=== PATIENT | female | born 1935 | race African-American/Black ===

== ENCOUNTER → 2016-12-09 | Outpatient (CLI) | payer MEDICARE, OTHER ==
[~2016-12-09] MED LIST: ATORVASTATIN CA20 MG PO; BRIMONIDINE OP; CALCITRIOL0.25 MCG PO; CYCLOBENZAPRINE10 MG PO; D-10001 TAB PO; DIPHENHYDRAMINE25 M1 PO; FERROUS GLUCON324 M2 PO; FLONASE 50 MCG16 GM; FSBS FS; GABAPENTIN100 M1 PO; HUMALOG100 U/ML SC; HUMULIN N100 UNITS/ SC; HYDRALAZINE HC100 MG PO; HYDRALAZINE HCL25 M1 PO; INSULIN GL100 UNITS/ SC; IPRATROPIUM BROM3 M1 IH; LASIX20 MG PO; LEVOTHYROXINE0.05 MG PO; LIDOCAINE1 EACH TP; METOLAZONE2.5 MG PO; METOPROLOL TAR100 MG PO; MORPHINE SULFAT15 M4 PO; NEXIUM40 MG PO; NYSTATIN SU60 ML/BOT PO; Novolog100 U/ML SC; PERCOCET 5/3251 EACH PO; PERFOROMIS20 MCG/2 M IH; PREDNISONE 10MG10 MG PO; PROAIR HFA0.09 MG/AC IH; PULMICORT0.5 MG/2 M IN; SINGULAIR 10 MG10 MG PO; TOPCARE PAIN R325 MG PO; ULORIC80 MG PO; WARFARIN SOD5 M1 PO; WARFARIN SOD5 MG PO; XALATAN 0.005%2.5 M1 OP; [UNRECOGNIZED DRUG - OTHER] OP
--- NOTE | 2016-12-09 13:11 | RADIOLOGY REPORT PS360 ---
HIP RT 2-3V W/PELVIS IF PERFOR HISTORY: RT HIP PAIN ORDERING PHYSICIAN: WILLI DUGAN MD PATIENT AGE: 81 years COMPARISON: None FINDINGS: No fracture or dislocation is evident. No significant degenerative change. No lytic or blastic change. Unremarkable soft tissues. There is extensive vascular calcification IMPRESSION: 1. Negative right hip. 2. Atherosclerotic vascular disease
== END ==
LOC: RAD 09:36
DX: M25.551 Pain in right hip (principal)

== ENCOUNTER 2017-01-12 14:55 | Inpatient (IN) | payer MEDICARE, OTHER ==
[~2017-01-12] VITALS: Ht 165.1 cm; Wt 108.0 kg
[2017-01-12 14:58] VITALS: BP 105/69
--- NOTE | 2017-01-12 15:09 | Emergency Room Report ---
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 PT C/O INCREASING SOA FOR THE PAST' TWO DAYS. Onset of symptoms date/time:/ or onset unknown for:MEDICAL HX UNKNOWN Treatment Prior to Arrival: PT STARTED ON DUONEB. 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 N Clinical Suspician of Infection? N Mental Status: 1 - Regular (Normal Baseline) Sepsis Risk:Low Sepsis Risk Have you (or family members/close friends) recently traveled outside the [place]? N If Yes, where/when: Have you had exposure to infectious disease within the past month? N TB? Other? Specify: Recent states the past 2-3 days of progressively worsening shortness of breath she states she has a cough nonproductive that but that she feels congested and can't get anything to come up. He states it feels like chronic obstructive pulmonary disease exacerbation to her. No complain of any leg pain, denies any chest pain. She denies any pain she states only pain she has some low back pain which she stated was chronic for her but she denies any back pain currently. Her pain is 0/10. His nausea vomiting diarrhea headache or abdominal pain or chest pain. on 3 L of oxygen at home. ALLERGIES Coded Allergies: Iodinated Contrast- Oral and IV Dye (IODINATED CONTRAST MEDIA - ORAL AND) (10/27) Penicillins (10/27/16) Sulfa (Sulfonamide Antibiotics) (10/27/16) ciprofloxacin (From CIPRO) (10/27/16) codeine (10/27/16) daptomycin (10/27/16) lactose (10/27/16) propoxyphene (10/27/16) Home Medications Active Scripts Oxycodone 5MG/[id number] (Oxycodone-Acetaminophen 5-325) 1 EACH PO Q6H 30 Days Prov: 11/02/16 Insulin Lispro, Recombinant (Humalog 100 UNITS/ML 10ML) 0 UNITS SC W/MEALS& HS 30 Days Ref 3 Prov: 11/02/16 MISCELLANEOUS (Fingerstick Blood Sugar) 1 EACH FS W/MEALS&HS 30 Days Ref 3 Prov: 11/02/16 Reported Medications ATORVASTATIN CALCIUM (ATORVASTATIN 20MG) 20 MG PO QHS Brimonidine Tartrate (Alphagan P 10 Ml) 1 DROP OP BID Calcitriol 0.25 MCG PO DAILY Esomeprazole Magnesium (Nexium 40MG Cap) 40 MG PO DAILY Ferrous Gluconate 324 MG PO DAILY Fluticasone Propionate (Flonase 50 Mcg Nasal [place]) 2 SPRAY NA BID Levothyroxine Sodium (Levothyroxine) 2 TAB PO DAILY Metoprolol Tartrate (Metoprolol 100MG) 100 MG PO BID Hydralazine Hcl 100 MG PO BID Montelukast Sodium (Singulair 10MG) 10 MG PO DAILY Prednisone (Prednisone 10MG) 10 MG PO QAM Febuxostat (Uloric) 80 MG PO QAM Lidocaine 1 EACH TP DAILY #90 PATCH ALBUTEROL-IPRATROPIUM (Iprat-Albut 0.5-3(2.5) MG/3 Ml) 3 ML IH DAILY ALBUTEROL-IPRATROPIUM (Iprat-Albut 0.5-3(2.5) MG/3 Ml) 3 ML IH Q4HP PRN SOB NYSTATIN (Nystatin Susp 100,000 Units/Ml 60ML) 5 ML PO QIDP PRN ANTIFUNGAL Acetaminophen (Pain Relief) 650 MG PO Q6HP PRN MILD PAIN CHOLECALCIFEROL (VITAMIN D3) (Vitamin D) 1 TAB PO DAILY WARFARIN SOD (Warfarin 5MG) 5 MG PO DAILY INSULIN GLARGINE (Lantus 3ML Solostar Pen) 80 UNITS SC DAILY Budesonide (Pulmicort) 0.5 MG IN BID Cyclobenzaprine Hcl (Cyclobenzaprine 10MG) 10 MG PO QHS Formoterol Fumarate (Perforomist) 20 MCG IH BID Furosemide (Lasix) 20 MG PO BID Gabapentin (Gabapentin 100MG) 200 MG PO BID Fluorometholone (FML) 1 DROP OP DAILY Metolazone 2.5 MG PO DAILY #30 TAB History Medical History General CAD? No Angina: No AK: No Hypertension? Yes Hyperlipidemia? Yes CHF? No DVT? No PE? Yes COPD? Yes Asthma? No Anemia? Yes GERD? Yes Gastric ulcers? No GI Bleed? No Hernia? No Thyroid Problems? Yes Hypothyroidism? Yes CVA? No Seizures? No Diabetes? Yes Insulin Dependent: Yes Insulin Pump: No Home FSBS? Yes Renal Insuffiency? Yes End Stage Renal Disease? Yes UTI? Yes Stones? No BPH? No GB Disease: Yes Nephritic Syndrome? No Asplenia? No Hepatitis? No Sickle Cell Disease? No Arthritis? Yes Migraines? No Cataracts? Yes Glaucoma? Yes MRSA? No HIV? No TB? No Anxiety? No Depression? No Cancer? No More? No Additional hx: 1. Polymyositis 2. Fibromyalgia 3. B12 Deficiency 4. Iron Deficiency Anemia 5. Stage III Kidney Disease Immunization Hx DT/Tetanus Unknown Pneumonia Received In Past Surgical Hx Previous Surgery?Y BACK SURGERY NECK SURGERY SHOULDERS BILATERALLY Cholecystectomy TUBAL LIGATION Family History Family Hx Diabetes Yes CAD Yes Hypertension Yes Hyperlipidemia Yes Cancer No TB No Social History Smoking Hx Smoker: Never Smoker Tobacco: No Packs/day N/A Alcohol Alcohol: No Review of Systems All Other Systems Reviewed and Negative Physical Exam Vital Signs Vital Signs Date Time Temp Pulse Resp B/P Pulse O2 O2 Flow FiO2 Ox Delivery Rate 01/12 1652 70 16 120/74 100 01/12 1458 98.5 74 16 105/69 100 15 General Appearance: Nontoxic obese Head: Normocephalic, without obvious abnormality, atraumatic. Eyes: conjunctiva/corneas clear ENT: Mucous membranes moist. Neck: No jugular venous distention. Cardiac: regular rate and rhythm Lungs: wheezes rhonchi to auscultation bilaterally Abdomen: Nontender, Nondistended, positive bowel sounds, no rebound : No CVA tenderness Extremities: trace edema No Homans sign No calf tenderness Musculoskeletal: No chest wall tenderness Skin: No rashes or lesions to exposed skin. Neurologic: Alert. No gross focal deficits Psychiatric: Normal affect (Molly CUBA, Francisco Javier) General Appearance mild distress Respiratory Status Yes: respiratory distress. Cardiovascular normal exam Neurologic alert Medical Decision Making LABS/Meds/Orders Pt receiving controlled substance in ED? No Comment 312pm transfer sheet states bp was 84/56. bp currently in 100s per RN. 324 pc02 70 but ph is normal 7.4, no old abg in computer. bipap ordered 512 call out to Jaime for admission. 520 dw jaime, no desire vancomycin or other antibiotics, dw labs abg wbc cr etc. Results/Orders Laboratory Tests 01/12/17 1510: ABG pH 7.41, ABG pCO2 (Temp Corrct 70.2 H, ABG pO2 (Temp Correct 67.7 L, ABG HCO3 43.2 H, ABG Total CO2 45.4 H, ABG O2 Sat (Calculated) 92.7, ABG Base Excess 18.5 H, Micah Test NON APPLICABLE, Blood Gas Comments RIGHT BRACHIAL 01/12/17 1501: Lactic Acid 1.2 01/12/17 1501: Sodium 141, Potassium 4.6, Chloride 101, Carbon Dioxide 42 *H, BUN 64 H, Creatinine 2.0 H, Estimated Creat Clear 50, Estimated GFR (MDRD) 24 L, Glucose 113 H, Calcium 8.7, Total Bilirubin 0.4, AST 42 H, ALT 41, Alkaline Phosphatase 79, Troponin I < 0.02, B-Natriuretic Peptide 126 H, Total Protein 6.9, Albumin 2.6 L, Globulin 4.3 H, Albumin/Globulin Ratio 0.6 L, PT 48.2 H, INR 4.40 H, APTT 40.1 H, WBC 29.3 *H, RBC 3.24 L, Hgb 10.3 L, Hct 33.7 L, MCV 104.1 H, RDW 15.9, Plt Count 220, MPV 9.5, Gran % 83.8 H, Gran # 24.6 H, Total Counted Pending, Lymphocytes % 4.3 L, Monocytes % 11.5 H, Eosinophils % 0.4, Basophils % 18.7 H, Neutrophils Pending, Lymphocytes (Manual) Pending, Lymphocytes # 1.3, Monocytes # 3.4 H, Eosinophils # 0.1, Basophils # 5.5 H, Platelet Estimate Pending, PUBS MCHC 30.2 L, MCH 31.4 H Current Medication Orders Sig/Isidro Start time Last Medication Dose Route Stop Time Status Admin Sodium Chloride 100 ML .STK-MED ONE 01/12 1610 DC IV Ertapenem 0 .STK-MED ONE 01/12 1609 DCr .ROUTE Ertapenem 1 GM ONCE ONE 01/12 1600 DCr 01/12 Sodium Chloride 50 ML IV 01/12 1629 1616 Albuterol/Ipratropium 0 .STK-MED ONE 01/12 1515 DC INH Sodium Chloride 10 ML PRN PRN 01/12 1515 AC IV 01/13 1504 Albuterol/Ipratropium 0 .STK-MED ONE 01/12 1512 DC INH Methylprednisolone 0 .STK-MED ONE 01/12 1506 DC Sodium Succinate .ROUTE Albuterol/Ipratropium 3 ML ONCE ONE 01/12 1500 DC 01/12 INH 01/12 1501 1517 Albuterol/Ipratropium 3 ML ONCE ONE 01/12 1500 DC 01/12 INH 01/12 1501 1517 Albuterol/Ipratropium 3 ML ONCE ONE 01/12 1500 DC INH 01/12 1501 Methylprednisolone 125 MG ONCE ONE 01/12 1500 DC 01/12 Sodium Succinate IV 01/12 1501 1518 Orders Procedure Date/time Status Decision to admit 01/12 1720 Active BIPAP-INITIAL SETUP 01/12 1609 Complete RESP THERAPY REQUEST (GENERAL) 01/12 1551 Active INFLUENZA A&B ANTIGENS 01/12 1550 Active PARTIAL THROMBOPLASTIN TIME 01/12 1510 Complete PROTHROMBIN TIME 01/12 1510 Complete ELECTROCARDIOGRAM REQUEST 01/12 1504 Active IV SALINE LOCK 01/12 1504 Active DIFFERENTIAL-WBC 01/12 1501 Active RT REQUEST DUONEB 01/12 1459 Active ARTERIAL BLOOD GAS REQUEST 01/12 1459 Active CULTURE, BLOOD 01/12 1459 Active URINALYSIS/COMPLETE 01/12 1459 Active TROPONIN I 01/12 1459 Complete LACTIC ACID 01/12 1459 Complete CBC WITH AUTO DIFF 01/12 1459 Active CHEM 12 PROFILE 01/12 1459 Complete BRAIN NATRIURETIC PEPTIDE 01/12 1459 Complete 12 LEAD EKG-BESSON (INITIAL) 01/12 UNK Active CM/EKG CM/rolled glass 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 Rhythm Normal Sinus Rhythm Rate 74 Ectopy No Comments Electrocardiogram read by myself normal axis unremarkable electrocardiogram EKG NSR Departure Departure Time of Disposition 1713 Disposition Still a Patient Clinical Impression Primary Impression: Pneumonia Qualifiers: Pneumonia type: due to unspecified organism Laterality: bilateral Lung location: lower lobe of lung Qualified Code: J18.9 - Pneumonia, unspecified organism Secondary Impressions: Hypercapnia Condition STABLE Referrals Erik [facility],Manuel (Family) ED Critical Care Critical Care Yes Time spent 30-74 min Vital system(s) involved: Respiratory Failure I was present at bedside for Coordinating pt's care, Interpreting EKGs/Strips , During my initial exam, Reviewing lab results, Reviewing old records, Discussing pt condition, For re-examinations, Examining radiographs at 1723
[2017-01-12 15:19] LABS: ARTERIAL ABE 18.5 MMOL/L (-2.4-+2.3); ARTERIAL PO2 67.7 MMHG (80-100); ARTERIAL TCO2 45.4 MMOL/L (23-27)
[2017-01-12 15:20] LABS: ALLEN'S TEST NON APPLICABLE; OXYGEN 2LPM
[2017-01-12 15:23] LABS: LYMPH # 1.3 K/mm3 (0.7-4.5); LYMPH % 4.3 % (10-50.0)
[2017-01-12 15:30] LABS: HEMOGLOBIN 10.3 g/dL (12.2-16.2)
[2017-01-12 15:38] LABS: BUN 64 mg/dL (7-18)
[2017-01-12 15:49] LABS: GFR (ESTIMATED) 24 ML/MIN (59-)
--- NOTE | 2017-01-12 17:04 | RADIOLOGY REPORT PS360 ---
CHEST-PORTABLE COMPARISON: Portable upright chest 10/27/2016 HISTORY: Shortness of breath and cough TECHNIQUE: Portable upright chest FINDINGS: The patient is morbidly obese and this is a poor inspiration. However there are coarse bronchovascular markings in the right perihilar region and right lower lobe consistent with a pneumonic infiltrate. The left base is probably evaluated due to the poor inspiration and the enlarged left ventricle. There is cardiomegaly with left ventricular prominence but there is no obvious evidence of failure. There is been previous anterior cervical fusion lower cervical spine. IMPRESSION: Poor inspiration, findings suggesting right perihilar and right lower lobe bronchopneumonia, there could be minimal infiltrate at the left base as well but this is poorly seen due to reasons mentioned above.
[2017-01-12 18:04] LABS: NEUTROPHILS 60 % (42-76)
[2017-01-12 20:45] VITALS: BP 121/58
[2017-01-12 21:17] LABS: URINE BILIRUBIN - DIPSTICK NEGATIVE (NEG); URINE BLOOD NEGATIVE (NEG)
[2017-01-12 21:27] VITALS: BP 158/78
[2017-01-12 21:28] LABS: URINE SQUAMOUS CELLS 20-50 #/hpf (0-5)
[2017-01-12 21:29] LABS: URINE RENAL CELLS OCC #/HPF
[2017-01-12 23:45] VITALS: BP 125/73
[2017-01-12] MEDS ORDERED: FOLIC ACID 1MG T1 MG PO (23:56)
[2017-01-12] MEDS ORDERED: DULCOLAX10 M1 RC (23:56)
[2017-01-12] MEDS ORDERED: MILK OF MA400 MG/51 PO (23:58)
[2017-01-12] MEDS ORDERED: NYSTATIN TO30 GM/BOT TP (23:59)
[2017-01-13 04:03] VITALS: BP 132/56
[2017-01-13 07:00] LABS: HEMOGLOBIN 9.4 g/dL (12.2-16.2); LYMPH # 1.3 K/mm3 (0.7-4.5); LYMPH % 4.1 % (10-50.0)
--- NOTE | 2017-01-13 07:19 | PHARMACY CLINIC NOTE ---
Patient Demographics Patient Demographics Admission date: 01/12/17 Date: 01/13/17 Time: 0718 Allergies Coded Allergies: Iodinated Contrast- Oral and IV Dye (IODINATED CONTRAST MEDIA - ORAL AND) (10/27) Penicillins (10/27/16) Sulfa (Sulfonamide Antibiotics) (10/27/16) ciprofloxacin (From CIPRO) (10/27/16) codeine (10/27/16) daptomycin (10/27/16) lactose (10/27/16) propoxyphene (10/27/16) HEIGHT- FT: 5 IN: 5.00 K.387 VTE General Information Labs: Laboratory Tests 01/13 01/12 0628 1501 Coagulation PT (9.4 - 11.8 SECONDS) 48.2 H INR (0.9 - 1.1) 4.40 H APTT (23.6 - 34.0 SECONDS) 40.1 H Hematology Hgb (12.2 - 16.2 g/dL) 9.4 L 10.3 L Hct (37.0 - 47.0 %) 30.1 L 33.7 L Plt Count (142 - 424 K/mm3) 184 220 Disclaimer The following section includes nursing documentation that has been pulled in for pharmacy review. Patient's VTE score: 3 Patient's VTE Risk: LOW RISK Clinical trial participant? No VTE prophylaxis [id number] VTE prophylaxis ordered? Yes Type of prophylaxis/treatment: AKIN at 0718
[2017-01-13 07:48] VITALS: BP 97/67
[2017-01-13] MEDS ORDERED: WARFARIN SODIU7.5 MG PO (08:12)
[2017-01-13] MEDS ORDERED: LASIX80 MG PO (08:15)
--- NOTE | 2017-01-13 08:29 | HISTORY AND PHYSICAL REPORT ---
History and Physical ([facility]) Date of admission: 01/12/17 Chief complaint: SOA, Cough History: History of Present Illness: Ms. Savage is an 81yo female with a hx of Type 2 DM, hypothyroidism, gout, HLP, and COPD. She states over the past 3 days she has developed a cough and been getting progressively more SOA. Her cough has been nonproductive and she can't get anything to come up. She did have a slight amount of chest pain yesterday across her chest. She is normally on 3L of oxygen but her sats have been low even on nasal oxygen. She was evaluated in the ER and found to have pneumonia. She was placed on BIPAP d/t low sats and an elevated CO2. It also appears she may have a UTI. Cx is still pending. She was given a dose of ertapenem in the ER. Past Medical History: Medical History: CAD? No Angina: No AK: No Hypertension? Yes Hyperlipidemia? Yes CHF? No DVT? No PE? Yes COPD? Yes Asthma? No Anemia? Yes GERD? Yes Gastric ulcers? No GI Bleed? No Hernia? No Thyroid Problems? Yes Hypothyroidism? Yes CVA? No Seizures? No Diabetes? Yes Insulin Dependent: Yes Insulin Pump: No Home FSBS? Yes Renal Insuffiency? Yes UTI? Yes Stones? No BPH? No GB Disease: Yes Nephritic Syndrome? No Asplenia? No Hepatitis? No Sickle Cell Disease? No Arthritis? Yes Migraines? No Cataracts? Yes Glaucoma? Yes MRSA? No HIV? No TB? No Anxiety? No Depression? No Cancer? No More? No Additional hx: 1. Polymyositis 2. Fibromyalgia 3. B12 Deficiency 4. Iron Deficiency Anemia 5. Stage III Kidney Disease Surgical history: Previous Surgery?Y BACK SURGERY NECK SURGERY SHOULDERS BILATERALLY Cholecystectomy TUBAL LIGATION I&D ANAL BOIL Medications: Active Scripts Oxycodone 5MG/[id number] (Oxycodone-Acetaminophen 5-325) 1 EACH PO Q6H 30 Days Prov: 11/02/16 Insulin Lispro, Recombinant (Humalog 100 UNITS/ML 10ML) 0 UNITS SC W/MEALS& HS 30 Days Ref 3 Prov: 11/02/16 MISCELLANEOUS (Fingerstick Blood Sugar) 1 EACH FS W/MEALS&HS 30 Days Ref 3 Prov: 11/02/16 Reported Medications ATORVASTATIN CALCIUM (ATORVASTATIN 20MG) 20 MG PO QHS Brimonidine Tartrate (Alphagan P 10 Ml) 1 DROP OP BID Esomeprazole Magnesium (Nexium 40MG Cap) 40 MG PO DAILY Ferrous Gluconate 324 MG PO DAILY Fluticasone Propionate (Flonase 50 Mcg Nasal [place]) 2 SPRAY NA BID Levothyroxine Sodium (Levothyroxine) 2 TAB PO DAILY Metoprolol Tartrate (Metoprolol 100MG) 100 MG PO BID Hydralazine Hcl 100 MG PO BID Montelukast Sodium (Singulair 10MG) 10 MG PO DAILY Prednisone (Prednisone 10MG) 10 MG PO QAM Febuxostat (Uloric) 80 MG PO QAM Lidocaine 1 EACH TP DAILY #90 PATCH ALBUTEROL-IPRATROPIUM (Iprat-Albut 0.5-3(2.5) MG/3 Ml) 3 ML IH DAILY ALBUTEROL-IPRATROPIUM (Iprat-Albut 0.5-3(2.5) MG/3 Ml) 3 ML IH Q4HP PRN SOB NYSTATIN (Nystatin Susp 100,000 Units/Ml 60ML) 5 ML PO QIDP PRN ANTIFUNGAL Acetaminophen (Pain Relief) 650 MG PO Q6HP PRN MILD PAIN CHOLECALCIFEROL (VITAMIN D3) (Vitamin D) 1 TAB PO DAILY INSULIN GLARGINE (Lantus 3ML Solostar Pen) 80 UNITS SC DAILY Calcitriol 0.25 MCG PO MoWeFr WARFARIN SOD (Warfarin 5MG) 5 MG PO SuMoTuThFrSa Metolazone 5 MG PO DAILY #30 TAB WARFARIN SOD (Warfarin 7.5MG) 7.5 MG PO We Furosemide (Lasix) 80 MG PO DAILY Budesonide (Pulmicort) 0.5 MG IN BID Cyclobenzaprine Hcl (Cyclobenzaprine 10MG) 10 MG PO QHS Formoterol Fumarate (Perforomist) 20 MCG IH BID Gabapentin (Gabapentin 100MG) 200 MG PO BID Fluorometholone (FML) 1 DROP OP DAILY Bisacodyl (Dulcolax) 10 MG RC DAILYP PRN BOWELS FOLIC ACID (Folic Acid) 1 MG PO DAILY Magnesium Hydroxide (Milk Of Magnesia U/D 30ML) 30 ML PO DAILYP PRN BOWELS Nystatin (Nystatin 1 Ml) 1 ML NA BID Allergies: Coded Allergies: Iodinated Contrast- Oral and IV Dye (IODINATED CONTRAST MEDIA - ORAL AND) (10/27) Penicillins (10/27/16) Sulfa (Sulfonamide Antibiotics) (10/27/16) ciprofloxacin (From CIPRO) (10/27/16) codeine (10/27/16) daptomycin (10/27/16) lactose (10/27/16) propoxyphene (10/27/16) Family History: Family history: Postive for: CAD, DM, HTN, cancer, stroke. Social History: Smoking Hx Tobacco: No Smoker: Former Smoker Type: N/A Packs/day: N/A Are you exposed to second hand No Alcohol: Alcohol: No Hx of Drug Use: Drug Use? No Review of Systems: Constitutional Positive for: fatigue, lethargy, malaise, weak. ENT No: ear drainage, nasal congestion, sinus problems, sore throat. Cardiovascular Positive for: chest pain, edema. No: palpitations. Respiratory Positive for: shortness of air, non-productive, wheezing. GI No: abdominal pain, diarrhea, nausea, vomitting. (female) Positive for: frequency. No: flank pain, hematuria. Neurological Positive for: weakness. No: dizziness, headache, syncope. Musculoskeletal Positive for: joint pain (right hip). No: extremity pain. Physical Exam: Vital signs: 1ST Vital Signs Result Date Time Pulse Ox 100 01/12 1458 B/P 105/69 01/12 145 O2 Flow Rate 15 01/12 145 Temp 98.5 01/12 145 Pulse 74 01/12 145 Resp 16 01/12 145 O2 Delivery OXYGEN 01/12 2030 Exam: General appearance: alert, awake, no acute distress Eyes: PERRLA, clear drainage from eyes ENT: mucous membranes moist, nose normal, pharynx normal Neck: non-tender, full range of motion, supple Cardiovascular: regular rate & rhythm Respiratory: bilateral wheezing and rhonchi, faint basilar rales ABD: non-distended, normal bowel sounds, no rebound, soft, no tenderness, no guarding Extremities: 2+ pretibial edema bilaterally Musculoskeletal: equal muscle strength, motor intact, sensation intact Skin: normal color Neuro: normal mood/affect, oriented, speech clear Lab data: Labs: Laboratory Tests 01/13/17 0628: Sodium 141, Potassium 5.5 H, Chloride 100, Carbon Dioxide 38 H, BUN 67 H, Creatinine 1.9 H, Estimated Creat Clear 40 L, Estimated GFR (MDRD) 25 L, Glucose 292 H, Calcium 8.6, WBC 31.6 *H, RBC 2.96 L, Hgb 9.4 L, Hct 30.1 L, MCV 102.0 H, RDW 15.9, Plt Count 184, MPV 9.5, Gran % 88.8 H, Gran # 28.0 H, Lymphocytes % 4.1 L, Monocytes % 6.8, Eosinophils % 0.3, Basophils % 6.2 H, Lymphocytes # 1.3, Monocytes # 2.1 H, Eosinophils # 0.1, Basophils # 2.0 H, PUBS MCHC 31.1 L, MCH 31.7 H 01/13/17 0616: POC Glucose 297 H 01/13/17 0151: POC Glucose 222 H 01/12/17 2114: POC Glucose 133 H 01/12/17 2100: Urine Color YELLOW, Urine Appearance SL CLOUDY, Urine pH 7.0, Ur Specific [place] 1.010, Urine Protein NEGATIVE, Urine Ketones NEGATIVE, Urine Blood NEGATIVE, Urine Nitrate POSITIVE H, Urine Bilirubin NEGATIVE, Urine Urobilinogen 0.2, Ur Leukocyte Esterase 1+ H, Urine RBC NONE, Urine WBC 20-50, Ur Squamous Epith Cells 20-50, Urine Renal Cells OCC, Urine Bacteria 4+, Urine Glucose NEGATIVE 01/12/17 1510: ABG pH 7.41, ABG pCO2 (Temp Corrct 70.2 H, ABG pO2 (Temp Correct 67.7 L, ABG HCO3 43.2 H, ABG Total CO2 45.4 H, ABG O2 Sat (Calculated) 92.7, ABG Base Excess 18.5 H, Micah Test NON APPLICABLE, Blood Gas Comments RIGHT BRACHIAL 01/12/17 1501: Lactic Acid 1.2 01/12/17 1501: Sodium 141, Potassium 4.6, Chloride 101, Carbon Dioxide 42 *H, BUN 64 H, Creatinine 2.0 H, Estimated Creat Clear 50, Estimated GFR (MDRD) 24 L, Glucose 113 H, Calcium 8.7, Total Bilirubin 0.4, AST 42 H, ALT 41, Alkaline Phosphatase 79, Troponin I < 0.02, B-Natriuretic Peptide 126 H, Total Protein 6.9, Albumin 2.6 L, Globulin 4.3 H, Albumin/Globulin Ratio 0.6 L, PT 48.2 H, INR 4.40 H, APTT 40.1 H, WBC 29.3 *H, RBC 3.24 L, Hgb 10.3 L, Hct 33.7 L, MCV 104.1 H, RDW 15.9, Plt Count 220, MPV 9.5, Gran % 83.8 H, Gran # 24.6 H, Total Counted 100, Lymphocytes % 4.3 L, Monocytes % 11.5 H, Eosinophils % 0.4, Basophils % 18.7 H, Neutrophils 60, Band Neutrophils 7, Lymphocytes (Manual) 4 L, Lymphocytes # 1.3, Monocytes (Manual) 10 H, Monocytes # 3.4 H, Eosinophils # 0.1, Basophils # 5.5 H, Basophils # (Manual) 12 H, Metamyelocytes 5 *H, Atypical Lymphocytes 2, Platelet Estimate NORMAL, Hypochromasia 1+, Macrocytosis 1+, PUBS MCHC 30.2 L, MCH 31.4 H Microbiology 01/12 2100 URINE CC: Urine Culture - RECD 01/12 1501 BLOOD: Anaerobic Blood Culture - RECD 01/12 1501 BLOOD: Aerobic Blood Culture - RECD 01/12 1501 BLOOD: Anaerobic Blood Culture - RECD 01/12 1501 BLOOD: Aerobic Blood Culture - RECD Radiology results: Results: CXR - Poor inspiration, findings suggesting right perihilar and right lower lobe bronchopneumonia, there could be minimal infiltrate at the left base as well but this is poorly seen Diagnosis(es): 1. Pneumonia Status: Acute 2. Hypercapnia Status: Acute 3. Urinary tract infection Status: Acute 4. Hyperkalemia Status: Acute 5. Supratherapeutic INR Status: Acute 6. Physical debility Status: Chronic 7. Stage 3 chronic kidney disease Status: Chronic 8. Fibromyalgia Status: Chronic 9. Hypothyroidism Status: Chronic 10. History of pulmonary embolism Status: Chronic 11. DM type 2 (diabetes mellitus, type 2) Status: Chronic 12. Hyperlipidemia Status: Chronic 13. Hypertension Status: Chronic 14. COPD (chronic obstructive pulmonary disease) Status: Chronic Plan: Patient only received one dose of ertapenem in the ER. Patient is on prednisone daily so she will be a pseudomonal risk. She also has multiple medication allergies. Will discuss furter abx with Dr. Valencia to cover for her pneumonia and UTI. Will await urine and sputum cx's. She was on nasal oxygen to eat and her sats dropped to 80% so she was started back on BIPAP. Will hold coumadin for now d/t supratherapeutic INR. BP has been low. Will hold BP medication and diuretics as well. Will recheck labs tomorrow. (Alba Shahid) Diagnosis(es): 1. Pneumonia Status: Acute 2. Hypercapnia Status: Acute 3. Urinary tract infection Status: Acute 4. Hyperkalemia Status: Acute 5. Supratherapeutic INR Status: Acute 6. Physical debility Status: Chronic 7. Stage 3 chronic kidney disease Status: Chronic 8. Fibromyalgia Status: Chronic 9. Hypothyroidism Status: Chronic 10. History of pulmonary embolism Status: Chronic 11. DM type 2 (diabetes mellitus, type 2) Status: Chronic 12. Hyperlipidemia Status: Chronic 13. Hypertension Status: Chronic 14. COPD (chronic obstructive pulmonary disease) Status: Chronic Plan: Patient seen and agree with above note. Plan on changing empiric antibiotics to Meropenem and Azithromycin due to risk of Pseudomonas as patient takes steroids on a daily basis, will also add stress dose steroids and AKIN hose. (Manuel Valencia MD) at 0828 at 0905
[2017-01-13 11:53] VITALS: BP 116/58
[2017-01-13 16:15] VITALS: BP 160/56
[2017-01-13 20:27] VITALS: BP 161/61
[2017-01-14] VITALS (7 sets, daily range): BP systolic 130–187; BP diastolic 54–70
[2017-01-14 06:44] LABS: HEMOGLOBIN 8.9 g/dL (12.2-16.2); LYMPH % 0.1 % (10-50.0)
--- NOTE | 2017-01-14 08:17 | ACUTE CARE PROGRESS NOTE (QUA) ---
Progress Notes Subjective Date 01/14/17 Time 0806 Note Pt states she is feeling better today. She slept last night and has been off BIPAP since 4am and on nasal oxygen. Her sats have been in the mid 90's. She states she is finally able to cough up some sputum. Her SOA has improved. She denies any pain. Objective Findings Last VS-Temp:97.7 B/P:181/54 Pulse:83 Resp:22 SaO2:96 OXYGEN Last weight lbs:245 oz:9 [id number] Method:Bed Scales Laboratory Tests 01/14/17 0617: Sodium 142, Potassium 4.4, Chloride 103, Carbon Dioxide 35 H, BUN 62 H, Creatinine 1.6 H, Estimated Creat Clear 48 L, Estimated GFR (MDRD) 31 L, Glucose 387 H, Calcium 8.3 L, Total Bilirubin 0.3, AST 25, ALT 30, Alkaline Phosphatase 76, Total Protein 6.8, Albumin 2.3 L, Globulin 4.5 H, Albumin/ Globulin Ratio 0.5 L, PT 21.0 H, INR 1.93 H, WBC 18.6 H, RBC 2.85 L, Hgb 8.9 L, Hct 29.6 L, MCV 103.8 H, RDW 16.0, Plt Count 193, MPV 9.9, Gran % 90.8 H, Gran # 16.9 H, Lymphocytes % 0.1 L, Monocytes % 4.8, Eosinophils % 0.1, Basophils % 4.3 H, Lymphocytes # 0.0 L, Monocytes # 0.9, Eosinophils # 0.0, Basophils # 0.8 H, PUBS MCHC 29.9 L, MCH 31.1 01/13/17 2136: POC Glucose 453 *H 01/13/17 1638: POC Glucose 331 *H 01/13/17 1203: POC Glucose 386 *H Microbiology 01/13 929 SPUTUM: Sputum Culture - RES 01/13 929 SPUTUM: Gram Stain - RES Exam General appearance: alert, awake, no acute distress Cardiovascular: regular rate & rhythm Respiratory: better air movement, still with some wheezing and rhonchi ABD: non-distended, normal bowel sounds, no rebound, soft, no tenderness, no guarding Extremities: 1+ pretibial edema bilaterally Reviewed: Urine cx - mixed organisms, suggest contamination Assessment/Plan Problem List 1. Pneumonia Status: Acute 2. Hypercapnia Status: Acute 3. Urinary tract infection Status: Acute 4. Hyperkalemia Status: Acute 5. Supratherapeutic INR Status: Acute 6. Physical debility Status: Chronic 7. Stage 3 chronic kidney disease Status: Chronic 8. Fibromyalgia Status: Chronic 9. Hypothyroidism Status: Chronic 10. History of pulmonary embolism Status: Chronic 11. DM type 2 (diabetes mellitus, type 2) Status: Chronic 12. Hyperlipidemia Status: Chronic 13. Hypertension Status: Chronic 14. COPD (chronic obstructive pulmonary disease) Status: Chronic Plan: Will start back on lasix and BP medications since BP is stable today. Will start back on coumadin since INR is now normal. Will await sputum cx. Pt improving. WBC has improved. HGB is slightly low. Will repeat labs tomorrow to monitor. This inpt stay is expected to cross 2 MNs from start of care Yes (Alba Shahid) Assessment/Plan Problem List 1. Pneumonia Status: Acute 2. Hypercapnia Status: Acute 3. Urinary tract infection Status: Acute 4. Hyperkalemia Status: Acute 5. Supratherapeutic INR Status: Acute 6. Physical debility Status: Chronic 7. Stage 3 chronic kidney disease Status: Chronic 8. Fibromyalgia Status: Chronic 9. Hypothyroidism Status: Chronic 10. History of pulmonary embolism Status: Chronic 11. DM type 2 (diabetes mellitus, type 2) Status: Chronic 12. Hyperlipidemia Status: Chronic 13. Hypertension Status: Chronic 14. COPD (chronic obstructive pulmonary disease) Status: Chronic Comments: Patient seen and agree with above note. (Manuel Valencia MD) at 0817 at 0854
[2017-01-14 10:43] LABS: NEUTROPHILS 86 % (42-76)
[2017-01-15] VITALS (8 sets, daily range): BP systolic 141–179; BP diastolic 62–100
[2017-01-15 06:23] LABS: HEMOGLOBIN 9.1 g/dL (12.2-16.2); LYMPH # 0.9 K/mm3 (0.7-4.5); LYMPH % 6.1 % (10-50.0)
--- NOTE | 2017-01-15 09:06 | ACUTE CARE PROGRESS NOTE (QUA) ---
Progress Notes Subjective Date 01/15/17 Time 0903 Note Resting comfortably. Rattling cough. Asks about her eye drops and Performist. Objective Findings Last VS-Temp:98.1 B/P:158/62 Pulse:70 Resp:20 SaO2:96 OXYGEN Last weight lbs:245 oz:9 K.387 Method:Bed Scales Exam General appearance: alert, no acute distress Eyes: anicteric, PERRLA ENT: mucous membranes moist Cardiovascular: regular rate & rhythm Respiratory: good air movement, no respiratory distress ABD: soft, no tenderness Extremities: edema (trace) Musculoskeletal: equal muscle strength Skin: dry, intact Neuro: alert, no deficit, oriented, speech clear Reviewed: medications, vital signs, lab results, radiology report Assessment/Plan Problem List 1. Pneumonia Status: Acute 2. Hypercapnia Status: Acute 3. Urinary tract infection Status: Acute 4. Hyperkalemia Status: Acute 5. Supratherapeutic INR Status: Acute 6. Physical debility Status: Chronic 7. Stage 3 chronic kidney disease Status: Chronic 8. Fibromyalgia Status: Chronic 9. Hypothyroidism Status: Chronic 10. History of pulmonary embolism Status: Chronic 11. DM type 2 (diabetes mellitus, type 2) Status: Chronic 12. Hyperlipidemia Status: Chronic 13. Hypertension Status: Chronic 14. COPD (chronic obstructive pulmonary disease) Status: Chronic Plan: continue current care This inpt stay is expected to cross 2 MNs from start of care Yes at 0906
[2017-01-16] VITALS (8 sets, daily range): BP systolic 137–184; BP diastolic 64–89
--- NOTE | 2017-01-16 10:53 | ACUTE CARE PROGRESS NOTE (QUA) ---
Progress Notes Subjective Date 01/16/17 Time 1047 Note She states that she had vertigo all day yesterday. Examination of her eyes this morning does not reveal vertigo but she has bilateral chemosis worse on the RIGHT. She has a low IV fluid rate however. And her tongue appears slightly dry. She has a trace of leg edema. She has good air movement bilaterally with bronchial breath sounds. I do not hear rales at this time. Objective Findings Last VS-Temp:98.5 B/P:159/89 Pulse:60 Resp:18 SaO2:95 OXYGEN Last weight lbs:245 oz:9 K.387 Method:Bed Scales Exam General appearance: alert, no acute distress Eyes: anicteric, chemosis, worse on the RIGHT ENT: dry mucous membranes Cardiovascular: regular rate & rhythm Respiratory: aerating well ABD: soft, no tenderness Extremities: edema (trace, chronic) Skin: dry, intact Neuro: alert, oriented Reviewed: medications, vital signs, lab results Assessment/Plan Problem List 1. Pneumonia Status: Acute 2. Hypercapnia Status: Acute 3. Urinary tract infection Status: Acute 4. Hyperkalemia Status: Acute 5. Supratherapeutic INR Status: Acute 6. Physical debility Status: Chronic 7. Stage 3 chronic kidney disease Status: Chronic 8. Fibromyalgia Status: Chronic 9. Hypothyroidism Status: Chronic 10. History of pulmonary embolism Status: Chronic 11. DM type 2 (diabetes mellitus, type 2) Status: Chronic 12. Hyperlipidemia Status: Chronic 13. Hypertension Status: Chronic 14. COPD (chronic obstructive pulmonary disease) Status: Chronic Patient condition Stable Plan: continue current care, the nurse expressed some concerns about possible aspiration when eating. Modified barium swallow ordered This inpt stay is expected to cross 2 MNs from start of care Yes Comments: She is not receiving her eyedrops yet. at 1058
--- NOTE | 2017-01-16 13:09 | ACUTE CARE PROGRESS NOTE (QUA) ---
Progress Notes Subjective Date 01/16/17 Time 1308 Assessment/Plan Problem List 1. Pneumonia Status: Acute 2. Hypercapnia Status: Acute 3. Urinary tract infection Status: Acute 4. Hyperkalemia Status: Acute 5. Supratherapeutic INR Status: Acute 6. Physical debility Status: Chronic 7. Stage 3 chronic kidney disease Status: Chronic 8. Fibromyalgia Status: Chronic 9. Hypothyroidism Status: Chronic 10. History of pulmonary embolism Status: Chronic 11. DM type 2 (diabetes mellitus, type 2) Status: Chronic 12. Hyperlipidemia Status: Chronic 13. Hypertension Status: Chronic 14. COPD (chronic obstructive pulmonary disease) Status: Chronic This inpt stay is expected to cross 2 MNs from start of care Yes Antibiotic Stewardship (2) Current Culture Results Microbiology 01/13 929 SPUTUM: Sputum Culture - RES YEAST 01/13 09 SPUTUM: Gram Stain - RES 01/12 2100 URINE CC: Urine Culture - COMP 01/12 1501 BLOOD: Anaerobic Blood Culture - RES 01/12 1501 BLOOD: Aerobic Blood Culture - RES Infxn that will respond? Yes Right drug,dose,and route? Yes More targeted antbx? No at 1303
[2017-01-17] VITALS (7 sets, daily range): BP systolic 136–176; BP diastolic 63–104
--- NOTE | 2017-01-17 08:26 | ACUTE CARE PROGRESS NOTE (QUA) ---
Progress Notes Subjective Date 01/17/17 Time 0745 Note Thinks she is better; not as SOB; has a productive cough; did sleep well last night; eating without problems; voiding QS and bowels are moving. Has not been OOB as yet. Objective Findings Laboratory Tests 01/17/17 0608: POC Glucose 192 H 01/17/17 0450: PT 18.5 H, INR 1.70 H 01/16/17 2052: POC Glucose 191 H 01/16/17 1656: POC Glucose 406 *H 01/16/17 1149: POC Glucose 218 H Vital Signs Date Time Temp Pulse Resp B/P Pulse O2 O2 Flow FiO2 Ox Delivery Rate 01/17 629 2 01/17 06 2 01/17 0554 94 OXYGEN 2 01/17 045 2 01/17 0340 2 01/17 034 98.0 64 20 142/63 94 OXYGEN 2 01/17 0259 88 ROOM AIR 01/17 0254 2 01/17 0157 2 01/17 0100 2 01/17 0027 98.1 60 24 147/79 94 OXYGEN 2 01/17 0026 2 01/16 2302 2 01/16 2200 2 01/16 210 2 01/16 1945 97.8 64 22 184/65 97 2 01/16 1933 2 01/16 193 97.8 64 22 184/65 97 OXYGEN 2 01/16 191 2 01/16 1600 98.0 70 20 152/74 100 OXYGEN 01/16 1200 98.1 99 22 165/83 94 OXYGEN 01/16 0900 2 01/16 0900 98.5 60 18 159/89 95 2 Current Medications Warfarin Sodium 7.5 MG We@1100 PO Insulin Human [rDNA origin] 0 .STK-MED ONE SC (DC) Insulin Human [rDNA origin] 0 .STK-MED ONE SC (DC) Fluorometholone 1 DROP DAILY OP Warfarin Sodium 5 MG SuMoTuThFrSa@1100 PO Pantoprazole Sodium 40 MG QHS PO Furosemide 80 MG DAILY PO Hydralazine HCl 100 MG BID PO Insulin Glargine 30 UNITS BID SC Metoprolol Tartrate 100 MG BID PO Insulin Human [rDNA origin] SEE ADMIN CRITERIA W/MEALS&HS SC Diagnostic Test (Pha) 1 EACH W/MEALS&HS FS Azithromycin 500 MG DAILY IV Sodium Chloride 250 ML Meropenem 1 GM Q12 IV (r) Sodium Chloride 100 ML Methylprednisolone Sodium Succinate 80 MG Q8 IV Budesonide 0.5 MG Q12H6 INH Gabapentin 200 MG BID PO Levothyroxine Sodium 0.1 MG DAILY PO Montelukast Sodium 10 MG DAILY PO Sodium Chloride 10 ML PRN PRN IV Albuterol/Ipratropium 3 ML Q6H6 INH Atorvastatin Calcium 20 MG QHS PO Ferrous Sulfate 325 MG BID PO Acetaminophen 650 MG Q4HP PRN PO Influenza Virus Vaccine Quadrival 0.5 ML PRN PRN IM Ondansetron HCl 4 MG Q6HP PRN IV Sodium Chloride 1,000 ML .Q25H IV 01/16 1500 10 2300 01/17 0700 Intake Total 360 480 Output Total 2500 Balance 360 -2020 Intake, Oral 360 480 Output, Stool Output, Urine 2500 Patient 238 lb Weight Last VS-Temp:98.0 B/P:142/63 Pulse:64 Resp:20 SaO2:94 OXYGEN Last weight lbs:238 oz:1 K.983 Method:Bed Scales > SPUTUM CULTURE Final 01/17/17 Organism 1 STAPHYLOCOCCUS AUREUS Organism 2 YEAST YEAST ISOLATED. PLEASE CONTACT LAB IF FURTHER ID REQUIRED. LAB WILL HOLD YEAST FOR 5 DAYS. 1. STAPHYLOCOCCUS AUREUS RX AB M.I.C ROUTE COST I ------ -- --------- ----- ------ TRIMETH/SULFAMETH (BACTRIM) S <=10 CLINDAMYCIN S <=0.25 ERYTHROMYCIN R >=8 GENTAMICIN S <=0.5 LEVOFLOXACIN R 0.25 OXACILLIN S <=0.25 BENZYLPENICILLIN R >=0.5 RIFAMPIN S <=0.5 TETRACYCLINE S <=1 VANCOMYCIN S 1 Exam General appearance: alert, active, no acute distress Cardiovascular: regular rate & rhythm Respiratory: clear to auscultation (bilat anterior and posterior), good air movement (bilaterally) ABD: soft, no tenderness, no guarding, bowel sounds present Extremities: calf tenderness (bilateral), edema (left lower) Assessment/Plan Problem List 1. Pneumonia Status: Acute 2. Hypercapnia Status: Acute 3. Urinary tract infection Status: Acute 4. Hyperkalemia Status: Acute 5. Physical debility Status: Chronic 6. Stage 3 chronic kidney disease Status: Chronic 7. Fibromyalgia Status: Chronic 8. Hypothyroidism Status: Chronic 9. History of pulmonary embolism Status: Chronic 10. DM type 2 (diabetes mellitus, type 2) Status: Chronic 11. Hyperlipidemia Status: Chronic 12. Hypertension Status: Chronic 13. COPD (chronic obstructive pulmonary disease) Status: Chronic Patient condition Improved Plan: continue current care, check CBC in AM; repeat CXR; OOB, will start on diflucan This inpt stay is expected to cross 2 MNs from start of care Yes (Lidia Enriquez APRN) Assessment/Plan Problem List 1. Pneumonia Status: Acute 2. Hypercapnia Status: Acute 3. Urinary tract infection Status: Acute 4. Hyperkalemia Status: Acute 5. Physical debility Status: Chronic 6. Stage 3 chronic kidney disease Status: Chronic 7. Fibromyalgia Status: Chronic 8. Hypothyroidism Status: Chronic 9. History of pulmonary embolism Status: Chronic 10. DM type 2 (diabetes mellitus, type 2) Status: Chronic 11. Hyperlipidemia Status: Chronic 12. Hypertension Status: Chronic 13. COPD (chronic obstructive pulmonary disease) Status: Chronic Comments: Patient seen and agree with above note. (Manuel Valencia MD) at 0900 at 0901
--- NOTE | 2017-01-17 10:32 | RADIOLOGY REPORT PS360 ---
CHEST(2 VIEWS-NOT PORTABLE) HISTORY: pneumonia ORDERING PHYSICIAN: Manuel Valencia MD PATIENT AGE: 81 years COMPARISON: 01/12/2017 FINDINGS: There is cardiomegaly without failure. Bilateral lower lobe pneumonia has shown some improvement compared to the previous exam. There remains some patchy airspace disease in both lower lobes with elevated right hemidiaphragm once again noted. No acute bony findings. Degenerative changes are present in the left shoulder. IMPRESSION: Cardiomegaly with improving bilateral lower lobe pneumonia
--- NOTE | 2017-01-17 14:56 | ST MODIFIED BARIUM SWALLOW ---
SUBJECTIVE-DYSPHAGIA Date: 01/17/17 Time: 1345 Eval Type: Initial Certification - Admitted Date: 01/12/17 Primary Diagnosis: PNEUMONIA Reason for Consult: DYSPHAGIA Pt/Caregiver Concerns: RULE OUT SILENT ASPIRATION Onset of symptoms- MEDICAL HX UNKNOWN Symptoms have worsened? NO improved? NO resolved? NO since onset. Current Diet: Regular diet with chopped meats/thin liquids Allergies Coded Allergies: Iodinated Contrast- Oral and IV Dye (IODINATED CONTRAST MEDIA - ORAL AND) (10/27) Penicillins (10/27/16) Sulfa (Sulfonamide Antibiotics) (10/27/16) ciprofloxacin (From CIPRO) (10/27/16) codeine (10/27/16) daptomycin (10/27/16) lactose (10/27/16) propoxyphene (10/27/16) Home Medications Active Scripts Oxycodone 5MG/[id number] (Oxycodone-Acetaminophen 5-325) 1 EACH PO Q6H 30 Days Prov: 11/02/16 Insulin Lispro, Recombinant (Humalog 100 UNITS/ML 10ML) 0 UNITS SC W/MEALS& HS 30 Days Ref 3 Prov: 11/02/16 MISCELLANEOUS (Fingerstick Blood Sugar) 1 EACH FS W/MEALS&HS 30 Days Ref 3 Prov: 11/02/16 Reported Medications ATORVASTATIN CALCIUM (ATORVASTATIN 20MG) 20 MG PO QHS Brimonidine Tartrate (Alphagan P 10 Ml) 1 DROP OP BID Esomeprazole Magnesium (Nexium 40MG Cap) 40 MG PO DAILY Ferrous Gluconate 324 MG PO DAILY Fluticasone Propionate (Flonase 50 Mcg Nasal [place]) 2 SPRAY NA BID Levothyroxine Sodium (Levothyroxine) 2 TAB PO DAILY Metoprolol Tartrate (Metoprolol 100MG) 100 MG PO BID Hydralazine Hcl 100 MG PO BID Montelukast Sodium (Singulair 10MG) 10 MG PO DAILY Prednisone (Prednisone 10MG) 10 MG PO QAM Febuxostat (Uloric) 80 MG PO QAM Lidocaine 1 EACH TP DAILY #90 PATCH ALBUTEROL-IPRATROPIUM (Iprat-Albut 0.5-3(2.5) MG/3 Ml) 3 ML IH DAILY ALBUTEROL-IPRATROPIUM (Iprat-Albut 0.5-3(2.5) MG/3 Ml) 3 ML IH Q4HP PRN SOB NYSTATIN (Nystatin Susp 100,000 Units/Ml 60ML) 5 ML PO QIDP PRN ANTIFUNGAL Acetaminophen (Pain Relief) 650 MG PO Q6HP PRN MILD PAIN CHOLECALCIFEROL (VITAMIN D3) (Vitamin D) 1 TAB PO DAILY INSULIN GLARGINE (Lantus 3ML Solostar Pen) 80 UNITS SC DAILY Calcitriol 0.25 MCG PO MoWeFr WARFARIN SOD (Warfarin 5MG) 5 MG PO SuMoTuThFrSa Metolazone 5 MG PO DAILY #30 TAB WARFARIN SOD (Warfarin 7.5MG) 7.5 MG PO We Furosemide (Lasix) 80 MG PO DAILY Budesonide (Pulmicort) 0.5 MG IN BID Cyclobenzaprine Hcl (Cyclobenzaprine 10MG) 10 MG PO QHS Formoterol Fumarate (Perforomist) 20 MCG IH BID Gabapentin (Gabapentin 100MG) 200 MG PO BID Fluorometholone (FML) 1 DROP OP DAILY Bisacodyl (Dulcolax) 10 MG RC DAILYP PRN BOWELS FOLIC ACID (Folic Acid) 1 MG PO DAILY Magnesium Hydroxide (Milk Of Magnesia U/D 30ML) 30 ML PO DAILYP PRN BOWELS Nystatin (Nystatin 1 Ml) 1 ML NA BID Is this assessment r/t stroke? No OBJECTIVE COMMUNICATION/COGNITION Barriers to communication/cog? No ORAL-MOTOR STRUCTURE/FUNCTION Structure/Function WFL: Labial, Buccal, Lingual, Velar, Mandibular. Facial Asymmetry None Laryngeal Function Strong: Voluntary Cough, Throat Clearing. Vocal Quality Hoarse, Aphonic Dentition Good dentition RESPIRATORY STATUS/HISTORY Is resp status/hx a concern? Yes Requires Oxygen: Cannula Breathes from mouth? Yes Risk-fatigue due to comp.resp? Yes DYSPHAGIA SIGNS W/CONSISTENCY Any S/S of Dysphagia? No VIDEO SWALLOW REPORT Radiologist: Wilmar CUBA,Micah Bowie Level of consciousness: Alert Position (degrees): 90 ORAL STAGE Consistencies used for study: Thin, Pudding, Solid, Pill, Mixed - WFL: Bolus Formation:, Initiation of Swallow:. - No: Dilan.spilled into pharynx, Oral Residue. PHARYNGEAL STAGE Consistencies used for study: Thin, Pudding, Solid, Pill, Mixed Delayed Swallow Reflex? No Epiglottic Closure WFL Penetration-Laryngeal Vestibul No - Aspiration? No Pharyngeal Residue? No ASSESSMENT/PLAN ASSESSMENT Impression Ms. Savage, an 81 year old female, was referred for a MBS by her physician, Dr. Sandoval to rule out silent aspiration. Ms. Savage is being treated for pneumonia. Ms. Savage was given the following consistencies: thins via straw and open cup, pudding, solid, mixed, and pill with thin wash. No signs of dysphagia noted during assessment. At this time, it is recommended that Ms. Savage remain on current diet of regular with chopped meats and thin liquids. Speech therapy is not warranted at this time. Thank you for this consult. PLAN Rehab Medicare G Code Plan Medicare/G Code eligible? Yes Therapy Discipline Plan: [facility] SPECIALIST PLAN OF CARE G Code Current Status: SWALLOWING (G8996) Current Status Modifier: 1%-19% IMPAIRED (CI) G Code Goal Status: SWALLOWING (G8997) Goal Status Modifier: 1%-19% IMPAIRED (CI) G Code Discharge Status: SWALLOWING (G8998) Discharge Status Modifier: 1%-19% IMPAIRED (CI) If pt's [facility] benefits exhausted If patient's Medicare benefits are exhausted, please review: #Min Spent: 30 at 1456
--- NOTE | 2017-01-17 15:30 | RADIOLOGY REPORT PS360 ---
ESOPHAGUS W/CINERADIOGRAPHY: 01/17/2017 1:52 PM CLINICAL HISTORY: ORDERING PHYSICIAN: Manuel Valencia MD PATIENT AGE: 81 years COMPARISON: TECHNIQUE: Patient administered varying consistencies of barium contrast, while viewed in lateral position under real-time fluoroscopy with cine recording. FLUOROSCOPY TIME: 3 minutes and 10 seconds The study was performed in conjunction with speech pathologist. Please see that report & recommendations. FINDINGS: Patient was given varying consistencies of barium. This consisted of then via straw and open cup, putting, solid, mixed, and pill with thin wash No evidence of aspiration or penetration IMPRESSION: Unremarkable modified barium swallow Please see speech pathologist report and recommendations.
[2017-01-18 04:14] VITALS: BP 156/82
[2017-01-18 06:48] LABS: LYMPH # 1.7 K/mm3 (0.7-4.5); LYMPH % 13.5 % (10-50.0)
[2017-01-18 07:16] LABS: HEMOGLOBIN 10.2 g/dL (12.2-16.2)
--- NOTE | 2017-01-18 07:59 | ACUTE CARE PROGRESS NOTE (QUA) ---
Progress Notes Subjective Date 01/18/17 Time 0730 Note Breathing and feeling better; continues with a productive cough of thick sputum; Denies CP; eating without problems; has been getting up to the BSC and sat in the chair yesterday; BS have been elevated and she thinks she needs more insulin. CXR and WBC's have improved. Objective Findings Laboratory Tests 01/18/17 0629: POC Glucose 117 H 01/18/17 0614: Sodium 145, Potassium 3.7, Chloride 105, Carbon Dioxide 36 H, BUN 70 H, Creatinine 1.3 H, Estimated Creat Clear 57, Estimated GFR (MDRD) 39 L, Glucose 115 H, Calcium 8.9, PT 22.3 H, INR 2.05 H, WBC 12.9 H, RBC 3.28 L, Hgb 10.2 L, Hct 31.8 L, MCV 96.9, RDW 15.7, Plt Count 221, MPV 8.7, Gran % 76.9, Gran # 9.9 H, Lymphocytes % 13.5, Monocytes % 8.0, Eosinophils % 0.0 L, Basophils % 1.6, Lymphocytes # 1.7, Monocytes # 1.0, Eosinophils # 0.0, Basophils # 0.2, PUBS MCHC 32.0, MCH 31.0 01/17/17 2055: POC Glucose 321 *H 01/17/17 1705: POC Glucose 326 *H 01/17/17 1203: POC Glucose 341 *H Vital Signs Date Time Temp Pulse Resp B/P Pulse O2 O2 Flow FiO2 Ox Delivery Rate 01/18 0637 2 01/18 0616 2 01/18 0549 2 01/18 0549 98 OXYGEN 2 01/18 0455 2 01/18 0414 2 01/18 0414 98.1 61 20 156/82 97 OXYGEN 2 01/18 0357 88 ROOM AIR 01/18 0259 2 01/18 0145 2 01/18 0005 25 01/17 2349 2 01/17 2349 97.7 56 18 157/71 92 OXYGEN 2 01/17 2314 2 01/17 2209 2 01/17 2113 2 01/17 2010 2 01/17 2010 97.4 81 20 158/74 99 2 01/17 2010 97.4 81 20 158/74 99 OXYGEN 2 01/17 1902 2 01/17 1830 2 01/17 1830 95 OXYGEN 2 01/17 1709 2 01/17 1600 97.9 75 18 176/87 95 OXYGEN 01/17 1510 2 01/17 1458 2 01/17 1340 2 01/17 1157 97.0 71 20 170/75 95 OXYGEN 01/17 1104 95 OXYGEN 2 01/17 1101 2 01/17 0945 2 01/17 0800 97.6 63 16 159/71 95 2 01/17 0800 97.6 63 16 159/71 95 OXYGEN Current Medications Warfarin Sodium 7.5 MG We@1100 PO Fluconazole 100 MG DAILY PO Insulin Human [rDNA origin] 0 .STK-MED ONE SC (DC) Prednisone 20 MG BID PO Sodium Chloride 10 ML PRN PRN IV Insulin Glargine 0 .STK-MED ONE SC (DC) Insulin Human [rDNA origin] 0 .STK-MED ONE SC (DC) Insulin Human [rDNA origin] 0 .STK-MED ONE SC (DC) Insulin Human [rDNA origin] 0 .STK-MED ONE SC (DC) Fluconazole 200 MG DAILY PO (DC) Fluorometholone 1 DROP DAILY OP Warfarin Sodium 5 MG SuMoTuThFrSa@1100 PO Pantoprazole Sodium 40 MG QHS PO Furosemide 80 MG DAILY PO Hydralazine HCl 100 MG BID PO Insulin Glargine 30 UNITS BID SC Metoprolol Tartrate 100 MG BID PO Insulin Human [rDNA origin] SEE ADMIN CRITERIA W/MEALS&HS SC Diagnostic Test (Pha) 1 EACH W/MEALS&HS FS Azithromycin 500 MG DAILY IV Sodium Chloride 250 ML Meropenem 1 GM Q12 IV (DCr) Sodium Chloride 100 ML Methylprednisolone Sodium Succinate 80 MG Q8 IV (DC) Budesonide 0.5 MG Q12H6 INH Gabapentin 200 MG BID PO Levothyroxine Sodium 0.1 MG DAILY PO Montelukast Sodium 10 MG DAILY PO Sodium Chloride 10 ML PRN PRN IV Albuterol/Ipratropium 3 ML Q6H6 INH Atorvastatin Calcium 20 MG QHS PO Ferrous Sulfate 325 MG BID PO Acetaminophen 650 MG Q4HP PRN PO Influenza Virus Vaccine Quadrival 0.5 ML PRN PRN IM Ondansetron HCl 4 MG Q6HP PRN IV Sodium Chloride 1,000 ML .Q25H IV (DC) 01/17 1500 01/17 2300 01/18 0700 Intake Total 480 1522 Output Total Balance 480 1522 Intake, IV 1282 Intake, Oral 480 240 Output, Stool Last VS-Temp:98.1 B/P:156/82 Pulse:61 Resp:20 SaO2:98 OXYGEN Last weight lbs:238 oz:1 K.983 Method:Bed Scales Exam General appearance: alert, active, no acute distress Cardiovascular: regular rate & rhythm Respiratory: clear to auscultation (bilat anterior and posterior), diminished BS on the right Assessment/Plan Problem List 1. Pneumonia Status: Acute 2. Hypercapnia Status: Acute 3. Urinary tract infection Status: Acute 4. Hyperkalemia Status: Acute 5. Physical debility Status: Chronic 6. Stage 3 chronic kidney disease Status: Chronic 7. Fibromyalgia Status: Chronic 8. Hypothyroidism Status: Chronic 9. History of pulmonary embolism Status: Chronic 10. DM type 2 (diabetes mellitus, type 2) Status: Chronic 11. Hyperlipidemia Status: Chronic 12. Hypertension Status: Chronic 13. COPD (chronic obstructive pulmonary disease) Status: Chronic Patient condition improved Plan: Will discharge today with return to [facility] This inpt stay is expected to cross 2 MNs from start of care No (Lidia Enriquez APRN) Assessment/Plan Problem List 1. Pneumonia Status: Acute 2. Hypercapnia Status: Acute 3. Urinary tract infection Status: Acute 4. Hyperkalemia Status: Acute 5. Physical debility Status: Chronic 6. Stage 3 chronic kidney disease Status: Chronic 7. Fibromyalgia Status: Chronic 8. Hypothyroidism Status: Chronic 9. History of pulmonary embolism Status: Chronic 10. DM type 2 (diabetes mellitus, type 2) Status: Chronic 11. Hyperlipidemia Status: Chronic 12. Hypertension Status: Chronic 13. COPD (chronic obstructive pulmonary disease) Status: Chronic Comments: Patient seen and agree with above note. (Manuel Valencia MD) at 075 at 0823
[2017-01-18 08:00] VITALS: BP 110/89
--- NOTE | 2017-01-18 08:31 | DISCHARGE SUMMARY STANDARD ---
Discharge Summary (FCA2) Date of admission: 01/12/17 Date of discharge: 01/18/17 Problem List: 1. Pneumonia 2. Hypercapnia 3. Urinary tract infection 4. Hyperkalemia 5. Physical debility 6. Stage 3 chronic kidney disease 7. Fibromyalgia 8. Hypothyroidism 9. History of pulmonary embolism 10. DM type 2 (diabetes mellitus, type 2) 11. Hyperlipidemia 12. Hypertension 13. COPD (chronic obstructive pulmonary disease) History of present illness: History of Present Illness: Ms. Savage is an 81yo female with a hx of Type 2 DM, hypothyroidism, gout, HLP, and COPD. She stated she had developed a cough over the previous 3 days and was getting progressively more SOA. Her cough was nonproductive. She did have a slight amount of chest pain across her chest. She was normally on 3L of oxygen but her sats were low even on nasal oxygen. She was evaluated in the ER and found to have pneumonia. She was placed on BIPAP d/t low sats and an elevated CO2. She also appeared she have a UTI. She was given a dose of ertapenem in the ER. Exam on admission: 1ST Vital Signs Result Date Time Pulse Ox 100 01/12 1458 B/P 105/69 01/12 1458 O2 Flow Rate 15 01/12 1458 Temp 98.5 01/12 1458 Pulse 74 01/12 1458 Resp 16 01/12 1458 O2 Delivery OXYGEN 01/12 2030 Exam: General appearance: alert, awake, no acute distress Eyes: PERRLA, clear drainage from eyes ENT: mucous membranes moist, nose normal, pharynx normal Neck: non-tender, full range of motion, supple Cardiovascular: regular rate & rhythm Respiratory: bilateral wheezing and rhonchi, faint basilar rales ABD: non-distended, normal bowel sounds, no rebound, soft, no tenderness, no guarding Extremities: 2+ pretibial edema bilaterally Musculoskeletal: equal muscle strength, motor intact, sensation intact Skin: normal color Neuro: normal mood/affect, oriented, speech clear Hospital Course: On admission patient was started on IV Meropenem and Zithromax, neb TX and steriods. She improved on a daily basis. She did begin to have a productive cough which made her feel better. Blood sugars were elevated and she was covered with sliding scale. She was able to be OOB and tolerated this well. She ate and took fluids well. CXR and WBC improved as above. She had a speech eval with the Impression of no signs of dysphagia during the assessment with recommendations for her to remain on current diabetic diet with chopped meats and thin liquids. On 01/18/17 she was ready for discharge back to [place]. At this time she had minimal leg edema and chest sounded clear. Laboratory data this visit: 01/13/17 0628: Sodium 141, Potassium 5.5 H, Chloride 100, Carbon Dioxide 38 H, BUN 67 H, Creatinine 1.9 H, Estimated Creat Clear 40 L, Estimated GFR (MDRD) 25 L, Glucose 292 H, Calcium 8.6, WBC 31.6 *H, RBC 2.96 L, Hgb 9.4 L, Hct 30.1 L, MCV 102.0 H, RDW 15.9, Plt Count 184, MPV 9.5, Gran % 88.8 H, Gran # 28.0 H, Lymphocytes % 4.1 L, Monocytes % 6.8, Eosinophils % 0.3, Basophils % 6.2 H, Lymphocytes # 1.3, Monocytes # 2.1 H, Eosinophils # 0.1, Basophils # 2.0 H, PUBS MCHC 31.1 L, MCH 31.7 H 01/13/17 0616: POC Glucose 297 H 01/13/17 0151: POC Glucose 222 H 01/12/17 2114: POC Glucose 133 H 01/12/17 2100: Urine Color YELLOW, Urine Appearance SL CLOUDY, Urine pH 7.0, Ur Specific [place] 1.010, Urine Protein NEGATIVE, Urine Ketones NEGATIVE, Urine Blood NEGATIVE, Urine Nitrate POSITIVE H, Urine Bilirubin NEGATIVE, Urine Urobilinogen 0.2, Ur Leukocyte Esterase 1+ H, Urine RBC NONE, Urine WBC 20-50, Ur Squamous Epith Cells 20-50, Urine Renal Cells OCC, Urine Bacteria 4+, Urine Glucose NEGATIVE 01/14/17 0617: Sodium 142, Potassium 4.4, Chloride 103, Carbon Dioxide 35 H, BUN 62 H, Creatinine 1.6 H, Estimated Creat Clear 48 L, Estimated GFR (MDRD) 31 L, Glucose 387 H, Calcium 8.3 L, Total Bilirubin 0.3, AST 25, ALT 30, Alkaline Phosphatase 76, Total Protein 6.8, Albumin 2.3 L, Globulin 4.5 H, Albumin/ Globulin Ratio 0.5 L, PT 21.0 H, INR 1.93 H, WBC 18.6 H, RBC 2.85 L, Hgb 8.9 L, Hct 29.6 L, MCV 103.8 H, RDW 16.0, Plt Count 193, MPV 9.9, Gran % 90.8 H, Gran # 16.9 H, Lymphocytes % 0.1 L, Monocytes % 4.8, Eosinophils % 0.1, Basophils % 4.3 H, Lymphocytes # 0.0 L, Monocytes # 0.9, Eosinophils # 0.0, Basophils # 0.8 H, PUBS MCHC 29.9 L, MCH 31.1 01/13/17 2136: POC Glucose 453 *H 01/13/17 1638: POC Glucose 331 *H 01/13/17 1203: POC Glucose 386 *H SPUTUM CULTURE Final 01/17/17 Organism 1 STAPHYLOCOCCUS AUREUS Organism 2 YEAST YEAST ISOLATED. PLEASE CONTACT LAB IF FURTHER ID REQUIRED. LAB WILL HOLD YEAST FOR 5 DAYS. 1. STAPHYLOCOCCUS AUREUS RX AB M.I.C ROUTE COST I ------ -- --------- ----- ------ TRIMETH/SULFAMETH (BACTRIM) S <=10 CLINDAMYCIN S <=0.25 ERYTHROMYCIN R >=8 GENTAMICIN S <=0.5 LEVOFLOXACIN R 0.25 OXACILLIN S <=0.25 BENZYLPENICILLIN R >=0.5 RIFAMPIN S <=0.5 TETRACYCLINE S <=1 VANCOMYCIN S 1 01/18/17 0629: POC Glucose 117 H 01/18/17 0614: Sodium 145, Potassium 3.7, Chloride 105, Carbon Dioxide 36 H, BUN 70 H, Creatinine 1.3 H, Estimated Creat Clear 57, Estimated GFR (MDRD) 39 L, Glucose 115 H, Calcium 8.9, PT 22.3 H, INR 2.05 H, WBC 12.9 H, RBC 3.28 L, Hgb 10.2 L, Hct 31.8 L, MCV 96.9, RDW 15.7, Plt Count 221, MPV 8.7, Gran % 76.9, Gran # 9.9 H, Lymphocytes % 13.5, Monocytes % 8.0, Eosinophils % 0.0 L, Basophils % 1.6, Lymphocytes # 1.7, Monocytes # 1.0, Eosinophils # 0.0, Basophils # 0.2, PUBS MCHC 32.0, MCH 31.0 01/17/17 2055: POC Glucose 321 *H 01/17/17 1705: POC Glucose 326 *H 01/17/17 1203: POC Glucose 341 *H Imagin01/12/17 CXR IMPRESSION: Poor inspiration, findings suggesting right perihilar and right lower lobe bronchopneumonia, there could be minimal infiltrate at the left base as well but this is poorly seen due to reasons mentioned above. 01/17/17 IMPRESSION: Cardiomegaly with improving bilateral lower lobe pneumonia 01/17/17 Barium swallow IMPRESSION: Unremarkable modified barium swallow Please see speech pathologist report and recommendations. Discharge medications: Stop taking the following medications: Prednisone (Prednisone 10MG) 10 MG TABLET ORAL EVERY MORNING INSULIN GLARGINE (Lantus 3ML Solostar Pen) 100 UNIT/ML VIAL Subcutaneous Injection DAILY Continue taking these medications: ATORVASTATIN CALCIUM (ATORVASTATIN 20MG) 20 MG TABLET 20 MILLIGRAM ORAL AT BEDTIME NIGHTLY Brimonidine Tartrate (Alphagan P 10 Ml) 5 ML DROPS 1 DROP OPHTHALMIC TWICE A DAY Instructions: LEFT EYE Budesonide (Pulmicort) 0.5 MG/2 ML AMPUL.NEB 0.5 MILLIGRAM IN VITRO TWICE A DAY Calcitriol (Calcitriol) 0.25 MCG CAPSULE 0.25 MICROGRAM ORAL MoWeFr Cyclobenzaprine Hcl (Cyclobenzaprine 10MG) 10 MG TABLET 10 MILLIGRAM ORAL AT BEDTIME NIGHTLY Esomeprazole Magnesium (Nexium 40MG Cap) 40 MG CAP 40 MILLIGRAM ORAL DAILY Ferrous Gluconate (Ferrous Gluconate) 324 MG TABLET 324 MILLIGRAM ORAL DAILY Fluticasone Propionate (Flonase 50 Mcg Nasal [place]) 16 GM SPRAY.SUSP 2 SPRAY Nasal TWICE A DAY Formoterol Fumarate (Perforomist) 20 MCG/2 ML VIAL.NEB 20 MICROGRAM INHALATION TWICE A DAY Gabapentin (Gabapentin 100MG) 100 MG CAPSULE 200 MILLIGRAM ORAL TWICE A DAY Fluorometholone (FML) 5 ML DROPS.SUSP 1 DROP OPHTHALMIC DAILY WARFARIN SOD (Warfarin 5MG) 5 MG TABLET 5 MILLIGRAM ORAL SuMoTuThFrSa Levothyroxine Sodium (Levothyroxine) 50 MCG TABLET 2 TABLET ORAL DAILY Metoprolol Tartrate (Metoprolol 100MG) 100 MG TABLET 100 MILLIGRAM ORAL TWICE A DAY Hydralazine Hcl (Hydralazine Hcl) 100 MG TABLET 100 MILLIGRAM ORAL TWICE A DAY Montelukast Sodium (Singulair 10MG) 10 MG TABLET 10 MILLIGRAM ORAL DAILY Febuxostat (Uloric) 80 MG TABLET 80 MILLIGRAM ORAL EVERY MORNING Metolazone (Metolazone) 2.5 MG TABLET 5 MILLIGRAM ORAL DAILY Qty = 30 Comments: TAKE 30 TO 40 MINUTES BEFORE THE AM FUROSEMIDE - Lidocaine (Lidocaine) 1 EACH ADH..PATCH 1 EACH TOPICAL DAILY Qty = 90 Instructions: ON 12 HOURS, OFF 12 HOURS ALBUTEROL-IPRATROPIUM (Iprat-Albut 0.5-3(2.5) MG/3 Ml) 3 ML AMPUL.NEB 3 MILLILITER INHALATION DAILY ALBUTEROL-IPRATROPIUM (Iprat-Albut 0.5-3(2.5) MG/3 Ml) 3 ML AMPUL.NEB 3 MILLILITER INHALATION EVERY 4 HOURS NEEDED as needed for SOB NYSTATIN (Nystatin Susp 100,000 Units/Ml 60ML) 100,000 UNIT/1 ML ORAL.SUSP 5 MILLILITER ORAL FOUR TIMES A DAY NEEDED as needed for ANTIFUNGAL Acetaminophen (Pain Relief) 325 MG TABLET 650 MILLIGRAM ORAL EVERY 6 HOURS NEEDED as needed for MILD PAIN CHOLECALCIFEROL (VITAMIN D3) (Vitamin D) 1,000 UNIT TABLET 1 TABLET ORAL DAILY Oxycodone 5MG/[id number] (Oxycodone-Acetaminophen 5-325) 5 MG/325 MG TAB 1 EACH ORAL EVERY 6 HOURS Days = 30 Comments: written by Dr. Valencia Insulin Lispro, Recombinant (Humalog 100 UNITS/ML 10ML) 100 UNIT/ML VIAL 0 UNITS Subcutaneous Injection WITH MEALS & AT BEDTIME Days = 30 Instructions: SEE ADMIN CRITERIA FOR HI INTENSITY SS MISCELLANEOUS (Fingerstick Blood Sugar) 1 DEV DEV 1 EACH FINGER STICK WITH MEALS & AT BEDTIME Days = 30 Bisacodyl (Dulcolax) 10 MG SUPP.RECT 10 MILLIGRAM RECTAL DAILY NEEDED as needed for BOWELS FOLIC ACID (Folic Acid) 1 MG TABLET 1 MILLIGRAM ORAL DAILY Magnesium Hydroxide (Milk Of Magnesia U/D 30ML) 400 MG/5 ML ORAL.SUSP 30 MILLILITER ORAL DAILY NEEDED as needed for BOWELS Nystatin (Nystatin 1 Ml) 1 EACH POWDER.EA. 1 MILLILITER Nasal TWICE A DAY WARFARIN SOD (Warfarin 7.5MG) 7.5 MG TABLET 7.5 MILLIGRAM ORAL We Furosemide (Lasix) 80 MG TABLET 80 MILLIGRAM ORAL DAILY Start taking the following new medications: Insulin Glargine, Recombinan (Lantus Solostar 3ML) 100 UNIT/1 ML INSULN.PEN 40 UNITS Subcutaneous Injection DAILY Days = 30 No Refills Insulin Lispro (Humalog Kwikpen) 100 UNIT/1 ML INSULN.PEN 6 UNIT SUB-Q BEFORE MEALS Days = 30 No Refills Instructions: Please use this in combination with the sliding scale Azithromycin (Zithromax) 500 MG TABLET 500 MILLIGRAM ORAL DAILY Days = 5 No Refills Disposition: Discharged to return to [place] in stable and satisfactory condition. To continue with meds as per reconciliation sheet. To continue with diabetic diet. OOB daily and to walk daily as tolerated. Follow-up in the intermediate in 1-2 weeks and prn by Dr. Valencia. (Lidia Enriquez APRN) Problem List: 1. Methicillin susceptible Staphylococcus aureus pneumonia 2. Fungal pneumonia 3. Hypercapnia 4. Urinary tract infection 5. Hyperkalemia 6. Physical debility 7. Stage 3 chronic kidney disease 8. Fibromyalgia 9. Hypothyroidism 10. History of pulmonary embolism 11. DM type 2 (diabetes mellitus, type 2) 12. Hyperlipidemia 13. Hypertension 14. COPD (chronic obstructive pulmonary disease) (Erik CUBA,Manuel) at 0950
[2017-01-18] MEDS ORDERED: LANTUS SOLOS100 U/ML SC (08:55)
[2017-01-18] MEDS ORDERED: HUMALOG KW100 UNIT/1 SQ (08:58)
[2017-01-18] MEDS ORDERED: Zithromax500 MG PO (08:58)
[2017-01-18 09:45] VITALS: BP 110/89
[2017-01-18 11:25] VITALS: BP 110/89
--- OUTSIDE RECORDS SUMMARY | 2017-01-20 14:36 | External Medical Summary Rpt | CCD ---
Author Author , EMIL STEIN Address Unknown Phone [email or web address] Purpose Continuity of Care Document - 10-27-2016 through 2016 Results Labs Lab Lab Date Result Refere Interp Status Commen Order Detail nces retati t Range on Differential panel, method unspecified - (01-14-2017 06:17) LYMPH 3 % 10% - Low complet 017 50% ed 06:17 Macrocy 1+ complet yi 017 ed [Presen 06:17 ce] in Blood Platele NORMAL complet ts 017 ed [Presen 06:17 ce] in Blood by Light microsc opy Urinalysis dipstick W Reflex Microscopic panel in Urine (01-12-2017 21:00) Bacteri 4+ O complet a 017 ed [Presen 21:00 ce] in Urine sedimen t by Light microsc opy Erythro NONE 0 complet cytes 017 ed [Presen 21:00 ce] in Urine sedimen t by Light microsc opy Epithel OCC NONE complet ial 017 ed cells.r 21:00 enal [Presen ce] in Urine sedimen t by Light microsc opy Epithel 20-50 0#/hp complet ial 017 f - ed cells.s 21:00 5#/hp quamous f [Presen ce] in Urine sedimen t by Microsc opy high power field Leukocy 20-50 O complet yi 017 wbc/hpf ed [#/volu 21:00 me] in Urine Urinalysis dipstick W Reflex Microscopic panel in Urine (01-12-2017 21:00) Appeara SL CLEAR complet nce of 017 CLOUDY ed Urine 21:00 Bilirub NEGATIV NEG complet in 017 E ed [Presen 21:00 ce] in Urine by Test strip Erythro NEGATIV NEG complet cytes 017 E ed [Presen 21:00 ce] in Urine Color YELLOW YELLOW complet of 017 ed Urine 21:00 Ketones NEGATIV NEG complet 017 E ed [Presen 21:00 ce] in Urine by Automat ed test strip Mucus 1+ NEG Abnorma complet [Presen 017 l ed ce] in 21:00 Urine sedimen t by Light microsc opy Nitrite POSITIV NEG Abnorma complet 017 E l ed [Presen 21:00 ce] in Urine by Test strip Urobili 0.2 NEG complet nogen 017 ed [Presen 21:00 ce] in Urine by Test strip Gas panel in Arterial blood (01-12-2017 15:10) Arteria NON complet l 017 APPLICA ed patency 15:10 BLE Wrist artery --pre arteria l punctur e SOURCE RIGHT complet 017 BRACHIA ed 15:10 L Differential panel, method unspecified - (01-12-2017 15:01) Hypochr 1+ complet omia 017 ed [Presen 15:01 ce] in Blood LYMPH 4 % 10% - Low complet 017 50% ed 15:01 Macrocy 1+ complet yi 017 ed [Presen 15:01 ce] in Blood Platele NORMAL complet ts 017 ed [Presen 15:01 ce] in Blood by Light microsc opy Differential panel, method unspecified - (11-02-2016 06:30) LYMPH 14 % 10% - Normal complet 017 50% ed 06:30 Platele NORMAL complet ts 017 ed [Presen 06:30 ce] in Blood by Light microsc opy Differential panel, method unspecified - (10-30-2016 06:25) Anisocy 2+ complet tosis 017 ed [Presen 06:25 ce] in Blood LYMPH 9 % 10% - Low complet 017 50% ed 06:25 Platele SLIGHT complet ts 017 DECREAS ed [Presen 06:25 E ce] in Blood by Light microsc opy Blood product special preparation [Type] (10-29-2016 13:57) Blood BLOOD complet product 017 UNIT ed 13:57 RELEASE special prepara tion [Type] Blood product special preparation [Type] (10-29-2016 12:22) Blood BLOOD complet product 017 UNIT ed 12:22 RELEASE special prepara tion [Type] Blood type & Crossmatch panel in Blood (10-29-2016 10:20) Blood NEGATIV NEGATIV complet group 017 E E ed antibod 10:20 y screen [Presen ce] in Serum or Plasma Rh POSITIV complet [Type] 017 E ed in 10:20 Blood ABO O complet group 017 ed [Type] 10:20 in Blood Blood type & Crossmatch panel in Blood (10-29-2016 10:20) Major COMPAT complet crossma 017 ed tch 10:20 [interp retatio n] Major COMPAT complet crossma 017 ed tch 10:20 [interp retatio n] by Immedia te spin Hemoglobin.gastrointestinal [Presence] in Stool (10-28-2016 01:45) Hemoglo POSITIV NEG complet bin.gas 017 E ed trointe 01:45 stinal [Presen ce] in Stool --1st specime n
--- OUTSIDE RECORDS SUMMARY | 2017-01-20 14:36 | External Medical Summary Rpt | CCD ---
Author Author , EMIL STEIN Address Unknown Phone [email or web address] Purpose Continuity of Care Document - 10-27-2016 [...]
--- OUTSIDE RECORDS SUMMARY | 2017-01-20 14:37 | External Medical Summary Rpt | CCD ---
Demographics Preferred Language Irish Marital Status Unknown Amish Affiliation Unknown Race Unknown Ethnic Group Unknown Author Author , EMIL STEIN Address Unknown Phone Immunization No patient found.
--- OUTSIDE RECORDS SUMMARY | 2017-01-20 14:37 | External Medical Summary Rpt | CCD ---
Demographics Preferred Language Portuguese Marital Status Unknown Presybeterian Affiliation Unknown Race Unknown Ethnic Group Unknown Author Author , EMIL STEIN Address Unknown Phone Immunization No patient found.
--- OUTSIDE RECORDS SUMMARY | 2017-01-20 14:40 | External Medical Summary Rpt ---
Author Author [employer], [employer] Organization [employer] Address Unknown Phone Unavailable Results Glucose [Mass/volume] in Capillary blood by Glucometer Observa Value Referen Units Interpr Notes Date tion ce etation Range Glucose 70 - 110 mg/dl High No Oct 7 [Mass/vol informati 2017 6:20 ume] in on in AM Capillary source blood by data Glucomete r Basic metabolic panel in Blood Observa Value Referen Units Interpr Notes Date tion ce etation Range Urea 7 - 18 mg/dL High No Oct 7 nitrogen informati 2017 5:50 [Mass/vol on in AM ume] in source Serum or data Plasma Calcium 8.5 - mg/dL Normal No Oct 7 [Mass/vol 10.1 informati 2017 5:50 ume] in on in AM Serum or source Plasma data Chloride 98 - 107 mmoL/L Normal No Oct 7 [Moles/vo informati 2017 5:50 lume] in on in AM Serum or source Plasma data Carbon 21.0 - mmoL/L High No Oct 7 dioxide, 32.0 informati 2017 5:50 total on in AM [Moles/vo source lume] in data Serum or Plasma Creatinin 0.55 - mg/dL High No Oct 7 e 1.02 informati 2017 5:50 [Mass/vol on in AM ume] in source Serum or data Plasma Creatinin 50 - 200 ML/MIN Normal No Oct 7 e renal informati 2017 5:50 clearance on in AM source predicted data by Cockcroft -Gault formula Estimated 59- ML/MIN Low REFERENCE Oct 7 RANGE: 2017 5:50 glomerula >60 AM r ML/MIN/1. filtratio 73 SQUARE n rate METERSIf (GF this patient is -A merican, then multiply theresult by 1.210. Glucose 74 - 106 mg/dL High No Oct 7 [Mass/vol informati 2017 5:50 ume] in on in AM Serum or source Plasma data Potassium 3.5 - 5.1 mmoL/L Normal No Jan 7 informati 2016 5:50 [Moles/vo on in AM lume] in source Serum or data Plasma Sodium 136 - 145 mmoL/L Normal No Jan 7 [Moles/vo informati 2016 5:50 lume] in on in AM Serum or source Plasma data CBC W Auto Differential panel in Blood Observa Value Referen Units Interpr Notes Date tion ce etation Range Basophils 0 - 0.2 K/MM3 High No Jan 7 informati 2016 5:50 [#/volume on in AM ] in source Blood by data Automated count Basophils 0.1 - 2.0 % High No Jan 7 /100 informati 2017 5:50 leukocyte on in AM s in source Blood by data Automated count Eosinophi 0.0 - 0.4 K/mm3 Normal No Jan 7 ls informati 2016 5:50 [#/volume on in AM ] in source Blood by data Automated count Eosinophi 0.1 - % Normal No Jan 7 ls/100 12.0 informati 2016 5:50 leukocyte on in AM s in source Blood by data Automated count Granulocy 1.8 - 7.8 K/mm3 High No Jan 7 iy informati 2017 5:50 [#/volume on in AM ] in source Blood by data Automated count Granulocy 37.0 - % High No Jan 7 yi/100 80.0 informati 2016 5:50 leukocyte on in AM s in source Blood by data Automated count Hematocri 37.0 - % Low No Jan 7 t [Volume 47.0 informati 2016 5:50 on in AM Fraction] source of Blood data Hemoglobi 12.2 - g/dL Low No Jan 15 n 16.2 informati 2016 5:50 [Mass/vol on in AM ume] in source Blood data Lymphocyt 0.7 - 4.5 K/mm3 Normal No Jan 7 es informati 2016 5:50 [#/volume on in AM ] in source Unspecifi data ed specimen by Automated count Lymphocyt 10 - 50.0 % Low No Jan 15 es informati 2016 5:50 [#/volume on in AM ] in source Unspecifi data ed specimen by Automated count Erythrocy 27 - 31.2 pg High No Jan 7 te mean informati 2016 5:50 corpuscul on in AM ar source hemoglobi data n [Entitic mass] Erythrocy 31.8 - g/dl Low No Jan 7 te mean 35.4 informati 2016 5:50 corpuscul on in AM ar source hemoglobi data n concentra tion [Mass/vol ume] by Automated count Erythrocy 82.2 - fl High No Oct 7 te mean 97.8 informati 2016 5:50 corpuscul on in AM ar volume source [Entitic data volume] by Automated count Monocytes 0.1 - 1.0 K/mm3 Normal No Oct 7 informati 2016 5:50 [#/volume on in AM ] in source Blood by data Automated count Monocytes 1.7 - 9.3 % Normal No Oct 7 /100 informati 2017 5:50 leukocyte on in AM s in source Blood by data Automated count Platelet 7.4 - fl Normal No Jan 7 mean 10.4 informati 2016 5:50 volume on in AM [Entitic source volume] data in Blood by Automated count Platelets 142 - 424 K/mm3 Normal No Oct 7 informati 2016 5:50 [#/volume on in AM ] in source Blood data Erythrocy 4.2 - 5.4 M/mm3 Low No Jan 7 yi informati 2016 5:50 [#/volume on in AM ] in source Amniotic data fluid Erythrocy 11.5 - % Normal No Oct 7 te 17.5 informati 2016 5:50 distribut on in AM ion width source [Entitic data volume] by Automated count Leukocyte 4.8 - K/MM3 High No Oct 7 s 10.8 informati 2016 5:50 [#/volume on in AM ] in source Blood data Glucose [Mass/volume] in Capillary blood by Glucometer Observa Value Referen Units Interpr Notes Date ti ce etation Range Glucose 70 - 110 mg/dl High No Jan 7 [Mass/vol informati 2017 4:47 ume] in on in AM Capillary source blood by data Glucomete r Glucose [Mass/volume] in Capillary blood by Glucometer Observa Value Referen Units Interpr Notes Date ti ce etation Range Glucose 70 - 110 mg/dl High No Oct 7 [Mass/vol informati 2017 ume] in on in 12:35 AM Capillary source blood by data Glucomete r Glucose [Mass/volume] in Capillary blood by Glucometer Observa Value Referen Units Interpr Notes Date ti ce etation Range Glucose 70 - 110 mg/dl High No Oct 6 [Mass/vol informati 2017 9:39 ume] in on in PM Capillary source blood by data Glucomete r Glucose [Mass/volume] in Capillary blood by Glucometer Observa Value Referen Units Interpr Notes Date tion ce etation Range Glucose 70 - 110 mg/dl No No Oct 6 [Mass/vol informati informati 2017 7:55 ume] in on in on in PM Capillary source source blood by data data Glucomete r Glucose [Mass/volume] in Capillary blood by Glucometer Observa Value Referen Units Interpr Notes Date tion ce etation Range Glucose 70 - 110 mg/dl High No Jan 6 [Mass/vol informati 2017 4:27 ume] in on in PM Capillary source blood by data Glucomete r Glucose [Mass/volume] in Capillary blood by Glucometer Observa Value Referen Units Interpr Notes Date tion ce etation Range Glucose 70 - 110 mg/dl High No Jan 6 [Mass/vol alert informati 2017 2:14 ume] in on in PM Capillary source blood by data Glucomete r Glucose [Mass/volume] in Serum or Plasma Observa Value Referen Units Interpr Notes Date ti ce etation Range HIGH FINGERSTICK GLUCOSE LEVEL. VEIN DRAW CONFIRMATION Glucose 74 - 106 mg/dL High Jan 14 [Mass/vol alert 2016 ume] in CRITICAL 11:45 AM Serum or RESULTS Plasma RESU LTS CALLED TO: ALBERTO 01/14/17 Tatiana Hartman Glucose [Mass/volume] in Capillary blood by Glucometer Observa Value Referen Units Interpr Notes Date ti ce etation Range Glucose 70 - 110 mg/dl High No Jan 6 [Mass/vol alert informati 2016 ume] in on in 11:36 AM Capillary source blood by data Glucomete r CBC W Auto Differential panel in Blood Observa Value Referen Units Interpr Notes Date ti ce etation Range Basophils 0 - 0.2 K/MM3 High No Jan 6 informati 2016 6:17 [#/volume on in AM ] in source Blood by data Automated count Basophils 0.1 - 2.0 % High No Jan 6 /100 informati 2017 6:17 leukocyte on in AM s in source Blood by data Automated count Eosinophi 0.0 - 0.4 K/mm3 Normal No Oct 6 ls informati 2017 6:17 [#/volume on in AM ] in source Blood by data Automated count Eosinophi 0.1 - % Normal No Oct 6 ls/100 12.0 informati 2017 6:17 leukocyte on in AM s in source Blood by data Automated count Granulocy 1.8 - 7.8 K/mm3 High No Oct 6 yi informati 2017 6:17 [#/volume on in AM ] in source Blood by data Automated count Granulocy 37.0 - % High No Oct 6 yi/100 80.0 informati 2017 6:17 leukocyte on in AM s in source Blood by data Automated count Hematocri 37.0 - % Low No Oct 6 t [Volume 47.0 informati 2017 6:17 on in AM Fraction] source of Blood data Hemoglobi 12.2 - g/dL Low No Oct 6 n 16.2 informati 2017 6:17 [Mass/vol on in AM ume] in source Blood data Lymphocyt 0.7 - 4.5 K/mm3 Low No Oct 6 es informati 2017 6:17 [#/volume on in AM ] in source Unspecifi data ed specimen by Automated count Lymphocyt 10 - 50.0 % Low No Oct 6 es informati 2017 6:17 [#/volume on in AM ] in source Unspecifi data ed specimen by Automated count Erythrocy 27 - 31.2 pg Normal No Oct 6 te mean informati 2017 6:17 corpuscul on in AM ar source hemoglobi data n [Entitic mass] Erythrocy 31.8 - g/dl Low No Oct 6 te mean 35.4 informati 2017 6:17 corpuscul on in AM ar source hemoglobi data n concentra tion [Mass/vol ume] by Automated count Erythrocy 82.2 - fl High No Oct 6 te mean 97.8 informati 2017 6:17 corpuscul on in AM ar volume source [Entitic data volume] by Automated count Monocytes 0.1 - 1.0 K/mm3 Normal No Oct 6 informati 2017 6:17 [#/volume on in AM ] in source Blood by data Automated count Monocytes 1.7 - 9.3 % Normal No Oct 6 /100 informati 2017 6:17 leukocyte on in AM s in source Blood by data Automated count Platelet 7.4 - fl Normal No Oct 6 mean 10.4 informati 2016 6:17 volume on in AM [Entitic source volume] data in Blood by Automated count Platelets 142 - 424 K/mm3 Normal No Jan 6 inform2016 6:17 [#/volume on in AM ] in source Blood data Erythrocy 4.2 - 5.4 M/mm3 Low No Jan 6 yi informati 2016 6:17 [#/volume on in AM ] in source Amniotic data fluid Erythrocy 11.5 - % Normal No Jan 6 te 17.5 informati 2016 6:17 distribut on in AM ion width source [Entitic data volume] by Automated count Leukocyte 4.8 - K/MM3 High No Jan 6 s 10.8 informati 2016 6:17 [#/volume on in AM ] in source Blood data Differential panel, method unspecified - Observa Value Referen Units Interpr Notes Date tion ce etation Range Neutrophi 0 - 8 % Normal No Jan 14 ls.band informati 2016 6:17 form/100 on in AM leukocyte source s in data Blood by Automated count Basophils 0 - 1 % High No Jan 14 informati 2016 6:17 leukocyte on in AM s in source Blood by data Automated count LYMPH 3 10 - 50 % Low No Jan 14 inform2016 tion in 6:17 AM source data Macrocy 1+ No No No No Jan 14 yi informa informa informa informa 2016 [Presen tion in tion in tion in tion in 6:17 AM ce] in source source source source Blood data data data data Monocytes 2 - 9 % Normal No Jan 14 informati 2016 6:17 leukocyte on in AM s in source Blood by data Automated count Platele NORMAL No No No No Jan 14 ts informa informa informa informa 2016 [Presen tion in tion in tion in tion in 6:17 AM ce] in source source source source Blood data data data data by Light microsc opy Neutrophi 42 - 76 % High No Jan 14 ls informati 2016 6:17 [#/volume on in AM ] in source Blood by data Automated count Cells No #CELLS No No Jan 6 Counted informati informati informati 2016 6:17 Total [#] on in on in on in AM in Blood source source source data data data Comprehensive metabolic 2000 panel in Serum or Plasma Observa Value Referen Units Interpr Notes Date tion ce etation Range Albumin/G 1.1 - 1.8 No Low No Oct 6 lobulin informati informati 2017 6:17 [Mass on in on in AM ratio] in source source Serum or data data Plasma Albumin 3.4 - 5.0 gm/dL Low No Oct 6 [Mass/vol informati 2017 6:17 ume] in on in AM Serum or source Plasma data Alkaline 46 - 116 U/L Normal No Oct 6 phosphata informati 2017 6:17 se on in AM [Enzymati source c data activity/ volume] in Serum or Plasma Bilirubin 0.2 - 1.0 mg/dL Normal No Oct 6 .total informati 2017 6:17 [Mass/vol on in AM ume] in source Serum or data Plasma Urea 7 - 18 mg/dL High No Oct 6 nitrogen informati 2017 6:17 [Mass/vol on in AM ume] in source Serum or data Plasma Calcium 8.5 - mg/dL Low No Oct 6 [Mass/vol 10.1 informati 2017 6:17 ume] in on in AM Serum or source Plasma data Chloride 98 - 107 mmoL/L Normal No Oct 6 [Moles/vo informati 2017 6:17 lume] in on in AM Serum or source Plasma data Carbon 21.0 - mmoL/L High No Oct 6 dioxide, 32.0 informati 2017 6:17 total on in AM [Moles/vo source lume] in data Serum or Plasma Creatinin 0.55 - mg/dL High No Oct 6 e 1.02 informati 2017 6:17 [Mass/vol on in AM ume] in source Serum or data Plasma Creatinin 50 - 200 ML/MIN Low No Oct 6 e renal informati 2017 6:17 clearance on in AM source predicted data by Cockcroft -Gault formula Estimated 59- ML/MIN Low REFERENCE Oct 6 RANGE: 2017 6:17 glomerula >60 AM r ML/MIN/1. filtratio 73 SQUARE n rate METERSIf (GF this patient is -A merican, then multiply theresult by 1.210. Globulin 1.3 - 3.2 gm/dL High No Oct 6 [Mass/vol informati 2017 6:17 ume] in on in AM Serum source data Glucose 74 - 106 mg/dL High No Oct 6 [Mass/vol informati 2017 6:17 ume] in on in AM Serum or source Plasma data Potassium 3.5 - 5.1 mmoL/L Normal No Jan 6 informati 2016 6:17 [Moles/vo on in AM lume] in source Serum or data Plasma Sodium 136 - 145 mmoL/L Normal No Jan 14 [Moles/vo informati 2016 6:17 lume] in on in AM Serum or source Plasma data Aspartate 15 - 37 U/L No No Jan 14 informati informati 2016 6:17 aminotran on in on in AM sferase source source [Enzymati data data c activity/ volume] in Serum or Plasma Alanine 12 - 78 U/L No No Jan 6 aminotran informati informati 2016 6:17 sferase on in on in AM [Enzymati source source c data data activity/ volume] in Serum or Plasma Protein 6.4 - 8.2 gm/dL Normal No Jan 14 [Mass/vol informati 2016 6:17 ume] in on in AM Serum or source Plasma data INR in Blood by Coagulation assay Observa Value Referen Units Interpr Notes Date tion ce etation Range IS PATIENT ON ANTICOAGULANTS? Y LIST ANTICOAGULANTS: COUMADIN PTT RESULTS MUST BE CALLED IF PT ON HEPARIN!!! Y INR in 0.9 - 1.1 No High INDICATIO Jan 14 Blood by informati N 2016 6:17 Coagulati on in AM on assay source INR data RANGETHER APY FOR DVT, PE, ATRIAL FIB; 2.0 - 3.0PROPHY LAXIS FOR VTETHERAP Y FOR MECHANICA L HEART 2.5 - 3.5VALVE; PREVENTIO N OF SYSTEMICE MBOLISM SECONDARY TO AMI Prothromb 9.4 - SECONDS High No Jan 14 in time 11.8 informati 2017 6:17 (PT) in on in AM Platelet source poor data plasma by Coagulati on assay Glucose [Mass/volume] in Capillary blood by Glucometer Observa Value Referen Units Interpr Notes Date tion ce etation Range Glucose 70 - 110 mg/dl High No Jan 14 [Mass/vol alert informati 2016 6:09 ume] in on in AM Capillary source blood by data Glucomete r Glucose [Mass/volume] in Capillary blood by Glucometer Observa Value Referen Units Interpr Notes Date tion ce etation Range Glucose 70 - 110 mg/dl High No Jan 13 [Mass/vol alert informati 2016 9:36 ume] in on in PM Capillary source blood by data Glucomete r Glucose [Mass/volume] in Capillary blood by Glucometer Observa Value Referen Units Interpr Notes Date tion ce etation Range Glucose 70 - 110 mg/dl High No Jan 13 [Mass/vol alert informati 2016 4:38 ume] in on in PM Capillary source blood by data Glucomete r Glucose [Mass/volume] in Capillary blood by Glucometer Observa Value Referen Units Interpr Notes Date tion ce etation Range Glucose 70 - 110 mg/dl High No Jan 13 [Mass/vol alert informati 2016 ume] in on in 12:03 PM Capillary source blood by data Glucomete r CBC W Auto Differential panel in Blood Observa Value Referen Units Interpr Notes Date ti ce etation Range Basophils 0 - 0.2 K/MM3 High No Jan 13 informati 2016 6:28 [#/volume on in AM ] in source Blood by data Automated count Basophils 0.1 - 2.0 % High No Jan 13 informati 2017 6:28 leukocyte on in AM s in source Blood by data Automated count Eosinophi 0.0 - 0.4 K/mm3 Normal No Jan 13 ls informati 2016 6:28 [#/volume on in AM ] in source Blood by data Automated count Eosinophi 0.1 - % Normal No Jan 13 ls/100 12.0 informati 2017 6:28 leukocyte on in AM s in source Blood by data Automated count Granulocy 1.8 - 7.8 K/mm3 High No Jan 13 yi informati 2016 6:28 [#/volume on in AM ] in source Blood by data Automated count Granulocy 37.0 - % High No Jan 13 yi/100 80.0 informati 2016 6:28 leukocyte on in AM s in source Blood by data Automated count Hematocri 37.0 - % Low No Jan 13 t [Volume 47.0 informati 2016 6:28 on in AM Fraction] source of Blood data Hemoglobi 12.2 - g/dL Low No Jan 13 n 16.2 informati 2016 6:28 [Mass/vol on in AM ume] in source Blood data Lymphocyt 0.7 - 4.5 K/mm3 Normal No Jan 13 es informati 2016 6:28 [#/volume on in AM ] in source Unspecifi data ed specimen by Automated count Lymphocyt 10 - 50.0 % Low No Oct 5 es informati 2016 6:28 [#/volume on in AM ] in source Unspecifi data ed specimen by Automated count Erythrocy 27 - 31.2 pg High No Oct 5 te mean informati 2017 6:28 corpuscul on in AM ar source hemoglobi data n [Entitic mass] Erythrocy 31.8 - g/dl Low No Jan 5 te mean 35.4 informati 2017 6:28 corpuscul on in AM ar source hemoglobi data n concentra tion [Mass/vol ume] by Automated count Erythrocy 82.2 - fl High No Jan 5 te mean 97.8 informati 2017 6:28 corpuscul on in AM ar volume source [Entitic data volume] by Automated count Monocytes 0.1 - 1.0 K/mm3 High No Oct 5 informati 2017 6:28 [#/volume on in AM ] in source Blood by data Automated count Monocytes 1.7 - 9.3 % Normal No Oct 5 /100 informati 2017 6:28 leukocyte on in AM s in source Blood by data Automated count Platelet 7.4 - fl Normal No Jan 13 mean 10.4 informati 2017 6:28 volume on in AM [Entitic source volume] data in Blood by Automated count Platelets 142 - 424 K/mm3 Normal No Jan 5 informati 2017 6:28 [#/volume on in AM ] in source Blood data Erythrocy 4.2 - 5.4 M/mm3 Low No Jan 5 yi informati 2017 6:28 [#/volume on in AM ] in source Amniotic data fluid Erythrocy 11.5 - % Normal No Jan 13 te 17.5 informati 2017 6:28 distribut on in AM ion width source [Entitic data volume] by Automated count Leukocyte 4.8 - K/MM3 High No Jan 5 s 10.8 alert informati 2017 6:28 [#/volume on in AM ] in source Blood data Basic metabolic panel in Blood Observa Value Referen Units Interpr Notes Date tion ce etation Range Urea 7 - 18 mg/dL High No Jan 5 nitrogen informati 2017 6:28 [Mass/vol on in AM ume] in source Serum or data Plasma Calcium 8.5 - mg/dL Normal No Jan 5 [Mass/vol 10.1 informati 2017 6:28 ume] in on in AM Serum or source Plasma data Chloride 98 - 107 mmoL/L Normal No Oct 5 [Moles/vo informati 2017 6:28 lume] in on in AM Serum or source Plasma data Carbon 21.0 - mmoL/L High No Oct 5 dioxide, 32.0 informati 2017 6:28 total on in AM [Moles/vo source lume] in data Serum or Plasma Creatinin 0.55 - mg/dL High No Oct 5 e 1.02 informati 2017 6:28 [Mass/vol on in AM ume] in source Serum or data Plasma Creatinin 50 - 200 ML/MIN Low No Oct 5 e renal informati 2017 6:28 clearance on in AM source predicted data by Cockcroft -Gault formula Estimated 59- ML/MIN Low REFERENCE Oct 5 RANGE: 2017 6:28 glomerula >60 AM r ML/MIN/1. filtratio 73 SQUARE n rate METERSIf (GF this patient is -A merican, then multiply theresult by 1.210. Glucose 74 - 106 mg/dL High No Oct 5 [Mass/vol informati 2016 6:28 ume] in on in AM Serum or source Plasma data Potassium 3.5 - 5.1 mmoL/L High No Oct 5 informati 2017 6:28 [Moles/vo on in AM lume] in source Serum or data Plasma Sodium 136 - 145 mmoL/L Normal No Oct 5 [Moles/vo informati 2017 6:28 lume] in on in AM Serum or source Plasma data Glucose [Mass/volume] in Capillary blood by Glucometer Observa Value Referen Units Interpr Notes Date tion ce etation Range Glucose 70 - 110 mg/dl High No Oct 5 [Mass/vol informati 2017 6:16 ume] in on in AM Capillary source blood by data Glucomete r Glucose [Mass/volume] in Capillary blood by Glucometer Observa Value Referen Units Interpr Notes Date tion ce etation Range Glucose 70 - 110 mg/dl High No Oct 5 [Mass/vol informati 2017 1:51 ume] in on in AM Capillary source blood by data Glucomete r Glucose [Mass/volume] in Capillary blood by Glucometer Observa Value Referen Units Interpr Notes Date tion ce etation Range Glucose 70 - 110 mg/dl High No Oct 4 [Mass/vol informati 2017 9:14 ume] in on in PM Capillary source blood by data Glucomete r Urinalysis dipstick W Reflex Microscopic panel in Urine Observa Value Referen Units Interpr Notes Date tion ce etation Range Appeara SL CLEAR No No No Jan 4 nce of CLOUDY informa informa informa 2016 Urine tion in tion in tion in 9:00 PM source source source data data data Bacteri 4+ O No No No Jan 12 a informa informa informa 2016 [Presen tion in tion in tion in 9:00 PM ce] in source source source Urine data data data sedimen t by Light microsc opy Bilirub NEGATIV NEG No No No Jan 12 in E informa informa informa 2016 [Presen tion in tion in tion in 9:00 PM ce] in source source source Urine data data data by Test strip Erythro NEGATIV NEG No No No Jan 12 cytes E informa informa informa 2016 [Presen tion in tion in tion in 9:00 PM ce] in source source source Urine data data data Color YELLOW YELLOW No No No Jan 12 of informa informa informa 2016 Urine tion in tion in tion in 9:00 PM source source source data data data Glucose NEG No No No Jan 12 [Mass/vol informati informati informati 2016 9:00 ume] in on in on in on in PM Urine by source source source Test data data data strip Ketones NEGATIV NEG mg/dL No No Jan 12 E informa informa 2016 [Presen tion in tion in 9:00 PM ce] in source source Urine data data by Automat ed test strip Mucus 1+ NEG No Abnorma No Jan 4 [Presen informa l informa 2016 ce] in tion in tion in 9:00 PM Urine source source sedimen data data t by Light microsc opy Nitrite POSITIV NEG No Abnorma No Jan 12 E informa l informa 2016 [Presen tion in tion in 9:00 PM ce] in source source Urine data data by Test strip pH of 5.0 - 8.5 No Normal No Oct 4 Urine informati informati 2017 9:00 on in on in PM source source data data Protein NEG mg/dL No No Jan 4 [Mass/vol informati informati 2016 9:00 ume] in on in on in PM Urine by source source Automated data data test strip Erythro NONE 0 rbc/hpf No No Jan 12 cytes informa informa 2016 [Presen tion in tion in 9:00 PM ce] in source source Urine data data sedimen t by Light microsc opy Epithel OCC NONE #/HPF No No Jan 12 ial informa informa 2016 cells.r tion in tion in 9:00 PM enal source source [Presen data data ce] in Urine sedimen t by Light microsc opy Specific 1.005 - No Normal No Jan 12 gravity 1.030 informati informati 2017 9:00 of Urine on in on in PM source source data data Epithel 20-50 0 - 5 #/hpf No No Jan 12 ial informa informa 2016 cells.s tion in tion in 9:00 PM quamous source source data data [Presen ce] in Urine sedimen t by Microsc opy high power field Urobili 0.2 NEG E.U./dL No No Jan 12 nogen informa informa 2016 [Presen tion in tion in 9:00 PM ce] in source source Urine data data by Test strip Leukocy [20 O wbc/hpf No No Jan 12 yi wbc/hpf informa informa 2016 [#/volu ; 50 tion in tion in 9:00 PM me] in wbc/hpf source source Urine ] data data Urinalysis dipstick W Reflex Microscopic panel in Urine Observa Value Referen Units Interpr Notes Date tion ce etation Range Appeara SL CLEAR No No No Jan 12 nce of CLOUDY informa informa informa 2016 Urine tion in tion in tion in 9:00 PM source source source data data data Bilirub NEGATIV NEG No No No Jan 12 in E informa informa informa 2016 [Presen tion in tion in tion in 9:00 PM ce] in source source source Urine data data data by Test strip Erythro NEGATIV NEG No No No Jan 12 cytes E informa informa informa 2016 [Presen tion in tion in tion in 9:00 PM ce] in source source source Urine data data data Color YELLOW YELLOW No No No Jan 12 of informa informa informa 2017 Urine tion in tion in tion in 9:00 PM source source source data data data Glucose NEG No No No Oct 4 [Mass/vol informati informati informati 2017 9:00 ume] in on in on in on in PM Urine by source source source Test data data data strip Ketones NEGATIV NEG mg/dL No No Oct 4 E informa informa 2016 [Presen tion in tion in 9:00 PM ce] in source source Urine data data by Automat ed test strip Mucus 1+ NEG No Abnorma No Oct 4 [Presen informa l informa 2016 ce] in tion in tion in 9:00 PM Urine source source sedimen data data t by Light microsc opy Nitrite POSITIV NEG No Abnorma No Oct 4 E informa l informa 2016 [Presen tion in tion in 9:00 PM ce] in source source Urine data data by Test strip pH of 5.0 - 8.5 No Normal No Oct 4 Urine informati informati 2017 9:00 on in on in PM source source data data Protein NEG mg/dL No No Oct 4 [Mass/vol informati informati 2016 9:00 ume] in on in on in PM Urine by source source Automated data data test strip Specific 1.005 - No Normal No Oct 4 gravity 1.030 informati informati 2017 9:00 of Urine on in on in PM source source data data Urobili 0.2 NEG E.U./dL No No Oct 4 nogen informa informa 2016 [Presen tion in tion in 9:00 PM ce] in source source Urine data data by Test strip Gas panel in Arterial blood Observa Value Referen Units Interpr Notes Date tion ce etation Range Base -2.4-+2.3 MMOL/L High No Oct 4 excess in informati 2017 3:10 Arterial on in PM blood source data Arteria NON No No No No Oct 4 l APPLICA informa informa informa informa 2017 patency BLE tion in tion in tion in tion in 3:10 PM Wrist source source source source artery data data data data --pre arteria l punctur e Bicarbona 22.0 - MMOL/L High No Oct 4 te 26.0 informati 2017 3:10 [Moles/vo on in PM lume] in source Arterial data blood Oxygen No No No No Oct 4 content informati informati informati informati 2017 3:10 in on in on in on in on in PM Arterial source source source source blood data data data data Carbon 35.0 - MMHG High Oct 4 dioxide 45.0 2017 3:10 [Partial CRITICAL PM pressure] RESULTS in Arterial RESU blood LTS CALLED TO: DR. FAIRBANKS 01/12/17 1519 Rich[place] Marina pH of 7.35 - MMOL/L Normal No Oct 4 Arterial 7.45 informati 2017 3:10 blood on in PM source data Oxygen 80 - 100 MMHG Low No Oct 4 [Partial informati 2017 3:10 pressure] on in PM in source Arterial data blood Oxygen 90 - 100 % Normal No Oct 4 saturatio informati 2017 3:10 n.calcula on in PM larisa from source oxygen data partial pressure in Arterial blood SOURCE RIGHT No No No No Oct 4 BRACHIA informa informa informa informa 2017 L tion in tion in tion in tion in 3:10 PM source source source source data data data data Carbon 23 - 27 MMOL/L High No Oct 4 dioxide, informati 2017 3:10 total on in PM [Moles/vo source lume] in data Arterial blood CBC W Auto Differential panel in Blood Observa Value Referen Units Interpr Notes Date tion ce etation Range Basophils 0 - 0.2 K/MM3 High No Oct 4 informati 2016 3:01 [#/volume on in PM ] in source Blood by data Automated count Basophils 0.1 - 2.0 % High No Oct 4 /100 informati 2016 3:01 leukocyte on in PM s in source Blood by data Automated count Eosinophi 0.0 - 0.4 K/mm3 Normal No Oct 4 ls informati 2016 3:01 [#/volume on in PM ] in source Blood by data Automated count Eosinophi 0.1 - % Normal No Oct 4 ls/100 12.0 informati 2016 3:01 leukocyte on in PM s in source Blood by data Automated count Granulocy 1.8 - 7.8 K/mm3 High No Oct 4 yi informati 2016 3:01 [#/volume on in PM ] in source Blood by data Automated count Granulocy 37.0 - % High No Oct 4 yi/100 80.0 informati 2017 3:01 leukocyte on in PM s in source Blood by data Automated count Hematocri 37.0 - % Low No Oct 4 t [Volume 47.0 informati 2016 3:01 on in PM Fraction] source of Blood data Hemoglobi 12.2 - g/dL Low No Oct 4 n 16.2 informati 2016 3:01 [Mass/vol on in PM ume] in source Blood data Lymphocyt 0.7 - 4.5 K/mm3 Normal No Oct 4 es informati 2016 3:01 [#/volume on in PM ] in source Unspecifi data ed specimen by Automated count Lymphocyt 10 - 50.0 % Low No Oct 4 es informati 2016 3:01 [#/volume on in PM ] in source Unspecifi data ed specimen by Automated count Erythrocy 27 - 31.2 pg High No Oct 4 te mean informati 2016 3:01 corpuscul on in PM ar source hemoglobi data n [Entitic mass] Erythrocy 31.8 - g/dl Low No Oct 4 te mean 35.4 informati 2016 3:01 corpuscul on in PM ar source hemoglobi data n concentra tion [Mass/vol ume] by Automated count Erythrocy 82.2 - fl High No Oct 4 te mean 97.8 informati 2017 3:01 corpuscul on in PM ar volume source [Entitic data volume] by Automated count Monocytes 0.1 - 1.0 K/mm3 High No Oct 4 informati 2016 3:01 [#/volume on in PM ] in source Blood by data Automated count Monocytes 1.7 - 9.3 % High No Oct 4 /100 informati 2016 3:01 leukocyte on in PM s in source Blood by data Automated count Platelet 7.4 - fl Normal No Oct 4 mean 10.4 informati 2017 3:01 volume on in PM [Entitic source volume] data in Blood by Automated count Platelets 142 - 424 K/mm3 No No Oct 4 informati informati 2017 3:01 [#/volume on in on in PM ] in source source Blood data data Erythrocy 4.2 - 5.4 M/mm3 Low No Oct 4 yi informati 2016 3:01 [#/volume on in PM ] in source Amniotic data fluid Erythrocy 11.5 - % Normal No Oct 4 te 17.5 informati 2016 3:01 distribut on in PM ion width source [Entitic data volume] by Automated count Leukocyte 4.8 - K/MM3 High No Jan 4 s 10.8 alert informati 2016 3:01 [#/volume on in PM ] in source Blood data Differential panel, method unspecified - Observa Value Referen Units Interpr Notes Date tion ce etation Range Lymphocyt 0 - 5 % Normal No Jan 4 es informati 2016 3:01 Variant/1 on in PM 00 source leukocyte data s in Blood by Manual count Neutrophi 0 - 8 % Normal No Jan 12 ls.band informati 2016 3:01 form/100 on in PM leukocyte source s in data Blood by Automated count Basophils 0 - 1 % High No Jan 4 / informati 2016 3:01 leukocyte on in PM s in source Blood by data Automated count Hypochr 1+ No No No No Jan 12 omia informa informa informa informa 2016 [Presen tion in tion in tion in tion in 3:01 PM ce] in source source source source Blood data data data data LYMPH 4 10 - 50 % Low No Jan 12 inform2016 tion in 3:01 PM source data Macrocy 1+ No No No No Jan 12 yi informa informa informa informa 2016 [Presen tion in tion in tion in tion in 3:01 PM ce] in source source source source Blood data data data data Metamyelo 0 - 1 % High No Jan 12 cytes/100 alert informati 2016 3:01 on in PM leukocyte source s in data Blood by Manual count Monocytes 2 - 9 % High No Jan 12 informati 2016 3:01 leukocyte on in PM s in source Blood by data Automated count Platele NORMAL No No No No Jan 12 ts informa informa informa informa 2016 [Presen tion in tion in tion in tion in 3:01 PM ce] in source source source source Blood data data data data by Light microsc opy Neutrophi 42 - 76 % Normal No Jan 12 ls informati 2016 3:01 [#/volume on in PM ] in source Blood by data Automated count Cells No #CELLS No No Jan 4 Counted informati informati informati 2016 3:01 Total [#] on in on in on in PM in Blood source source source data data data Lactate [Moles/volume] in Blood Observa Value Referen Units Interpr Notes Date tion ce etation Range Lactate 0.4 - 2.0 mmol/L Normal No Jan 12 [Moles/vo informati 2016 3:01 lume] in on in PM Blood source data INR in Blood by Coagulation assay Observa Value Referen Units Interpr Notes Date ti ce etation Range IS PATIENT ON ANTICOAGULANTS? Y LIST ANTICOAGULANTS: COUMADIN INR in 0.9 - 1.1 No High Jan 12 Blood by informati NOTIFICAT 2017 3:01 Coagulati on in ION PM on assay source RESULT data INDIC ATION INR RANGETHER APY FOR DVT, PE, ATRIAL FIB; 2.0 - 3.0PROPHY LAXIS FOR VTETHERAP Y FOR MECHANICA L HEART 2.5 - 3.5VALVE; PREVENTIO N OF SYSTEMICE MBOLISM SECONDARY TO AMI Prothromb 9.4 - SECONDS High Jan 12 in time 11.8 NOTIFICAT 2017 3:01 (PT) in ION PM Platelet RESULT poor plasma by Coagulati on assay Activated partial thrombplastin time (aPTT) in Platelet poor plasma by Coagulation assay Observa Value Referen Units Interpr Notes Date ti ce etation Range IS PATIENT ON ANTICOAGULANTS? Y LIST ANTICOAGULANTS: COUMADIN Activated 23.6 - SECONDS High RESULTS Jan 12 partial 34.0 CALLED TO 2017 3:01 thrombpla PM stin time PHARMACIS (aPTT) T: in 01/12/17 Platelet 1539 poor O'Luc,Ka plasma by itlyn Coagulati on assay Glucose [Mass/volume] in Capillary blood by Glucometer Observa Value Referen Units Interpr Notes etation Range Glucose 70 - 110 mg/dl High No Nov 02 [Mass/vol alert informati 2016 ume] in on in 11:47 AM Capillary source blood by data Glucomete r CBC W Auto Differential panel in Blood Observa Value Referen Units Interpr Notes etation Range Basophils 0 - 0.2 K/MM3 Normal No Nov 02 informati 2016 6:30 [#/volume on in AM ] in source Blood by data Automated count Basophils 0.1 - 2.0 % Normal No Nov 02 /100 informati 2016 6:30 leukocyte on in AM s in source Blood by data Automated count Eosinophi 0.0 - 0.4 K/mm3 Normal No Nov 02 ls informati 2016 6:30 [#/volume on in AM ] in source Blood by data Automated count Eosinophi 0.1 - % Low No Nov 02 ls/100 12.0 informati 2017 6:30 leukocyte on in AM s in source Blood by data Automated count Granulocy 1.8 - 7.8 K/mm3 Normal No Nov 02 yi informati 2016 6:30 [#/volume on in AM ] in source Blood by data Automated count Granulocy 37.0 - % High No Nov 02 yi/100 80.0 informati 2017 6:30 leukocyte on in AM s in source Blood by data Automated count Hematocri 37.0 - % Low No Nov 02 t [Volume 47.0 informati 2016 6:30 on in AM Fraction] source of Blood data Hemoglobi 12.2 - g/dL Low No Nov 02 n 16.2 informati 2016 6:30 [Mass/vol on in AM ume] in source Blood data Lymphocyt 0.7 - 4.5 K/mm3 Normal No Nov 02 es informati 2016 6:30 [#/volume on in AM ] in source Unspecifi data ed specimen by Automated count Lymphocyt 10 - 50.0 % Low No Nov 02 es informati 2017 6:30 [#/volume on in AM ] in source Unspecifi data ed specimen by Automated count Erythrocy 27 - 31.2 pg High No Nov 02 te mean informati 2016 6:30 corpuscul on in AM ar source hemoglobi data n [Entitic mass] Erythrocy 31.8 - g/dl Normal Nov 02 te mean 35.4 informati 2016 6:30 corpuscul on in AM ar source hemoglobi data n concentra tion [Mass/vol ume] by Automated count Erythrocy 82.2 - fl High No Nov 02 te mean 97.8 informati 2017 6:30 corpuscul on in AM ar volume source [Entitic data volume] by Automated count Monocytes 0.1 - 1.0 K/mm3 Normal No Nov 02 informati 2016 6:30 [#/volume on in AM ] in source Blood by data Automated count Monocytes 1.7 - 9.3 % Normal No Nov 02 /100 informati 2017 6:30 leukocyte on in AM s in source Blood by data Automated count Platelet 7.4 - fl Normal No Nov 02 mean 10.4 informati 2016 6:30 volume on in AM [Entitic source volume] data in Blood by Automated count Platelets 142 - 424 K/mm3 Normal No Nov 02 inform2016 6:30 [#/volume on in AM ] in source Blood data Erythrocy 4.2 - 5.4 M/mm3 Low No Nov 02 yi informati 2016 6:30 [#/volume on in AM ] in source Amniotic data fluid Erythrocy 11.5 - % Normal No Nov 02 te 17.5 informati 2016 6:30 distribut on in AM ion width source [Entitic data volume] by Automated count Leukocyte 4.8 - K/MM3 Normal No Nov 02 s 10.8 informati 2016 6:30 [#/volume on in AM ] in source Blood data Differential panel, method unspecified - Observa Value Referen Units Interpr Notes Date tion ce etation Range LYMPH 14 10 - 50 % Normal No Nov 022016 tion in 6:30 AM source data Monocytes 2 - 9 % Normal No Nov 02 /100 informati 2016 6:30 leukocyte on in AM s in source Blood by data Automated count Platele NORMAL No No No No Nov 02 ts informa informa informa inform2016 [Presen tion in tion in tion in tion in 6:30 AM ce] in source source source source Blood data data data data by Light microsc opy Neutrophi 42 - 76 % High No Nov 02 ls ati 2016 6:30 [#/volume on in AM ] in source Blood by data Automated count Cells No #CELLS No No Nov 02 Counted informati informati informati 2016 6:30 Total [#] on in on in on in AM in Blood source source source data data data INR in Blood by Coagulation assay Observa Value Referen Units Interpr Notes Date tion ce etation Range IS PATIENT ON ANTICOAGULANTS? N INR in 0.9 - 1.1 No High INDICATIO Nov 02 Blood by informati N 2017 6:30 Coagulati on in AM on assay source INR data RANGETHER APY FOR DVT, PE, ATRIAL FIB; 2.0 - 3.0PROPHY LAXIS FOR VTETHERAP Y FOR MECHANICA L HEART 2.5 - 3.5VALVE; PREVENTIO N OF SYSTEMICE MBOLISM SECONDARY TO AMI Prothromb 9.4 - SECONDS High No Nov 02 in time 11.8 informati 2016 6:30 (PT) in on in AM Platelet source poor data plasma by Coagulati on assay Basic metabolic panel in Blood Observa Value Referen Units Interpr Notes Date ti ce etation Range Urea 7 - 18 mg/dL High No Nov 02 nitrogen informati 2016 6:30 [Mass/vol on in AM ume] in source Serum or data Plasma Calcium 8.5 - mg/dL Normal No Nov 02 [Mass/vol 10.1 informati 2016 6:30 ume] in on in AM Serum or source Plasma data Chloride 98 - 107 mmoL/L Normal No Nov 02 [Moles/vo informati 2016 6:30 lume] in on in AM Serum or source Plasma data Carbon 21.0 - mmoL/L Normal No Nov 02 dioxide, 32.0 informati 2016 6:30 total on in AM [Moles/vo source lume] in data Serum or Plasma Creatinin 0.55 - mg/dL High No Nov 02 e 1.02 informati 2016 6:30 [Mass/vol on in AM ume] in source Serum or data Plasma Creatinin 50 - 200 ML/MIN Normal No Nov 02 e renal informati 2016 6:30 clearance on in AM source predicted data by Cockcroft -Gault formula Estimated 59- ML/MIN Low REFERENCE Nov 02 RANGE: 2017 6:30 glomerula >60 AM r ML/MIN/1. filtratio 73 SQUARE n rate METERSIf (GF this patient is -A merican, then multiply theresult by 1.210. Glucose 74 - 106 mg/dL High No Nov 02 [Mass/vol informati 2016 6:30 ume] in on in AM Serum or source Plasma data Potassium 3.5 - 5.1 mmoL/L Normal No Nov 02 informati 2016 6:30 [Moles/vo on in AM lume] in source Serum or data Plasma Sodium 136 - 145 mmoL/L Normal No Nov 02 [Moles/vo informati 2016 6:30 lume] in on in AM Serum or source Plasma data Glucose [Mass/volume] in Capillary blood by Glucometer Observa Value Referen Units Interpr Notes Date ti ce etation Range Glucose 70 - 110 mg/dl High No Nov 02 [Mass/vol informati 2017 6:10 ume] in on in AM Capillary source blood by data Glucomete r Glucose [Mass/volume] in Capillary blood by Glucometer Observa Value Referen Units Interpr Notes Date tion ce etation Range Glucose 70 - 110 mg/dl High No Nov 01 [Mass/vol alert informati 2017 9:28 ume] in on in PM Capillary source blood by data Glucomete r Glucose [Mass/volume] in Capillary blood by Glucometer Observa Value Referen Units Interpr Notes Date tion ce etation Range Glucose 70 - 110 mg/dl High No Nov 01 [Mass/vol alert informati 2016 4:25 ume] in on in PM Capillary source blood by data Glucomete r Glucose [Mass/volume] in Capillary blood by Glucometer Observa Value Referen Units Interpr Notes Date tion ce etation Range Glucose 70 - 110 mg/dl High No Nov 01 [Mass/vol alert informati 2016 ume] in on in 11:52 AM Capillary source blood by data Glucomete r Glucose [Mass/volume] in Capillary blood by Glucometer Observa Value Referen Units Interpr Notes Date ti ce etation Range Glucose 70 - 110 mg/dl High No Nov 01 [Mass/vol informati 2016 6:08 ume] in on in AM Capillary source blood by data Glucomete r Glucose [Mass/volume] in Capillary blood by Glucometer Observa Value Referen Units Interpr Notes Date ti etation Range Glucose 70 - 110 mg/dl High No Oct 31 [Mass/vol informati 2016 ume] in on in 10:24 PM Capillary source blood by data Glucomete r Glucose [Mass/volume] in Capillary blood by Glucometer Observa Value Referen Units Interpr Notes Date ti ce etation Range Glucose 70 - 110 mg/dl High No Oct 31 [Mass/vol informati 2016 ume] in on in 10:24 PM Capillary source blood by data Glucomete r Glucose [Mass/volume] in Capillary blood by Glucometer Observa Value Referen Units Interpr Notes Date ti ce etation Range Glucose 70 - 110 mg/dl High No Oct 31 [Mass/vol alert informati 2016 4:34 ume] in on in PM Capillary source blood by data Glucomete r Glucose [Mass/volume] in Capillary blood by Glucometer Observa Value Referen Units Interpr Notes Date tion ce etation Range Glucose 70 - 110 mg/dl High No Oct 31 [Mass/vol alert informati 2016 4:34 ume] in on in PM Capillary source blood by data Glucomete r Glucose [Mass/volume] in Capillary blood by Glucometer Observa Value Referen Units Interpr Notes Date tion ce etation Range Glucose 70 - 110 mg/dl High No Oct 31 [Mass/vol alert informati 2016 ume] in on in 11:16 AM Capillary source blood by data Glucomete r Glucose [Mass/volume] in Capillary blood by Glucometer Observa Value Referen Units Interpr Notes Date tion ce etation Range Glucose 70 - 110 mg/dl High No Oct 31 [Mass/vol alert informati 2016 ume] in on in 11:16 AM Capillary source blood by data Glucomete r Glucose [Mass/volume] in Capillary blood by Glucometer Observa Value Referen Units Interpr Notes Date tion ce etation Range Glucose 70 - 110 mg/dl High No Oct 31 [Mass/vol alert informati 2016 ume] in on in 11:16 AM Capillary source blood by data Glucomete r Glucose [Mass/volume] in Capillary blood by Glucometer Observa Value Referen Units Interpr Notes Date tion ce etation Range Glucose 70 - 110 mg/dl High No Oct 31 [Mass/vol informati 2017 6:53 ume] in on in AM Capillary source blood by data Glucomete r CBC W Auto Differential panel in Blood Observa Value Referen Units Interpr Notes Date tion ce etation Range Granulocy 1.8 - 7.8 K/mm3 Normal No Oct 31 yi informati 2016 6:30 [#/volume on in AM ] in source Blood by data Automated count Granulocy 37.0 - % High No Oct 31 yi/100 80.0 informati 2016 6:30 leukocyte on in AM s in source Blood by data Automated count Hematocri 37.0 - % Low No Oct 31 t [Volume 47.0 informati 2017 6:30 on in AM Fraction] source of Blood data Hemoglobi 12.2 - g/dL Low No Oct 31 n 16.2 informati 2016 6:30 [Mass/vol on in AM ume] in source Blood data Lymphocyt 0.7 - 4.5 K/mm3 Normal No Oct 31 es informati 2016 6:30 [#/volume on in AM ] in source Unspecifi data ed specimen by Automated count Lymphocyt 10 - 50.0 % Normal No Oct 31 es informati 2016 6:30 [#/volume on in AM ] in source Unspecifi data ed specimen by Automated count Erythrocy 27 - 31.2 pg Normal No Oct 31 te mean informati 2016 6:30 corpuscul on in AM ar source hemoglobi data n [Entitic mass] Erythrocy 31.8 - g/dl Normal No Oct 31 te mean 35.4 informati 2017 6:30 corpuscul on in AM ar source hemoglobi data n concentra tion [Mass/vol ume] by Automated count Erythrocy 82.2 - fL Normal No Oct 31 te mean 97.8 informati 2017 6:30 corpuscul on in AM ar volume source [Entitic data volume] by Automated count Monocytes 0.1 - 1.0 K/mm3 Normal No Oct 31 informati 2017 6:30 [#/volume on in AM ] in source Blood by data Automated count Monocytes 1.7 - 9.3 % Normal No Oct 31 / informati 2017 6:30 leukocyte on in AM s in source Blood by data Automated count Platelets 142 - 424 K/mm3 Normal No Oct 31 informati 2017 6:30 [#/volume on in AM ] in source Blood data Erythrocy 4.2 - 5.4 M/mm3 Low No Oct 31 yi informati 2017 6:30 [#/volume on in AM ] in source Amniotic data fluid Erythrocy 11.5 - % Normal No Oct 31 te 17.5 informati 2017 6:30 distribut on in AM ion width source [Entitic data volume] by Automated count Leukocyte 4.8 - K/mm3 Normal No Oct 31 s 10.8 informati 2017 6:30 [#/volume on in AM ] in source Blood data CBC W Auto Differential panel in Blood Observa Value Referen Units Interpr Notes Date tion ce etation Range Granulocy 1.8 - 7.8 K/mm3 Normal No Oct 31 yi informati 2017 6:30 [#/volume on in AM ] in source Blood by data Automated count Granulocy 37.0 - % High No Oct 31 yi/100 80.0 informati 2017 6:30 leukocyte on in AM s in source Blood by data Automated count Hematocri 37.0 - % Low No Oct 31 t [Volume 47.0 informati 2017 6:30 on in AM Fraction] source of Blood data Hemoglobi 12.2 - g/dL Low No Oct 31 n 16.2 informati 2017 6:30 [Mass/vol on in AM ume] in source Blood data Lymphocyt 0.7 - 4.5 K/mm3 Normal No Oct 31 es informati 2017 6:30 [#/volume on in AM ] in source Unspecifi data ed specimen by Automated count Lymphocyt 10 - 50.0 % Normal No Oct 31 es informati 2017 6:30 [#/volume on in AM ] in source Unspecifi data ed specimen by Automated count Erythrocy 27 - 31.2 pg Normal No Oct 31 te mean informati 2016 6:30 corpuscul on in AM ar source hemoglobi data n [Entitic mass] Erythrocy 31.8 - g/dl Normal No Oct 31 te mean 35.4 informati 2017 6:30 corpuscul on in AM ar source hemoglobi data n concentra tion [Mass/vol ume] by Automated count Erythrocy 82.2 - fL Normal No Oct 31 te mean 97.8 informati 2017 6:30 corpuscul on in AM ar volume source [Entitic data volume] by Automated count Monocytes 0.1 - 1.0 K/mm3 Normal No Oct 31 informati 2017 6:30 [#/volume on in AM ] in source Blood by data Automated count Monocytes 1.7 - 9.3 % Normal No Oct 31 /100 informati 2017 6:30 leukocyte on in AM s in source Blood by data Automated count Platelets 142 - 424 K/mm3 Normal No Oct 31 informati 2017 6:30 [#/volume on in AM ] in source Blood data Erythrocy 4.2 - 5.4 M/mm3 Low No Oct 31 yi informati 2017 6:30 [#/volume on in AM ] in source Amniotic data fluid Erythrocy 11.5 - % Normal No Oct 31 te 17.5 informati 2017 6:30 distribut on in AM ion width source [Entitic data volume] by Automated count Leukocyte 4.8 - K/mm3 Normal No Oct 31 s 10.8 informati 2017 6:30 [#/volume on in AM ] in source Blood data CBC W Auto Differential panel in Blood Observa Value Referen Units Interpr Notes Date tion ce etation Range Granulocy 1.8 - 7.8 K/mm3 Normal No Oct 31 yi informati 2017 6:30 [#/volume on in AM ] in source Blood by data Automated count Granulocy 37.0 - % High No Oct 31 yi/100 80.0 informati 2017 6:30 leukocyte on in AM s in source Blood by data Automated count Hematocri 37.0 - % Low No Oct 31 t [Volume 47.0 informati 2017 6:30 on in AM Fraction] source of Blood data Hemoglobi 12.2 - g/dL Low No Oct 31 n 16.2 informati 2017 6:30 [Mass/vol on in AM ume] in source Blood data Lymphocyt 0.7 - 4.5 K/mm3 Normal No Oct 31 es informati 2017 6:30 [#/volume on in AM ] in source Unspecifi data ed specimen by Automated count Lymphocyt 10 - 50.0 % Normal No Oct 31 es informati 2017 6:30 [#/volume on in AM ] in source Unspecifi data ed specimen by Automated count Erythrocy 27 - 31.2 pg Normal No Oct 31 te mean informati 2016 6:30 corpuscul on in AM ar source hemoglobi data n [Entitic mass] Erythrocy 31.8 - g/dl Normal No Oct 31 te mean 35.4 informati 2017 6:30 corpuscul on in AM ar source hemoglobi data n concentra tion [Mass/vol ume] by Automated count Erythrocy 82.2 - fL Normal No Oct 31 te mean 97.8 informati 2017 6:30 corpuscul on in AM ar volume source [Entitic data volume] by Automated count Monocytes 0.1 - 1.0 K/mm3 Normal No Oct 31 informati 2017 6:30 [#/volume on in AM ] in source Blood by data Automated count Monocytes 1.7 - 9.3 % Normal No Oct 31 /100 informati 2017 6:30 leukocyte on in AM s in source Blood by data Automated count Platelets 142 - 424 K/mm3 Normal No Oct 31 informati 2017 6:30 [#/volume on in AM ] in source Blood data Erythrocy 4.2 - 5.4 M/mm3 Low No Oct 31 yi informati 2017 6:30 [#/volume on in AM ] in source Amniotic data fluid Erythrocy 11.5 - % Normal No Oct 31 te 17.5 informati 2017 6:30 distribut on in AM ion width source [Entitic data volume] by Automated count Leukocyte 4.8 - K/mm3 Normal No Oct 31 s 10.8 informati 2017 6:30 [#/volume on in AM ] in source Blood data Basic metabolic panel in Blood Observa Value Referen Units Interpr Notes Date tion ce etation Range Urea 7 - 18 mg/dL High No Oct 31 nitrogen informati 2016 6:30 [Mass/vol on in AM ume] in source Serum or data Plasma Calcium 8.5 - mg/dL Normal No Oct 31 [Mass/vol 10.1 informati 2016 6:30 ume] in on in AM Serum or source Plasma data Chloride 98 - 107 mmoL/L Normal No Oct 31 [Moles/vo informati 2016 6:30 lume] in on in AM Serum or source Plasma data Carbon 21.0 - mmoL/L Normal No Oct 31 dioxide, 32.0 informati 2016 6:30 total on in AM [Moles/vo source lume] in data Serum or Plasma Creatinin 0.55 - mg/dL High No Oct 31 e 1.02 informati 2016 6:30 [Mass/vol on in AM ume] in source Serum or data Plasma Creatinin 50 - 200 ML/MIN Low No Oct 31 e renal informati 2016 6:30 clearance on in AM source predicted data by Cockcroft -Gault formula Estimated 59- ML/MIN Low REFERENCE Oct 31 RANGE: 2017 6:30 glomerula >60 AM r ML/MIN/1. filtratio 73 SQUARE n rate METERSIf (GF this patient is -A merican, then multiply theresult by 1.210. Glucose 74 - 106 mg/dL High No Oct 31 [Mass/vol informati 2016 6:30 ume] in on in AM Serum or source Plasma data Potassium 3.5 - 5.1 mmoL/L Normal No Oct 31 informati 2016 6:30 [Moles/vo on in AM lume] in source Serum or data Plasma Sodium 136 - 145 mmoL/L Normal No Oct 31 [Moles/vo informati 2016 6:30 lume] in on in AM Serum or source Plasma data Basic metabolic panel in Blood Observa Value Referen Units Interpr Notes Date tion ce etation Range Urea 7 - 18 mg/dL High No Oct 31 nitrogen informati 2016 6:30 [Mass/vol on in AM ume] in source Serum or data Plasma Calcium 8.5 - mg/dL Normal No Oct 31 [Mass/vol 10.1 informati 2017 6:30 ume] in on in AM Serum or source Plasma data Chloride 98 - 107 mmoL/L Normal No Oct 31 [Moles/vo informati 2016 6:30 lume] in on in AM Serum or source Plasma data Carbon 21.0 - mmoL/L Normal No Oct 31 dioxide, 32.0 informati 2017 6:30 total on in AM [Moles/vo source lume] in data Serum or Plasma Creatinin 0.55 - mg/dL High No Oct 31 e 1.02 informati 2017 6:30 [Mass/vol on in AM ume] in source Serum or data Plasma Creatinin 50 - 200 ML/MIN Low No Oct 31 e renal informati 2017 6:30 clearance on in AM source predicted data by Cockcroft -Gault formula Estimated 59- ML/MIN Low REFERENCE Oct 31 RANGE: 2017 6:30 glomerula >60 AM r ML/MIN/1. filtratio 73 SQUARE n rate METERSIf (GF this patient is -A merican, then multiply theresult by 1.210. Glucose 74 - 106 mg/dL High No Oct 31 [Mass/vol informati 2016 6:30 ume] in on in AM Serum or source Plasma data Potassium 3.5 - 5.1 mmoL/L Normal No Oct 31 informati 2016 6:30 [Moles/vo on in AM lume] in source Serum or data Plasma Sodium 136 - 145 mmoL/L Normal No Oct 31 [Moles/vo informati 2016 6:30 lume] in on in AM Serum or source Plasma data INR in Blood by Coagulation assay Observa Value Referen Units Interpr Notes Date tion ce etation Range IS PATIENT ON ANTICOAGULANTS? Y LIST ANTICOAGULANTS: WARFARIN INR in 0.9 - 1.1 No High INDICATIO Oct 31 Blood by informati N 2017 6:30 Coagulati on in AM on assay source INR data RANGETHER APY FOR DVT, PE, ATRIAL FIB; 2.0 - 3.0PROPHY LAXIS FOR VTETHERAP Y FOR MECHANICA L HEART 2.5 - 3.5VALVE; PREVENTIO N OF SYSTEMICE MBOLISM SECONDARY TO AMI Prothromb 9.4 - SECONDS High No Oct 31 in time 11.8 informati 2017 6:30 (PT) in on in AM Platelet source poor data plasma by Coagulati on assay INR in Blood by Coagulation assay Observa Value Referen Units Interpr Notes Date tion ce etation Range IS PATIENT ON ANTICOAGULANTS? Y LIST ANTICOAGULANTS: WARFARIN INR in 0.9 - 1.1 No High INDICATIO Oct 31 Blood by informati N 2017 6:30 Coagulati on in AM on assay source INR data RANGETHER APY FOR DVT, PE, ATRIAL FIB; 2.0 - 3.0PROPHY LAXIS FOR VTETHERAP Y FOR MECHANICA L HEART 2.5 - 3.5VALVE; PREVENTIO N OF SYSTEMICE MBOLISM SECONDARY TO AMI Prothromb 9.4 - SECONDS High No Oct 31 in time 11.8 informati 2017 6:30 (PT) in on in AM Platelet source poor data plasma by Coagulati on assay Glucose [Mass/volume] in Capillary blood by Glucometer Observa Value Referen Units Interpr Notes Date ti ce etation Range Glucose 70 - 110 mg/dl High No Oct 30 [Mass/vol alert informati 2016 9:02 ume] in on in PM Capillary source blood by data Glucomete r Glucose [Mass/volume] in Capillary blood by Glucometer Observa Value Referen Units Interpr Notes Date ti etation Range Glucose 70 - 110 mg/dl High No Oct 30 [Mass/vol alert informati 2016 9:02 ume] in on in PM Capillary source blood by data Glucomete r Glucose [Mass/volume] in Capillary blood by Glucometer Observa Value Referen Units Interpr Notes Date ti etation Range Glucose 70 - 110 mg/dl High No Oct 30 [Mass/vol alert informati 2016 9:02 ume] in on in PM Capillary source blood by data Glucomete r Glucose [Mass/volume] in Capillary blood by Glucometer Observa Value Referen Units Interpr Notes Date ti ce etation Range Glucose 70 - 110 mg/dl High No Oct 30 [Mass/vol alert informati 2016 5:03 ume] in on in PM Capillary source blood by data Glucomete r Glucose [Mass/volume] in Capillary blood by Glucometer Observa Value Referen Units Interpr Notes Date ti etation Range Glucose 70 - 110 mg/dl High No Oct 30 [Mass/vol alert informati 2016 ume] in on in 11:36 AM Capillary source blood by data Glucomete r Glucose [Mass/volume] in Capillary blood by Glucometer Observa Value Referen Units Interpr Notes Date ti ce etation Range Glucose 70 - 110 mg/dl High No Oct 30 [Mass/vol alert informati 2016 ume] in on in 11:36 AM Capillary source blood by data Glucomete r Glucose [Mass/volume] in Capillary blood by Glucometer Observa Value Referen Units Interpr Notes Date tion ce etation Range Glucose 70 - 110 mg/dl High No Oct 30 [Mass/vol alert informati 2016 ume] in on in 11:36 AM Capillary source blood by data Glucomete r Glucose [Mass/volume] in Capillary blood by Glucometer Observa Value Referen Units Interpr Notes Date tion ce etation Range Glucose 70 - 110 mg/dl High No Oct 30 [Mass/vol alert informati 2016 6:28 ume] in on in AM Capillary source blood by data Glucomete r Glucose [Mass/volume] in Capillary blood by Glucometer Observa Value Referen Units Interpr Notes Date tion ce etation Range Glucose 70 - 110 mg/dl High No Oct 30 [Mass/vol alert informati 2016 6:28 ume] in on in AM Capillary source blood by data Glucomete r Glucose [Mass/volume] in Capillary blood by Glucometer Observa Value Referen Units Interpr Notes Date tion ce etation Range Glucose 70 - 110 mg/dl High No Oct 30 [Mass/vol alert informati 2016 6:28 ume] in on in AM Capillary source blood by data Glucomete r CBC W Auto Differential panel in Blood Observa Value Referen Units Interpr Notes Date tion ce etation Range Granulocy 1.8 - 7.8 K/mm3 Normal No Oct 30 yi informati 2016 6:25 [#/volume on in AM ] in source Blood by data Automated count Granulocy 37.0 - % High No Oct 30 yi/100 80.0 informati 2017 6:25 leukocyte on in AM s in source Blood by data Automated count Hematocri 37.0 - % Low No Oct 30 t [Volume 47.0 informati 2016 6:25 on in AM Fraction] source of Blood data Hemoglobi 12.2 - g/dL Low No Oct 30 n 16.2 informati 2017 6:25 [Mass/vol on in AM ume] in source Blood data Lymphocyt 0.7 - 4.5 K/mm3 Normal No Oct 30 es informati 2016 6:25 [#/volume on in AM ] in source Unspecifi data ed specimen by Automated count Lymphocyt 10 - 50.0 % Normal No Oct 30 es informati 2016 6:25 [#/volume on in AM ] in source Unspecifi data ed specimen by Automated count Erythrocy 27 - 31.2 pg Normal No Oct 30 te mean informati 2016 6:25 corpuscul on in AM ar source hemoglobi data n [Entitic mass] Erythrocy 31.8 - g/dl Normal No Oct 30 te mean 35.4 informati 2016 6:25 corpuscul on in AM ar source hemoglobi data n concentra tion [Mass/vol ume] by Automated count Erythrocy 82.2 - fL Normal No Oct 30 te mean 97.8 informati 2016 6:25 corpuscul on in AM ar volume source [Entitic data volume] by Automated count Monocytes 0.1 - 1.0 K/mm3 Normal No Oct 30 informati 2016 6:25 [#/volume on in AM ] in source Blood by data Automated count Monocytes 1.7 - 9.3 % Normal No Oct 30 / informati 2017 6:25 leukocyte on in AM s in source Blood by data Automated count Platelets 142 - 424 K/mm3 Low No Oct 30 informati 2017 6:25 [#/volume on in AM ] in source Blood data Erythrocy 4.2 - 5.4 M/mm3 Low No Oct 30 yi informati 2017 6:25 [#/volume on in AM ] in source Amniotic data fluid Erythrocy 11.5 - % High No Oct 30 te 17.5 informati 2016 6:25 distribut on in AM ion width source [Entitic data volume] by Automated count Leukocyte 4.8 - K/mm3 Normal No Oct 30 s 10.8 informati 2016 6:25 [#/volume on in AM ] in source Blood data Differential panel, method unspecified - Observa Value Referen Units Interpr Notes Date tion ce etation Range Anisocy 2+ No No No No Oct 30 tosis informa informa informa informa 2016 [Presen tion in tion in tion in tion in 6:25 AM ce] in source source source source Blood data data data data Neutrophi 0 - 8 % Normal No Oct 30 ls.band informati 2017 6:25 form/100 on in AM leukocyte source s in data Blood by Automated count LYMPH 9 10 - 50 % Low No Oct 30 informa 2017 tion in 6:25 AM source data Monocytes 2 - 9 % Low No Oct 30 /100 informati 2017 6:25 leukocyte on in AM s in source Blood by data Automated count Platele SLIGHT No No No No Oct 30 ts DECREAS informa informa informa informa 2016 [Presen E tion in tion in tion in tion in 6:25 AM ce] in source source source source Blood data data data data by Light microsc opy Neutrophi 42 - 76 % High No Oct 30 ls informati 2016 6:25 [#/volume on in AM ] in source Blood by data Automated count Cells No #CELLS No No Oct 30 Counted informati informati informati 2017 6:25 Total [#] on in on in on in AM in Blood source source source data data data Basic metabolic panel in Blood Observa Value Referen Units Interpr Notes Date tion ce etation Range Urea 7 - 18 mg/dL High No Oct 30 nitrogen informati 2016 6:25 [Mass/vol on in AM ume] in source Serum or data Plasma Calcium 8.5 - mg/dL Normal No Oct 30 [Mass/vol 10.1 informati 2017 6:25 ume] in on in AM Serum or source Plasma data Chloride 98 - 107 mmoL/L Normal No Oct 30 [Moles/vo informati 2017 6:25 lume] in on in AM Serum or source Plasma data Carbon 21.0 - mmoL/L Normal No Oct 30 dioxide, 32.0 informati 2017 6:25 total on in AM [Moles/vo source lume] in data Serum or Plasma Creatinin 0.55 - mg/dL High No Oct 30 e 1.02 informati 2017 6:25 [Mass/vol on in AM ume] in source Serum or data Plasma Creatinin 50 - 200 ML/MIN Low No Oct 30 e renal informati 2017 6:25 clearance on in AM source predicted data by Cockcroft -Gault formula Estimated 59- ML/MIN Low REFERENCE Oct 30 RANGE: 2017 6:25 glomerula >60 AM r ML/MIN/1. filtratio 73 SQUARE n rate METERSIf (GF this patient is -A merican, then multiply theresult by 1.210. Glucose 74 - 106 mg/dL High No Oct 30 [Mass/vol informati 2017 6:25 ume] in on in AM Serum or source Plasma data Potassium 3.5 - 5.1 mmoL/L Normal No Oct 30 informati 2016 6:25 [Moles/vo on in AM lume] in source Serum or data Plasma Sodium 136 - 145 mmoL/L Normal No Oct 30 [Moles/vo informati 2016 6:25 lume] in on in AM Serum or source Plasma data Glucose [Mass/volume] in Capillary blood by Glucometer Observa Value Referen Units Interpr Notes Date tion ce etation Range Glucose 70 - 110 mg/dl High No Oct 29 [Mass/vol informati 2016 7:38 ume] in on in PM Capillary source blood by data Glucomete r Glucose [Mass/volume] in Capillary blood by Glucometer Observa Value Referen Units Interpr Notes Date tion ce etation Range Glucose 70 - 110 mg/dl High No Oct 29 [Mass/vol informati 2016 4:40 ume] in on in PM Capillary source blood by data Glucomete r Blood product special preparation [Type] Observa Value Referen Units Interpr Notes Date tion ce etation Range Blood BLOOD No No No BLOOD Oct 29 product UNIT informa informa informa UNIT # 2017 RELEASE tion in in in : W0382 1:57 PM special source source source 17 data data data [id number] prepara RELEASE tion D [Type] 7BajayLucind aO POSITIV E Blood product special preparation [Type] Observa Value Referen Units Interpr Notes Date ti ce etation Range Blood BLOOD No No No BLOOD Oct 29 product UNIT informa informa informa UNIT # 2017 RELEASE tion in tion in in : W0382 12:22 special source source source 17 PM data data data [id number] prepara RELEASE tion D [Type] 7Boyers ,Lucind aO POSITIV E Glucose [Mass/volume] in Capillary blood by Glucometer Observa Value Referen Units Interpr Notes Date tion ce etation Range Glucose 70 - 110 mg/dl High No Oct 29 [Mass/vol alert informati 2016 ume] in on in 11:52 AM Capillary source blood by data Glucomete r Blood type & Crossmatch panel in Blood Observa Value Referen Units Interpr Notes Date tion ce etation Range Hold? N Transfuse now? 2 UNITS NOW Blood NEGATIV NEGATIV No No No Oct 29 group E E informa informa informa 2017 antibod tion in tion in in 10:20 y source source source AM screen data data data [Presen ce] in Serum or Plasma Rh POSITIV No No No No Oct 29 [Type] E informa informa informa informa 2017 in tion in tion in tion in in 10:20 Blood source source source source AM data data data data ABO O No No No No Oct 29 group informa informa informa informa 2017 [Type] tion in tion in ti in in 10:20 in source source source source AM Blood data data data data Blood type & Crossmatch panel in Blood Observa Value Referen Units Interpr Notes Date ti ce etation Range Hold? N Transfuse now? 2 UNITS NOW Major COMPAT No No No No Oct 29 crossma informa informa informa informa 2017 tch tion in ti in in in 10:20 [interp source source source source AM retatio data data data data n] Major COMPAT No No No No Oct 29 crossma informa informa informa informa 2017 tch tion in tion in ti in in 10:20 [interp source source source source AM retatio data data data data n] by Immedia te spin Blood type & Crossmatch panel in Blood Observa Value Referen Units Interpr Notes Date ti ce etation Range Hold? N Transfuse now? 2 UNITS NOW Major COMPAT No No No No Oct 29 crossma informa informa informa informa 2017 tch tion in tion in tion in in 10:20 [interp source source source source AM retatio data data data data n] Major COMPAT No No No No Oct 29 crossma informa informa informa informa 2017 tch tion in tion in ti in ti in 10:20 [interp source source source source AM retatio data data data data n] by Immedia te spin Glucose [Mass/volume] in Capillary blood by Glucometer Observa Value Referen Units Interpr Notes Date ti ce etation Range Glucose 70 - 110 mg/dl High No Oct 29 [Mass/vol alert informati 2017 6:40 ume] in on in AM Capillary source blood by data Glucomete r Basic metabolic panel in Blood Observa Value Referen Units Interpr Notes Date tion ce etation Range Urea 7 - 18 mg/dL High No Oct 29 nitrogen informati 2016 6:30 [Mass/vol on in AM ume] in source Serum or data Plasma Calcium 8.5 - mg/dL Normal No Oct 29 [Mass/vol 10.1 informati 2016 6:30 ume] in on in AM Serum or source Plasma data Chloride 98 - 107 mmoL/L Normal No Oct 29 [Moles/vo informati 2016 6:30 lume] in on in AM Serum or source Plasma data Carbon 21.0 - mmoL/L Normal No Oct 29 dioxide, 32.0 informati 2016 6:30 total on in AM [Moles/vo source lume] in data Serum or Plasma Creatinin 0.55 - mg/dL High No Oct 29 e 1.02 informati 2016 6:30 [Mass/vol on in AM ume] in source Serum or data Plasma Creatinin 50 - 200 ML/MIN Low No Oct 29 e renal informati 2016 6:30 clearance on in AM source predicted data by Cockcroft -Gault formula Estimated 59- ML/MIN Low REFERENCE Oct 29 RANGE: 2017 6:30 glomerula >60 AM r ML/MIN/1. filtratio 73 SQUARE n rate METERSIf (GF this patient is -A merican, then multiply theresult by 1.210. Glucose 74 - 106 mg/dL High No Oct 29 [Mass/vol informati 2016 6:30 ume] in on in AM Serum or source Plasma data Potassium 3.5 - 5.1 mmoL/L Normal No Oct 29 informati 2016 6:30 [Moles/vo on in AM lume] in source Serum or data Plasma Sodium 136 - 145 mmoL/L Normal No Oct 29 [Moles/vo informati 2016 6:30 lume] in on in AM Serum or source Plasma data CBC W Auto Differential panel in Blood Observa Value Referen Units Interpr Notes Date tion ce etation Range Basophils 0 - 0.2 K/MM3 Normal No Oct 29 informati 2016 6:30 [#/volume on in AM ] in source Blood by data Automated count Basophils 0.1 - 2.0 % Normal No Oct 29 /100 informati 2017 6:30 leukocyte on in AM s in source Blood by data Automated count Eosinophi 0.0 - 0.4 K/mm3 Normal No Oct 29 ls informati 2016 6:30 [#/volume on in AM ] in source Blood by data Automated count Eosinophi 0.1 - % Normal No Oct 29 ls/100 12.0 informati 2017 6:30 leukocyte on in AM s in source Blood by data Automated count Granulocy 1.8 - 7.8 K/mm3 Normal No Oct 29 yi informati 2016 6:30 [#/volume on in AM ] in source Blood by data Automated count Granulocy 37.0 - % Normal No Oct 29 yi/100 80.0 informati 2016 6:30 leukocyte on in AM s in source Blood by data Automated count Hematocri 37.0 - % Low No Oct 29 t [Volume 47.0 informati 2016 6:30 on in AM Fraction] source of Blood data Hemoglobi 12.2 - g/dL Low alert Oct 29 n 16.2 2016 6:30 [Mass/vol CRITICAL AM ume] in RESULTS Blood RESU LTS CALLED TO: ESTHER 10/29/16 0753 [place] [place] e Lymphocyt 0.7 - 4.5 K/mm3 Normal No Oct 29 es informati 2016 6:30 [#/volume on in AM ] in source Unspecifi data ed specimen by Automated count Lymphocyt 10 - 50.0 % Normal No Oct 29 es informati 2016 6:30 [#/volume on in AM ] in source Unspecifi data ed specimen by Automated count Erythrocy 27 - 31.2 pg High No Oct 29 te mean informati 2016 6:30 corpuscul on in AM ar source hemoglobi data n [Entitic mass] Erythrocy 31.8 - g/dl Low No Oct 29 te mean 35.4 informati 2017 6:30 corpuscul on in AM ar source hemoglobi data n concentra tion [Mass/vol ume] by Automated count Erythrocy 82.2 - fl High No Oct 29 te mean 97.8 informati 2017 6:30 corpuscul on in AM ar volume source [Entitic data volume] by Automated count Monocytes 0.1 - 1.0 K/mm3 Normal No Oct 29 informati 2016 6:30 [#/volume on in AM ] in source Blood by data Automated count Monocytes 1.7 - 9.3 % Normal No Oct 29 informati 2016 6:30 leukocyte on in AM s in source Blood by data Automated count Platelet 7.4 - fl Normal No Oct 29 mean 10.4 informati 2016 6:30 volume on in AM [Entitic source volume] data in Blood by Automated count Platelets 142 - 424 K/mm3 Normal No Oct 29 informati 2016 6:30 [#/volume on in AM ] in source Blood data Erythrocy 4.2 - 5.4 M/mm3 Low No Oct 29 yi informati 2016 6:30 [#/volume on in AM ] in source Amniotic data fluid Erythrocy 11.5 - % Normal No Oct 29 te 17.5 informati 2016 6:30 distribut on in AM ion width source [Entitic data volume] by Automated count Leukocyte 4.8 - K/MM3 No Oct 29 s 10.8 informati informati 2016 6:30 [#/volume on in on in AM ] in source source Blood data data Glucose [Mass/volume] in Capillary blood by Glucometer Observa Value Referen Units Interpr Notes Date etation Range Glucose 70 - 110 mg/dl High No Oct 29 [Mass/vol alert informati 2016 1:55 ume] in on in AM Capillary source blood by data Glucomete r Glucose [Mass/volume] in Capillary blood by Glucometer Observa Value Referen Units Interpr Notes etation Range Glucose 70 - 110 mg/dl High No Oct 28 [Mass/vol alert informati 2016 ume] in on in 11:14 PM Capillary source blood by data Glucomete r Glucose [Mass/volume] in Serum or Plasma Observa Value Referen Units Interpr Notes Date etation Range Glucose 74 - 106 mg/dL High Oct 28 [Mass/vol alert 2016 ume] in CRITICAL 10:46 PM Serum or RESULTS Plasma RESU LTS CALLED TO: EDG 10/28/16 2311 Gauri Yan nda Glucose [Mass/volume] in Capillary blood by Glucometer Observa Value Referen Units Interpr Notes Date tion ce etation Range Glucose 70 - 110 mg/dl High No Oct 28 [Mass/vol alert inform2016 ume] in on in 10:03 PM Capillary source blood by data Glucomete r Glucose [Mass/volume] in Capillary blood by Glucometer Observa Value Referen Units Interpr Notes Date ti ce etation Range Glucose 70 - 110 mg/dl High No Oct 28 [Mass/vol alert inform2016 5:00 ume] in on in PM Capillary source blood by data Glucomete r CBC W Auto Differential panel in Blood Observa Value Referen Units Interpr Notes Date ti ce etation Range Basophils 0 - 0.2 K/MM3 Normal No Oct 282016 [#/volume on in 12:06 PM ] in source Blood by data Automated count Basophils 0.1 - 2.0 % Normal No Oct 28 /2016 leukocyte on in 12:06 PM s in source Blood by data Automated count Eosinophi 0.0 - 0.4 K/mm3 Normal No Oct 28 ls 2016 [#/volume on in 12:06 PM ] in source Blood by data Automated count Eosinophi 0.1 - % Normal No Oct 28 ls/100 12.0 2016 leukocyte on in 12:06 PM s in source Blood by data Automated count Granulocy 1.8 - 7.8 K/mm3 Normal No Oct 28 yi 2016 [#/volume on in 12:06 PM ] in source Blood by data Automated count Granulocy 37.0 - % Normal No Oct 28 yi/100 80.0 2016 leukocyte on in 12:06 PM s in source Blood by data Automated count Hematocri 37.0 - % Low No Oct 28 t [Volume 47.0 ati 2016 on in 12:06 PM Fraction] source of Blood data Hemoglobi 12.2 - g/dL Low No Oct 28 n 16.2 ati 2016 [Mass/vol on in 12:06 PM ume] in source Blood data Lymphocyt 0.7 - 4.5 K/mm3 Normal No Oct 28 es 2016 [#/volume on in 12:06 PM ] in source Unspecifi data ed specimen by Automated count Lymphocyt 10 - 50.0 % Normal No Oct 28 es 2016 [#/volume on in 12:06 PM ] in source Unspecifi data ed specimen by Automated count Erythrocy 27 - 31.2 pg High No Oct 28 te mean 2016 corpuscul on in 12:06 PM ar source hemoglobi data n [Entitic mass] Erythrocy 31.8 - g/dl Low No Oct 28 te mean 35.4 2016 corpuscul on in 12:06 PM ar source hemoglobi data n concentra tion [Mass/vol ume] by Automated count Erythrocy 82.2 - fl High No Oct 28 te mean 97.8 2016 corpuscul on in 12:06 PM ar volume source [Entitic data volume] by Automated count Monocytes 0.1 - 1.0 K/mm3 Normal No Oct 282016 [#/volume on in 12:06 PM ] in source Blood by data Automated count Monocytes 1.7 - 9.3 % Normal No Oct 28 /100 2016 leukocyte on in 12:06 PM s in source Blood by data Automated count Platelet 7.4 - fl Normal Oct 28 mean 10.4 2016 volume on in 12:06 PM [Entitic source volume] data in Blood by Automated count Platelets 142 - 424 K/mm3 Normal No Oct 282016 [#/volume on in 12:06 PM ] in source Blood data Erythrocy 4.2 - 5.4 M/mm3 Low No Oct 28 yi 2016 [#/volume on in 12:06 PM ] in source Amniotic data fluid Erythrocy 11.5 - % Normal No Oct 28 te 17.5 2016 distribut on in 12:06 PM ion width source [Entitic data volume] by Automated count Leukocyte 4.8 - K/MM3 Low No Oct 28 s 10.8 2016 [#/volume on in 12:06 PM ] in source Blood data Glucose [Mass/volume] in Capillary blood by Glucometer Observa Value Referen Units Interpr Notes Date tion ce etation Range Glucose 70 - 110 mg/dl High No Oct 28 [Mass/vol alert 2016 ume] in on in 11:41 AM Capillary source blood by data Glucomete r Glucose [Mass/volume] in Capillary blood by Glucometer Observa Value Referen Units Interpr Notes Date ti ce etation Range Glucose 70 - 110 mg/dl High No Oct 28 [Mass/vol inform2016 6:26 ume] in on in AM Capillary source blood by data Glucomete r Hemoglobin.gastrointestinal [Presence] in Stool Observa Value Referen Units Interpr Notes Date tion ce etation Range Hemoglo POSITIV NEG No No No Oct 28 bin.gas E informa informa informa 2017 trointe tion in tion in tion in 1:45 AM stinal source source source [Presen data data data ce] in Stool --1st specime n INR in Blood by Coagulation assay Observa Value Referen Units Interpr Notes Date ti ce etation Range IS PATIENT ON ANTICOAGULANTS? Y PTT RESULTS MUST BE CALLED IF PT ON HEPARIN!!! Y INR in 0.9 - 1.1 No High INDICATIO Oct 28 Blood by informati N 2017 Coagulati on in 12:30 AM on assay source INR data RANGETHER APY FOR DVT, PE, ATRIAL FIB; 2.0 - 3.0PROPHY LAXIS FOR VTETHERAP Y FOR MECHANICA L HEART 2.5 - 3.5VALVE; PREVENTIO N OF SYSTEMICE MBOLISM SECONDARY TO AMI Prothromb 9.4 - SECONDS High No Oct 28 in time 11.8 informati 2016 (PT) in on in 12:30 AM Platelet source poor data plasma by Coagulati on assay Activated partial thrombplastin time (aPTT) in Platelet poor plasma by Coagulation assay Observa Value Referen Units Interpr Notes Date ti ce etation Range IS PATIENT ON ANTICOAGULANTS? Y PTT RESULTS MUST BE CALLED IF PT ON HEPARIN!!! Y Activated 23.6 - SECONDS Normal No Oct 28 partial 34.0 informati 2016 thrombpla on in 12:30 AM stin time source (aPTT) data in Platelet poor plasma by Coagulati on assay Cardiac enzymes Observa Value Referen Units Interpr Notes Date ti ce etation Range Creatine 0 - 4.0 U/L Normal No Oct 27 kinase.MB inform2016 /Creatine on in 12:30 AM source kinase.to data carlos [Ratio] in Serum or Plasma Creatine 0.0 - 3.6 ng/mL Normal No Oct 27 kinase.MB informati 2016 on in 12:30 AM [Mass/vol source ume] in data Serum or Plasma Creatine 26 - 192 U/L Normal No Oct 27 kinase 2016 [Enzymati on in 12:30 AM c source activity/ data volume] in Serum or Plasma Troponin 0.00 - ng/mL Normal No Oct 27 I.cardiac 0.06 informati 2017 on in 12:30 AM [Mass/vol source ume] in data Serum or Plasma Comprehensive metabolic 2000 panel in Serum or Plasma Observa Value Referen Units Interpr Notes Date tion ce etation Range Albumin/G 1.1 - 1.8 No Low No Oct 27 lobulin informati informati 2016 [Mass on in on in 12:30 AM ratio] in source source Serum or data data Plasma Albumin 3.4 - 5.0 gm/dL Low No Oct 27 [Mass/vol informati 2017 ume] in on in 12:30 AM Serum or source Plasma data Alkaline 46 - 116 U/L Normal No Oct 27 phosphata informati 2016 se on in 12:30 AM [Enzymati source c data activity/ volume] in Serum or Plasma Bilirubin 0.2 - 1.0 mg/dL Normal No Oct 27 .total informati 2016 [Mass/vol on in 12:30 AM ume] in source Serum or data Plasma Urea 7 - 18 mg/dL High No Oct 27 nitrogen informati 2016 [Mass/vol on in 12:30 AM ume] in source Serum or data Plasma Calcium 8.5 - mg/dL Normal No Oct 27 [Mass/vol 10.1 informati 2016 ume] in on in 12:30 AM Serum or source Plasma data Chloride 98 - 107 mmoL/L Normal No Oct 27 [Moles/vo informati 2017 lume] in on in 12:30 AM Serum or source Plasma data Carbon 21.0 - mmoL/L Normal No Oct 27 dioxide, 32.0 informati 2016 total on in 12:30 AM [Moles/vo source lume] in data Serum or Plasma Creatinin 0.55 - mg/dL High No Oct 27 e 1.02 informati 2017 [Mass/vol on in 12:30 AM ume] in source Serum or data Plasma Creatinin 50 - 200 ML/MIN Normal No Oct 27 e renal informati 2017 clearance on in 12:30 AM source predicted data by Cockcroft -Gault formula Estimated 59- ML/MIN Low REFERENCE Oct 27 RANGE: 2017 glomerula >60 12:30 AM r ML/MIN/1. filtratio 73 SQUARE n rate METERSIf (GF this patient is -A merican, then multiply theresult by 1.210. Globulin 1.3 - 3.2 gm/dL High No Oct 27 [Mass/vol informati 2016 ume] in on in 12:30 AM Serum source data Glucose 74 - 106 mg/dL High No Oct 27 [Mass/vol informati 2016 ume] in on in 12:30 AM Serum or source Plasma data Potassium 3.5 - 5.1 mmoL/L Normal No Oct 272016 [Moles/vo on in 12:30 AM lume] in source Serum or data Plasma Sodium 136 - 145 mmoL/L Normal No Oct 27 [Moles/vo informati 2016 lume] in on in 12:30 AM Serum or source Plasma data Aspartate 15 - 37 U/L Normal No Oct 272016 aminotran on in 12:30 AM sferase source [Enzymati data c activity/ volume] in Serum or Plasma Alanine 12 - 78 U/L Normal No Oct 27 aminotran 2016 sferase on in 12:30 AM [Enzymati source c data activity/ volume] in Serum or Plasma Protein 6.4 - 8.2 gm/dL Normal No Oct 27 [Mass/vol informati 2016 ume] in on in 12:30 AM Serum or source Plasma data CBC W Auto Differential panel in Blood Observa Value Referen Units Interpr Notes Date tion ce etation Range Basophils 0 - 0.2 K/MM3 Normal No Oct 272016 [#/volume on in 12:30 AM ] in source Blood by data Automated count Basophils 0.1 - 2.0 % Normal No Oct 272016 leukocyte on in 12:30 AM s in source Blood by data Automated count Eosinophi 0.0 - 0.4 K/mm3 Normal No Oct 27 ls 2016 [#/volume on in 12:30 AM ] in source Blood by data Automated count Eosinophi 0.1 - % Low No Oct 27 ls/100 12.0 2016 leukocyte on in 12:30 AM s in source Blood by data Automated count Granulocy 1.8 - 7.8 K/mm3 Normal No Oct 27 yi 2016 [#/volume on in 12:30 AM ] in source Blood by data Automated count Granulocy 37.0 - % Normal No Oct 27 yi/100 80.0 2016 leukocyte on in 12:30 AM s in source Blood by data Automated count Hematocri 37.0 - % Low No Oct 27 t [Volume 47.0 ati 2016 on in 12:30 AM Fraction] source of Blood data Hemoglobi 12.2 - g/dL Low No Oct 27 n 16.2 informati 2016 [Mass/vol on in 12:30 AM ume] in source Blood data Lymphocyt 0.7 - 4.5 K/mm3 Normal No Oct 27 es 2016 [#/volume on in 12:30 AM ] in source Unspecifi data ed specimen by Automated count Lymphocyt 10 - 50.0 % Normal No Oct 27 es inform2016 [#/volume on in 12:30 AM ] in source Unspecifi data ed specimen by Automated count Erythrocy 27 - 31.2 pg High No Oct 27 te mean 2016 corpuscul on in 12:30 AM ar source hemoglobi data n [Entitic mass] Erythrocy 31.8 - g/dl Low No Oct 27 te mean 35.4 2016 corpuscul on in 12:30 AM ar source hemoglobi data n concentra tion [Mass/vol ume] by Automated count Erythrocy 82.2 - fl High No Oct 27 te mean 97.8 inform2016 corpuscul on in 12:30 AM ar volume source [Entitic data volume] by Automated count Monocytes 0.1 - 1.0 K/mm3 Normal No Oct 272016 [#/volume on in 12:30 AM ] in source Blood by data Automated count Monocytes 1.7 - 9.3 % High No Oct 27 /100 2016 leukocyte on in 12:30 AM s in source Blood by data Automated count Platelet 7.4 - fl Normal No Oct 27 mean 10.4 2016 volume on in 12:30 AM [Entitic source volume] data in Blood by Automated count Platelets 142 - 424 K/mm3 Normal No Oct 272016 [#/volume on in 12:30 AM ] in source Blood data Erythrocy 4.2 - 5.4 M/mm3 Low No Oct 27 yi informati 2016 [#/volume on in 12:30 AM ] in source Amniotic data fluid Erythrocy 11.5 - % Normal No Oct 27 te 17.5 2016 distribut on in 12:30 AM ion width source [Entitic data volume] by Automated count Leukocyte 4.8 - K/MM3 Normal No Oct 27 s 10.8 informati 2017 [#/volume on in 12:30 AM ] in source Blood data Lactate [Moles/volume] in Blood Observa Value Referen Units Interpr Notes Date tion ce etation Range Lactate 0.4 - 2.0 mmol/L Normal No Oct 27 [Moles/vo informati 2017 lume] in on in 12:30 AM Blood source data
--- OUTSIDE RECORDS SUMMARY | 2017-01-20 14:40 | External Medical Summary Rpt ---
[...] - 7.8 K/mm3 High No Jan 7 yi informati 2017 5:50 [#/volume on in AM [...] source source source 17 data data data [id number] prepara RELEASE tion D [Type] 7BajayLucind aO POSITIV E Blood product special preparation [Type] Observa Value Referen Units Interpr Notes Date ti ce etation Range Blood BLOOD No No No BLOOD Oct 29 product UNIT informa informa informa UNIT # 2017 RELEASE tion in tion in in : W0382 12:22 special source source source 17 PM data data data [id number] prepara RELEASE tion D [Type] 7Boyers ,Lucind [...] RESU LTS CALLED TO: EDG 10/28/16 2311 Gauir Yan nda Glucose [Mass/volume] in Capillary blood [...]
--- OUTSIDE RECORDS SUMMARY | 2017-01-20 16:12 | External Medical Summary Rpt | CCD ---
Author Author , EMIL STEIN Address Unknown Phone [email or web address] Purpose Continuity of Care Document - 10-27-2016 [...]
--- OUTSIDE RECORDS SUMMARY | 2017-01-20 16:12 | External Medical Summary Rpt | CCD ---
Demographics Preferred Language Romanian Marital Status Unknown Mormon Affiliation Unknown Race Unknown Ethnic Group Unknown Author Author , EMIL STEIN Address Unknown Phone Immunization No patient found.
--- OUTSIDE RECORDS SUMMARY | 2017-01-20 16:12 | External Medical Summary Rpt | CCD ---
Demographics Preferred Language Yi Marital Status Unknown Protestant Affiliation Unknown Race Unknown Ethnic Group Unknown Author Author , EMIL STEIN Address Unknown Phone Immunization No patient found.
--- OUTSIDE RECORDS SUMMARY | 2017-01-20 16:12 | External Medical Summary Rpt | CCD ---
Author Author , EMIL STEIN Address Unknown Phone [email or web address] Purpose Continuity of Care Document - 10-27-2016 [...]
--- OUTSIDE RECORDS SUMMARY | 2017-01-20 16:15 | External Medical Summary Rpt ---
[...] or RESULTS Plasma RESU LTS CALLED TO: ALBEROT 01/14/17 Tatiana Hartman Glucose [Mass/volume] in Capillary [...] 37.0 - % High No Oct 6 iy/100 80.0 informati 2017 6:17 leukocyte on in [...] - 5.4 M/mm3 Low No Oct 30 iy informati 2017 6:25 [#/volume on in AM [...] source source source 17 data data data [id number] prepara RELEASE tion D [Type] 7BajayLucind aO POSITIV E Blood product special preparation [Type] Observa Value Referen Units Interpr Notes Date ti ce etation Range Blood BLOOD No No No BLOOD Oct 29 product UNIT informa informa informa UNIT # 2017 RELEASE tion in tion in in : W0382 12:22 special source source source 17 PM data data data [id number] prepara RELEASE tion D [Type] 7Boyers ,Lucind [...]
--- OUTSIDE RECORDS SUMMARY | 2017-01-20 16:15 | External Medical Summary Rpt ---
[...] - 5.4 M/mm3 Low No Oct 31 iy informati 2017 6:30 [#/volume on in AM [...] source source source 17 data data data [id number] prepara RELEASE tion D [Type] 7BajayLucind aO POSITIV E Blood product special preparation [Type] Observa Value Referen Units Interpr Notes Date ti ce etation Range Blood BLOOD No No No BLOOD Oct 29 product UNIT informa informa informa UNIT # 2017 RELEASE tion in tion in in : W0382 12:22 special source source source 17 PM data data data [id number] prepara RELEASE tion D [Type] 7Boyers ,Lucind [...]
[2017-01-28] MEDS ORDERED: CEFDINIR300 M1 PO (09:13)
[2017-01-28] MEDS ORDERED: MACROBID100 M3 PO (09:14)
[2017-01-28] MEDS ORDERED: WARFARIN SOD5 MG PO (09:14)
== END 2017-01-18 11:30 | DRG 177 ==
LOC: ER 14:55 → 2ND 17:49
PROVIDERS: Emergency Medicine; Family Medicine
DX: J15.212 Pneumonia due to Methicillin resistant Staphylococcus aureus (principal); B37.1 Pulmonary candidiasis; E11.22 Type 2 diabetes mellitus with diabetic chronic kidney disease; N39.0 Urinary tract infection, site not specified; J44.9 Chronic obstructive pulmonary disease, unspecified; Z99.81 Dependence on supplemental oxygen; R06.89 Other abnormalities of breathing; I12.9 Hypertensive chronic kidney disease with stage 1 through stage 4 chronic kidney disease, or unspecified chronic kidney disease; N18.3 Chronic kidney disease, stage 3 (moderate); Z79.4 Long term (current) use of insulin; B96.20 Unspecified Escherichia coli [E. coli] as the cause of diseases classified elsewhere; R79.1 Abnormal coagulation profile; E53.8 Deficiency of other specified B group vitamins; D50.9 Iron deficiency anemia, unspecified; Z79.01 Long term (current) use of anticoagulants
CPT/HCPCS: J0456; J1335; J2185

== ENCOUNTER 2017-02-12 19:27 | Inpatient (IN) | payer MEDICARE, OTHER ==
[~2017-02-12] VITALS: Ht 165.1 cm; Wt 108.2 kg
[~2017-02-12 19:27] MED LIST changes: +CEFDINIR300 M1 PO; +DULCOLAX10 M1 RC; +FOLIC ACID 1MG T1 MG PO; +FUROSEMIDE40 MG PO; +HUMALOG KW100 UNIT/1 SQ; +LANTUS SOLOS100 U/ML SC; +MACROBID100 M3 PO; +MILK OF MA400 MG/51 PO; +NYSTATIN TO30 GM/BOT TP; +WARFARIN SODIU7.5 MG PO; +Zithromax500 MG PO
[2017-02-12 19:32] VITALS: BP 98/73
--- OUTSIDE RECORDS SUMMARY | 2017-02-12 20:05 | External Medical Summary Rpt | CCD ---
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 N30.90 CYSTITIS, UNSPECIFIED WITHOUT HEMATURIA R06.89 OTHER ABNORMALITI ES OF BREATHING R73.9 HYPERGLYCEM IA, UNSPECIFIED Results Labs Lab Lab Date Result Refere Interp Status Commen Order Detail nces retati t Range on Differential panel, method unspecified - (01-31-2017 15:43) Blood = 100 complet total 017 #CELLS ed cell 15:43 count Neutrop = 40 % 42-76 complet hil 017 ed count 15:43 Platele NORMAL complet t 017 NORMAL ed estimat 15:43 L e Cells = 1 complet type 017 ed percent 15:43 age Monocyt = 24 % 2-9 complet e % 017 ed 15:43 Manual = 1 % 0-1 complet blood 017 ed metamye 15:43 locytes /100 leukocy t Macrocy 1+ 1+ L complet yi 017 ed detecti 15:43 on LYMPH 34 % 10-50 complet 017 ed 15:43 Blood 01-31- FEW complet manual 017 GIANT ed differe 15:43 PLTS ntial comment interp BLASTOC 1 % 0- complet YTES 017 ed 15:43 CBC w auto diff (01-31-2017 15:43) Blood 01-31- = 7.1 4.8-10. complet leukocy 017 K/MM3 8 ed yi 15:43 count (number /volume ) Automat = 15.2 11.5-17 complet ed 017 % .5 ed erythro 15:43 cyte distrib ution width Red = 2.65 4.2-5.4 complet blood 017 M/mm3 ed cell 15:43 count Blood = 137 142-424 complet platele 017 K/mm3 ed t count 15:43 Automat = 9.2 7.4-10. complet ed 017 fl 4 ed blood 15:43 platele t mean volume venita [place] % = 32.1 1.7-9.3 complet 017 % ed 15:43 Absolut = 2.3 0.1-1.0 complet e 017 K/mm3 ed monocyt 15:43 e count Automat = 100.2 82.2-97 complet ed 017 fl .8 ed erythro 15:43 cyte mean corpusc ular v Automat = 32.1 31.8-35 complet ed 017 g/dl .4 ed erythro 15:43 cyte mean corpusc ular h Mean = 32.2 27-31.2 complet corpusc 017 pg ed ular 15:43 hemoglo bin (MCH) determ Lymphoc = 29.9 10-50.0 complet yte 017 % ed count, 15:43 blood, automat ed Absolut = 2.1 0.7-4.5 complet e 017 K/mm3 ed lymphoc 15:43 yte count Blood = 8.5 12.2-16 complet hemoglo 017 g/dL .2 ed bin 15:43 measure ment (mass/v olum Blood = 26.6 37.0-47 complet hematoc 017 % .0 ed rit 15:43 (volume fractio n) Granulo = 35.3 37.0-80 complet cyte 017 % .0 ed percent 15:43 age Blood = 2.5 1.8-7.8 complet granulo 017 K/mm3 ed cytes 15:43 automat ed count (numb Automat = 0.3 % 0.1-12. complet ed 017 0 ed blood 15:43 eosinop hils/10 0 leukocy t Automat 2 = 0.0 0.0-0.4 complet ed 017 K/mm3 ed blood 15:43 eosinop hil count Baso % = 2.3 % 0.1-2.0 complet 017 ed 15:43 Automat 01-31-2 = 0.2 0-0.2 complet ed 017 K/MM3 ed blood 15:43 basophi l count (count/ vo Basic metabolic panel (01-31-2017 15:43) Serum 01-31-2 = 140 136-145 complet sodium 017 mmoL/L ed measure 15:43 ment Serum 2 = 4.4 3.5-5.1 complet potassi 017 mmoL/L ed um 15:43 measure ment Serum = 208 74-106 complet or 017 mg/dL ed plasma 15:43 glucose measure ment (mas Estimat = 16 59- complet ed 017 ML/MIN ed glomeru 15:43 lar filtrat ion rate (GF Comment: REFERENCE RANGE: >60 ML/MIN/1.73 SQUARE METERS Comment: If this patient is -[place], then multiply the Comment: result by 1.210. Serum 2 = 2.9 0.55-1. complet or 017 mg/dL 02 ed plasma 15:43 creatin ine measure ment ( Carbon = 41 21.0-32 complet dioxide 017 mmoL/L .0 ed 15:43 measure ment Comment: NOTIFICATION RESULT Serum 2 = 95 98-107 complet or 017 mmoL/L ed plasma 15:43 chlorid e measure ment (mo Serum 2 = 8.0 8.5-10. complet or 017 mg/dL 1 ed plasma 15:43 calcium measure ment (mas Serum 2 = 47 7-18 complet or 017 mg/dL ed plasma 15:43 urea nitroge n measure men Whole blood INR measurement (01-31-2017 15:43) Whole 01-31-2 = 2.29 0.9-1.1 complet blood 017 ed INR 15:43 measure ment Comment: INDICATION INR RANGE Comment: Comment: THERAPY FOR DVT, PE, ATRIAL FIB; 2.0 - 3.0 Comment: PROPHYLAXIS FOR VTE Comment: Comment: THERAPY FOR MECHANICAL HEART 2.5 - 3.5 Comment: VALVE; PREVENTION OF SYSTEMIC Comment: EMBOLISM SECONDARY TO AMI Prothro = 25.0 9.4-11. complet mbin 017 SECONDS 8 ed time 15:43 (PT) in platele t poor p Differential panel, method unspecified - (01-31-2017 15:43) BLASTOC 1 % 0- complet YTES 017 ed 15:43 Manual FEW complet differe 017 GIANT ed ntial 15:43 PLTS comment [interp retatio n] in Blood Narrati ve LYMPH 34 % 10% - Normal complet 017 50% ed 15:43 Macrocy 1+ complet yi 017 ed [Presen 15:43 ce] in Blood Platele NORMAL complet ts 017 ed [Presen 15:43 ce] in Blood by Light microsc opy Glucose capillary blood glucometer (01-28-2017 11:04) Glucose = 150 70-110 complet 017 mg/dl ed capilla 11:[address] Glucose capillary blood glucometer (01-28-2017 06:39) Glucose = 108 70-110 complet 017 mg/dl ed capilla 06:[address] Glucose capillary blood glucometer (01-27-2017 20:16) Glucose = 184 70-110 complet 017 mg/dl ed capilla 20:[address] Glucose capillary blood glucometer (01-27-2017 16:55) Glucose = 172 70-110 complet 017 mg/dl ed capilla 16:[address] Glucose capillary blood glucometer (01-27-2017 11:18) Glucose = 137 70-110 complet 017 mg/dl ed capilla 11:[address] CBC w auto diff (01-27-2017 08:40) Blood = 6.4 4.8-10. complet leukocy 017 K/MM3 8 ed yi 08:40 count (number /volume ) Automat = 15.1 11.5-17 complet ed 017 % .5 ed erythro 08:40 cyte distrib ution width Red = 2.90 4.2-5.4 complet blood 017 M/mm3 ed cell 08:40 count Blood = 144 142-424 complet platele 017 K/mm3 ed t count 08:40 Automat = 9.3 7.4-10. complet ed 017 fl 4 ed blood 08:40 platele t mean volume venita [place] % = 11.1 1.7-9.3 complet 017 % ed 08:40 Absolut = 0.7 0.1-1.0 complet e 017 K/mm3 ed monocyt 08:40 e count Automat = 100.4 82.2-97 complet ed 017 fl .8 ed erythro 08:40 cyte mean corpusc ular v Automat = 31.3 31.8-35 complet ed 017 g/dl .4 ed erythro 08:40 cyte mean corpusc ular h Mean = 31.4 27-31.2 complet corpusc 017 pg ed ular 08:40 hemoglo bin (MCH) determ Lymphoc = 28.2 10-50.0 complet yte 017 % ed count, 08:40 blood, automat ed Absolut = 1.8 0.7-4.5 complet e 017 K/mm3 ed lymphoc 08:40 yte count Blood = 9.1 12.2-16 complet hemoglo 017 g/dL .2 ed bin 08:40 measure ment (mass/v olum Blood = 29.2 37.0-47 complet hematoc 017 % .0 ed rit 08:40 (volume fractio n) Granulo = 59.8 37.0-80 complet cyte 017 % .0 ed percent 08:40 age Blood = 3.8 1.8-7.8 complet granulo 017 K/mm3 ed cytes 08:40 automat ed count (numb Automat = 0.4 % 0.1-12. complet ed 017 0 ed blood 08:40 eosinop hils/10 0 leukocy t Automat = 0.0 0.0-0.4 complet ed 017 K/mm3 ed blood 08:40 eosinop hil count Baso % = 0.6 % 0.1-2.0 complet 017 ed 08:40 Automat = 0.0 0-0.2 complet ed 017 K/MM3 ed blood 08:40 basophi l count (count/ vo Comprehensive metabolic panel (01-27-2017 08:40) Protein = 6.5 6.4-8.2 complet total 017 gm/dL ed ser/jalen 08:40 s ALT = 49 12-78 complet (SGPT) 017 U/L ed ser/ajlen 08:40 s Serum = 47 15-37 complet or 017 U/L ed plasma 08:40 asparta te aminotr ansfera Serum = 146 136-145 complet sodium 017 mmoL/L ed measure 08:40 ment Serum = 4.0 3.5-5.1 complet potassi 017 mmoL/L ed um 08:40 measure ment Serum = 137 74-106 complet or 017 mg/dL ed plasma 08:40 glucose measure ment (mas Serum = 4.2 1.3-3.2 complet globuli 017 gm/dL ed n 08:40 measure ment (mass/v olume) Estimat = 33 59- complet ed 017 ML/MIN ed glomeru 08:40 lar filtrat ion rate (GF Comment: REFERENCE RANGE: >60 ML/MIN/1.73 SQUARE METERS Comment: If this patient is -[place], then multiply the Comment: result by 1.210. Estimat = 50 50-200 complet ion of 017 ML/MIN ed creatin 08:40 ine renal clearan ce Serum = 1.5 0.55-1. complet or 017 mg/dL 02 ed plasma 08:40 creatin ine measure ment ( Carbon = 46 21.0-32 complet dioxide 017 mmoL/L .0 ed 08:40 measure ment Comment: NOTIFICATION RESULT Serum = 104 98-107 complet or 017 mmoL/L ed plasma 08:40 chlorid e measure ment (mo Serum = 9.0 8.5-10. complet or 017 mg/dL 1 ed plasma 08:40 calcium measure ment (mas Serum = 28 7-18 complet or 017 mg/dL ed plasma 08:40 urea nitroge n measure men Serum = 0.3 0.2-1.0 complet or 017 mg/dL ed plasma 08:40 total bilirub in measure m Serum = 83 46-116 complet or 017 U/L ed plasma 08:40 alkalin e phospha tase venita Serum = 2.3 3.4-5.0 complet or 017 gm/dL ed plasma 08:40 albumin measure ment (mas Serum = 0.5 1.1-1.8 complet or 017 ed plasma 08:40 albumin /globul in mass ra Whole blood INR measurement (01-27-2017 08:40) Comment: IS PATIENT ON ANTICOAGULANTS? Y Comment: LIST ANTICOAGULANTS: Comment: COUMADIN Prothro = 41.0 9.4-11. complet mbin 017 SECONDS 8 ed time 08:40 (PT) in platele t poor p Whole = 3.75 0.9-1.1 complet blood 017 ed INR 08:40 measure ment Comment: INDICATION INR RANGE Comment: Comment: THERAPY FOR DVT, PE, ATRIAL FIB; 2.0 - 3.0 Comment: PROPHYLAXIS FOR VTE Comment: Comment: THERAPY FOR MECHANICAL HEART 2.5 - 3.5 Comment: VALVE; PREVENTION OF SYSTEMIC Comment: EMBOLISM SECONDARY TO AMI Glucose capillary blood glucometer (01-27-2017 06:06) Glucose = 162 70-110 complet 017 mg/dl ed capilla 06:[address] Glucose capillary blood glucometer (01-26-2017 23:21) Glucose = 80 70-110 complet 017 mg/dl ed capilla 23:[address] Glucose capillary blood glucometer (01-26-2017 21:09) Glucose = 88 70-110 complet 017 mg/dl ed capilla 21:[address] Glucose capillary blood glucometer (01-26-2017 17:11) Glucose = 81 70-110 complet 017 mg/dl ed capilla 17:[address] Whole blood hemoglobin and hematocrit pa (01-26-2017 14:08) Comment: COMMENTS TO CV/CVN CV TSC SYSTEM OPERATOR: 1 HOUR POST Blood = 9.5 12.2-16 complet hemoglo 017 g/dL .2 ed bin 14:08 measure ment (mass/v olum Blood = 30.8 37.0-47 complet hematoc 017 % .0 ed rit 14:08 (volume fractio n) Glucose capillary blood glucometer (01-26-2017 11:35) Glucose = 280 70-110 complet 017 mg/dl ed capilla 11:[address] Leukocyte reduction of packed red blood (01-26-2017 11:00) Leukocy BLOOD complet te 017 UNIT ed reducti 11:00 RELEASE on of BLOOD packed UNIT red RELEASE blood L Comment: BLOOD UNIT # : [id number] RELEASED 01/26/17 Comment: Marek Ocampo Comment: Comment: O POSITIVE Blood product special preparation [Type] (01-26-2017 11:00) Blood BLOOD complet product 017 UNIT ed 11:00 RELEASE special prepara tion [Type] Crossmatch (01-26-2017 09:15) Comment: Hold? N Comment: Transfuse now? 1 UNIT NOW Immedia COMPAT complet te spin 017 COMPAT ed 09:15 L crossma tch Interpr COMPAT complet etation 017 COMPAT ed of 09:15 L major crossma tch resul Blood type and crossmatch (01-26-2017 09:15) Comment: Hold? N Comment: Transfuse now? 1 UNIT NOW Blood O O L complet ABO 017 ed group 09:15 typing Rh POSITIV complet blood 017 E ed group 09:15 POSITIV typing E L Materna NEGATIV NEGATIV complet l 017 E E ed antibod 09:15 NEGATIV y E L screen Blood type & Crossmatch panel in Blood (01-26-2017 09:15) Blood NEGATIV NEGATIV complet group 017 E E ed antibod 09:15 y screen [Presen ce] in Serum or Plasma Rh POSITIV complet [Type] 017 E ed in 09:15 Blood ABO O complet group 017 ed [Type] 09:15 in Blood Blood type & Crossmatch panel in Blood (01-26-2017 09:15) Major COMPAT complet crossma 017 ed tch 09:15 [interp retatio n] Major COMPAT complet crossma 017 ed tch 09:15 [interp retatio n] by Immedia te spin Whole blood INR measurement (01-26-2017 06:18) Comment: IS PATIENT ON ANTICOAGULANTS? Y Comment: LIST ANTICOAGULANTS: Comment: COUMADIN Comment: PTT RESULTS MUST BE CALLED IF PT ON HEPARIN!!! Y Prothro = 63.2 9.4-11. complet mbin 017 SECONDS 8 ed time 06:18 (PT) in platele t poor p Comment: NOTIFICATION RESULT Comment: Ying Covarrubias = 5.75 0.9-1.1 complet blood 017 ed INR 06:18 measure ment Comment: NOTIFICATION RESULT Comment: Ying Comment: INDICATION INR RANGE Comment: Comment: THERAPY FOR DVT, PE, ATRIAL FIB; 2.0 - 3.0 Comment: PROPHYLAXIS FOR VTE Comment: Comment: THERAPY FOR MECHANICAL HEART 2.5 - 3.5 Comment: VALVE; PREVENTION OF SYSTEMIC Comment: EMBOLISM SECONDARY TO AMI Basic metabolic panel (01-26-2017 06:18) Serum = 146 136-145 complet sodium 017 mmoL/L ed measure 06:18 ment Serum = 3.9 3.5-5.1 complet potassi 017 mmoL/L ed um 06:18 measure ment Serum = 170 74-106 complet or 017 mg/dL ed plasma 06:18 glucose measure ment (mas Estimat = 36 59- complet ed 017 ML/MIN ed glomeru 06:18 lar filtrat ion rate (GF Comment: REFERENCE RANGE: >60 ML/MIN/1.73 SQUARE METERS Comment: If this patient is -[place], then multiply the Comment: result by 1.210. Estimat = 54 50-200 complet ion of 017 ML/MIN ed creatin 06:18 ine renal clearan ce Serum = 1.4 0.55-1. complet or 017 mg/dL 02 ed plasma 06:18 creatin ine measure ment ( Carbon = 43 21.0-32 complet dioxide 017 mmoL/L .0 ed 06:18 measure ment Comment: NOTIFICATION RESULT Comment: Ying Serum = 104 98-107 complet or 017 mmoL/L ed plasma 06:18 chlorid e measure ment (mo Serum = 8.8 8.5-10. complet or 017 mg/dL 1 ed plasma 06:18 calcium measure ment (mas Serum = 38 7-18 complet or 017 mg/dL ed plasma 06:18 urea nitroge n measure men CBC w auto diff (01-26-2017 06:18) Automat = 0.0 0-0.2 complet ed 017 K/MM3 ed blood 06:18 basophi l count (count/ vo Blood = 5.0 4.8-10. complet leukocy 017 K/MM3 8 ed yi 06:18 count (number /volume ) Automat = 15.4 11.5-17 complet ed 017 % .5 ed erythro 06:18 cyte distrib ution width Red = 2.54 4.2-5.4 complet blood 017 M/mm3 ed cell 06:18 count Blood = 147 142-424 complet platele 017 K/mm3 ed t count 06:18 Automat = 10.0 7.4-10. complet ed 017 fl 4 ed blood 06:18 platele t mean volume venita [place] % = 21.6 1.7-9.3 complet 017 % ed 06:18 Absolut = 1.1 0.1-1.0 complet e 017 K/mm3 ed monocyt 06:18 e count Automat = 99.8 82.2-97 complet ed 017 fl .8 ed erythro 06:18 cyte mean corpusc ular v Automat = 31.2 31.8-35 complet ed 017 g/dl .4 ed erythro 06:18 cyte mean corpusc ular h Mean = 31.1 27-31.2 complet corpusc 017 pg ed ular 06:18 hemoglo bin (MCH) determ Lymphoc = 37.0 10-50.0 complet yte 017 % ed count, 06:18 blood, automat ed Absolut = 1.9 0.7-4.5 complet e 017 K/mm3 ed lymphoc 06:18 yte count Blood = 7.9 12.2-16 complet hemoglo 017 g/dL .2 ed bin 06:18 measure ment (mass/v olum Comment: CRITICAL RESULTS Comment: RESULTS CALLED TO: BONNIEVASILIYBrian 01/26/17 0638 Marek Ocampo Comment: Ying Blood = 25.4 37.0-47 complet hematoc 017 % .0 ed rit 06:18 (volume fractio n) Granulo = 40.8 37.0-80 complet cyte 017 % .0 ed percent 06:18 age Blood = 2.0 1.8-7.8 complet granulo 017 K/mm3 ed cytes 06:18 automat ed count (numb Automat = 0.1 % 0.1-12. complet ed 017 0 ed blood 06:18 eosinop hils/10 0 leukocy t Automat = 0.0 0.0-0.4 complet ed 017 K/mm3 ed blood 06:18 eosinop hil count Baso % = 0.6 % 0.1-2.0 complet 017 ed 06:18 Glucose capillary blood glucometer (01-26-2017 06:11) Glucose = 181 70-110 complet 017 mg/dl ed capilla 06:[address] Glucose capillary blood glucometer (01-25-2017 21:02) Glucose = 141 70-110 complet 017 mg/dl ed capilla 21:[address] Glucose capillary blood glucometer (01-25-2017 17:17) Glucose = 124 70-110 complet 017 mg/dl ed capilla 17:[address] Glucose capillary blood glucometer (01-25-2017 12:15) Glucose = 207 70-110 complet 017 mg/dl ed capilla 12:[address] Trough gentamicin level (01-25-2017 09:30) Trough = 0.9 0-2.0 complet gentami 017 ug/ml ed isauro 09:30 level Basic metabolic panel (01-25-2017 06:33) Serum = 150 136-145 complet sodium 017 mmoL/L ed measure 06:33 ment Comment: CRITICAL RESULTS Comment: RESULTS CALLED TO: SARITHA 01/25/17 0705 Marek Ocampo Comment: Ying Serum = 3.8 3.5-5.1 complet potassi 017 mmoL/L ed um 06:33 measure ment Serum = 71 74-106 complet or 017 mg/dL ed plasma 06:33 glucose measure ment (mas Estimat = 43 59- complet ed 017 ML/MIN ed glomeru 06:33 lar filtrat ion rate (GF Comment: REFERENCE RANGE: >60 ML/MIN/1.73 SQUARE METERS Comment: If this patient is -[place], then multiply the Comment: result by 1.210. Estimat = 63 50-200 complet ion of 017 ML/MIN ed creatin 06:33 ine renal clearan ce Serum = 1.2 0.55-1. complet or 017 mg/dL 02 ed plasma 06:33 creatin ine measure ment ( Carbon = 45 21.0-32 complet dioxide 017 mmoL/L .0 ed 06:33 measure ment Comment: NOTIFICATION RESULT Comment: Ying Serum = 105 98-107 complet or 017 mmoL/L ed plasma 06:33 chlorid e measure ment (mo Serum = 9.0 8.5-10. complet or 017 mg/dL 1 ed plasma 06:33 calcium measure ment (mas Serum = 49 7-18 complet or 017 mg/dL ed plasma 06:33 urea nitroge n measure men Differential panel, method unspecified - (01-25-2017 06:33) Blood = 100 complet total 017 #CELLS ed cell 06:33 count Blood = 1 % complet promyel 017 ed ocytes/ 06:33 100 leukocy yi Neutrop = 43 % 42-76 complet hil 017 ed count 06:33 Platele NORMAL complet t 017 NORMAL ed estimat 06:33 L e Cells = 1 complet type 017 ed percent 06:33 age Manual = 2 % 0-1 complet blood 017 ed myelocy 06:33 yi/100 leukocy yi Monocyt = 16 % 2-9 complet e % 017 ed 06:33 Manual = 6 % 0-1 complet blood 017 ed metamye 06:33 locytes /100 leukocy t LYMPH 28 % 10-50 complet 017 ed 06:33 Automat = 3 % 0-8 complet ed 017 ed blood 06:33 band neutrop hil percent a BLASTOC 1 % 0- complet YTES 017 ed 06:33 CBC w auto diff (01-25-2017 06:33) Blood = 5.7 4.8-10. complet leukocy 017 K/MM3 8 ed yi 06:33 count (number /volume ) Automat = 15.5 11.5-17 complet ed 017 % .5 ed erythro 06:33 cyte distrib ution width Red = 2.66 4.2-5.4 complet blood 017 M/mm3 ed cell 06:33 count Blood = 151 142-424 complet platele 017 K/mm3 ed t count 06:33 Automat = 9.7 7.4-10. complet ed 017 fl 4 ed blood 06:33 platele t mean volume venita [place] % = 34.1 1.7-9.3 complet 017 % ed 06:33 Absolut = 2.0 0.1-1.0 complet e 017 K/mm3 ed monocyt 06:33 e count Automat = 98.6 82.2-97 complet ed 017 fl .8 ed erythro 06:33 cyte mean corpusc ular v Automat = 31.7 31.8-35 complet ed 017 g/dl .4 ed erythro 06:33 cyte mean corpusc ular h Mean = 31.3 27-31.2 complet corpusc 017 pg ed ular 06:33 hemoglo bin (MCH) determ Lymphoc = 27.9 10-50.0 complet yte 017 % ed count, 06:33 blood, automat ed Absolut = 1.6 0.7-4.5 complet e 017 K/mm3 ed lymphoc 06:33 yte count Blood = 8.3 12.2-16 complet hemoglo 017 g/dL .2 ed bin 06:33 measure ment (mass/v olum Blood = 26.2 37.0-47 complet hematoc 017 % .0 ed rit 06:33 (volume fractio n) Granulo = 36.2 37.0-80 complet cyte 017 % .0 ed percent 06:33 age Blood = 2.1 1.8-7.8 complet granulo 017 K/mm3 ed cytes 06:33 automat ed count (numb Automat = 0.7 % 0.1-12. complet ed 017 0 ed blood 06:33 eosinop hils/10 0 leukocy t Automat = 0.0 0.0-0.4 complet ed 017 K/mm3 ed blood 06:33 eosinop hil count Baso % = 1.1 % 0.1-2.0 complet 017 ed 06:33 Automat = 0.1 0-0.2 complet ed 017 K/MM3 ed blood 06:33 basophi l count (count/ vo PT amp; PTT (prothrombin time and parti (01-25-2017 06:33) Activat = 62.7 23.6-34 complet ed 017 SECONDS .0 ed partial 06:33 thrombo plastin time (a Comment: RESULTS CALLED TO PHARMACIST: BERRY Jensen 01/25/17 0709 Comment: Marek Ocampo Ying Prothro = 63.3 9.4-11. complet mbin 017 SECONDS 8 ed time 06:33 (PT) in platele t poor p Comment: NOTIFICATION RESULT Comment: BERRY Jensen 01/25/17707 Marek Ocampo Comment: Ying Covarrubias = 5.76 0.9-1.1 complet blood 017 ed INR 06:33 measure ment Comment: NOTIFICATION RESULT Comment: BERRY Cleaning 01/25/17707 Marek Ocampo Comment: Ying Comment: INDICATION INR RANGE Comment: Comment: THERAPY FOR DVT, PE, ATRIAL FIB; 2.0 - 3.0 Comment: PROPHYLAXIS FOR VTE Comment: Comment: THERAPY FOR MECHANICAL HEART 2.5 - 3.5 Comment: VALVE; PREVENTION OF SYSTEMIC Comment: EMBOLISM SECONDARY TO AMI Differential panel, method unspecified - (01-25-2017 06:33) BLASTOC 1 % 0- complet YTES 017 ed 06:33 LYMPH 28 % 10% - Normal complet 017 50% ed 06:33 Platele NORMAL complet ts 017 ed [Presen 06:33 ce] in Blood by Light microsc opy Glucose capillary blood glucometer (01-25-2017 06:27) Glucose = 71 70-110 complet 017 mg/dl ed capilla 06:[address] Glucose capillary blood glucometer (01-24-2017 21:19) Glucose = 197 70-110 complet 017 mg/dl ed capilla 21:[address] Glucose capillary blood glucometer (01-24-2017 16:41) Glucose = 336 70-110 complet 017 mg/dl ed capilla 16:[address] Glucose capillary blood glucometer (01-24-2017 12:05) Glucose = 366 70-110 complet 017 mg/dl ed capilla 12:[address] Differential panel, method unspecified - (01-24-2017 06:27) Blood = 100 complet total 017 #CELLS ed cell 06:27 count Neutrop = 36 % 42-76 complet hil 017 ed count 06:27 Platele NORMAL complet t 017 NORMAL ed estimat 06:27 L e Monocyt = 24 % 2-9 complet e % 017 ed 06:27 Manual = 3 % 0-1 complet blood 017 ed metamye 06:27 locytes /100 leukocy t Macrocy 1+ 1+ L complet yi 017 ed detecti 06:27 on LYMPH 31 % 10-50 complet 017 ed 06:27 Hypochr 1+ 1+ L complet omatic 017 ed red 06:27 blood cell detecti on Automat = 6 % 0-8 complet ed 017 ed blood 06:27 band neutrop hil percent a CBC w auto diff (01-24-2017 06:27) Blood = 9.6 4.8-10. complet leukocy 017 K/MM3 8 ed yi 06:27 count (number /volume ) Automat = 15.6 11.5-17 complet ed 017 % .5 ed erythro 06:27 cyte distrib ution width Red = 2.75 4.2-5.4 complet blood 017 M/mm3 ed cell 06:27 count Blood = 173 142-424 complet platele 017 K/mm3 ed t count 06:27 Automat = 9.6 7.4-10. complet ed 017 fl 4 ed blood 06:27 platele t mean volume venita [place] % = 32.9 1.7-9.3 complet 017 % ed 06:27 Absolut = 3.2 0.1-1.0 complet e 017 K/mm3 ed monocyt 06:27 e count Automat = 100.5 82.2-97 complet ed 017 fl .8 ed erythro 06:27 cyte mean corpusc ular v Automat = 31.0 31.8-35 complet ed 017 g/dl .4 ed erythro 06:27 cyte mean corpusc ular h Mean = 31.1 27-31.2 complet corpusc 017 pg ed ular 06:27 hemoglo bin (MCH) determ Lymphoc = 30.8 10-50.0 complet yte 017 % ed count, 06:27 blood, automat ed Absolut = 3.0 0.7-4.5 complet e 017 K/mm3 ed lymphoc 06:27 yte count Blood = 8.7 12.2-16 complet hemoglo 017 g/dL .2 ed bin 06:27 measure ment (mass/v olum Blood = 27.7 37.0-47 complet hematoc 017 % .0 ed rit 06:27 (volume fractio n) Granulo = 35.5 37.0-80 complet cyte 017 % .0 ed percent 06:27 age Blood = 3.4 1.8-7.8 complet granulo 017 K/mm3 ed cytes 06:27 automat ed count (numb Automat = 0.4 % 0.1-12. complet ed 017 0 ed blood 06:27 eosinop hils/10 0 leukocy t Automat = 0.0 0.0-0.4 complet ed 017 K/mm3 ed blood 06:27 eosinop hil count Baso % = 0.3 % 0.1-2.0 complet 017 ed 06:27 Automat = 0.0 0-0.2 complet ed 017 K/MM3 ed blood 06:27 basophi l count (count/ vo Brain natriuretic peptide (01-24-2017 06:27) Brain = 64 0-100 complet natriur 017 pg/mL ed etic 06:27 peptide Serum or plasma gentamicin measurement ( (01-24-2017 06:27) Serum = 4.5 4.0-10. complet or 017 ug/ml 0 ed plasma 06:27 gentami isauro measure ment ( Basic metabolic panel (01-24-2017 06:27) Serum = 145 136-145 complet sodium 017 mmoL/L ed measure 06:27 ment Serum = 3.9 3.5-5.1 complet potassi 017 mmoL/L ed um 06:27 measure ment Serum = 116 74-106 complet or 017 mg/dL ed plasma 06:27 glucose measure ment (mas Estimat = 33 59- complet ed 017 ML/MIN ed glomeru 06:27 lar filtrat ion rate (GF Comment: REFERENCE RANGE: >60 ML/MIN/1.73 SQUARE METERS Comment: If this patient is -[place], then multiply the Comment: result by 1.210. Estimat = 50 50-200 complet ion of 017 ML/MIN ed creatin 06:27 ine renal clearan ce Serum = 1.5 0.55-1. complet or 017 mg/dL 02 ed plasma 06:27 creatin ine measure ment ( Carbon = 41 21.0-32 complet dioxide 017 mmoL/L .0 ed 06:27 measure ment Comment: NOTIFICATION RESULT Comment: Ying Serum = 102 98-107 complet or 017 mmoL/L ed plasma 06:27 chlorid e measure ment (mo Serum = 8.9 8.5-10. complet or 017 mg/dL 1 ed plasma 06:27 calcium measure ment (mas Serum = 66 7-18 complet or 017 mg/dL ed plasma 06:27 urea nitroge n measure men Differential panel, method unspecified - (01-24-2017 06:27) Hypochr 1+ complet omia 017 ed [Presen 06:27 ce] in Blood LYMPH 31 % 10% - Normal complet 017 50% ed 06:27 Macrocy 1+ complet yi 017 ed [Presen 06:27 ce] in Blood Platele NORMAL complet ts 017 ed [Presen 06:27 ce] in Blood by Light microsc opy Glucose capillary blood glucometer (01-24-2017 06:13) Glucose 01-24-2 = 114 70-110 complet 017 mg/dl ed capilla 06:[address] Glucose capillary blood glucometer (01-23-2017 21:51) Glucose = 309 70-110 complet 017 mg/dl ed capilla 21:[address] Glucose capillary blood glucometer (01-23-2017 17:19) Glucose 10-15-2 = 321 70-110 complet 017 mg/dl ed capilla 17:[address] Antibiotic sensitivity studies (01-23-2017 17:14) Piperac 10-15-2 = 8 complet illin/t 017 ug/ml ed azobact 17:14 am suscept ibility test by minimum inhibit ory concent ration Tobramy 10-15-2 = 8 complet isauro 017 ug/ml ed suscept 17:14 ibility test by minimum inhibit ory concent ration Trimeth 10-15-2 <= 20 complet oprim/s 017 ug/ml ed ulfamet 17:14 hoxazol e suscept ibility test by minimum inhibit ory concent ration Ampicil 10-15-2 = 4 complet hamilton/sul 017 ug/ml ed bactam 17:14 suscept ibility test by minimum inhibit ory concent ration Levoflo 10-15-2 >= 8 complet xacin 017 ug/ml ed suscept 17:14 ibility test by minimum inhibit ory concent ration Imipene 10-15-2 <= 0.25 complet m 017 ug/ml ed suscept 17:14 ibility test by minimum inhibit ory concent ration Gentami 10-15-2 >= 16 complet isauro 017 ug/ml ed suscept 17:14 ibility test by minimum inhibit ory concent ration Nitrofu 10-15-2 <= 16 complet rantoin 017 ug/ml ed 17:14 suscept ibility test by minimum inhibit ory concent ration Cefepim 10-15-2 <= 1 complet e 017 ug/ml ed suscept 17:14 ibility test by minimum inhibit ory concent ration Ertapen 10-15-2 <= 0.5 complet em 017 ug/ml ed suscept 17:14 ibility test by minimum inhibit ory concent ration Extende 10-15-2 = ug/ml complet d 017 ed spectru 17:14 m beta lactama se (ESBL) produci ng bacteri a suscept ibility test by minimum inhibit ory Cefazol 10-15-2 <= 4 complet in 017 ug/ml ed suscept 17:14 ibility test by minimum inhibit ory concent ration Ceftria 10-15-2 <= 1 complet xone 017 ug/ml ed suscept 17:14 ibility test by minimum inhibit ory concent ration Ceftazi 2 <= 1 complet dime/po 017 ug/ml ed tassium 17:14 clavula bridgette suscept ibility test by minimum inhibit ory concent ration Amoxici 01-23-2 = 4 complet llin/cl 017 ug/ml ed avulana 17:14 te suscept ibility test by minimum inhibit ory concent ration Ampicil 01-23-2 = 8 complet hamilton 017 ug/ml ed suscept 17:14 ibility test by minimum inhibit ory concent ration Serum or plasma gentamicin measurement ( (01-23-2017 15:24) Serum = 9.6 4.0-10. complet or 017 ug/ml 0 ed plasma 15:24 gentami isauro measure ment ( Glucose capillary blood glucometer (01-23-2017 11:41) Glucose = 139 70-110 complet 017 mg/dl ed capilla 11:[address] Whole blood INR measurement (01-23-2017 09:47) Comment: IS PATIENT ON ANTICOAGULANTS? Y Comment: LIST ANTICOAGULANTS: Comment: WARFARIN Comment: PTT RESULTS MUST BE CALLED IF PT ON HEPARIN!!! Y Prothro = 68.3 9.4-11. complet mbin 017 SECONDS 8 ed time 09:47 (PT) in platele t poor p Comment: NOTIFICATION RESULT Whole = 6.21 0.9-1.1 complet blood 017 ed INR 09:47 measure ment Comment: NOTIFICATION RESULT Comment: INDICATION INR RANGE Comment: Comment: THERAPY FOR DVT, PE, ATRIAL FIB; 2.0 - 3.0 Comment: PROPHYLAXIS FOR VTE Comment: Comment: THERAPY FOR MECHANICAL HEART 2.5 - 3.5 Comment: VALVE; PREVENTION OF SYSTEMIC Comment: EMBOLISM SECONDARY TO AMI Glucose capillary blood glucometer (01-23-2017 06:51) Glucose = 103 70-110 complet 017 mg/dl ed capilla 06:[address] Glucose capillary blood glucometer (01-22-2017 23:34) Glucose = 92 70-110 complet 017 mg/dl ed capilla 23:[address] Glucose capillary blood glucometer (01-22-2017 21:41) Glucose = 74 70-110 complet 017 mg/dl ed capilla 21:[address] Glucose capillary blood glucometer (01-22-2017 21:20) Glucose = 53 70-110 complet 017 mg/dl ed capilla 21:[address] Arterial blood gas (01-22-2017 16:55) Arteria = 17.8 23-27 complet l blood 017 MMOL/L ed carbon 16:55 dioxide , total venita SOURCE R/R complet 017 ed 16:55 Arteria = 89.7 90-100 complet l blood 017 % ed oxygen 16:55 saturat ion calcula Arteria = 59.9 80-100 complet l whole 017 MMHG ed blood 16:55 PO2 at POC Arteria = 7.39 7.35-7. complet l blood 017 MMOL/L 45 ed pH 16:55 measure ment Arteria = 74.1 35.0-45 complet l blood 017 MMHG .0 ed 16:55 partial pressur e of carbo Comment: CRITICAL RESULTS Comment: RESULTS CALLED TO: DR SEPULVEDA 01/22/17 [id number] Rubio Williamson Arteria = 2 complet l blood 017 ed total 16:55 oxygen content zina Arteria = 43.4 22.0-26 complet l blood 017 MMOL/L .0 ed 16:55 bicarbo bridgette measure ment ( Micah's Y Y L complet test 017 ed before 16:55 arteria l blood gas Arteria = 18.4 -2.4-+2 complet l blood 017 MMOL/L .3 ed base 16:55 excess determi nation Gas panel in Arterial blood (01-22-2017 16:55) Arteria Y complet l 017 ed patency 16:55 Wrist artery --pre arteria l punctur e SOURCE 10-14-2 R/R complet 017 ed 16:55 Blood lactic acid measurement (moles/vol (01-22-2017 15:15) Blood = 0.8 0.4-2.0 complet lactic 017 mmol/L ed acid 15:15 measure ment (moles/ vol Mycoplasma IgM (01-22-2017 14:00) Mycopla NON-SUSI NONREAC complet sma IgM 017 CTIVE TIVE ed 14:00 NON-SUSI CTIVE L Comprehensive metabolic panel (01-22-2017 14:00) Protein = 6.3 6.4-8.2 complet total 017 gm/dL ed ser/jalen 14:00 s ALT = 67 12-78 complet (SGPT) 017 U/L ed ser/jalen 14:00 s Serum = 43 15-37 complet or 017 U/L ed plasma 14:00 asparta te aminotr ansfera Serum = 146 136-145 complet sodium 017 mmoL/L ed measure 14:00 ment Serum = 4.5 3.5-5.1 complet potassi 017 mmoL/L ed um 14:00 measure ment Serum = 97 74-106 complet or 017 mg/dL ed plasma 14:00 glucose measure ment (mas Serum = 4.0 1.3-3.2 complet globuli 017 gm/dL ed n 14:00 measure ment (mass/v olume) Estimat = 25 59- complet ed 017 ML/MIN ed glomeru 14:00 lar filtrat ion rate (GF Comment: REFERENCE RANGE: >60 ML/MIN/1.73 SQUARE METERS Comment: If this patient is -Cam[place]onian, then multiply the Comment: result by 1.210. Estimat = 49 50-200 complet ion of 017 ML/MIN ed creatin 14:00 ine renal clearan ce Serum = 1.9 0.55-1. complet or 017 mg/dL 02 ed plasma 14:00 creatin ine measure ment ( Carbon = 45 21.0-32 complet dioxide 017 mmoL/L .0 ed 14:00 measure ment Comment: NOTIFICATION RESULT Serum = 105 98-107 complet or 017 mmoL/L ed plasma 14:00 chlorid e measure ment (mo Serum = 9.1 8.5-10. complet or 017 mg/dL 1 ed plasma 14:00 calcium measure ment (mas Serum = 86 7-18 complet or 017 mg/dL ed plasma 14:00 urea nitroge n measure men Comment: NOTIFICATION RESULT Serum = 0.2 0.2-1.0 complet or 017 mg/dL ed plasma 14:00 total bilirub in measure m Serum = 76 46-116 complet or 017 U/L ed plasma 14:00 alkalin e phospha tase venita Serum = 2.3 3.4-5.0 complet or 017 gm/dL ed plasma 14:00 albumin measure ment (mas Serum = 0.6 1.1-1.8 complet or 017 ed plasma 14:00 albumin /globul in mass ra CBC w auto diff (01-22-2017 14:00) Blood = 9.1 4.8-10. complet leukocy 017 K/MM3 8 ed yi 14:00 count (number /volume ) Automat = 15.6 11.5-17 complet ed 017 % .5 ed erythro 14:00 cyte distrib ution width Red = 3.15 4.2-5.4 complet blood 017 M/mm3 ed cell 14:00 count Blood = 183 142-424 complet platele 017 K/mm3 ed t count 14:00 Automat = 9.9 7.4-10. complet ed 017 fl 4 ed blood 14:00 platele t mean volume venita [place] % = 18.7 1.7-9.3 complet 017 % ed 14:00 Absolut = 1.7 0.1-1.0 complet e 017 K/mm3 ed monocyt 14:00 e count Automat = 100.1 82.2-97 complet ed 017 fl .8 ed erythro 14:00 cyte mean corpusc ular v Automat = 30.5 31.8-35 complet ed 017 g/dl .4 ed erythro 14:00 cyte mean corpusc ular h Mean = 30.5 27-31.2 complet corpusc 017 pg ed ular 14:00 hemoglo bin (MCH) determ Lymphoc = 18.6 10-50.0 complet yte 017 % ed count, 14:00 blood, automat ed Absolut = 1.7 0.7-4.5 complet e 017 K/mm3 ed lymphoc 14:00 yte count Blood = 9.6 12.2-16 complet hemoglo 017 g/dL .2 ed bin 14:00 measure ment (mass/v olum Blood = 31.5 37.0-47 complet hematoc 017 % .0 ed rit 14:00 (volume fractio n) Granulo = 58.6 37.0-80 complet cyte 017 % .0 ed percent 14:00 age Blood = 5.3 1.8-7.8 complet granulo 017 K/mm3 ed cytes 14:00 automat ed count (numb Automat = 0.6 % 0.1-12. complet ed 017 0 ed blood 14:00 eosinop hils/10 0 leukocy t Automat = 0.1 0.0-0.4 complet ed 017 K/mm3 ed blood 14:00 eosinop hil count Baso % = 3.5 % 0.1-2.0 complet 017 ed 14:00 Automat = 0.3 0-0.2 complet ed 017 K/MM3 ed blood 14:00 basophi l count (count/ vo Mycoplasma pneumoniae IgM Ab [Presence] in Serum by Immunoassay (01-22-2017 14:00) Mycopla NON-SUSI NONREAC complet sma 017 CTIVE TIVE ed pneumon 14:00 iae IgM Ab [Presen ce] in Serum by Immunoa ssay Urine Legionella pneumophila 1 antigen d (01-22-2017 12:46) Urine Positiv Negativ complet Legione 017 e e ed lla 12:46 Positiv pneumop e L quinton 1 antigen d Comment: Presumptive positive for the presence of L. pneumophila Comment: serogroup 1 antigen in urine, suggesting current or past Comment: infection. Comment: Performed at: Former[facility] named [facility] Comment: [id number] [facility], [place], [place] [id number] Comment: Mortgage Loan Officer Originator: Rubio Baptiste MD, Phone: [phone] Comment: Comment: CALLED TO GARDENIA GALDAMEZ RN, ALSO TO OSVALDO SUNSHINE Comment: [place]. Legionella pneumophila 1 Ag [Presence] in Urine by Immunoassay (01-22-2017 12:46) Legione Positiv Negativ Abnorma complet lla 017 e e l ed pneumop 12:46 quinton 1 Ag [Presen ce] in Urine by Immunoa ssay Urinalysis with microscopy (01-22-2017) Urine 20 - 50 O complet leukocy 017 ed yi wbc/hpf count (number /volume ) Urine 0.2 0.2 NEG complet urobili 017 L ed nogen E.U./dL detecti on by test str [place] OCC OCC 0-5 complet s 017 L ed epithel #/hpf ial cells detecti on in u Urine = 1.010 1.005-1 complet specifi 017 .030 ed c gravity measure ment Urine = NEG complet protein 017 NEGATIV ed E mg/dL measure ment by automat ed t Urine = 5.5 5.0-8.5 complet pH 017 ed Urine POSITIV NEG complet nitrite 017 E ed POSITIV detecti E L on by test strip Mucus 1+ 1+ L NEG complet detecti 017 ed on in urine sedimen t by lig Urine NEGATIV NEG complet ketones 017 E ed NEGATIV detecti E L on by mg/dL automat ed yi Glucose = NEG complet ur 017 NEGATIV ed test E strip Urine YELLOW YELLOW complet color 017 YELLOW ed L Urine NEGATIV NEG complet blood 017 E ed detecti NEGATIV on E L Urine NEGATIV NEG complet total 017 E ed bilirub NEGATIV in E L detecti on by test Bacteri 4+ 4+ L O complet a 017 ed detecti on in urine sedimen t by Urine SL CLEAR complet appeara 017 CLOUDY ed nce SL determi CLOUDY nation L Urine culture (01-22-2017) Urine [id number] complet culture 017 07 ed Escheri grayson coli SCT EC ESCHERI GRAYSON COLI L Urinalysis dipstick W Reflex Microscopic panel in Urine (01-22-2017) Bacteri 4+ O complet a 017 ed [Presen ce] in Urine sedimen t by Light microsc opy Epithel OCC 0#/hp complet ial 017 f - ed cells.s 5#/hp quamous f [Presen ce] in Urine sedimen t by Microsc opy high power field Leukocy 20-50 O complet yi 017 wbc/hpf ed [#/volu me] in Urine Urinalysis dipstick W Reflex Microscopic panel in Urine (01-22-2017) Appeara SL CLEAR complet nce of 017 CLOUDY ed Urine Bilirub NEGATIV NEG complet in 017 E ed [Presen ce] in Urine by Test strip Erythro NEGATIV NEG complet cytes 017 E ed [Presen ce] in Urine Color YELLOW YELLOW complet of 017 ed Urine Ketones NEGATIV NEG complet 017 E ed [Presen ce] in Urine by Automat ed test strip Mucus 1+ NEG Abnorma complet [Presen 017 l ed ce] in Urine sedimen t by Light microsc opy Nitrite POSITIV NEG Abnorma complet 017 E l ed [Presen ce] in Urine by Test strip Urobili 0.2 NEG complet nogen 017 ed [Presen ce] in Urine by Test strip Glucose capillary blood glucometer (01-18-2017 06:29) Glucose = 117 70-110 complet 017 mg/dl ed capilla 06:[address] CBC w auto diff (01-18-2017 06:14) Blood = 12.9 4.8-10. complet leukocy 017 K/MM3 8 ed yi 06:14 count (number /volume ) Automat = 15.7 11.5-17 complet ed 017 % .5 ed erythro 06:14 cyte distrib ution width Red = 3.28 4.2-5.4 complet blood 017 M/mm3 ed cell 06:14 count Blood = 221 142-424 complet platele 017 K/mm3 ed t count 06:14 Automat = 8.7 7.4-10. complet ed 017 fl 4 ed blood 06:14 platele t mean volume venita [place] % = 8.0 % 1.7-9.3 complet 017 ed 06:14 Absolut = 1.0 0.1-1.0 complet e 017 K/mm3 ed monocyt 06:14 e count Automat = 96.9 82.2-97 complet ed 017 fl .8 ed erythro 06:14 cyte mean corpusc ular v Automat = 32.0 31.8-35 complet ed 017 g/dl .4 ed erythro 06:14 cyte mean corpusc ular h Mean = 31.0 27-31.2 complet corpusc 017 pg ed ular 06:14 hemoglo bin (MCH) determ Lymphoc = 13.5 10-50.0 complet yte 017 % ed count, 06:14 blood, automat ed Absolut = 1.7 0.7-4.5 complet e 017 K/mm3 ed lymphoc 06:14 yte count Blood = 10.2 12.2-16 complet hemoglo 017 g/dL .2 ed bin 06:14 measure ment (mass/v olum Blood = 31.8 37.0-47 complet hematoc 017 % .0 ed rit 06:14 (volume fractio n) Granulo = 76.9 37.0-80 complet cyte 017 % .0 ed percent 06:14 age Blood = 9.9 1.8-7.8 complet granulo 017 K/mm3 ed cytes 06:14 automat ed count (numb Automat 10-10-2 = 0.0 % 0.1-12. complet ed 017 0 ed blood 06:14 eosinop hils/10 0 leukocy t Automat 10-10-2 = 0.0 0.0-0.4 complet ed 017 K/mm3 ed blood 06:14 eosinop hil count Baso % -10-2 = 1.6 % 0.1-2.0 complet 017 ed 06:14 Automat 10-10-2 = 0.2 0-0.2 complet ed 017 K/MM3 ed blood 06:14 basophi l count (count/ vo Basic metabolic panel (01-18-2017 06:14) Serum 10-10-2 = 145 136-145 complet sodium 017 mmoL/L ed measure 06:14 ment Serum 1010-2 = 3.7 3.5-5.1 complet potassi 017 mmoL/L ed um 06:14 measure ment Serum 10-2 = 115 74-106 complet or 017 mg/dL ed plasma 06:14 glucose measure ment (mas Estimat 01-18-2 = 39 59- complet ed 017 ML/MIN ed glomeru 06:14 lar filtrat ion rate (GF Comment: REFERENCE RANGE: >60 ML/MIN/1.73 SQUARE METERS Comment: If this patient is -Cameroonian, then multiply the Comment: result by 1.210. Estimat 10-2 = 57 50-200 complet ion of 017 ML/MIN ed creatin 06:14 ine renal clearan ce Serum 01-18-2 = 1.3 0.55-1. complet or 017 mg/dL 02 ed plasma 06:14 creatin ine measure ment ( Carbon 10-2 = 36 21.0-32 complet dioxide 017 mmoL/L .0 ed 06:14 measure ment Serum 10-10-2 = 105 98-107 complet or 017 mmoL/L ed plasma 06:14 chlorid e measure ment (mo Serum 01-18-2 = 8.9 8.5-10. complet or 017 mg/dL 1 ed plasma 06:14 calcium measure ment (mas Serum -10-2 = 70 7-18 complet or 017 mg/dL ed plasma 06:14 urea nitroge n measure men Whole blood INR measurement (01-18-2017 06:14) Comment: IS PATIENT ON ANTICOAGULANTS? Y Comment: LIST ANTICOAGULANTS: Comment: WARFARIN Prothro = 22.3 9.4-11. complet mbin 017 SECONDS 8 ed time 06:14 (PT) in platele t poor p Whole = 2.05 0.9-1.1 complet blood 017 ed INR 06:14 measure ment Comment: INDICATION INR RANGE Comment: Comment: THERAPY FOR DVT, PE, ATRIAL FIB; 2.0 - 3.0 Comment: PROPHYLAXIS FOR VTE Comment: Comment: THERAPY FOR MECHANICAL HEART 2.5 - 3.5 Comment: VALVE; PREVENTION OF SYSTEMIC Comment: EMBOLISM SECONDARY TO AMI Glucose capillary blood glucometer (01-17-2017 20:55) Glucose = 321 70-110 complet 017 mg/dl ed capilla 20:[address] Glucose capillary blood glucometer (01-17-2017 17:05) Glucose = 326 70-110 complet 017 mg/dl ed capilla 17:[address] Glucose capillary blood glucometer (01-17-2017 12:03) Glucose = 341 70-110 complet 017 mg/dl ed capilla 12:[address] Gram negative automated antibiotic susceptibility test (01-17-2017 06:19) Vancomy = 1 complet isauro 017 ug/ml ed suscept 06:19 ibility test by minimum inhibit ory concent ration Tetracy <= 1 complet sykes 017 ug/ml ed suscept 06:19 ibility test by minimum inhibit ory concent ration Trimeth <= 10 complet oprim/s 017 ug/ml ed ulfamet 06:19 hoxazol e suscept ibility test by minimum inhibit ory concent ration Rifampi <= 0.5 complet n 017 ug/ml ed suscept 06:19 ibility test by minimum inhibit ory concent ration Penicil 2 >= 0.5 complet hamilton G 017 ug/ml ed suscept 06:19 ibility test by minimum inhibit ory concent ration Oxacill <= 0.25 complet in 017 ug/ml ed suscept 06:19 ibility test by minimum inhibit ory concent ration Levoflo = 0.25 complet xacin 017 ug/ml ed suscept 06:19 ibility test by minimum inhibit ory concent ration Gentami 2 <= 0.5 complet isauro 017 ug/ml ed suscept 06:19 ibility test by minimum inhibit ory concent ration Erythro 2 >= 8 complet mycin 017 ug/ml ed suscept 06:19 ibility test by minimum inhibit ory concent ration Clindam <= 0.25 complet ycin 017 ug/ml ed suscept 06:19 ibility test by minimum inhibit ory concent ration Glucose capillary blood glucometer (01-17-2017 06:08) Glucose = 192 70-110 complet 017 mg/dl ed capilla 06:[address] Whole blood INR measurement (01-17-2017 04:50) Comment: IS PATIENT ON ANTICOAGULANTS? Y Comment: LIST ANTICOAGULANTS: Comment: WARFARIN Prothro = 18.5 9.4-11. complet mbin 017 SECONDS 8 ed time 04:50 (PT) in platele t poor p Whole = 1.70 0.9-1.1 complet blood 017 ed INR 04:50 measure ment Comment: INDICATION INR RANGE Comment: Comment: THERAPY FOR DVT, PE, ATRIAL FIB; 2.0 - 3.0 Comment: PROPHYLAXIS FOR VTE Comment: Comment: THERAPY FOR MECHANICAL HEART 2.5 - 3.5 Comment: VALVE; PREVENTION OF SYSTEMIC Comment: EMBOLISM SECONDARY TO AMI Glucose capillary blood glucometer (01-16-2017 20:52) Glucose = 191 70-110 complet 017 mg/dl ed capilla 20:[address] Glucose capillary blood glucometer (01-16-2017 16:56) Glucose = 406 70-110 complet 017 mg/dl ed capilla 16:[address] Glucose capillary blood glucometer (01-16-2017 11:49) Glucose = 218 70-110 complet 017 mg/dl ed capilla 11:[address] Glucose capillary blood glucometer (01-16-2017 06:26) Glucose = 152 70-110 complet 017 mg/dl ed capilla 06:[address] Whole blood INR measurement (01-16-2017 05:50) Comment: IS PATIENT ON ANTICOAGULANTS? Y Comment: LIST ANTICOAGULANTS: Comment: WARFARIN Prothro = 16.6 9.4-11. complet mbin 017 SECONDS 8 ed time 05:50 (PT) in platele t poor p Whole = 1.53 0.9-1.1 complet blood 017 ed INR 05:50 measure ment Comment: INDICATION INR RANGE Comment: Comment: THERAPY FOR DVT, PE, ATRIAL FIB; 2.0 - 3.0 Comment: PROPHYLAXIS FOR VTE Comment: Comment: THERAPY FOR MECHANICAL HEART 2.5 - 3.5 Comment: VALVE; PREVENTION OF SYSTEMIC Comment: EMBOLISM SECONDARY TO AMI Basic metabolic panel (01-16-2017 05:00) Serum = 146 136-145 complet sodium 017 mmoL/L ed measure 05:00 ment Serum = 4.0 3.5-5.1 complet potassi 017 mmoL/L ed um 05:00 measure ment Serum = 133 74-106 complet or 017 mg/dL ed plasma 05:00 glucose measure ment (mas Estimat = 36 59- complet ed 017 ML/MIN ed glomeru 05:00 lar filtrat ion rate (GF Comment: REFERENCE RANGE: >60 ML/MIN/1.73 SQUARE METERS Comment: If this patient is -Cam[place]onian, then multiply the Comment: result by 1.210. Estimat = 54 50-200 complet ion of 017 ML/MIN ed creatin 05:00 ine renal clearan ce Serum = 1.4 0.55-1. complet or 017 mg/dL 02 ed plasma 05:00 creatin ine measure ment ( Carbon = 35 21.0-32 complet dioxide 017 mmoL/L .0 ed 05:00 measure ment Serum = 106 98-107 complet or 017 mmoL/L ed plasma 05:00 chlorid e measure ment (mo Serum = 8.8 8.5-10. complet or 017 mg/dL 1 ed plasma 05:00 calcium measure ment (mas Serum = 64 7-18 complet or 017 mg/dL ed plasma 05:00 urea nitroge n measure men Glucose capillary blood glucometer (01-15-2017 21:00) Glucose = 329 70-110 complet 017 mg/dl ed capilla 21:[address] Glucose capillary blood glucometer (01-15-2017 17:42) Glucose = 317 70-110 complet 017 mg/dl ed capilla 17:[address] Glucose capillary blood glucometer (01-15-2017 11:38) Glucose = 355 70-110 complet 017 mg/dl ed capilla 11:[address] Whole blood INR measurement (01-15-2017 09:54) Comment: IS PATIENT ON ANTICOAGULANTS? Y Comment: LIST ANTICOAGULANTS: Comment: WARFARIN Prothro = 14.8 9.4-11. complet mbin 017 SECONDS 8 ed time 09:54 (PT) in platele t poor p Whole = 1.37 0.9-1.1 complet blood 017 ed INR 09:54 measure ment Comment: INDICATION INR RANGE Comment: Comment: THERAPY FOR DVT, PE, ATRIAL FIB; 2.0 - 3.0 Comment: PROPHYLAXIS FOR VTE Comment: Comment: THERAPY FOR MECHANICAL HEART 2.5 - 3.5 Comment: VALVE; PREVENTION OF SYSTEMIC Comment: EMBOLISM SECONDARY TO AMI Glucose capillary blood glucometer (01-15-2017 06:20) Glucose = 193 70-110 complet 017 mg/dl ed capilla 06:[address] Basic metabolic panel (01-15-2017 05:50) Serum = 106 98-107 complet or 017 mmoL/L ed plasma 05:50 chlorid e measure ment (mo Serum = 9.1 8.5-10. complet or 017 mg/dL 1 ed plasma 05:50 calcium measure ment (mas Serum = 64 7-18 complet or 017 mg/dL ed plasma 05:50 urea nitroge n measure men Serum = 145 136-145 complet sodium 017 mmoL/L ed measure 05:50 ment Serum = 3.7 3.5-5.1 complet potassi 017 mmoL/L ed um 05:50 measure ment Serum = 188 74-106 complet or 017 mg/dL ed plasma 05:50 glucose measure ment (mas Estimat = 36 59- complet ed 017 ML/MIN ed glomeru 05:50 lar filtrat ion rate (GF Comment: REFERENCE RANGE: >60 ML/MIN/1.73 SQUARE METERS Comment: If this patient is -Cam[place]onian, then multiply the Comment: result by 1.210. Estimat = 54 50-200 complet ion of 017 ML/MIN ed creatin 05:50 ine renal clearan ce Serum = 1.4 0.55-1. complet or 017 mg/dL 02 ed plasma 05:50 creatin ine measure ment ( Carbon = 37 21.0-32 complet dioxide 017 mmoL/L .0 ed 05:50 measure ment CBC w auto diff (01-15-2017 05:50) Blood = 14.2 4.8-10. complet leukocy 017 K/MM3 8 ed yi 05:50 count (number /volume ) Automat = 16.0 11.5-17 complet ed 017 % .5 ed erythro 05:50 cyte distrib ution width Red = 2.90 4.2-5.4 complet blood 017 M/mm3 ed cell 05:50 count Blood = 204 142-424 complet platele 017 K/mm3 ed t count 05:50 Automat = 9.5 7.4-10. complet ed 017 fl 4 ed blood 05:50 platele t mean volume venita [place] % = 3.6 % 1.7-9.3 complet 017 ed 05:50 Absolut = 0.5 0.1-1.0 complet e 017 K/mm3 ed monocyt 05:50 e count Mean = 31.3 27-31.2 complet corpusc 017 pg ed ular 05:50 hemoglo bin (MCH) determ Lymphoc = 6.1 % 10-50.0 complet yte 017 ed count, 05:50 blood, automat ed Absolut = 0.9 0.7-4.5 complet e 017 K/mm3 ed lymphoc 05:50 yte count Blood = 9.1 12.2-16 complet hemoglo 017 g/dL .2 ed bin 05:50 measure ment (mass/v olum Blood = 29.5 37.0-47 complet hematoc 017 % .0 ed rit 05:50 (volume fractio n) Granulo = 87.3 37.0-80 complet cyte 017 % .0 ed percent 05:50 age Automat = 0.1 % 0.1-12. complet ed 017 0 ed blood 05:50 eosinop hils/10 0 leukocy t Baso % = 2.9 % 0.1-2.0 complet 017 ed 05:50 Automat = 0.4 0-0.2 complet ed 017 K/MM3 ed blood 05:50 basophi l count (count/ vo Automat = 101.8 82.2-97 complet ed 017 fl .8 ed erythro 05:50 cyte mean corpusc ular v Automat = 30.7 31.8-35 complet ed 017 g/dl .4 ed erythro 05:50 cyte mean corpusc ular h Blood = 12.4 1.8-7.8 complet granulo 017 K/mm3 ed cytes 05:50 automat ed count (numb Automat = 0.0 0.0-0.4 complet ed 017 K/mm3 ed blood 05:50 eosinop hil count Glucose capillary blood glucometer (01-15-2017 04:47) Glucose = 199 70-110 complet 017 mg/dl ed capilla 04:[address] Glucose capillary blood glucometer (01-15-2017 00:35) Glucose = 126 70-110 complet 017 mg/dl ed capilla 00:[address] Glucose capillary blood glucometer (01-14-2017 21:39) Glucose = 114 70-110 complet 017 mg/dl ed capilla 21:[address] Glucose capillary blood glucometer (01-14-2017 19:55) Glucose = 77 70-110 complet 017 mg/dl ed capilla 19:[address] Glucose capillary blood glucometer (01-14-2017 16:27) Glucose = 263 70-110 complet 017 mg/dl ed capilla 16:[address] Glucose capillary blood glucometer (01-14-2017 14:14) Glucose = 436 70-110 complet 017 mg/dl ed capilla 14:[address] Serum or plasma glucose measurement ([facility] (01-14-2017 11:45) Comment: HIGH FINGERSTICK GLUCOSE LEVEL. VEIN DRAW CONFIRMATION Serum = 533 74-106 complet or 017 mg/dL ed plasma 11:45 glucose measure ment ([facility] Comment: CRITICAL RESULTS Comment: RESULTS CALLED TO: ALBERTO 01/14/17 1208 Tatiana Garrett Differential panel, method unspecified - (01-14-2017 06:17) LYMPH 3 % 10% - Low complet 017 50% ed 06:17 Macrocy 1+ complet yi 017 ed [Presen 06:17 ce] in Blood Platele NORMAL complet ts 017 ed [Presen 06:17 ce] in Blood by Light microsc opy Glucose capillary blood glucometer (01-13-2017 16:38) Glucose = 331 70-110 complet 017 mg/dl ed capilla 16:[address] Sputum culture (01-13-2017 09:29) Comment: COMMENTS TO CV/CVN CV TSC SYSTEM OPERATOR: PER PNEUMONIA PROTOCOL Comment: Collected by nurse? Y Comment: Hold specimen in OE? N Sputum [id number] complet culture 017 5 Yeast ed 09:29 SCT Y YEAST L Sputum [id number] complet culture 017 ed 09:29 Staphyl ococcus aureus SCT SAUR STAPHYL OCOCCUS AUREUS L Sputum LAB complet culture 017 WILL ed 09:29 HOLD YEAST FOR 5 DAYS. Sputum YEAST complet culture 017 ISOLATE ed 09:29 D. PLEASE CONTACT LAB IF FURTHER ID REQUIRE D. Urinalysis dipstick W Reflex Microscopic panel in [...] ed [Presen 15:01 ce] in Blood LYMPH 10-04-2 4 % 10% - Low complet 017 50% ed 15:01 Macrocy 01-12-2 1+ complet yi 017 ed [Presen 15:01 ce] in Blood Platele 2 NORMAL complet ts 017 ed [Presen 15:01 ce] in Blood by Light microsc opy Differential panel, method unspecified - (11-02-2016 06:30) LYMPH 11-02- 14 % 10% - Normal complet 017 50% ed 06:30 Platele NORMAL complet ts 017 ed [Presen 06:30 ce] in Blood by Light microsc opy Differential panel, method unspecified - (10-30-2016 06:25) Anisocy 10-30-2 2+ complet tosis 017 ed [Presen 06:25 [...]
--- OUTSIDE RECORDS SUMMARY | 2017-02-12 20:05 | External Medical Summary Rpt | CCD ---
Author Author , EMIL Organization EMIL Address Unknown Phone [email or web address] Purpose Continuity of Care Document - 10-27-2016 [...] blood 15:43 platele t mean volume [place] % = 32.1 1.7-9.3 complet 017 % [...] SQUARE METERS Comment: If this patient is -[place], then multiply the Comment: result by 1.210. [...] blood 08:40 platele t mean volume [place] % = 11.1 1.7-9.3 complet 017 % [...] 49 12-78 complet (SGPT) 017 U/L ed ser/jalen 08:40 s Serum = 47 15-37 complet [...] SQUARE METERS Comment: If this patient is -[place], then multiply the Comment: result by 1.210. 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 [...] blood 06:18 platele t mean volume [place] % = 21.6 1.7-9.3 complet 017 % [...] SQUARE METERS Comment: If this patient is -[place], then multiply the Comment: result by 1.210. [...] blood 06:33 platele t mean volume [place] % = 34.1 1.7-9.3 complet 017 % [...] blood 06:27 platele t mean volume [place] % = 32.9 1.7-9.3 complet 017 % [...] SQUARE METERS Comment: If this patient is -[place], then multiply the Comment: result by 1.210. [...] Comment: RESULTS CALLED TO: DR SEPULVEDA 01/22/17 1296 Rubio Williamson Arteria = 2 complet l [...] SQUARE METERS Comment: If this patient is -[place], then multiply the Comment: result by 1.210. [...] blood 14:00 platele t mean volume [place] % = 18.7 1.7-9.3 complet 017 % [...] or past Comment: infection. Comment: Performed at: [facility] Comment: [id number], [place], [place] [id number] Comment: Supervisor Weaving: Rubio Baptiste MD, Phone: [phone] Comment: Comment: CALLED TO GARDENIA GALDAMEZ RN, [...] [place] Urine culture (01-22-2017) Urine [id number] complet culture 017 07 ed Escheri grayson [...] blood 06:14 platele t mean volume [place] % = 8.0 % 1.7-9.3 complet 017 [...] SQUARE METERS Comment: If this patient is -[place], then multiply the Comment: result by 1.210. [...] SQUARE METERS Comment: If this patient is -[place], then multiply the Comment: result by 1.210. [...] SQUARE METERS Comment: If this patient is -[place], then multiply the Comment: result by 1.210. [...] blood 05:50 platele t mean volume [place] % = 3.6 % 1.7-9.3 complet 017 [...] glucome ter Serum or plasma glucose measurement ([facility] (01-14-2017 11:45) Comment: HIGH FINGERSTICK GLUCOSE LEVEL. 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 Y Comment: Hold specimen in OE? N Sputum [id number] complet culture 017 5 Yeast ed 09:29 SCT Y YEAST L Sputum [id number] complet culture 017 ed 09:29 Staphyl ococcus [...]
--- OUTSIDE RECORDS SUMMARY | 2017-02-12 20:06 | External Medical Summary Rpt | CCD ---
Demographics Preferred Language Italian Marital Status Unknown Latter Day Affiliation Unknown Race Unknown Ethnic Group Unknown Author Author , EMIL STEIN Address Unknown Phone Immunization Unable to retrieve immunization data due to connection failure with Immunization Registry. Please try again later.
--- OUTSIDE RECORDS SUMMARY | 2017-02-12 20:06 | External Medical Summary Rpt | CCD ---
Demographics Preferred Language Nepali Marital Status Unknown Congregational Affiliation Unknown Race Unknown Ethnic Group Unknown Author Author , EMIL STEIN Address Unknown Phone Immunization Unable to retrieve immunization data due to connection failure with Immunization Registry. Please try again later.
--- OUTSIDE RECORDS SUMMARY | 2017-02-12 20:12 | External Medical Summary Rpt ---
Author Author [employer], [employer] Organization [employer] Address Unknown Phone Unavailable Results CBC W Auto Differential panel in Blood Observa Value Referen Units Interpr Notes Date tion ce etation Range Basophils 0 - 0.2 K/MM3 Normal No Jan 31 informati 2017 3:43 [#/volume on in PM ] in source Blood by data Automated count Basophils 0.1 - 2.0 % High No Jan 31 / informati 2017 3:43 leukocyte on in PM s in source Blood by data Automated count Eosinophi 0.0 - 0.4 K/mm3 Normal No Jan 31 ls informati 2016 3:43 [#/volume on in PM ] in source Blood by data Automated count Eosinophi 0.1 - % Normal No Jan 31 ls/100 12.0 informati 2016 3:43 leukocyte on in PM s in source Blood by data Automated count Granulocy 1.8 - 7.8 K/mm3 Normal No Jan 31 yi informati 2017 3:43 [#/volume on in PM ] in source Blood by data Automated count Granulocy 37.0 - % Low No Jan 31 yi/100 80.0 informati 2016 3:43 leukocyte on in PM s in source Blood by data Automated count Hematocri 37.0 - % Low No Jan 31 t [Volume 47.0 informati 2016 3:43 on in PM Fraction] source of Blood data Hemoglobi 12.2 - g/dL Low No Jan 31 n 16.2 informati 2017 3:43 [Mass/vol on in PM ume] in source Blood data Lymphocyt 0.7 - 4.5 K/mm3 Normal No Jan 31 es informati 2016 3:43 [#/volume on in PM ] in source Unspecifi data ed specimen by Automated count Lymphocyt 10 - 50.0 % Normal No Jan 31 es informati 2017 3:43 [#/volume on in PM ] in source Unspecifi data ed specimen by Automated count Erythrocy 27 - 31.2 pg High No Oct 23 te mean informati 2016 3:43 corpuscul on in PM ar source hemoglobi data n [Entitic mass] Erythrocy 31.8 - g/dl Normal No Jan 31 te mean 35.4 informati 2016 3:43 corpuscul on in PM ar source hemoglobi data n concentra tion [Mass/vol ume] by Automated count Erythrocy 82.2 - fl High No Jan 31 te mean 97.8 informati 2016 3:43 corpuscul on in PM ar volume source [Entitic data volume] by Automated count Monocytes 0.1 - 1.0 K/mm3 High No Jan 31 informati 2016 3:43 [#/volume on in PM ] in source Blood by data Automated count Monocytes 1.7 - 9.3 % High No Jan 31 /100 informati 2016 3:43 leukocyte on in PM s in source Blood by data Automated count Platelet 7.4 - fl Normal No Jan 31 mean 10.4 informati 2016 3:43 volume on in PM [Entitic source volume] data in Blood by Automated count Platelets 142 - 424 K/mm3 Low No Jan 31 informati 2016 3:43 [#/volume on in PM ] in source Blood data Erythrocy 4.2 - 5.4 M/mm3 Low No Jan 31 yi informati 2017 3:43 [#/volume on in PM ] in source Amniotic data fluid Erythrocy 11.5 - % Normal No Jan 31 te 17.5 informati 2016 3:43 distribut on in PM ion width source [Entitic data volume] by Automated count Leukocyte 4.8 - K/MM3 Normal No Jan 31 s 10.8 informati 2016 3:43 [#/volume on in PM ] in source Blood data Differential panel, method unspecified - Observa Value Referen Units Interpr Notes Date tion ce etation Range BLASTOC 1 0- % No No Jan 31 YTES informa informa 2017 tion in tion in 3:43 PM source source data data Manual FEW No No No No Jan 31 differe GIANT informa informa informa informa 2016 ntial PLTS tion in tion in tion in tion in 3:43 PM comment source source source source data data data data [interp retatio n] in Blood Narrati ve LYMPH 34 10 - 50 % Normal No Jan 31 inform2016 tion in 3:43 PM source data Macrocy 1+ No No No No Jan 31 yi informa informa informa informa 2016 [Presen tion in tion in tion in tion in 3:43 PM ce] in source source source source Blood data data data data Metamyelo 0 - 1 % Normal No Jan 31 cytes/100 informati 2017 3:43 on in PM leukocyte source s in data Blood by Manual count Monocytes 2 - 9 % High No Jan 31 /100 informati 2017 3:43 leukocyte on in PM s in source Blood by data Automated count XXX No No No No Jan 31 cells/100 informati informati informati informati 2017 3:43 cells in on in on in on in on in PM source source source source Unspecifi data data data data ed specimen Platele NORMAL No No No No Jan 31 ts informa informa informa informa 2016 [Presen tion in tion in tion in tion in 3:43 PM ce] in source source source source Blood data data data data by Light microsc opy Neutrophi 42 - 76 % Low No Jan 31 ls informati 2016 3:43 [#/volume on in PM ] in source Blood by data Automated count Cells No #CELLS No No Jan 31 Counted informati informati informati 2017 3:43 Total [#] on in on in on in PM in Blood source source source data data data Basic metabolic panel in Blood Observa Value Referen Units Interpr Notes Date tion ce etation Range Urea 7 - 18 mg/dL High No Jan 31 nitrogen informati 2017 3:43 [Mass/vol on in PM ume] in source Serum or data Plasma Calcium 8.5 - mg/dL Low No Jan 31 [Mass/vol 10.1 informati 2017 3:43 ume] in on in PM Serum or source Plasma data Chloride 98 - 107 mmoL/L Low No Jan 31 [Moles/vo informati 2017 3:43 lume] in on in PM Serum or source Plasma data Carbon 21.0 - mmoL/L High Jan 31 dioxide, 32.0 alert NOTIFICAT 2017 3:43 total ION PM [Moles/vo RESULT lume] in Serum or Plasma Creatinin 0.55 - mg/dL High No Jan 31 e 1.02 informati 2017 3:43 [Mass/vol on in PM ume] in source Serum or data Plasma Estimated 59- ML/MIN Low alert REFERENCE Jan 31 RANGE: 2017 3:43 glomerula >60 PM r ML/MIN/1. filtratio 73 SQUARE n rate METERSIf (GF this patient is -A merican, then multiply theresult by 1.210. Glucose 74 - 106 mg/dL High No Jan 31 [Mass/vol informati 2016 3:43 ume] in on in PM Serum or source Plasma data Potassium 3.5 - 5.1 mmoL/L Normal No Jan 31 informati 2017 3:43 [Moles/vo on in PM lume] in source Serum or data Plasma Sodium 136 - 145 mmoL/L Normal No Jan 31 [Moles/vo informati 2017 3:43 lume] in on in PM Serum or source Plasma data INR in Blood by Coagulation assay Observa Value Referen Units Interpr Notes Date tion ce etation Range INR in 0.9 - 1.1 No High INDICATIO Jan 31 Blood by informati N 2016 3:43 Coagulati on in PM on assay source INR data RANGETHER APY FOR DVT, PE, ATRIAL FIB; 2.0 - 3.0PROPHY LAXIS FOR VTETHERAP Y FOR MECHANICA L HEART 2.5 - 3.5VALVE; PREVENTIO N OF SYSTEMICE MBOLISM SECONDARY TO AMI Prothromb 9.4 - SECONDS High No Jan 31 in time 11.8 informati 2016 3:43 (PT) in on in PM Platelet source poor data plasma by Coagulati on assay Glucose [Mass/volume] in Capillary blood by Glucometer Observa Value Referen Units Interpr Notes Date tion ce etation Range Glucose 70 - 110 mg/dl High No Jan 28 [Mass/vol informati 2016 ume] in on in 11:04 AM Capillary source blood by data Glucomete r Glucose [Mass/volume] in Capillary blood by Glucometer Observa Value Referen Units Interpr Notes Date tion ce etation Range Glucose 70 - 110 mg/dl No No Jan 28 [Mass/vol informati informati 2016 6:39 ume] in on in on in AM Capillary source source blood by data data Glucomete r Glucose [Mass/volume] in Capillary blood by Glucometer Observa Value Referen Units Interpr Notes Date tion ce etation Range Glucose 70 - 110 mg/dl High No Jan 27 [Mass/vol informati 2016 8:16 ume] in on in PM Capillary source blood by data Glucomete r Glucose [Mass/volume] in Capillary blood by Glucometer Observa Value Referen Units Interpr Notes Date tion ce etation Range Glucose 70 - 110 mg/dl High No Jan 27 [Mass/vol informati 2016 4:55 ume] in on in PM Capillary source blood by data Glucomete r Glucose [Mass/volume] in Capillary blood by Glucometer Observa Value Referen Units Interpr Notes Date tion ce etation Range Glucose 70 - 110 mg/dl High No Jan 27 [Mass/vol informati 2016 ume] in on in 11:18 AM Capillary source blood by data Glucomete r Comprehensive metabolic 2000 panel in Serum or Plasma Observa Value Referen Units Interpr Notes Date tion ce etation Range Albumin/G 1.1 - 1.8 No Low No Jan 27 lobulin informati informati 2016 8:40 [Mass on in on in AM ratio] in source source Serum or data data Plasma Albumin 3.4 - 5.0 gm/dL Low No Jan 27 [Mass/vol informati 2016 8:40 ume] in on in AM Serum or source Plasma data Alkaline 46 - 116 U/L Normal No Jan 27 phosphata informati 2017 8:40 se on in AM [Enzymati source c data activity/ volume] in Serum or Plasma Bilirubin 0.2 - 1.0 mg/dL Normal No Jan 27 .total informati 2016 8:40 [Mass/vol on in AM ume] in source Serum or data Plasma Urea 7 - 18 mg/dL High No Jan 27 nitrogen informati 2017 8:40 [Mass/vol on in AM ume] in source Serum or data Plasma Calcium 8.5 - mg/dL Normal No Jan 27 [Mass/vol 10.1 informati 2017 8:40 ume] in on in AM Serum or source Plasma data Chloride 98 - 107 mmoL/L Normal No Jan 27 [Moles/vo informati 2017 8:40 lume] in on in AM Serum or source Plasma data Carbon 21.0 - mmoL/L High Jan 27 dioxide, 32.0 alert NOTIFICAT 2017 8:40 total ION AM [Moles/vo RESULT lume] in Serum or Plasma Creatinin 0.55 - mg/dL High No Jan 27 e 1.02 informati 2017 8:40 [Mass/vol on in AM ume] in source Serum or data Plasma Creatinin 50 - 200 ML/MIN Normal No Jan 27 e renal informati 2016 8:40 clearance on in AM source predicted data by Cockcroft -Gault formula Estimated 59- ML/MIN Low REFERENCE Jan 27 RANGE: 2016 8:40 glomerula >60 AM r ML/MIN/1. filtratio 73 SQUARE n rate METERSIf (GF this patient is -A merican, then multiply theresult by 1.210. Globulin 1.3 - 3.2 gm/dL High No Jan 27 [Mass/vol informati 2016 8:40 ume] in on in AM Serum source data Glucose 74 - 106 mg/dL High No Jan 27 [Mass/vol informati 2016 8:40 ume] in on in AM Serum or source Plasma data Potassium 3.5 - 5.1 mmoL/L Normal No Jan 27 informati 2016 8:40 [Moles/vo on in AM lume] in source Serum or data Plasma Sodium 136 - 145 mmoL/L High No Jan 27 [Moles/vo informati 2016 8:40 lume] in on in AM Serum or source Plasma data Aspartate 15 - 37 U/L High No Jan 27 informati 2016 8:40 aminotran on in AM sferase source [Enzymati data c activity/ volume] in Serum or Plasma Alanine 12 - 78 U/L Normal No Jan 27 aminotran informati 2016 8:40 sferase on in AM [Enzymati source c data activity/ volume] in Serum or Plasma Protein 6.4 - 8.2 gm/dL Normal No Jan 27 [Mass/vol informati 2016 8:40 ume] in on in AM Serum or source Plasma data INR in Blood by Coagulation assay Observa Value Referen Units Interpr Notes Date tion ce etation Range IS PATIENT ON ANTICOAGULANTS? Y LIST ANTICOAGULANTS: COUMADIN INR in 0.9 - 1.1 No High INDICATIO Jan 27 Blood by informati N 2016 8:40 Coagulati on in AM on assay source INR data RANGETHER APY FOR DVT, PE, ATRIAL FIB; 2.0 - 3.0PROPHY LAXIS FOR VTETHERAP Y FOR MECHANICA L HEART 2.5 - 3.5VALVE; PREVENTIO N OF SYSTEMICE MBOLISM SECONDARY TO AMI Prothromb 9.4 - SECONDS High No Jan 27 in time 11.8 informati 2016 8:40 (PT) in on in AM Platelet source poor data plasma by Coagulati on assay CBC W Auto Differential panel in Blood Observa Value Referen Units Interpr Notes Date tion ce etation Range Basophils 0 - 0.2 K/MM3 Normal No Jan 27 informati 2016 8:40 [#/volume on in AM ] in source Blood by data Automated count Basophils 0.1 - 2.0 % Normal No Jan 27 /100 informati 2016 8:40 leukocyte on in AM s in source Blood by data Automated count Eosinophi 0.0 - 0.4 K/mm3 Normal No Jan 27 ls informati 2016 8:40 [#/volume on in AM ] in source Blood by data Automated count Eosinophi 0.1 - % Normal No Jan 27 ls/100 12.0 informati 2016 8:40 leukocyte on in AM s in source Blood by data Automated count Granulocy 1.8 - 7.8 K/mm3 Normal No Jan 27 yi informati 2016 8:40 [#/volume on in AM ] in source Blood by data Automated count Granulocy 37.0 - % Normal No Jan 27 yi/100 80.0 informati 2016 8:40 leukocyte on in AM s in source Blood by data Automated count Hematocri 37.0 - % Low No Jan 27 t [Volume 47.0 informati 2016 8:40 on in AM Fraction] source of Blood data Hemoglobi 12.2 - g/dL Low No Jan 27 n 16.2 informati 2016 8:40 [Mass/vol on in AM ume] in source Blood data Lymphocyt 0.7 - 4.5 K/mm3 Normal No Jan 27 es informati 2016 8:40 [#/volume on in AM ] in source Unspecifi data ed specimen by Automated count Lymphocyt 10 - 50.0 % Normal No Jan 27 es informati 2016 8:40 [#/volume on in AM ] in source Unspecifi data ed specimen by Automated count Erythrocy 27 - 31.2 pg High No Jan 27 te mean informati 2016 8:40 corpuscul on in AM ar source hemoglobi data n [Entitic mass] Erythrocy 31.8 - g/dl Low No Jan 27 te mean 35.4 informati 2016 8:40 corpuscul on in AM ar source hemoglobi data n concentra tion [Mass/vol ume] by Automated count Erythrocy 82.2 - fl High No Jan 27 te mean 97.8 informati 2016 8:40 corpuscul on in AM ar volume source [Entitic data volume] by Automated count Monocytes 0.1 - 1.0 K/mm3 Normal No Jan 27 informati 2016 8:40 [#/volume on in AM ] in source Blood by data Automated count Monocytes 1.7 - 9.3 % High No Jan 19 /100 informati 2016 8:40 leukocyte on in AM s in source Blood by data Automated count Platelet 7.4 - fl Normal No Jan 27 mean 10.4 informati 2016 8:40 volume on in AM [Entitic source volume] data in Blood by Automated count Platelets 142 - 424 K/mm3 Normal No Jan 27 informati 2016 8:40 [#/volume on in AM ] in source Blood data Erythrocy 4.2 - 5.4 M/mm3 Low No Jan 27 yi informati 2016 8:40 [#/volume on in AM ] in source Amniotic data fluid Erythrocy 11.5 - % Normal No Jan 27 te 17.5 informati 2016 8:40 distribut on in AM ion width source [Entitic data volume] by Automated count Leukocyte 4.8 - K/MM3 No No Jan 27 s 10.8 informati informati 2016 8:40 [#/volume on in on in AM ] in source source Blood data data Glucose [Mass/volume] in Capillary blood by Glucometer Observa Value Referen Units Interpr Notes Date ti ce etation Range Glucose 70 - 110 mg/dl High No Jan 27 [Mass/vol informati 2016 6:06 ume] in on in AM Capillary source blood by data Glucomete r Glucose [Mass/volume] in Capillary blood by Glucometer Observa Value Referen Units Interpr Notes Date ti ce etation Range Glucose 70 - 110 mg/dl Normal No Jan 26 [Mass/vol informati 2016 ume] in on in 11:21 PM Capillary source blood by data Glucomete r Glucose [Mass/volume] in Capillary blood by Glucometer Observa Value Referen Units Interpr Notes Date ti etation Range Glucose 70 - 110 mg/dl Normal No Jan 26 [Mass/vol informati 2016 9:09 ume] in on in PM Capillary source blood by data Glucomete r Glucose [Mass/volume] in Capillary blood by Glucometer Observa Value Referen Units Interpr Notes Date tion ce etation Range Glucose 70 - 110 mg/dl No No Jan 26 [Mass/vol informati informati 2017 5:11 ume] in on in on in PM Capillary source source blood by data data Glucomete r Hemoglobin & Hematocrit panel in Blood Observa Value Referen Units Interpr Notes Date tion ce etation Range COMMENTS TO [employer]: 1 HOUR POST Hematocri 37.0 - % Low No Jan 26 t [Volume 47.0 informati 2016 2:08 on in PM Fraction] source of Blood data Hemoglobi 12.2 - g/dL Low No Jan 18 n 16.2 informati 2017 2:08 [Mass/vol on in PM ume] in source Blood data Glucose [Mass/volume] in Capillary blood by Glucometer Observa Value Referen Units Interpr Notes Date ti ce etation Range Glucose 70 - 110 mg/dl High No Jan 26 [Mass/vol informati 2016 ume] in on in 11:35 AM Capillary source blood by data Glucomete r Blood product special preparation [Type] Observa Value Referen Units Interpr Notes Date ti ce etation Range Blood BLOOD No No No BLOOD Jan 26 product UNIT informa informa informa UNIT # 2017 RELEASE ti in in in : [id number] 11:00 special source source source 17 AM data data data [id number] prepara RELEASE tion D [Type] Marek Mart O POSITIV E Blood type & Crossmatch panel in Blood Observa Value Referen Units Interpr Notes Date ti ce etation Range Hold? N Transfuse now? 1 UNIT NOW Blood NEGATIV NEGATIV No No No Jan 26 group E E informa informa informa 2016 antibod tion in ti in in 9:15 AM y source source source screen data data data [Presen ce] in Serum or Plasma Rh POSITIV No No No No Jan 26 [Type] E informa informa informa informa 2016 in tion in tion in ti in ti in 9:15 AM Blood source source source source data data data data ABO O No No No No Jan 26 group informa informa informa informa 2017 [Type] tion in ti in ti in ti in 9:15 AM in source source source source Blood data data data data Blood type & Crossmatch panel in Blood Observa Value Referen Units Interpr Notes Date ti ce etation Range Hold? N Transfuse now? 1 UNIT NOW Major COMPAT No No No No Jan 26 crossma informa informa informa informa 2017 tch tion in tion in tion in tion in 9:15 AM [interp source source source source retatio data data data data n] Major COMPAT No No No No Jan 26 crossma informa informa informa informa 2016 tch tion in tion in tion in tion in 9:15 AM [interp source source source source retatio data data data data n] by Immedia te spin INR in Blood by Coagulation assay Observa Value Referen Units Interpr Notes Date ti ce etation Range IS PATIENT ON ANTICOAGULANTS? Y LIST ANTICOAGULANTS: COUMADIN PTT RESULTS MUST BE CALLED IF PT ON HEPARIN!!! Y INR in 0.9 - 1.1 No High Jan 26 Blood by informati NOTIFICAT 2017 6:18 Coagulati on in ION AM on assay source RESULT data Dia Connors ION INR RANGETHER APY FOR DVT, PE, ATRIAL FIB; 2.0 - 3.0PROPHY LAXIS FOR VTETHERAP Y FOR MECHANICA L HEART 2.5 - 3.5VALVE; PREVENTIO N OF SYSTEMICE MBOLISM SECONDARY TO AMI Prothromb 9.4 - SECONDS High Jan 26 in time 11.8 NOTIFICAT 2017 6:18 (PT) in ION AM Platelet RESULT poor Dia plasma by [place] Coagulati on assay Basic metabolic panel in Blood Observa Value Referen Units Interpr Notes Date ti ce etation Range Urea 7 - 18 mg/dL High No Jan 26 nitrogen informati 2016 6:18 [Mass/vol on in AM ume] in source Serum or data Plasma Calcium 8.5 - mg/dL Normal No Jan 26 [Mass/vol 10.1 informati 2017 6:18 ume] in on in AM Serum or source Plasma data Chloride 98 - 107 mmoL/L Normal No Jan 26 [Moles/vo informati 2017 6:18 lume] in on in AM Serum or source Plasma data Carbon 21.0 - mmoL/L High Jan 26 dioxide, 32.0 alert NOTIFICAT 2017 6:18 total ION AM [Moles/vo RESULT lume] in Dia Serum or ne Plasma Creatinin 0.55 - mg/dL High No Jan 26 e 1.02 informati 2016 6:18 [Mass/vol on in AM ume] in source Serum or data Plasma Creatinin 50 - 200 ML/MIN Normal No Jan 26 e renal informati 2016 6:18 clearance on in AM source predicted data by Cockcroft -Gault formula Estimated 59- ML/MIN Low REFERENCE Jan 26 RANGE: 2017 6:18 glomerula >60 AM r ML/MIN/1. filtratio 73 SQUARE n rate METERSIf (GF this patient is -A merican, then multiply theresult by 1.210. Glucose 74 - 106 mg/dL High No Jan 26 [Mass/vol informati 2016 6:18 ume] in on in AM Serum or source Plasma data Potassium 3.5 - 5.1 mmoL/L Normal No Jan 26 informati 2016 6:18 [Moles/vo on in AM lume] in source Serum or data Plasma Sodium 136 - 145 mmoL/L High No Jan 26 [Moles/vo informati 2016 6:18 lume] in on in AM Serum or source Plasma data CBC W Auto Differential panel in Blood Observa Value Referen Units Interpr Notes Date tion ce etation Range Basophils 0 - 0.2 K/MM3 Normal No Jan 26 informati 2016 6:18 [#/volume on in AM ] in source Blood by data Automated count Basophils 0.1 - 2.0 % Normal No Jan 26 informati 2016 6:18 leukocyte on in AM s in source Blood by data Automated count Eosinophi 0.0 - 0.4 K/mm3 Normal No Jan 26 ls informati 2016 6:18 [#/volume on in AM ] in source Blood by data Automated count Eosinophi 0.1 - % Normal No Jan 26 ls/100 12.0 informati 2016 6:18 leukocyte on in AM s in source Blood by data Automated count Granulocy 1.8 - 7.8 K/mm3 Normal No Jan 26 yi informati 2016 6:18 [#/volume on in AM ] in source Blood by data Automated count Granulocy 37.0 - % Normal No Jan 26 yi/100 80.0 informati 2017 6:18 leukocyte on in AM s in source Blood by data Automated count Hematocri 37.0 - % Low No Jan 18 t [Volume 47.0 informati 2016 6:18 on in AM Fraction] source of Blood data Hemoglobi 12.2 - g/dL Low alert Jan 26 n 16.2 2016 6:18 [Mass/vol CRITICAL AM ume] in RESULTS Blood RESU LTS CALLED TO: LUCIUS 01/26/17 0638 Veto Ocampo Lymphocyt 0.7 - 4.5 K/mm3 Normal No Jan 26 es informati 2016 6:18 [#/volume on in AM ] in source Unspecifi data ed specimen by Automated count Lymphocyt 10 - 50.0 % Normal No Jan 26 es informati 2016 6:18 [#/volume on in AM ] in source Unspecifi data ed specimen by Automated count Erythrocy 27 - 31.2 pg Normal No Jan 26 te mean informati 2016 6:18 corpuscul on in AM ar source hemoglobi data n [Entitic mass] Erythrocy 31.8 - g/dl Low No Jan 26 te mean 35.4 informati 2017 6:18 corpuscul on in AM ar source hemoglobi data n concentra tion [Mass/vol ume] by Automated count Erythrocy 82.2 - fl High No Jan 26 te mean 97.8 informati 2016 6:18 corpuscul on in AM ar volume source [Entitic data volume] by Automated count Monocytes 0.1 - 1.0 K/mm3 High No Jan 26 informati 2016 6:18 [#/volume on in AM ] in source Blood by data Automated count Monocytes 1.7 - 9.3 % High No Jan 18 /100 informati 2017 6:18 leukocyte on in AM s in source Blood by data Automated count Platelet 7.4 - fl Normal No Jan 18 mean 10.4 informati 2016 6:18 volume on in AM [Entitic source volume] data in Blood by Automated count Platelets 142 - 424 K/mm3 Normal No Jan 18 informati 2016 6:18 [#/volume on in AM ] in source Blood data Erythrocy 4.2 - 5.4 M/mm3 Low No Jan 18 yi informati 2017 6:18 [#/volume on in AM ] in source Amniotic data fluid Erythrocy 11.5 - % Normal No Jan 18 te 17.5 informati 2016 6:18 distribut on in AM ion width source [Entitic data volume] by Automated count Leukocyte 4.8 - K/MM3 Normal No Jan 18 s 10.8 informati 2016 6:18 [#/volume on in AM ] in source Blood data Glucose [Mass/volume] in Capillary blood by Glucometer Observa Value Referen Units Interpr Notes Date tion ce etation Range Glucose 70 - 110 mg/dl High No Jan 18 [Mass/vol informati 2016 6:11 ume] in on in AM Capillary source blood by data Glucomete r Glucose [Mass/volume] in Capillary blood by Glucometer Observa Value Referen Units Interpr Notes Date tion ce etation Range Glucose 70 - 110 mg/dl High No Jan 25 [Mass/vol informati 2016 9:02 ume] in on in PM Capillary source blood by data Glucomete r Glucose [Mass/volume] in Capillary blood by Glucometer Observa Value Referen Units Interpr Notes Date tion ce etation Range Glucose 70 - 110 mg/dl High No Jan 25 [Mass/vol informati 2016 5:17 ume] in on in PM Capillary source blood by data Glucomete r Glucose [Mass/volume] in Capillary blood by Glucometer Observa Value Referen Units Interpr Notes Date ti ce etation Range Glucose 70 - 110 mg/dl High No Jan 25 [Mass/vol informati 2016 ume] in on in 12:15 PM Capillary source blood by data Glucomete r Gentamicin [Mass/volume] in Serum or Plasma --trough Observa Value Referen Units Interpr Notes Date ti ce etation Range Gentamici 0 - 2.0 ug/ml Normal No Jan 25 n informati 2016 9:30 [Mass/vol on in AM ume] in source Serum or data Plasma --trough CBC W Auto Differential panel in Blood Observa Value Referen Units Interpr Notes Date ti ce etation Range Basophils 0 - 0.2 K/MM3 Normal No Jan 25 informati 2016 6:33 [#/volume on in AM ] in source Blood by data Automated count Basophils 0.1 - 2.0 % Normal No Jan 25 informati 2016 6:33 leukocyte on in AM s in source Blood by data Automated count Eosinophi 0.0 - 0.4 K/mm3 Normal No Jan 25 ls informati 2016 6:33 [#/volume on in AM ] in source Blood by data Automated count Eosinophi 0.1 - % Normal No Jan 25 ls/100 12.0 informati 2016 6:33 leukocyte on in AM s in source Blood by data Automated count Granulocy 1.8 - 7.8 K/mm3 Normal No Jan 25 yi informati 2016 6:33 [#/volume on in AM ] in source Blood by data Automated count Granulocy 37.0 - % Low No Jan 25 yi/100 80.0 informati 2016 6:33 leukocyte on in AM s in source Blood by data Automated count Hematocri 37.0 - % Low No Jan 25 t [Volume 47.0 informati 2016 6:33 on in AM Fraction] source of Blood data Hemoglobi 12.2 - g/dL Low No Jan 25 n 16.2 informati 2016 6:33 [Mass/vol on in AM ume] in source Blood data Lymphocyt 0.7 - 4.5 K/mm3 Normal No Jan 25 es informati 2016 6:33 [#/volume on in AM ] in source Unspecifi data ed specimen by Automated count Lymphocyt 10 - 50.0 % Normal No Jan 25 es informati 2016 6:33 [#/volume on in AM ] in source Unspecifi data ed specimen by Automated count Erythrocy 27 - 31.2 pg High No Jan 25 te mean informati 2016 6:33 corpuscul on in AM ar source hemoglobi data n [Entitic mass] Erythrocy 31.8 - g/dl Low No Jan 25 te mean 35.4 informati 2016 6:33 corpuscul on in AM ar source hemoglobi data n concentra tion [Mass/vol ume] by Automated count Erythrocy 82.2 - fl High No Jan 25 te mean 97.8 informati 2016 6:33 corpuscul on in AM ar volume source [Entitic data volume] by Automated count Monocytes 0.1 - 1.0 K/mm3 High No Jan 25 informati 2016 6:33 [#/volume on in AM ] in source Blood by data Automated count Monocytes 1.7 - 9.3 % High No Jan 25 /100 informati 2016 6:33 leukocyte on in AM s in source Blood by data Automated count Platelet 7.4 - fl Normal No Jan 25 mean 10.4 informati 2017 6:33 volume on in AM [Entitic source volume] data in Blood by Automated count Platelets 142 - 424 K/mm3 Normal No Jan 25 informati 2017 6:33 [#/volume on in AM ] in source Blood data Erythrocy 4.2 - 5.4 M/mm3 Low No Jan 25 yi informati 2016 6:33 [#/volume on in AM ] in source Amniotic data fluid Erythrocy 11.5 - % Normal No Jan 25 te 17.5 informati 2017 6:33 distribut on in AM ion width source [Entitic data volume] by Automated count Leukocyte 4.8 - K/MM3 No No Jan 25 s 10.8 informati informati 2017 6:33 [#/volume on in on in AM ] in source source Blood data data Differential panel, method unspecified - Observa Value Referen Units Interpr Notes Date tion ce etation Range Neutrophi 0 - 8 % Normal No Jan 25 ls.band informati 2017 6:33 form/100 on in AM leukocyte source s in data Blood by Automated count BLASTOC 1 0- % No No Jan 25 YTES informa informa 2017 tion in tion in 6:33 AM source source data data LYMPH 28 10 - 50 % Normal No Jan 25 inform2016 tion in 6:33 AM source data Metamyelo 0 - 1 % High No Jan 25 cytes/100 alert informati 2017 6:33 on in AM leukocyte source s in data Blood by Manual count Monocytes 2 - 9 % High No Jan 25 / informati 2017 6:33 leukocyte on in AM s in source Blood by data Automated count Myelocyte 0 - 1 % High No Jan 25 s/100 informati 2017 6:33 leukocyte on in AM s in source Blood by data Manual count XXX No No No No Jan 25 cells/100 informati informati informati informati 2017 6:33 cells in on in on in on in on in AM source source source source Unspecifi data data data data ed specimen Platele NORMAL No No No No Jan 25 ts informa informa informa informa 2016 [Presen tion in tion in tion in tion in 6:33 AM ce] in source source source source Blood data data data data by Light microsc opy Neutrophi 42 - 76 % Normal No Jan 25 ls informati 2017 6:33 [#/volume on in AM ] in source Blood by data Automated count Promyeloc No % No No Jan 25 ytes/100 informati informati informati 2017 6:33 leukocyte on in on in on in AM s in source source source Blood data data data Cells No #CELLS No No Jan 25 Counted informati informati informati 2016 6:33 Total [#] on in on in on in AM in Blood source source source data data data PT & aPTT panel in Platelet poor plasma by Coagulation assay Observa Value Referen Units Interpr Notes Date tion ce etation Range INR in 0.9 - 1.1 No High Jan 25 Blood by informati NOTIFICAT 2017 6:33 Coagulati on in ION AM on assay source RESULT data BERRY F 01/25/17 0708 Veto Ocampo eINDICARONALDO ON INR RANGETHER APY FOR DVT, PE, ATRIAL FIB; 2.0 - 3.0PROPHY LAXIS FOR VTETHERAP Y FOR MECHANICA L HEART 2.5 - 3.5VALVE; PREVENTIO N OF SYSTEMICE MBOLISM SECONDARY TO AMI Prothromb 9.4 - SECONDS High Jan 25 in time 11.8 NOTIFICAT 2017 6:33 (PT) in ION AM Platelet RESULT poor BERRY plasma by F. 01/25/17 Coagulati 0708 on assay Veto Ocampo Activated 23.6 - SECONDS High RESULTS Jan 25 partial 34.0 alert CALLED TO 2017 6:33 thrombpla AM stin time PHARMACIS (aPTT) T: BERRY in F. Platelet 01/25/17 poor 0709Guthr plasma by Marek liu Coagulgael on assay Basic metabolic panel in Blood Observa Value Referen Units Interpr Notes Date tion ce etation Range Urea 7 - 18 mg/dL High No Jan 25 nitrogen informati 2017 6:33 [Mass/vol on in AM ume] in source Serum or data Plasma Calcium 8.5 - mg/dL Normal No Jan 25 [Mass/vol 10.1 informati 2017 6:33 ume] in on in AM Serum or source Plasma data Chloride 98 - 107 mmoL/L Normal No Jan 25 [Moles/vo informati 2017 6:33 lume] in on in AM Serum or source Plasma data Carbon 21.0 - mmoL/L High Jan 25 dioxide, 32.0 alert NOTIFICAT 2017 6:33 total ION AM [Moles/vo RESULT lume] in Dia Serum or ne Plasma Creatinin 0.55 - mg/dL High No Jan 25 e 1.02 informati 2017 6:33 [Mass/vol on in AM ume] in source Serum or data Plasma Creatinin 50 - 200 ML/MIN Normal No Jan 25 e renal informati 2017 6:33 clearance on in AM source predicted data by Cockcroft -Gault formula Estimated 59- ML/MIN Low REFERENCE Jan 25 RANGE: 2017 6:33 glomerula >60 AM r ML/MIN/1. filtratio 73 SQUARE n rate METERSIf (GF this patient is -A merican, then multiply theresult by 1.210. Glucose 74 - 106 mg/dL Low No Jan 25 [Mass/vol informati 2016 6:33 ume] in on in AM Serum or source Plasma data Potassium 3.5 - 5.1 mmoL/L Normal No Jan 25 informati 2017 6:33 [Moles/vo on in AM lume] in source Serum or data Plasma Sodium 136 - 145 mmoL/L High Jan 25 [Moles/vo 2016 6:33 lume] in CRITICAL AM Serum or RESULTS Plasma RESU LTS CALLED TO: SARITHA 01/25/17 0705 Veto Ocampo Glucose [Mass/volume] in Capillary blood by Glucometer Observa Value Referen Units Interpr Notes Date tion ce etation Range Glucose 70 - 110 mg/dl No No Jan 25 [Mass/vol informati informati 2016 6:27 ume] in on in on in AM Capillary source source blood by data data Glucomete r Glucose [Mass/volume] in Capillary blood by Glucometer Observa Value Referen Units Interpr Notes Date tion ce etation Range Glucose 70 - 110 mg/dl High No Jan 24 [Mass/vol informati 2016 9:19 ume] in on in PM Capillary source blood by data Glucomete r Glucose [Mass/volume] in Capillary blood by Glucometer Observa Value Referen Units Interpr Notes Date tion ce etation Range Glucose 70 - 110 mg/dl High No Jan 24 [Mass/vol alert informati 2016 4:41 ume] in on in PM Capillary source blood by data Glucomete r Glucose [Mass/volume] in Capillary blood by Glucometer Observa Value Referen Units Interpr Notes Date tion ce etation Range Glucose 70 - 110 mg/dl High No Jan 24 [Mass/vol alert informati 2016 ume] in on in 12:05 PM Capillary source blood by data Glucomete r CBC W Auto Differential panel in Blood Observa Value Referen Units Interpr Notes Date tion ce etation Range Basophils 0 - 0.2 K/MM3 Normal No Jan 24 informati 2016 6:27 [#/volume on in AM ] in source Blood by data Automated count Basophils 0.1 - 2.0 % Normal No Jan 24 informati 2016 6:27 leukocyte on in AM s in source Blood by data Automated count Eosinophi 0.0 - 0.4 K/mm3 Normal No Jan 24 ls informati 2016 6:27 [#/volume on in AM ] in source Blood by data Automated count Eosinophi 0.1 - % Normal No Jan 24 ls/100 12.0 informati 2016 6:27 leukocyte on in AM s in source Blood by data Automated count Granulocy 1.8 - 7.8 K/mm3 Normal No Jan 24 yi informati 2016 6:27 [#/volume on in AM ] in source Blood by data Automated count Granulocy 37.0 - % Low No Jan 24 yi/100 80.0 informati 2016 6:27 leukocyte on in AM s in source Blood by data Automated count Hematocri 37.0 - % Low No Jan 24 t [Volume 47.0 informati 2016 6:27 on in AM Fraction] source of Blood data Hemoglobi 12.2 - g/dL Low No Jan 24 n 16.2 informati 2016 6:27 [Mass/vol on in AM ume] in source Blood data Lymphocyt 0.7 - 4.5 K/mm3 Normal No Jan 24 es informati 2016 6:27 [#/volume on in AM ] in source Unspecifi data ed specimen by Automated count Lymphocyt 10 - 50.0 % Normal No Jan 24 es informati 2016 6:27 [#/volume on in AM ] in source Unspecifi data ed specimen by Automated count Erythrocy 27 - 31.2 pg Normal No Jan 16 te mean informati 2016 6:27 corpuscul on in AM ar source hemoglobi data n [Entitic mass] Erythrocy 31.8 - g/dl Low No Jan 16 te mean 35.4 informati 2017 6:27 corpuscul on in AM ar source hemoglobi data n concentra tion [Mass/vol ume] by Automated count Erythrocy 82.2 - fl High No Jan 16 te mean 97.8 informati 2016 6:27 corpuscul on in AM ar volume source [Entitic data volume] by Automated count Monocytes 0.1 - 1.0 K/mm3 High No Jan 16 informati 2016 6:27 [#/volume on in AM ] in source Blood by data Automated count Monocytes 1.7 - 9.3 % High No Oct 16 /100 informati 2016 6:27 leukocyte on in AM s in source Blood by data Automated count Platelet 7.4 - fl Normal No Jan 16 mean 10.4 informati 2016 6:27 volume on in AM [Entitic source volume] data in Blood by Automated count Platelets 142 - 424 K/mm3 Normal No Jan 16 informati 2016 6:27 [#/volume on in AM ] in source Blood data Erythrocy 4.2 - 5.4 M/mm3 Low No Jan 16 yi informati 2016 6:27 [#/volume on in AM ] in source Amniotic data fluid Erythrocy 11.5 - % Normal No Jan 16 te 17.5 informati 2016 6:27 distribut on in AM ion width source [Entitic data volume] by Automated count Leukocyte 4.8 - K/MM3 Normal No Jan 16 s 10.8 informati 2016 6:27 [#/volume on in AM ] in source Blood data Differential panel, method unspecified - Observa Value Referen Units Interpr Notes Date tion ce etation Range Neutrophi 0 - 8 % Normal No Jan 24 ls.band informati 2016 6:27 form/100 on in AM leukocyte source s in data Blood by Automated count Hypochr 1+ No No No No Jan 16 omia informa informa informa informa 2016 [Presen tion in tion in tion in tion in 6:27 AM ce] in source source source source Blood data data data data LYMPH 31 10 - 50 % Normal No Oct 16 informa 2017 tion in 6:27 AM source data Macrocy 1+ No No No No Jan 24 yi informa informa informa informa 2016 [Presen tion in tion in tion in tion in 6:27 AM ce] in source source source source Blood data data data data Metamyelo 0 - 1 % High No Jan 24 cytes/100 informati 2017 6:27 on in AM leukocyte source s in data Blood by Manual count Monocytes 2 - 9 % High No Oct 16 /100 informati 2016 6:27 leukocyte on in AM s in source Blood by data Automated count Platele NORMAL No No No No Jan 24 ts informa informa informa informa 2016 [Presen tion in tion in tion in tion in 6:27 AM ce] in source source source source Blood data data data data by Light microsc opy Neutrophi 42 - 76 % Low No Jan 24 ls informati 2016 6:27 [#/volume on in AM ] in source Blood by data Automated count Cells No #CELLS No No Jan 24 Counted informati informati informati 2016 6:27 Total [#] on in on in on in AM in Blood source source source data data data Natriutietic peptide B [Mass/volume] in Serum or Plasma Observa Value Referen Units Interpr Notes Date tion ce etation Range Natriutie 0 - 100 pg/mL Normal No Jan 24 tic informati 2016 6:27 peptide B on in AM source [Mass/vol data ume] in Serum or Plasma Basic metabolic panel in Blood Observa Value Referen Units Interpr Notes Date tion ce etation Range Urea 7 - 18 mg/dL High No Jan 24 nitrogen informati 2016 6:27 [Mass/vol on in AM ume] in source Serum or data Plasma Calcium 8.5 - mg/dL Normal No Jan 24 [Mass/vol 10.1 informati 2017 6:27 ume] in on in AM Serum or source Plasma data Chloride 98 - 107 mmoL/L Normal No Jan 24 [Moles/vo informati 2017 6:27 lume] in on in AM Serum or source Plasma data Carbon 21.0 - mmoL/L High Jan 24 dioxide, 32.0 alert NOTIFICAT 2017 6:27 total ION AM [Moles/vo RESULT lume] in Dia Serum or ne Plasma Creatinin 0.55 - mg/dL High No Jan 16 e 1.02 informati 2016 6:27 [Mass/vol on in AM ume] in source Serum or data Plasma Creatinin 50 - 200 ML/MIN No No Jan 16 e renal informati informati 2016 6:27 clearance on in on in AM source source predicted data data by Cockcroft -Gault formula Estimated 59- ML/MIN Low REFERENCE Oct 16 RANGE: 2017 6:27 glomerula >60 AM r ML/MIN/1. filtratio 73 SQUARE n rate METERSIf (GF this patient is -A merican, then multiply theresult by 1.210. Glucose 74 - 106 mg/dL High No Jan 16 [Mass/vol informati 2016 6:27 ume] in on in AM Serum or source Plasma data Potassium 3.5 - 5.1 mmoL/L Normal No Jan 16 informati 2016 6:27 [Moles/vo on in AM lume] in source Serum or data Plasma Sodium 136 - 145 mmoL/L Normal No Jan 16 [Moles/vo informati 2016 6:27 lume] in on in AM Serum or source Plasma data Gentamicin [Mass/volume] in Serum or Plasma Observa Value Referen Units Interpr Notes Date tion ce etation Range Gentamici 4.0 - ug/ml Normal No Jan 16 n 10.0 informati 2016 6:27 [Mass/vol on in AM ume] in source Serum or data Plasma Glucose [Mass/volume] in Capillary blood by Glucometer Observa Value Referen Units Interpr Notes Date tion ce etation Range Glucose 70 - 110 mg/dl High No Jan 16 [Mass/vol informati 2016 6:13 ume] in on in AM Capillary source blood by data Glucomete r Glucose [Mass/volume] in Capillary blood by Glucometer Observa Value Referen Units Interpr Notes Date tion ce etation Range Glucose 70 - 110 mg/dl High No Jan 15 [Mass/vol alert informati 2016 9:51 ume] in on in PM Capillary source blood by data Glucomete r Glucose [Mass/volume] in Capillary blood by Glucometer Observa Value Referen Units Interpr Notes Date tion ce etation Range Glucose 70 - 110 mg/dl High No Jan 15 [Mass/vol alert informati 2016 5:19 ume] in on in PM Capillary source blood by data Glucomete r Gentamicin [Mass/volume] in Serum or Plasma Observa Value Referen Units Interpr Notes Date ti ce etation Range Gentamici 4.0 - ug/ml Normal No Jan 23 n 10.0 informati 2017 3:24 [Mass/vol on in PM ume] in source Serum or data Plasma Glucose [Mass/volume] in Capillary blood by Glucometer Observa Value Referen Units Interpr Notes Date ti ce etation Range Glucose 70 - 110 mg/dl High No Jan 23 [Mass/vol informati 2016 ume] in on in 11:41 AM Capillary source blood by data Glucomete r INR in Blood by Coagulation assay Observa Value Referen Units Interpr Notes Date tion ce etation Range IS PATIENT ON ANTICOAGULANTS? Y LIST ANTICOAGULANTS: WARFARIN PTT RESULTS MUST BE CALLED IF PT ON HEPARIN!!! Y INR in 0.9 - 1.1 No High Jan 23 Blood by informati NOTIFICAT 2017 9:47 Coagulati on in ION AM on assay source RESULT data INDIC ATION INR RANGETHER APY FOR DVT, PE, ATRIAL FIB; 2.0 - 3.0PROPHY LAXIS FOR VTETHERAP Y FOR MECHANICA L HEART 2.5 - 3.5VALVE; PREVENTIO N OF SYSTEMICE MBOLISM SECONDARY TO AMI Prothromb 9.4 - SECONDS High Jan 23 in time 11.8 NOTIFICAT 2017 9:47 (PT) in ION AM Platelet RESULT poor plasma by Coagulati on assay Glucose [Mass/volume] in Capillary blood by Glucometer Observa Value Referen Units Interpr Notes Date ti etation Range Glucose 70 - 110 mg/dl Normal No Jan 23 [Mass/vol informati 2016 6:51 ume] in on in AM Capillary source blood by data Glucomete r Glucose [Mass/volume] in Capillary blood by Glucometer Observa Value Referen Units Interpr Notes Date ti ce etation Range Glucose 70 - 110 mg/dl Normal No Jan 22 [Mass/vol informati 2016 ume] in on in 11:34 PM Capillary source blood by data Glucomete r Glucose [Mass/volume] in Capillary blood by Glucometer Observa Value Referen Units Interpr Notes Date ti ce etation Range Glucose 70 - 110 mg/dl No No Oct 14 [Mass/vol informati informati 2017 9:41 ume] in on in on in PM Capillary source source blood by data data Glucomete r Glucose [Mass/volume] in Capillary blood by Glucometer Observa Value Referen Units Interpr Notes Date tion ce etation Range Glucose 70 - 110 mg/dl Low No Oct 14 [Mass/vol informati 2016 9:20 ume] in on in PM Capillary source blood by data Glucomete r Gas panel in Arterial blood Observa Value Referen Units Interpr Notes Date tion ce etation Range Base -2.4-+2.3 MMOL/L High No Oct 14 excess in informati 2017 4:55 Arterial on in PM blood source data Arteria Y No No No No Oct 14 l informa informa informa informa 2017 patency tion in tion in tion in tion in 4:55 PM Wrist source source source source artery data data data data --pre arteria l punctur e Bicarbona 22.0 - MMOL/L High No Oct 14 te 26.0 informati 2017 4:55 [Moles/vo on in PM lume] in source Arterial data blood Oxygen No No No No Oct 14 content informati informati informati informati 2017 4:55 in on in on in on in on in PM Arterial source source source source blood data data data data Carbon 35.0 - MMHG High Oct 14 dioxide 45.0 2017 4:55 [Partial CRITICAL PM pressure] RESULTS in Arterial RESU blood LTS CALLED TO: DR SEPULVEDA 01/22/17 1656 Rubio Williamson pH of 7.35 - MMOL/L Normal No Oct 14 Arterial 7.45 informati 2017 4:55 blood on in PM source data Oxygen 80 - 100 MMHG Low No Oct 14 [Partial informati 2017 4:55 pressure] on in PM in source Arterial data blood Oxygen 90 - 100 % Low No Oct 14 saturatio informati 2017 4:55 n.calcula on in PM larisa from source oxygen data partial pressure in Arterial blood SOURCE R/R No No No No Oct 14 informa informa informa informa 2017 tion in tion in tion in tion in 4:55 PM source source source source data data data data Carbon 23 - 27 MMOL/L Low No Oct 14 dioxide, informati 2017 4:55 total on in PM [Moles/vo source lume] in data Arterial blood Lactate [Moles/volume] in Blood Observa Value Referen Units Interpr Notes Date tion ce etation Range Lactate 0.4 - 2.0 mmol/L Normal No Jan 14 [Moles/vo informati 2016 3:15 lume] in on in PM Blood source data Mycoplasma pneumoniae IgM Ab [Presence] in Serum by Immunoassay Observa Value Referen Units Interpr Notes Date tion ce etation Range Mycopla NON-SUSI NONREAC No No No Jan 14 sma CTIVE TIVE informa informa informa 2017 pneumon tion in tion in tion in 2:00 PM iae IgM source source source Ab data data data [Presen ce] in Serum by Immunoa ssay Comprehensive metabolic 2000 panel in Serum or Plasma Observa Value Referen Units Interpr Notes Date tion ce etation Range Albumin/G 1.1 - 1.8 No Low No Jan 22 lobulin informati informati 2016 2:00 [Mass on in on in PM ratio] in source source Serum or data data Plasma Albumin 3.4 - 5.0 gm/dL Low No Jan 22 [Mass/vol informati 2016 2:00 ume] in on in PM Serum or source Plasma data Alkaline 46 - 116 U/L Normal No Jan 22 phosphata informati 2016 2:00 se on in PM [Enzymati source c data activity/ volume] in Serum or Plasma Bilirubin 0.2 - 1.0 mg/dL Normal No Jan 22 .total informati 2017 2:00 [Mass/vol on in PM ume] in source Serum or data Plasma Urea 7 - 18 mg/dL High Jan 22 nitrogen NOTIFICAT 2017 2:00 [Mass/vol ION PM ume] in RESULT Serum or Plasma Calcium 8.5 - mg/dL Normal No Jan 22 [Mass/vol 10.1 informati 2017 2:00 ume] in on in PM Serum or source Plasma data Chloride 98 - 107 mmoL/L Normal No Jan 22 [Moles/vo informati 2017 2:00 lume] in on in PM Serum or source Plasma data Carbon 21.0 - mmoL/L High Jan 22 dioxide, 32.0 alert NOTIFICAT 2017 2:00 total ION PM [Moles/vo RESULT lume] in Serum or Plasma Creatinin 0.55 - mg/dL High No Jan 14 e 1.02 informati 2016 2:00 [Mass/vol on in PM ume] in source Serum or data Plasma Creatinin 50 - 200 ML/MIN Low No Jan 14 e renal 2016 2:00 clearance on in PM source predicted data by Cockcroft -Gault formula Estimated 59- ML/MIN Low REFERENCE Jan 14 RANGE: 2016 2:00 glomerula >60 PM r ML/MIN/1. filtratio 73 SQUARE n rate METERSIf (GF this patient is -A merican, then multiply theresult by 1.210. Globulin 1.3 - 3.2 gm/dL High No Jan 14 [Mass/vol informati 2016 2:00 ume] in on in PM Serum source data Glucose 74 - 106 mg/dL Normal No Jan 14 [Mass/vol informati 2016 2:00 ume] in on in PM Serum or source Plasma data Potassium 3.5 - 5.1 mmoL/L Normal No Jan 222016 2:00 [Moles/vo on in PM lume] in source Serum or data Plasma Sodium 136 - 145 mmoL/L High No Jan 14 [Moles/vo ati 2016 2:00 lume] in on in PM Serum or source Plasma data Aspartate 15 - 37 U/L High No Jan 222016 2:00 aminotran on in PM sferase source [Enzymati data c activity/ volume] in Serum or Plasma Alanine 12 - 78 U/L Normal No Jan 22 aminotran 2016 2:00 sferase on in PM [Enzymati source c data activity/ volume] in Serum or Plasma Protein 6.4 - 8.2 gm/dL Low No Jan 14 [Mass/vol informati 2016 2:00 ume] in on in PM Serum or source Plasma data CBC W Auto Differential panel in Blood Observa Value Referen Units Interpr Notes Date tion ce etation Range Basophils 0 - 0.2 K/MM3 High No Jan 14 2016 2:00 [#/volume on in PM ] in source Blood by data Automated count Basophils 0.1 - 2.0 % High No Jan 22 /100 2016 2:00 leukocyte on in PM s in source Blood by data Automated count Eosinophi 0.0 - 0.4 K/mm3 Normal No Jan 14 ls informati 2016 2:00 [#/volume on in PM ] in source Blood by data Automated count Eosinophi 0.1 - % Normal No Jan 14 ls/100 12.0 informati 2016 2:00 leukocyte on in PM s in source Blood by data Automated count Granulocy 1.8 - 7.8 K/mm3 Normal No Jan 14 yi informati 2016 2:00 [#/volume on in PM ] in source Blood by data Automated count Granulocy 37.0 - % Normal No Jan 14 yi/100 80.0 informati 2016 2:00 leukocyte on in PM s in source Blood by data Automated count Hematocri 37.0 - % Low No Jan 22 t [Volume 47.0 informati 2016 2:00 on in PM Fraction] source of Blood data Hemoglobi 12.2 - g/dL Low No Jan 14 n 16.2 inform2016 2:00 [Mass/vol on in PM ume] in source Blood data Lymphocyt 0.7 - 4.5 K/mm3 Normal No Jan 14 es inform2016 2:00 [#/volume on in PM ] in source Unspecifi data ed specimen by Automated count Lymphocyt 10 - 50.0 % Normal No Jan 22 es inform2016 2:00 [#/volume on in PM ] in source Unspecifi data ed specimen by Automated count Erythrocy 27 - 31.2 pg Normal No Jan 14 te mean inform2016 2:00 corpuscul on in PM ar source hemoglobi data n [Entitic mass] Erythrocy 31.8 - g/dl Low No Jan 14 te mean 35.4 informati 2016 2:00 corpuscul on in PM ar source hemoglobi data n concentra tion [Mass/vol ume] by Automated count Erythrocy 82.2 - fl High No Jan 14 te mean 97.8 informati 2016 2:00 corpuscul on in PM ar volume source [Entitic data volume] by Automated count Monocytes 0.1 - 1.0 K/mm3 High No Jan 14 2016 2:00 [#/volume on in PM ] in source Blood by data Automated count Monocytes 1.7 - 9.3 % High No Jan 14 /100 informati 2016 2:00 leukocyte on in PM s in source Blood by data Automated count Platelet 7.4 - fl Normal No Jan 22 mean 10.4 2016 2:00 volume on in PM [Entitic source volume] data in Blood by Automated count Platelets 142 - 424 K/mm3 Normal No Jan 222016 2:00 [#/volume on in PM ] in source Blood data Erythrocy 4.2 - 5.4 M/mm3 Low No Jan 22 yi 2016 2:00 [#/volume on in PM ] in source Amniotic data fluid Erythrocy 11.5 - % Normal No Jan 22 te 17.5 2016 2:00 distribut on in PM ion width source [Entitic data volume] by Automated count Leukocyte 4.8 - K/MM3 Normal No Jan 22 s 10.8 2016 2:00 [#/volume on in PM ] in source Blood data Legionella pneumophila 1 Ag [Presence] in Urine by Immunoassay Observa Value Referen Units Interpr Notes Date tion ce etation Range Legione Positiv Negativ No Abnorma Presump Jan 22 lla e e informa l ti 2017 pneumop tion in positiv 12:46 [place] 1 source e for PM Ag data the [Presen presenc ce] in e of L. Urine by pneumop Immunoa hilaser ssay ogroup 1 antigen in urine, suggest ing current or pastinf ection. Perform ed at: - [facility] [address] [id number] Directo r: Rubio Baptiste MD, Phone: [phone] 383CALL ED TO GARDENIA GALDAMEZ RN, ALSO TO [facility] WILLIE SMILEY. Urinalysis dipstick W Reflex Microscopic panel in Urine Observa Value Referen Units Interpr Notes Date tion ce etation Range Appeara SL CLEAR No No No Jan 22 nce of CLOUDY informa informa informa 2016 Urine tion in tion in tion in source source source data data data Bacteri 4+ O No No No Jan 22 a informa informa informa 2016 [Presen tion in tion in tion in ce] in source source source Urine data data data sedimen t by Light microsc opy Bilirub NEGATIV NEG No No No Jan 22 in E informa informa informa 2016 [Presen tion in tion in tion in ce] in source source source Urine data data data by Test strip Erythro NEGATIV NEG No No No Jan 22 cytes E informa informa informa 2016 [Presen tion in tion in tion in ce] in source source source Urine data data data Color YELLOW YELLOW No No No Jan 22 of informa informa informa 2017 Urine tion in tion in tion in source source source data data data Glucose NEG No No No Jan 22 [Mass/vol informati informati informati 2016 ume] in on in on in on in Urine by source source source Test data data data strip Ketones NEGATIV NEG mg/dL No No Jan 22 E informa informa 2016 [Presen tion in tion in ce] in source source Urine data data by Automat ed test strip Mucus 1+ NEG No Abnorma No Jan 22 [Presen informa l informa 2016 ce] in tion in tion in Urine source source sedimen data data t by Light microsc opy Nitrite POSITIV NEG No Abnorma No Jan 22 E informa l informa 2016 [Presen tion in tion in ce] in source source Urine data data by Test strip pH of 5.0 - 8.5 No Normal No Jan 22 Urine informati informati 2017 on in on in source source data data Protein NEG mg/dL No No Jan 22 [Mass/vol informati informati 2016 ume] in on in on in Urine by source source Automated data data test strip Specific 1.005 - No Normal No Jan 22 gravity 1.030 informati informati 2016 of Urine on in on in source source data data Epithel OCC 0 - 5 #/hpf No No Jan 22 ial informa informa 2017 cells.s tion in tion in quamous source source data data [Presen ce] in Urine sedimen t by Microsc opy high power field Urobili 0.2 NEG E.U./dL No No Jan 22 nogen informa informa 2016 [Presen tion in tion in ce] in source source Urine data data by Test strip Leukocy [20 O wbc/hpf No No Jan 22 yi wbc/hpf informa informa 2016 [#/volu ; 50 tion in tion in me] in wbc/hpf source source Urine ] data data Urinalysis dipstick W Reflex Microscopic panel in Urine Observa Value Referen Units Interpr Notes Date tion ce etation Range Appeara SL CLEAR No No No Jan 22 nce of CLOUDY informa informa informa 2016 Urine tion in tion in tion in source source source data data data Bilirub NEGATIV NEG No No No Jan 22 in E informa informa informa 2016 [Presen tion in tion in tion in ce] in source source source Urine data data data by Test strip Erythro NEGATIV NEG No No No Jan 22 cytes E informa informa informa 2016 [Presen tion in tion in tion in ce] in source source source Urine data data data Color YELLOW YELLOW No No No Jan 22 of informa informa informa 2016 Urine tion in tion in tion in source source source data data data Glucose NEG No No No Jan 22 [Mass/vol informati informati informati 2016 ume] in on in on in on in Urine by source source source Test data data data strip Ketones NEGATIV NEG mg/dL No No Jan 22 E informa informa 2016 [Presen tion in tion in ce] in source source Urine data data by Automat ed test strip Mucus 1+ NEG No Abnorma No Jan 22 [Presen informa l informa 2016 ce] in tion in tion in Urine source source sedimen data data t by Light microsc opy Nitrite POSITIV NEG No Abnorma No Jan 22 E informa l informa 2016 [Presen tion in tion in ce] in source source Urine data data by Test strip pH of 5.0 - 8.5 No Normal No Jan 22 Urine informati informati 2016 on in on in source source data data Protein NEG mg/dL No No Jan 22 [Mass/vol informati informati 2016 ume] in on in on in Urine by source source Automated data data test strip Specific 1.005 - No Normal No Jan 22 gravity 1.030 informati informati 2016 of Urine on in on in source source data data Urobili 0.2 NEG E.U./dL No No Jan 22 nogen informa informa 2016 [Presen tion in tion in ce] in source source Urine data data by Test strip Glucose [Mass/volume] in Capillary blood by Glucometer Observa Value Referen Units Interpr Notes Date tion ce etation Range Glucose 70 - 110 mg/dl High No Jan 18 [Mass/vol informati 2017 6:29 ume] in on in AM Capillary source blood by data Glucomete r CBC W Auto Differential panel in Blood Observa Value Referen Units Interpr Notes Date tion ce etation Range Basophils 0 - 0.2 K/MM3 Normal No Jan 18 informati 2016 6:14 [#/volume on in AM ] in source Blood by data Automated count Basophils 0.1 - 2.0 % Normal No Jan 18 / informati 2016 6:14 leukocyte on in AM s in source Blood by data Automated count Eosinophi 0.0 - 0.4 K/mm3 Normal No Jan 10 ls informati 2016 6:14 [#/volume on in AM ] in source Blood by data Automated count Eosinophi 0.1 - % Low No Jan 18 ls/100 12.0 informati 2017 6:14 leukocyte on in AM s in source Blood by data Automated count Granulocy 1.8 - 7.8 K/mm3 High No Jan 18 yi informati 2016 6:14 [#/volume on in AM ] in source Blood by data Automated count Granulocy 37.0 - % Normal No Jan 18 yi/100 80.0 informati 2016 6:14 leukocyte on in AM s in source Blood by data Automated count Hematocri 37.0 - % Low No Jan 18 t [Volume 47.0 informati 2017 6:14 on in AM Fraction] source of Blood data Hemoglobi 12.2 - g/dL Low No Jan 18 n 16.2 informati 2016 6:14 [Mass/vol on in AM ume] in source Blood data Lymphocyt 0.7 - 4.5 K/mm3 Normal No Jan 18 es informati 2016 6:14 [#/volume on in AM ] in source Unspecifi data ed specimen by Automated count Lymphocyt 10 - 50.0 % Normal No Jan 18 es informati 2016 6:14 [#/volume on in AM ] in source Unspecifi data ed specimen by Automated count Erythrocy 27 - 31.2 pg Normal No Jan 18 te mean informati 2016 6:14 corpuscul on in AM ar source hemoglobi data n [Entitic mass] Erythrocy 31.8 - g/dl Normal No Jan 18 te mean 35.4 informati 2016 6:14 corpuscul on in AM ar source hemoglobi data n concentra tion [Mass/vol ume] by Automated count Erythrocy 82.2 - fl Normal No Oct 10 te mean 97.8 informati 2017 6:14 corpuscul on in AM ar volume source [Entitic data volume] by Automated count Monocytes 0.1 - 1.0 K/mm3 Normal No Oct 10 informati 2017 6:14 [#/volume on in AM ] in source Blood by data Automated count Monocytes 1.7 - 9.3 % Normal No Oct 10 /100 informati 2017 6:14 leukocyte on in AM s in source Blood by data Automated count Platelet 7.4 - fl Normal No Oct 10 mean 10.4 informati 2017 6:14 volume on in AM [Entitic source volume] data in Blood by Automated count Platelets 142 - 424 K/mm3 Normal No Oct 10 informati 2017 6:14 [#/volume on in AM ] in source Blood data Erythrocy 4.2 - 5.4 M/mm3 Low No Oct 10 yi informati 2017 6:14 [#/volume on in AM ] in source Amniotic data fluid Erythrocy 11.5 - % Normal No Oct 10 te 17.5 informati 2017 6:14 distribut on in AM ion width source [Entitic data volume] by Automated count Leukocyte 4.8 - K/MM3 High No Oct 10 s 10.8 informati 2017 6:14 [#/volume on in AM ] in source Blood data Basic metabolic panel in Blood Observa Value Referen Units Interpr Notes Date tion ce etation Range Urea 7 - 18 mg/dL High No Oct 10 nitrogen informati 2017 6:14 [Mass/vol on in AM ume] in source Serum or data Plasma Calcium 8.5 - mg/dL Normal No Oct 10 [Mass/vol 10.1 informati 2017 6:14 ume] in on in AM Serum or source Plasma data Chloride 98 - 107 mmoL/L Normal No Oct 10 [Moles/vo informati 2017 6:14 lume] in on in AM Serum or source Plasma data Carbon 21.0 - mmoL/L High No Oct 10 dioxide, 32.0 informati 2017 6:14 total on in AM [Moles/vo source lume] in data Serum or Plasma Creatinin 0.55 - mg/dL High No Oct 10 e 1.02 informati 2017 6:14 [Mass/vol on in AM ume] in source Serum or data Plasma Creatinin 50 - 200 ML/MIN Normal No Oct 10 e renal informati 2017 6:14 clearance on in AM source predicted data by Cockcroft -Gault formula Estimated 59- ML/MIN Low REFERENCE Oct 10 RANGE: 2017 6:14 glomerula >60 AM r ML/MIN/1. filtratio 73 SQUARE n rate METERSIf (GF this patient is -A merican, then multiply theresult by 1.210. Glucose 74 - 106 mg/dL High No Jan 10 [Mass/vol informati 2017 6:14 ume] in on in AM Serum or source Plasma data Potassium 3.5 - 5.1 mmoL/L Normal No Jan 10 informati 2017 6:14 [Moles/vo on in AM lume] in source Serum or data Plasma Sodium 136 - 145 mmoL/L Normal No Jan 10 [Moles/vo informati 2017 6:14 lume] in on in AM Serum or source Plasma data INR in Blood by Coagulation assay Observa Value Referen Units Interpr Notes Date tion ce etation Range IS PATIENT ON ANTICOAGULANTS? Y LIST ANTICOAGULANTS: WARFARIN INR in 0.9 - 1.1 No High INDICATIO Jan 18 Blood by informati N 2017 6:14 Coagulati on in AM on assay source INR data RANGETHER APY FOR DVT, PE, ATRIAL FIB; 2.0 - 3.0PROPHY LAXIS FOR VTETHERAP Y FOR MECHANICA L HEART 2.5 - 3.5VALVE; PREVENTIO N OF SYSTEMICE MBOLISM SECONDARY TO AMI Prothromb 9.4 - SECONDS High No Oct 10 in time 11.8 informati 2017 6:14 (PT) in on in AM Platelet source poor data plasma by Coagulati on assay Glucose [Mass/volume] in Capillary blood by Glucometer Observa Value Referen Units Interpr Notes Date tion ce etation Range Glucose 70 - 110 mg/dl High No Jan 9 [Mass/vol alert informati 2017 8:55 ume] in on in PM Capillary source blood by data Glucomete r Glucose [Mass/volume] in Capillary blood by Glucometer Observa Value Referen Units Interpr Notes Date tion ce etation Range Glucose 70 - 110 mg/dl High No Oct 9 [Mass/vol alert informati 2017 5:05 ume] in on in PM Capillary source blood by data Glucomete r Glucose [Mass/volume] in Capillary blood by Glucometer Observa Value Referen Units Interpr Notes Date tion ce etation Range Glucose 70 - 110 mg/dl High No Jan 9 [Mass/vol alert informati 2017 ume] in on in 12:03 PM Capillary source blood by data Glucomete r Glucose [Mass/volume] in Capillary blood by Glucometer Observa Value Referen Units Interpr Notes Date tion ce etation Range Glucose 70 - 110 mg/dl High No Jan 9 [Mass/vol informati 2017 6:08 ume] in on in AM Capillary source blood by data Glucomete r INR in Blood by Coagulation assay Observa Value Referen Units Interpr Notes Date tion ce etation Range IS PATIENT ON ANTICOAGULANTS? Y LIST ANTICOAGULANTS: WARFARIN INR in 0.9 - 1.1 No High INDICATIO Jan 9 Blood by informati N 2017 4:50 Coagulati on in AM on assay source INR data RANGETHER APY FOR DVT, PE, ATRIAL FIB; 2.0 - 3.0PROPHY LAXIS FOR VTETHERAP Y FOR MECHANICA L HEART 2.5 - 3.5VALVE; PREVENTIO N OF SYSTEMICE MBOLISM SECONDARY TO AMI Prothromb 9.4 - SECONDS High No Jan 9 in time 11.8 informati 2017 4:50 (PT) in on in AM Platelet source poor data plasma by Coagulati on assay Glucose [Mass/volume] in Capillary blood by Glucometer Observa Value Referen Units Interpr Notes Date ti ce etation Range Glucose 70 - 110 mg/dl High No Jan 16 [Mass/vol informati 2017 8:52 ume] in on in PM Capillary source blood by data Glucomete r Glucose [Mass/volume] in Capillary blood by Glucometer Observa Value Referen Units Interpr Notes Date ti ce etation Range Glucose 70 - 110 mg/dl High No Jan 8 [Mass/vol alert informati 2017 4:56 ume] in on in PM Capillary source blood by data Glucomete r Glucose [Mass/volume] in Capillary blood by Glucometer Observa Value Referen Units Interpr Notes Date ti ce etation Range Glucose 70 - 110 mg/dl High No Jan 8 [Mass/vol informati 2016 ume] in on in 11:49 AM Capillary source blood by data Glucomete r Glucose [Mass/volume] in Capillary blood by Glucometer Observa Value Referen Units Interpr Notes Date tion ce etation Range Glucose 70 - 110 mg/dl High No Oct 8 [Mass/vol informati 2017 6:26 ume] in on in AM Capillary source blood by data Glucomete r INR in Blood by Coagulation assay Observa Value Referen Units Interpr Notes Date tion ce etation Range IS PATIENT ON ANTICOAGULANTS? Y LIST ANTICOAGULANTS: WARFARIN INR in 0.9 - 1.1 No High INDICATIO Oct 8 Blood by informati N 2016 5:50 Coagulati on in AM on assay source INR data RANGETHER APY FOR DVT, PE, ATRIAL FIB; 2.0 - 3.0PROPHY LAXIS FOR VTETHERAP Y FOR MECHANICA L HEART 2.5 - 3.5VALVE; PREVENTIO N OF SYSTEMICE MBOLISM SECONDARY TO AMI Prothromb 9.4 - SECONDS High No Oct 8 in time 11.8 informati 2016 5:50 (PT) in on in AM Platelet source poor data plasma by Coagulati on assay Basic metabolic panel in Blood Observa Value Referen Units Interpr Notes Date tion ce etation Range Urea 7 - 18 mg/dL High No Oct 8 nitrogen informati 2017 5:00 [Mass/vol on in AM ume] in source Serum or data Plasma Calcium 8.5 - mg/dL Normal No Oct 8 [Mass/vol 10.1 informati 2017 5:00 ume] in on in AM Serum or source Plasma data Chloride 98 - 107 mmoL/L Normal No Oct 8 [Moles/vo informati 2017 5:00 lume] in on in AM Serum or source Plasma data Carbon 21.0 - mmoL/L High No Oct 8 dioxide, 32.0 informati 2017 5:00 total on in AM [Moles/vo source lume] in data Serum or Plasma Creatinin 0.55 - mg/dL High No Oct 8 e 1.02 informati 2017 5:00 [Mass/vol on in AM ume] in source Serum or data Plasma Creatinin 50 - 200 ML/MIN Normal No Oct 8 e renal informati 2017 5:00 clearance on in AM source predicted data by Cockcroft -Gault formula Estimated 59- ML/MIN Low REFERENCE Oct 8 RANGE: 2017 5:00 glomerula >60 AM r ML/MIN/1. filtratio 73 SQUARE n rate METERSIf (GF this patient is -A merican, then multiply theresult by 1.210. Glucose 74 - 106 mg/dL High No Oct 8 [Mass/vol informati 2016 5:00 ume] in on in AM Serum or source Plasma data Potassium 3.5 - 5.1 mmoL/L Normal No Jan 8 informati 2016 5:00 [Moles/vo on in AM lume] in source Serum or data Plasma Sodium 136 - 145 mmoL/L High No Jan 8 [Moles/vo informati 2016 5:00 lume] in on in AM Serum or source Plasma data Glucose [Mass/volume] in Capillary blood by Glucometer Observa Value Referen Units Interpr Notes Date tion ce etation Range Glucose 70 - 110 mg/dl High No Jan 7 [Mass/vol alert informati 2016 9:00 ume] in on in PM Capillary source blood by data Glucomete r Glucose [Mass/volume] in Capillary blood by Glucometer Observa Value Referen Units Interpr Notes Date tion ce etation Range Glucose 70 - 110 mg/dl High No Jan 7 [Mass/vol alert informati 2016 5:42 ume] in on in PM Capillary source blood by data Glucomete r Glucose [Mass/volume] in Capillary blood by Glucometer Observa Value Referen Units Interpr Notes Date tion ce etation Range Glucose 70 - 110 mg/dl High No Jan 7 [Mass/vol alert informati 2016 ume] in on in 11:38 AM Capillary source blood by data Glucomete r INR in Blood by Coagulation assay Observa Value Referen Units Interpr Notes Date tion ce etation Range IS PATIENT ON ANTICOAGULANTS? Y LIST ANTICOAGULANTS: WARFARIN INR in 0.9 - 1.1 No High INDICATIO Jan 7 Blood by informati N 2017 9:54 Coagulati on in AM on assay source INR data RANGETHER APY FOR DVT, PE, ATRIAL FIB; 2.0 - 3.0PROPHY LAXIS FOR VTETHERAP Y FOR MECHANICA L HEART 2.5 - 3.5VALVE; PREVENTIO N OF SYSTEMICE MBOLISM SECONDARY TO AMI Prothromb 9.4 - SECONDS High No Jan 7 in time 11.8 informati 2017 9:54 (PT) in on in AM Platelet source poor data plasma by Coagulati on assay Glucose [Mass/volume] in Capillary blood by Glucometer Observa Value Referen Units Interpr Notes Date tion ce etation Range Glucose 70 - 110 mg/dl High No Jan 7 [Mass/vol informati 2017 6:20 ume] in on in AM Capillary source blood by data Glucomete r Basic metabolic panel in Blood Observa Value Referen Units Interpr Notes Date tion ce etation Range Urea 7 - 18 mg/dL High No Oct 7 nitrogen informati 2016 5:50 [Mass/vol on in AM [...] High No Oct 7 dioxide, 32.0 informati 2016 5:50 total on in AM [Moles/vo source lume] in data Serum or Plasma Creatinin 0.55 - mg/dL High No Oct 7 e 1.02 informati 2016 5:50 [Mass/vol on in AM ume] in source Serum or data Plasma Creatinin 50 - 200 ML/MIN Normal No Oct 7 e renal informati 2016 5:50 clearance on in AM source predicted data by Cockcroft -Gault formula Estimated 59- ML/MIN Low REFERENCE Oct 7 RANGE: 2017 5:50 glomerula >60 AM r ML/MIN/1. filtratio 73 SQUARE n rate METERSIf (GF this patient is -A merican, then multiply theresult by 1.210. Glucose 74 - 106 mg/dL High No Oct 7 [Mass/vol informati 2016 5:50 ume] in on in AM Serum or source Plasma data Potassium 3.5 - 5.1 mmoL/L Normal No Oct 7 informati 2016 5:50 [Moles/vo on in AM lume] in source Serum or data Plasma Sodium 136 - 145 mmoL/L Normal No Oct 7 [Moles/vo informati 2017 5:50 lume] in on in AM Serum or source Plasma data CBC W Auto Differential panel in Blood Observa Value Referen Units Interpr Notes Date tion ce etation Range Basophils 0 - 0.2 K/MM3 High No Oct 7 informati 2016 5:50 [#/volume on in AM ] in source Blood by data Automated count Basophils 0.1 - 2.0 % High No Oct 7 /100 informati 2017 5:50 leukocyte on in AM s in source Blood by data Automated count Eosinophi 0.0 - 0.4 K/mm3 Normal No Oct 7 ls informati 2016 5:50 [#/volume on in AM ] in source Blood by data Automated count Eosinophi 0.1 - % Normal No Jan 7 ls/100 12.0 informati 2016 5:50 leukocyte on in AM s in source Blood by data Automated count Granulocy 1.8 - 7.8 K/mm3 High No Jan 7 yi informati 2016 5:50 [...] Hemoglobi 12.2 - g/dL Low No Jan 7 n 16.2 informati 2016 5:50 [Mass/vol on in AM ume] in source Blood data Lymphocyt 0.7 - 4.5 K/mm3 Normal No Jan 7 es informati 2016 5:50 [#/volume on in AM ] in source Unspecifi data ed specimen by Automated count Lymphocyt 10 - 50.0 % Low No Jan 7 es informati 2016 5:50 [...] Erythrocy 82.2 - fl High No Jan 7 te mean 97.8 informati 2016 5:50 corpuscul on in AM ar volume source [Entitic data volume] by Automated count Monocytes 0.1 - 1.0 K/mm3 Normal No Oct 7 informati 2016 5:50 [#/volume on in AM ] in source Blood by data Automated count Monocytes 1.7 - 9.3 % Normal No Oct 7 /100 informati 2016 5:50 leukocyte on in AM [...] Erythrocy 11.5 - % Normal No Jan 7 te 17.5 informati 2016 5:50 distribut on in AM ion width source [Entitic data volume] by Automated count Leukocyte 4.8 - K/MM3 High No Jan 7 s 10.8 informati 2016 5:50 [#/volume on in AM ] in source Blood data Glucose [Mass/volume] in Capillary blood by Glucometer Observa Value Referen Units Interpr Notes Date tion ce etation Range Glucose 70 - 110 mg/dl High No Jan 7 [Mass/vol informati 2016 4:47 ume] in on in AM Capillary source blood by data Glucomete r Glucose [Mass/volume] in Capillary blood by Glucometer Observa Value Referen Units Interpr Notes Date tion ce etation Range Glucose 70 - 110 mg/dl High No Jan 7 [Mass/vol informati 2017 ume] in on in 12:35 AM Capillary source blood by data Glucomete r Glucose [Mass/volume] in Capillary blood by Glucometer Observa Value Referen Units Interpr Notes Date tion ce etation Range Glucose 70 - 110 mg/dl High No Jan 6 [Mass/vol informati 2016 9:39 ume] in on in PM Capillary source blood by data Glucomete r Glucose [Mass/volume] in Capillary blood by Glucometer Observa Value Referen Units Interpr Notes Date tion ce etation Range Glucose 70 - 110 mg/dl No No Jan 6 [Mass/vol informati informati 2016 7:55 ume] in on in on in [...] No Jan 6 [Mass/vol alert informati 2016 2:14 ume] in on in PM Capillary source blood by data Glucomete r Glucose [Mass/volume] in Serum or Plasma Observa Value Referen Units Interpr Notes Date tion ce etation Range HIGH FINGERSTICK GLUCOSE LEVEL. VEIN DRAW CONFIRMATION Glucose 74 - 106 mg/dL High Jan 14 [Mass/vol alert 2016 ume] in CRITICAL 11:45 AM Serum or RESULTS Plasma RESU S CALLED TO: ALBERTO 01/14/17 1208 [place] Glucose [Mass/volume] in Capillary blood by Glucometer Observa Value Referen Units Interpr Notes Date ti ce etation Range Glucose 70 - 110 mg/dl High No Jan 14 [Mass/vol alert informati 2016 ume] in on in 11:36 AM Capillary source blood by data Glucomete r CBC W Auto Differential panel in Blood Observa Value Referen Units Interpr Notes Date ti ce etation Range Basophils 0 - 0.2 K/MM3 High No Jan 14 informati 2016 6:17 [#/volume on in AM ] in source Blood by data Automated count Basophils 0.1 - 2.0 % High No Jan 14 informati 2016 6:17 leukocyte on in AM s in source Blood by data Automated count Eosinophi 0.0 - 0.4 K/mm3 Normal No Jan 6 ls informati 2016 6:17 [#/volume on in AM ] in source Blood by data Automated count Eosinophi 0.1 - % Normal No Jan 14 ls/100 12.0 informati 2016 6:17 leukocyte on in AM s in source Blood by data Automated count Granulocy 1.8 - 7.8 K/mm3 High No Jan 6 yi informati 2016 6:17 [#/volume on in AM ] in source Blood by data Automated count Granulocy 37.0 - % High No Jan 14 yi/100 80.0 informati 2016 6:17 leukocyte on in AM [...] Normal No Oct 6 mean 10.4 informati 2017 6:17 volume on in AM [Entitic source volume] data in Blood by Automated count Platelets 142 - 424 K/mm3 Normal No Oct 6 informati 2017 6:17 [#/volume on in AM ] in source Blood data Erythrocy 4.2 - 5.4 M/mm3 Low No Oct 6 yi informati 2017 6:17 [#/volume on in AM ] in source Amniotic data fluid Erythrocy 11.5 - % Normal No Oct 6 te 17.5 informati 2017 6:17 distribut on in AM ion width source [Entitic data volume] by Automated count Leukocyte 4.8 - K/MM3 High No Oct 6 s 10.8 informati 2017 6:17 [#/volume on in AM ] in source Blood data Differential panel, method unspecified - Observa Value Referen Units Interpr Notes Date tion ce etation Range Neutrophi 0 - 8 % Normal No Jan 6 ls.band informati 2017 6:17 form/100 on in AM leukocyte source s in data Blood by Automated count Basophils 0 - 1 % High No Jan 14 informati 2016 6:17 leukocyte on in AM s in source Blood by data Automated count LYMPH 3 10 - 50 % Low No Jan 14 informa 2016 tion in 6:17 AM source data Macrocy [...] count Cells No #CELLS No No Jan 14 Counted informati informati informati 2017 6:17 Total [#] on in on in on in AM in Blood source source source data data data Comprehensive metabolic 2000 panel in Serum or Plasma Observa Value Referen Units Interpr Notes Date tion ce etation Range Albumin/G 1.1 - 1.8 No Low No Jan 14 lobulin informati informati 2016 6:17 [Mass on in on in AM ratio] in source source Serum or data data Plasma Albumin 3.4 - 5.0 gm/dL Low No Jan 14 [Mass/vol informati 2016 6:17 ume] in on in AM Serum or source Plasma data Alkaline 46 - 116 U/L Normal No Jan 14 phosphata informati 2017 6:17 se on in [...] 3.5 - 5.1 mmoL/L Normal No Oct 6 informati 2017 6:17 [Moles/vo on in AM lume] in source Serum or data Plasma Sodium 136 - 145 mmoL/L Normal No Oct 6 [Moles/vo informati 2017 6:17 lume] in on in AM Serum or source Plasma data Aspartate 15 - 37 U/L No No Oct 6 informati informati 2017 6:17 aminotran on in on in AM sferase source source [Enzymati data data c activity/ volume] in Serum or Plasma Alanine 12 - 78 U/L No No Oct 6 aminotran informati informati 2017 6:17 sferase on in on in AM [Enzymati source source c data data activity/ volume] in Serum or Plasma Protein 6.4 - 8.2 gm/dL Normal No Jan 6 [Mass/vol informati 2016 6:17 ume] in on in AM Serum or source Plasma data INR in Blood by Coagulation assay Observa Value Referen Units Interpr Notes Date tion ce etation Range IS PATIENT ON ANTICOAGULANTS? Y LIST ANTICOAGULANTS: COUMADIN PTT RESULTS MUST BE CALLED IF PT ON HEPARIN!!! Y INR in 0.9 - 1.1 No High INDICATIO Jan 6 Blood by informati N 2017 6:17 Coagulati on in AM on assay source INR data RANGETHER APY FOR DVT, PE, ATRIAL FIB; 2.0 - 3.0PROPHY LAXIS FOR VTETHERAP Y FOR MECHANICA L HEART 2.5 - 3.5VALVE; PREVENTIO N OF SYSTEMICE MBOLISM SECONDARY TO AMI Prothromb 9.4 - SECONDS High No Jan 6 in time 11.8 informati 2017 6:17 (PT) in on in AM Platelet source poor data plasma by Coagulati on assay Glucose [Mass/volume] in Capillary blood by Glucometer Observa Value Referen Units Interpr Notes Date ti ce etation Range Glucose 70 - 110 mg/dl High No Jan 6 [Mass/vol alert informati 2016 6:09 ume] in on in AM Capillary source blood by data Glucomete r Glucose [Mass/volume] in Capillary blood by Glucometer Observa Value Referen Units Interpr Notes Date ti etation Range Glucose 70 - 110 mg/dl High No Jan 5 [Mass/vol alert informati 2016 9:36 ume] in on in PM Capillary source blood by data Glucomete r Glucose [Mass/volume] in Capillary blood by Glucometer Observa Value Referen Units Interpr Notes Date ti ce etation Range Glucose 70 - 110 mg/dl High No Jan 5 [Mass/vol alert informati 2016 4:38 ume] in on in PM Capillary source blood by data Glucomete r Glucose [Mass/volume] in Capillary blood by Glucometer Observa Value Referen Units Interpr Notes Date ti ce etation Range Glucose 70 - 110 mg/dl High No Jan 5 [Mass/vol alert informati 2016 ume] in on in 12:03 PM Capillary source blood by data Glucomete r CBC W Auto Differential panel in Blood Observa Value Referen Units Interpr Notes Date tion ce etation Range Basophils 0 - 0.2 K/MM3 High No Oct 5 informati 2016 6:28 [#/volume on in AM ] in source Blood by data Automated count Basophils 0.1 - 2.0 % High No Oct 5 /100 informati 2016 6:28 leukocyte on in AM s in source Blood by data Automated count Eosinophi 0.0 - 0.4 K/mm3 Normal No Oct 5 ls informati 2016 6:28 [#/volume on in AM ] in source Blood by data Automated count Eosinophi 0.1 - % Normal No Oct 5 ls/100 12.0 informati 2016 6:28 leukocyte on in AM s in source Blood by data Automated count Granulocy 1.8 - 7.8 K/mm3 High No Oct 5 yi informati 2016 6:28 [#/volume on in AM ] in source Blood by data Automated count Granulocy 37.0 - % High No Oct 5 yi/100 80.0 informati 2016 6:28 leukocyte on in AM s in source Blood by data Automated count Hematocri 37.0 - % Low No Jan 5 t [Volume 47.0 informati 2016 6:28 on in AM Fraction] source of Blood data Hemoglobi 12.2 - g/dL Low No Jan 5 n 16.2 informati 2017 6:28 [Mass/vol on in AM ume] in source Blood data Lymphocyt 0.7 - 4.5 K/mm3 Normal No Jan 5 es informati 2016 6:28 [#/volume on in AM ] in source Unspecifi data ed specimen by Automated count Lymphocyt 10 - 50.0 % Low No Oct 5 es informati 2017 6:28 [#/volume on in AM ] in source Unspecifi data ed specimen by Automated count Erythrocy 27 - 31.2 pg High No Oct 5 te mean informati 2017 6:28 corpuscul on in AM ar source hemoglobi data n [Entitic mass] Erythrocy 31.8 - g/dl Low No Oct 5 te mean 35.4 informati 2017 6:28 corpuscul on in AM ar source hemoglobi data n concentra tion [Mass/vol ume] by Automated count Erythrocy 82.2 - fl High No Oct 5 te mean 97.8 informati 2017 6:28 [...] Platelet 7.4 - fl Normal No Oct 5 mean 10.4 informati 2017 6:28 volume on in AM [Entitic source volume] data in Blood by Automated count Platelets 142 - 424 K/mm3 Normal No Oct 5 informati 2017 6:28 [#/volume on in AM ] in source Blood data Erythrocy 4.2 - 5.4 M/mm3 Low No Oct 5 yi informati 2017 6:28 [#/volume on in AM ] in source Amniotic data fluid Erythrocy 11.5 - % Normal No Oct 5 te 17.5 informati 2017 6:28 distribut on in AM ion width source [Entitic data volume] by Automated count Leukocyte 4.8 - K/MM3 High No Oct 5 s 10.8 alert informati 2017 6:28 [#/volume on in AM ] in source Blood data Basic metabolic panel in Blood Observa Value Referen Units Interpr Notes Date tion ce etation Range Urea 7 - 18 mg/dL High No Oct 5 nitrogen informati 2017 6:28 [Mass/vol on in AM ume] in source Serum or data Plasma Calcium 8.5 - mg/dL Normal No Oct 5 [Mass/vol 10.1 informati 2017 6:28 ume] [...] mmoL/L Normal No Oct 5 [Moles/vo informati 2016 6:28 lume] in on in AM Serum or source Plasma data Glucose [Mass/volume] in Capillary blood by Glucometer Observa Value Referen Units Interpr Notes Date tion ce etation Range Glucose 70 - 110 mg/dl High No Oct 5 [Mass/vol informati 2016 6:16 ume] in on in AM Capillary source blood by data Glucomete r Glucose [Mass/volume] in Capillary blood by Glucometer Observa Value Referen Units Interpr Notes Date tion ce etation Range Glucose 70 - 110 mg/dl High No Oct 5 [Mass/vol informati 2016 1:51 ume] in on in AM Capillary source blood by data Glucomete r Glucose [Mass/volume] in Capillary blood by Glucometer Observa Value Referen Units Interpr Notes Date tion ce etation Range Glucose 70 - 110 mg/dl High No Jan 4 [Mass/vol informati 2016 9:14 ume] in on in PM Capillary source blood by data Glucomete r Urinalysis dipstick W Reflex Microscopic panel in Urine Observa Value Referen Units Interpr Notes Date tion ce etation Range Appeara SL CLEAR No No No Jan 4 nce of CLOUDY informa informa informa 2017 Urine tion in tion in tion in 9:00 PM source source source data data data Bacteri 4+ O No No No Oct 4 a informa informa informa 2017 [Presen tion in tion in tion in 9:00 PM ce] in source source source Urine data data data sedimen t by Light microsc opy Bilirub NEGATIV NEG No No No Jan 4 in E informa informa informa 2016 [Presen tion in tion in tion in 9:00 PM ce] in source source source Urine data data data by Test strip Erythro NEGATIV NEG No No No Jan 4 cytes E informa informa informa 2016 [Presen tion in tion in tion in 9:00 PM ce] in source source source Urine data data data Color YELLOW YELLOW No No No Jan 4 of informa informa informa 2016 Urine tion in tion in tion in 9:00 PM source source source data data data Glucose NEG No No No Jan 4 [Mass/vol informati informati informati 2017 9:00 ume] in on in on in on in PM Urine by source source source Test data data data strip Ketones NEGATIV NEG mg/dL No No Jan 4 E informa informa 2016 [Presen tion in tion in 9:00 PM ce] in source source Urine data data by Automat ed test strip Mucus 1+ NEG No Abnorma No Jan 4 [Presen informa l informa 2016 ce] in tion in tion in 9:00 PM Urine source source sedimen data data t by Light microsc opy Nitrite POSITIV NEG No Abnorma No Jan 4 E informa l informa 2016 [Presen tion in tion in 9:00 PM ce] in source source Urine data data by Test strip pH of 5.0 - 8.5 No Normal No Jan 4 Urine informati informati 2017 9:00 on in on in PM source source data data Protein NEG mg/dL No No Jan 4 [Mass/vol informati informati 2016 9:00 ume] in on in on in PM Urine by source source Automated data data test strip Erythro NONE 0 rbc/hpf No No Oct 4 cytes informa informa 2016 [Presen tion in tion in 9:00 PM ce] in source source Urine data data sedimen t by Light microsc opy Epithel OCC NONE #/HPF No No Jan 4 ial informa informa 2017 cells.r tion in tion in 9:00 PM enal source source [Presen data data ce] in Urine sedimen t by Light microsc opy Specific 1.005 - No Normal No Jan 4 gravity 1.030 informati informati 2017 9:00 of Urine on in on in PM source source data data Epithel 20-50 0 - 5 #/hpf No No Jan 12 ial informa informa 2017 cells.s tion in tion in 9:00 PM quamous source source data data [Presen ce] in Urine sedimen t by Microsc opy high power field Urobili 0.2 NEG E.U./dL No No Jan 12 nogen informa informa 2016 [Presen tion in tion in 9:00 PM ce] in source source Urine data data by Test strip Leukocy [20 O wbc/hpf No No Jan 4 yi wbc/hpf informa informa 2016 [#/volu ; [...] No No Oct 4 [Mass/vol informati informati 2017 9:00 ume] in on [...] - MMHG High Oct 4 dioxide 45.0 2016 3:10 [Partial CRITICAL PM pressure] RESULTS in Arterial RESU blood LTS CALLED TO: DR. AFIRBANKS 01/12/17 1519 Richie,[place] y Luz Marina pH of 7.35 - MMOL/L Normal No Oct 4 Arterial 7.45 informati 2017 3:10 blood on in PM source data Oxygen 80 - 100 MMHG Low No Oct 4 [Partial informati 2017 3:10 pressure] on in PM in source Arterial data blood Oxygen 90 - 100 % Normal No Oct 4 saturatio informati 2016 3:10 n.calcula on in PM larisa from source oxygen data partial pressure in Arterial blood SOURCE RIGHT No No No No Oct 4 BRACHIA informa informa informa informa 2016 L tion in tion in tion in tion in 3:10 PM source source source source data data data data Carbon 23 - 27 MMOL/L High No Oct 4 dioxide, informati 2016 3:10 total on in PM [Moles/vo source [...] High No Oct 4 yi/100 80.0 informati 2016 3:01 leukocyte on in PM [...] No Oct 4 te mean 97.8 informati 2016 3:01 corpuscul on in PM ar volume [...] Normal No Oct 4 mean 10.4 informati 2016 3:01 volume on in PM [Entitic source [...] Leukocyte 4.8 - K/MM3 High No Oct 4 s 10.8 alert informati 2017 3:01 [#/volume on in PM ] in source Blood data Differential panel, method unspecified - Observa Value Referen Units Interpr Notes Date tion ce etation Range Lymphocyt 0 - 5 % Normal No Oct 4 es informati 2016 3:01 Variant/1 on in PM 00 source leukocyte data s in Blood by Manual count Neutrophi 0 - 8 % Normal No Oct 4 ls.band informati 2017 3:01 form/100 on in PM leukocyte source s in data Blood by Automated count Basophils 0 - 1 % High No Jan 12 informati 2016 [...] count Cells No #CELLS No No Jan 12 Counted informati informati informati 2016 3:01 Total [#] on in on in on in PM in Blood source source source data data data Lactate [Moles/volume] in Blood Observa Value Referen Units Interpr Notes Date ti ce etation Range Lactate 0.4 - 2.0 mmol/L Normal No Jan 12 [Moles/vo informati 2016 3:01 lume] in on in PM Blood source data INR in Blood by Coagulation assay Observa Value Referen Units Interpr Notes Date ti ce etation Range IS PATIENT ON ANTICOAGULANTS? Y LIST ANTICOAGULANTS: COUMADIN INR in 0.9 - 1.1 No High Jan 12 Blood by informati NOTIFICAT 2016 3:01 Coagulati on in ION PM on [...] - 0.2 K/MM3 Normal No Nov 02 inform2016 6:30 [#/volume on in AM ] in source Blood by data Automated count Basophils 0.1 - 2.0 % Normal No Nov 02 / informati 2016 6:30 leukocyte on in AM s in source Blood by data Automated count Eosinophi 0.0 - 0.4 K/mm3 Normal No Nov 02 ls informati 2016 6:30 [#/volume on in AM ] in source Blood by data Automated count Eosinophi 0.1 - % Low No Nov 02 ls/100 12.0 informati 2016 6:30 leukocyte on in AM s in source Blood by data Automated count Granulocy 1.8 - 7.8 K/mm3 Normal No Nov 02 yi informati 2016 6:30 [#/volume on in AM ] in source Blood by data Automated count Granulocy 37.0 - % High No Nov 02 yi/100 80.0 informati 2016 6:30 leukocyte on in AM s in source Blood by data Automated count Hematocri 37.0 - % Low No Nov 02 t [Volume 47.0 informati 2017 6:30 on in AM Fraction] source of Blood data Hemoglobi 12.2 - g/dL Low No Nov 02 n 16.2 informati 2017 6:30 [Mass/vol on in AM ume] in source Blood data Lymphocyt 0.7 - 4.5 K/mm3 Normal No Nov 02 es informati 2017 6:30 [#/volume on in AM ] in source Unspecifi data ed specimen by Automated count Lymphocyt 10 - 50.0 % Low No Nov 02 es informati 2017 6:30 [#/volume on in AM ] in source Unspecifi data ed specimen by Automated count Erythrocy 27 - 31.2 pg High No Nov 02 te mean informati 2017 6:30 corpuscul on in AM ar source hemoglobi data n [Entitic mass] Erythrocy 31.8 - g/dl Normal No Nov 02 te mean 35.4 informati 2017 6:30 corpuscul on in AM ar source hemoglobi data n concentra tion [Mass/vol ume] by Automated count Erythrocy 82.2 - fl High No Nov 02 te mean 97.8 informati 2017 6:30 corpuscul on in AM ar volume source [Entitic data volume] by Automated count Monocytes 0.1 - 1.0 K/mm3 Normal No Nov 02 informati 2017 6:30 [#/volume on in AM ] in source Blood by data Automated count Monocytes 1.7 - 9.3 % Normal No Nov 02 /100 informati 2017 6:30 leukocyte on in AM s in source Blood by data Automated count Platelet 7.4 - fl Normal Nov 02 mean 10.4 informati 2017 6:30 volume on in AM [Entitic source volume] data in Blood by Automated count Platelets 142 - 424 K/mm3 Normal No Nov 02 informati 2017 6:30 [#/volume on in AM ] in source Blood data Erythrocy 4.2 - 5.4 M/mm3 Low No Nov 02 yi informati 2017 6:30 [#/volume on in AM ] in source Amniotic data fluid Erythrocy 11.5 - % Normal No Nov 02 te 17.5 informati 2017 6:30 distribut on in AM ion width source [Entitic data volume] by Automated count Leukocyte 4.8 - K/MM3 Normal No Nov 02 s 10.8 informati 2017 6:30 [#/volume on in AM ] in source Blood data Differential panel, method unspecified - Observa Value Referen Units Interpr Notes Date tion ce etation Range LYMPH 14 10 - 50 % Normal No Nov 02 informa 2016 tion in 6:30 AM source data Monocytes 2 - 9 % Normal No Nov 02 /100 informati 2016 6:30 leukocyte on in AM s in source Blood by data Automated count Platele NORMAL No No No No Nov 02 ts informa informa informa informa 2016 [Presen tion in tion in tion in tion in 6:30 AM ce] in source source source source Blood data data data data by Light microsc opy Neutrophi 42 - 76 % High No Nov 02 ls informati 2016 6:30 [...] High No Nov 02 e 1.02 informati 2017 6:30 [Mass/vol on in AM ume] in source Serum or data Plasma Creatinin 50 - 200 ML/MIN Normal No Nov 02 e renal informati 2017 6:30 clearance on [...] No Nov 01 [Mass/vol alert informati 2016 9:28 ume] in on in PM Capillary [...] 70 - 110 mg/dl High No Oct 24 [Mass/vol alert informati 2017 ume] in on in 11:52 AM Capillary source blood by data Glucomete r Glucose [Mass/volume] in Capillary blood by Glucometer Observa Value Referen Units Interpr Notes Date tion ce etation Range Glucose 70 - 110 mg/dl High No Nov 01 [Mass/vol informati 2017 6:08 ume] in on in AM Capillary [...] High No Oct 31 [Mass/vol alert informati 2017 ume] in on in 11:16 AM Capillary [...] No Oct 31 te mean 35.4 informati 2016 6:30 corpuscul on in AM ar source hemoglobi data n concentra tion [Mass/vol ume] by Automated count Erythrocy 82.2 - fL Normal No Oct 31 te mean 97.8 informati 2016 6:30 corpuscul on in AM ar volume [...] Normal No Oct 31 te mean informati 2017 6:30 corpuscul on in AM ar source hemoglobi data n [Entitic mass] Erythrocy 31.8 - g/dl Normal No Oct 31 te mean 35.4 informati 2017 6:30 corpuscul on in AM ar source hemoglobi data n concentra tion [Mass/vol ume] by Automated count Erythrocy 82.2 - fL Normal No Oct 31 te mean 97.8 informati 2016 6:30 corpuscul on in AM ar volume source [Entitic data volume] by Automated count Monocytes 0.1 - 1.0 K/mm3 Normal No Oct 31 informati 2016 6:30 [#/volume on in AM ] in source Blood by data Automated count Monocytes 1.7 - 9.3 % Normal No Oct 31 / informati 2017 6:30 leukocyte on in AM s in source Blood by data Automated count Platelets 142 - 424 K/mm3 Normal No Oct 31 informati 2016 6:30 [#/volume on in AM ] in source Blood data Erythrocy 4.2 - 5.4 M/mm3 Low No Oct 31 yi informati 2016 6:30 [#/volume on in AM ] in source Amniotic data fluid Erythrocy 11.5 - % Normal No Oct 31 te 17.5 informati 2017 6:30 distribut on in AM ion width source [Entitic data volume] by Automated count Leukocyte 4.8 - K/mm3 Normal No Oct 31 s 10.8 informati 2016 6:30 [#/volume on [...] No Oct 31 t [Volume 47.0 informati 2016 6:30 on [...] No Oct 31 te mean 35.4 informati 2016 6:30 corpuscul on in AM ar source hemoglobi data n concentra tion [Mass/vol ume] by Automated count Erythrocy 82.2 - fL Normal No Oct 31 te mean 97.8 informati 2016 6:30 corpuscul on in AM ar volume source [Entitic data volume] by Automated count Monocytes 0.1 - 1.0 K/mm3 Normal No Oct 31 informati 2016 6:30 [#/volume on in AM ] in source Blood by data Automated count Monocytes 1.7 - 9.3 % Normal No Oct 31 /100 informati 2017 6:30 leukocyte on in AM s in source Blood by data Automated count Platelets 142 - 424 K/mm3 Normal No Oct 31 informati 2016 6:30 [#/volume on in AM [...] Normal No Oct 31 s 10.8 informati 2016 6:30 [#/volume on [...] mmoL/L Normal No Oct 31 [Moles/vo informati 2017 6:30 lume] in on in AM Serum [...] mmoL/L Normal No Oct 31 [Moles/vo informati 2017 6:30 lume] in on in AM Serum [...] INDICATIO Oct 31 Blood by informati N 2016 6:30 Coagulati on in AM on assay source INR data RANGETHER APY FOR DVT, PE, ATRIAL FIB; 2.0 - 3.0PROPHY LAXIS FOR VTETHERAP Y FOR MECHANICA L HEART 2.5 - 3.5VALVE; PREVENTIO N OF SYSTEMICE MBOLISM SECONDARY TO AMI Prothromb 9.4 - SECONDS High No Oct 31 in time 11.8 informati 2016 6:30 (PT) in on in AM Platelet source poor data plasma by Coagulati on assay INR in Blood by Coagulation assay Observa Value Referen Units Interpr Notes Date tion ce etation Range IS PATIENT ON ANTICOAGULANTS? Y LIST ANTICOAGULANTS: WARFARIN INR in 0.9 - 1.1 No High INDICATIO Oct 31 Blood by informati N 2016 6:30 Coagulati on in AM on assay source INR data RANGETHER APY FOR DVT, PE, ATRIAL FIB; 2.0 - 3.0PROPHY LAXIS FOR VTETHERAP Y FOR MECHANICA L HEART 2.5 - 3.5VALVE; PREVENTIO N OF SYSTEMICE MBOLISM SECONDARY TO AMI Prothromb 9.4 - SECONDS High No Oct 31 in time 11.8 informati 2016 6:30 (PT) [...] High No Oct 30 [Mass/vol alert informati 2017 5:03 ume] in on in PM Capillary source blood by data Glucomete r Glucose [Mass/volume] in Capillary blood by Glucometer Observa Value Referen Units Interpr Notes Date tion ce etation Range Glucose 70 - 110 mg/dl High No Oct 30 [Mass/vol alert informati 2017 ume] in on in 11:36 AM Capillary [...] High No Oct 30 [Mass/vol alert informati 2017 6:28 ume] in on in AM Capillary [...] High No Oct 30 [Mass/vol alert informati 2017 6:28 ume] in on in AM Capillary source blood by data Glucomete r CBC W Auto Differential panel in Blood Observa Value Referen Units Interpr Notes Date ti etation Range Granulocy 1.8 - 7.8 K/mm3 [...] No Oct 30 t [Volume 47.0 informati 2017 6:25 on in AM Fraction] source of [...] % Normal No Oct 30 es informati 2017 6:25 [#/volume on in AM [...] No Oct 30 te mean 97.8 informati 2017 6:25 corpuscul on in AM ar volume source [Entitic data volume] by Automated count Monocytes 0.1 - 1.0 K/mm3 Normal No Oct 30 informati 2017 6:25 [#/volume on in AM ] in source Blood by data Automated count Monocytes 1.7 - 9.3 % Normal No Oct 30 informati 2016 6:25 leukocyte on in AM s in source Blood by data Automated count Platelets 142 - 424 K/mm3 Low No Oct 30 informati 2017 6:25 [#/volume on in AM ] in source Blood data Erythrocy 4.2 - 5.4 M/mm3 Low No Oct 30 yi informati 2016 6:25 [...] % Normal No Oct 30 ls.band informati 2016 6:25 form/100 on in AM leukocyte source s in data Blood by Automated count LYMPH 9 10 - 50 % Low No Oct 30 informa 2017 tion in 6:25 AM source data Monocytes 2 - 9 % Low No Oct 30 informati 2016 6:25 leukocyte on in AM s in [...] Normal No Oct 30 [Mass/vol 10.1 informati 2016 6:25 ume] in on in AM Serum or source Plasma data Chloride 98 - 107 mmoL/L Normal No Oct 30 [Moles/vo informati 2016 6:25 lume] in on in AM Serum or source Plasma data Carbon 21.0 - mmoL/L Normal No Oct 30 dioxide, 32.0 informati 2016 6:25 total on in AM [Moles/vo source lume] in data Serum or Plasma Creatinin 0.55 - mg/dL High No Oct 30 e 1.02 informati 2016 6:25 [Mass/vol on in AM [...] mg/dL High No Oct 30 [Mass/vol informati 2016 6:25 ume] in on in AM Serum [...] informa informa informa UNIT # 2017 RELEASE ti in in in : [id number] 1:57 PM special source source source 17 data data data [id number] prepara RELEASE tion D [Type] 7Boyers ,Lucind aO POSITIV E Blood product special preparation [Type] Observa Value Referen Units Interpr Notes Date ce etation Range Blood BLOOD No No No BLOOD Oct 29 product UNIT informa informa informa UNIT # 2017 RELEASE ti in in in : [id number] 12:22 special source source source 17 PM data data data [id number] prepara RELEASE tion D [Type] 7Bmichelleers ,Keonind aO POSITIV E Glucose [Mass/volume] in Capillary blood by Glucometer Observa Value Referen Units Interpr Notes Date ce etation Range Glucose 70 - 110 mg/dl High No Oct 29 [Mass/vol alert informati 2017 ume] in on in 11:52 AM Capillary source blood by data Glucomete r Blood type & Crossmatch panel in Blood Observa Value Referen Units Interpr Notes Date ce etation Range Hold? N Transfuse now? 2 UNITS NOW Blood NEGATIV NEGATIV No No No Oct 29 group E E informa informa informa 2016 antibod tion in in in 10:20 y source source source AM screen data data data [Presen ce] in Serum or Plasma Rh POSITIV No No No No Oct 29 [Type] E informa informa informa informa 2016 in tion in in in in 10:20 Blood source source source source AM data data data data ABO O No No No No Oct 29 group informa informa informa informa 2017 [Type] tion in in tion in tion in 10:20 in source source source source AM Blood data data data data Blood type & Crossmatch panel in Blood Observa Value Referen Units Interpr Notes Date ti ce etation Range Hold? N Transfuse now? 2 UNITS NOW Major COMPAT No No No No Oct 29 crossma informa informa informa informa 2017 tch tion in tion in tion in tion in 10:20 [interp source source source source AM retatio data data data data n] Major COMPAT No No No No Oct 29 crossma informa informa informa informa 2017 tch tion in tion in tion in tion in 10:20 [interp source source source source [...] tch tion in tion in tion in tion in 10:20 [interp source source source source AM retatio data data data data n] Major COMPAT No No No No Oct 29 crossma informa informa informa informa 2017 tch tion in tion in tion in tion in 10:20 [interp source source source source [...] Observa Value Referen Units Interpr Notes Date ce etation Range Urea 7 - 18 mg/dL High No Oct 29 nitrogen informati 2017 6:30 [Mass/vol on in AM ume] in source Serum or data Plasma Calcium 8.5 - mg/dL Normal No Oct 29 [Mass/vol 10.1 informati 2017 6:30 ume] in on in AM Serum or source Plasma data Chloride 98 - 107 mmoL/L Normal No Oct 29 [Moles/vo informati 2017 6:30 lume] in on in AM Serum [...] - 2.0 % Normal No Oct 29 informati 2016 6:30 leukocyte on in AM s in source Blood by data Automated count Eosinophi 0.0 - 0.4 K/mm3 Normal No Oct 29 ls informati 2016 6:30 [#/volume on in AM ] in source Blood by data Automated count Eosinophi 0.1 - % Normal No Oct 29 ls/100 12.0 informati 2016 6:30 leukocyte on in AM [...] No Oct 29 te mean 35.4 informati 2016 6:30 corpuscul on in AM ar source hemoglobi data n concentra tion [Mass/vol ume] by Automated count Erythrocy 82.2 - fl High No Oct 29 te mean 97.8 informati 2016 6:30 corpuscul on in AM ar volume [...] Normal No Oct 29 te 17.5 informati 2017 6:30 distribut on in AM ion width source [Entitic data volume] by Automated count Leukocyte 4.8 - K/MM3 No No Oct 29 s 10.8 informati informati 2017 6:30 [#/volume on in on in AM [...] Plasma Observa Value Referen Units Interpr Notes etation Range Glucose 74 - 106 mg/dL High Oct 28 [Mass/vol alert 2016 ume] in CRITICAL 10:46 PM Serum or RESULTS Plasma RESU LTS CALLED TO: [email or web address] 10/28/16 2311 Gauri Yan nda Glucose [Mass/volume] in Capillary blood by Glucometer Observa Value Referen Units Interpr Notes Date etation Range Glucose 70 - 110 mg/dl High No Oct 28 [Mass/vol alert informati 2016 ume] in on in 10:03 PM Capillary source blood by data Glucomete r Glucose [Mass/volume] in Capillary blood by Glucometer Observa Value Referen Units Interpr Notes etation Range Glucose 70 - 110 mg/dl High No Oct 28 [Mass/vol alert informati 2016 5:00 ume] in on in PM Capillary source blood by data Glucomete r CBC W Auto Differential panel in Blood Observa Value Referen Units Interpr Notes Date ti ce etation Range Basophils 0 - 0.2 K/MM3 Normal No Oct 28 inform2016 [#/volume on in 12:06 PM ] in [...] % Normal No Oct 28 ls/100 12.0 inform2016 leukocyte on in 12:06 PM s in [...] Low No Oct 28 t [Volume 47.0 2016 on in 12:06 PM Fraction] source of Blood data Hemoglobi 12.2 - g/dL Low No Oct 28 n 16.2 2016 [Mass/vol on in 12:06 PM ume] [...] [Entitic mass] Erythrocy 31.8 - g/dl Low Oct 28 te mean 35.4 2016 corpuscul [...] Platelet 7.4 - fl Normal No Oct 28 mean 10.4 2016 volume on [...] 110 mg/dl High No Oct 28 [Mass/vol 2016 6:26 ume] in on in AM Capillary [...] SECONDS Normal No Oct 28 partial 34.0 inform2016 thrombpla on in 12:30 AM stin time [...] Normal No Oct 27 I.cardiac 0.06 informati 2016 on in 12:30 AM [Mass/vol source ume] in data Serum or Plasma Comprehensive metabolic 2000 panel in Serum or Plasma Observa Value Referen Units Interpr Notes Date ti ce etation Range Albumin/G 1.1 - 1.8 [...] U/L Normal No Oct 27 phosphata informati 2017 se on in 12:30 AM [Enzymati source [...] High No Oct 27 e 1.02 informati 2016 [Mass/vol on in 12:30 AM [...] gm/dL High No Oct 27 [Mass/vol informati 2017 ume] in on in 12:30 AM Serum source data Glucose 74 - 106 mg/dL High No Oct 27 [Mass/vol informati 2017 ume] in on in 12:30 AM Serum or source Plasma data Potassium 3.5 - 5.1 mmoL/L Normal No Oct 27 informati 2016 [Moles/vo on in 12:30 AM lume] in [...] 8.2 gm/dL Normal No Oct 27 [Mass/vol 2016 ume] in on in 12:30 AM Serum or source Plasma data CBC W Auto Differential panel in Blood Observa Value Referen Units Interpr Notes Date tion ce etation Range Basophils 0 - 0.2 K/MM3 Normal No Oct 272016 [#/volume on in 12:30 AM ] in source Blood by data Automated count Basophils 0.1 - 2.0 % Normal No Oct 27 /2016 leukocyte on in 12:30 AM s in [...] Low No Oct 27 t [Volume 47.0 2016 on in 12:30 AM Fraction] source of Blood data Hemoglobi 12.2 - g/dL Low No Oct 27 n 16.2 2016 [Mass/vol on in 12:30 AM ume] [...] High No Oct 27 te mean 97.8 2016 corpuscul on in 12:30 AM ar volume [...] count Platelet 7.4 - fl Normal Oct 27 mean 10.4 2016 volume on in 12:30 AM [Entitic source volume] data in Blood by Automated count Platelets 142 - 424 K/mm3 Normal No Oct 272016 [#/volume on in 12:30 AM ] in source Blood data Erythrocy 4.2 - 5.4 M/mm3 Low No Oct 27 yi 2016 [#/volume on in 12:30 AM ] in source Amniotic data fluid Erythrocy 11.5 - % Normal No Oct 27 te 17.5 2016 distribut on in 12:30 AM ion width source [Entitic data volume] by Automated count Leukocyte 4.8 - K/MM3 Normal No Oct 27 s 10.8 2016 [#/volume on in 12:30 AM ] in source Blood data Lactate [Moles/volume] in Blood Observa Value Referen Units Interpr Notes Date tion ce etation Range Lactate 0.4 - 2.0 mmol/L Normal No Oct 27 [Moles/vo 2016 lume] in on in 12:30 AM Blood source data
--- OUTSIDE RECORDS SUMMARY | 2017-02-12 20:12 | External Medical Summary Rpt ---
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 Perform ed at: - [facility] [address] [id number]Lab Directo r: Rubio Baptiste MD, Phone: [phone] ED TO GARDENIA GALDAMEZ RN, ALSO TO [facility]. Urinalysis dipstick W Reflex Microscopic [...] source source source 17 data data data [id number] prepara RELEASE tion D [Type] 7Boyers ,Lucind aO POSITIV E Blood product special preparation [Type] Observa Value Referen Units Interpr Notes Date ce etation Range Blood BLOOD No No No BLOOD Oct 29 product UNIT informa informa informa UNIT # 2017 RELEASE ti in in in : [id number] 12:22 special source source source 17 PM data data data [id number] prepara RELEASE tion D [Type] 7Bmichelleers ,Keonind [...] - 5.4 M/mm3 Low No Oct 27 iy 2016 [#/volume on in 12:30 AM ] [...]
[2017-02-12 20:13] LABS: LYMPH # 3.1 K/mm3 (0.7-4.5); LYMPH % 25.4 % (10-50.0)
[2017-02-12 20:18] LABS: HEMOGLOBIN 7.4 g/dL (12.2-16.2)
--- NOTE | 2017-02-12 20:21 | Emergency Room Report ---
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 N Clinical Suspician of Infection? N Mental Status: 2 - Mildly Altered Sepsis Risk:Low Sepsis Risk Have you (or family members/close friends) recently traveled outside the [place]? N If Yes, where/when: Have you had exposure to infectious disease within the past month? N TB? Other? Specify: Source patient, RN notes reviewed, family, EMS, custodial records, old records Exam Limitations clinical condition Comment pt with progressive dec mental status since tuesday - pt with no known trauma or fever - pt with no chest pain - pt with no vomiting or diarrhea Cardiac Chest Pain Chest pain indicative of cardiac No Timing/Duration this evening Severity moderate ALLERGIES Coded Allergies: Iodinated Contrast- Oral and IV Dye (IODINATED CONTRAST MEDIA - ORAL AND) (10/27) Penicillins (10/27/16) Sulfa (Sulfonamide Antibiotics) (10/27/16) ciprofloxacin (From CIPRO) (10/27/16) codeine (10/27/16) daptomycin (10/27/16) lactose (10/27/16) propoxyphene (10/27/16) Home Medications Active Scripts Oxycodone 5MG/[id number] (Oxycodone-Acetaminophen 5-325) 1 EACH PO Q6H 30 Days Prov: 11/02/16 Insulin Lispro, Recombinant (Humalog 100 UNITS/ML 10ML) 0 UNITS SC W/MEALS& HS 30 Days Ref 3 Prov: 11/02/16 Insulin Glargine, Recombinan (Lantus Solostar 3ML) 40 UNITS SC DAILY 30 Days Prov: 01/18/17 Insulin Lispro (Humalog Kwikpen) 6 UNIT SQ AC 30 Days Prov: 01/18/17 Cefdinir 300 MG PO BID #14 CAPSULE Prov: 01/28/17 NITROFURANTOIN MONOHYD/M-CRYST (Macrobid 100 MG Capsule) 100 MG PO BID #14 CAPSULE Prov: 01/28/17 WARFARIN SOD (Warfarin 5MG) 5 MG PO DAILY #30 TAB Prov: 01/28/17 Reported Medications ATORVASTATIN CALCIUM (ATORVASTATIN 20MG) 20 MG PO QHS Brimonidine Tartrate (Alphagan P 10 Ml) 1 DROP OP BID Esomeprazole Magnesium (Nexium 40MG Cap) 40 MG PO DAILY Ferrous Gluconate 324 MG PO DAILY Fluticasone Propionate (Flonase 50 Mcg Nasal [place]) 2 SPRAY NA BID Levothyroxine Sodium (Levothyroxine) 2 TAB PO DAILY Metoprolol Tartrate (Metoprolol 100MG) 100 MG PO BID Hydralazine Hcl 100 MG PO BID Montelukast Sodium (Singulair 10MG) 10 MG PO DAILY Febuxostat (Uloric) 80 MG PO QAM Lidocaine 1 EACH TP DAILY #90 PATCH ALBUTEROL-IPRATROPIUM (Iprat-Albut 0.5-3(2.5) MG/3 Ml) 3 ML IH DAILY ALBUTEROL-IPRATROPIUM (Iprat-Albut 0.5-3(2.5) MG/3 Ml) 3 ML IH Q4HP PRN SOB NYSTATIN (Nystatin Susp 100,000 Units/Ml 60ML) 5 ML PO QIDP PRN ANTIFUNGAL Acetaminophen (Pain Relief) 650 MG PO Q6HP PRN MILD PAIN CHOLECALCIFEROL (VITAMIN D3) (Vitamin D) 1 TAB PO DAILY NYSTATIN (Nystatin Topical Powder 30GM) 1 DAMARIS TP BID Calcitriol 0.25 MCG PO MoWeFr Metolazone 5 MG PO DAILY #30 TAB Furosemide (Lasix) 80 MG PO DAILY Budesonide (Pulmicort) 0.5 MG IN BID Cyclobenzaprine Hcl (Cyclobenzaprine 10MG) 10 MG PO QHS Formoterol Fumarate (Perforomist) 20 MCG IH BID Gabapentin (Gabapentin 100MG) 200 MG PO BID Fluorometholone (FML) 1 DROP OP DAILY Bisacodyl (Dulcolax) 10 MG RC DAILYP PRN BOWELS FOLIC ACID (Folic Acid) 1 MG PO DAILY Magnesium Hydroxide (Milk Of Magnesia U/D 30ML) 30 ML PO DAILYP PRN BOWELS History Medical History General CAD? No Angina: No NM: No Hypertension? Yes Hyperlipidemia? Yes CHF? Yes DVT? No PE? Yes COPD? Yes Asthma? No Anemia? Yes GERD? Yes Gastric ulcers? No GI Bleed? No Hernia? No Thyroid Problems? Yes Hypothyroidism? Yes CVA? No Seizures? No Diabetes? Yes Insulin Dependent: Yes Insulin Pump: No Home FSBS? Yes Renal Insuffiency? Yes End Stage Renal Disease? Yes UTI? Yes Stones? No BPH? No GB Disease: Yes Nephritic Syndrome? No Asplenia? No Hepatitis? No Sickle Cell Disease? No Arthritis? Yes Migraines? No Cataracts? Yes Glaucoma? Yes MRSA? No HIV? No TB? No Anxiety? No Depression? No Cancer? No More? No Additional hx: 1. Polymyositis 2. Fibromyalgia 3. B12 Deficiency 4. Iron Deficiency Anemia 5. Stage III Kidney Disease Immunization Hx DT/Tetanus Unknown Flu 2017-18FSN Pneumonia Received In Past Surgical Hx Previous Surgery?Y BACK SURGERY NECK SURGERY SHOULDERS BILATERALLY Cholecystectomy TUBAL LIGATION Family History Family Hx Diabetes Yes CAD Yes Hypertension Yes Hyperlipidemia Yes Cancer Yes TB Yes Social History Smoking Hx Smoker: Never Smoker Tobacco: No Type Cigarettes Packs/day N/A Alcohol Alcohol: No Drugs none Review of Systems All Other Systems Reviewed and Negative Constitutional see HPI, denies fever, other Eyes denies drainage ENT denies: ear discharge, mouth pain, throat pain. Respiratory denies cough, denies wheezing Cardiovascular denies chest pain, denies syncope Gastrointestinal denies abdominal pain, denies vomiting Genitourinary denies: dysuria, frequency, hesitancy, hematuria. Musculoskeletal see HPI, denies back pain, denies joint pain, joint swelling, denies neck pain Skin denies rash Psychiatric/Neurological denies headache, denies seizure Physical Exam Vital Signs Vital Signs Date Time Temp Pulse Resp B/P Pulse O2 O2 Flow FiO2 Ox Delivery Rate 02/13 2128 74 18 109/48 100 2 02/12 2022 76 18 124/83 100 2 02/122 98.7 76 18 98/73 99 2 - WBC >12,000 or <4,000 or 10% bands? 2 or more SIRS Criteria Met? B/P:109/48 MAP:81 Creatinine >2.0? UA output<0.5ml/kg/hr for 2 hrs? Platelet count >100,000? Lactate >2.0mmol/1? INR >1.2 or PTT > than 60 sec? Evidence of Organ Dysfunction? Provider documented clinical suspician of infection? N Sepsis Criteria Count: 0 Sepsis Risk: Low Sepsis Risk General Appearance no apparent distress Eye Exam - bilateral eye PERRL, bilateral eye EOMI Ear, Nose, Throat no acute changes Neck non-tender Respiratory Status No: respiratory distress. Lung Sounds bilateral: decreased breath sounds. Cardiovascular regular rate/rhythm, no gallop, no JVD, systolic murmur Peripheral Pulses Pulses normal No Gastrointestinal soft, no organomegaly, no pulsatile mass, no guarding, no rebound Extremities no calf tenderness, swelling Strength 3 Lower Ext (L), 3 Lower Ext (R), 4 Upper Ext (L), 4 Upper Ext (R) Neurologic no focal changes Reflexes Reflexes normal No Mental status altered mental status Skin intact Medical Decision Making LABS/Meds/Orders Pt receiving controlled substance in ED? No Results/Orders Laboratory Tests 02/12/172044: Lactic Acid 0.8 02/12/172024: Urine Color YELLOW, Urine Appearance CLOUDY, Urine pH 6.0, Ur Specific [place] 1.010, Urine Protein NEGATIVE, Urine Ketones NEGATIVE, Urine Blood 1+ H, Urine Nitrate NEGATIVE, Urine Bilirubin NEGATIVE, Urine Urobilinogen 0.2, Ur Leukocyte Esterase 3+ H, Urine RBC 5-10, Urine WBC TNTC, Urine Glucose NEGATIVE 02/12/171939: B-Natriuretic Peptide 143 H 02/12/171939: Sodium 140, Potassium 5.2 H, Chloride 100, Carbon Dioxide 36 H, BUN 78 H, Creatinine 2.6 H, Estimated Creat Clear 31 L, Estimated GFR (MDRD) 18 *L, Glucose 96, Calcium 9.5, Total Bilirubin 0.2, AST 35, ALT 21, Alkaline Phosphatase 82, Creatine Kinase 49, CK-MB (CK-2) Rel Index 1.6, CK and CKMB Interp 0.8, Troponin I < 0.02, Total Protein 6.8, Albumin 1.8 L, Globulin 5.0 H, Albumin/Globulin Ratio 0.4 L, PT 150.0 H, INR 13.53 H, WBC 12.3 H, RBC 2.39 L, Hgb 7.4 *L, Hct 24.0 L, MCV 100.5 H, RDW 15.7, Plt Count 229, MPV 9.6 , Gran % 43.8, Gran # 5.4, Total Counted 100, Lymphocytes % 25.4, Monocytes % 30.5 H, Eosinophils % 0.3, Basophils % 4.9 H, Neutrophils 51, Band Neutrophils 3, Lymphocytes (Manual) 33, Lymphocytes # 3.1, Monocytes (Manual) 10 H, Monocytes # 3.7 H, Eosinophils # 0.0, Eosinophils # (Manual) 3, Basophils # 0.6 H, Platelet Estimate NORMAL, Hypochromasia 1+, Macrocytosis 1+, Rouleaux 3+, PUBS MCHC 31.0 L, MCH 31.2 Current Medication Orders Sig/Isidro Start time Last Medication Dose Route Stop Time Status Admin Cefepime HCl 0 .STK-MED ONE 02/13 2116 DCr IV Sodium Chloride 50 ML .STK-MED ONE 02/13 2116 DC IV Cefepime HCl 1 GM ONCE ONE 02/12 2100 DCr 02/12 Sodium Chloride 50 ML IV 02/12 Phytonadione 10 MG ONCE ONE 02/12 2100 DC 02/12 SC 02/12 Phytonadione 0 .STK-MED ONE 02/12 2049 DC .ROUTE Sodium Chloride 10 ML PRN PRN 02/13 2000 AC IV 02/14 1948 Orders Procedure Date/time Status DIET-NOTHING BY MOUTH 02/13 B Active Decision to admit 02/[address] HEAD REQ 02/[address] ABD/PELVIS REQ 02/13 2040 Active URINARY CATHETER INSERT 02/13 2032 Active CULTURE, BLOOD 02/12 2030 Active LACTIC ACID 02/12 2030 Complete CULTURE, URINE 02/12 2025 Active CHEST-PORTABLE 02/12 1951 Active ELECTROCARDIOGRAM REQUEST 02/12 1950 Active IV SALINE LOCK 02/12 1950 Active PROTHROMBIN TIME 02/12 1950 Complete BRAIN NATRIURETIC PEPTIDE 02/12 1950 Complete ELECTROCARDIOGRAM REQUEST 02/12 1949 Active IV SALINE LOCK 02/12 1949 Active URINALYSIS/COMPLETE 02/12 1949 Complete CBC WITH AUTO DIFF 02/12 1949 Complete CARDIAC ENZYMES 02/12 1949 Complete CHEM 12 PROFILE 02/12 1949 Complete DIFFERENTIAL-WBC 02/13 1940 Complete 12 LEAD EKG-HOME (INITIAL) 02/12 UNK Active 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 ST/Twave chgs XRAY/CT/US XRAY/CT/US 1 XRAY chest XR interpretation by reviewed by me Xray Results abnormal (inflitrates) XRAY/CT/US 2 CT head, abdomen, pelvis, chest CT interpretation by discussed w/radiologist Time results known: 2256 CT Results abnormal (see report) Departure Departure Time of Disposition 2256 Disposition Still a Patient Clinical Impression Primary Impression: UTI (urinary tract infection) Qualifiers: Urinary tract infection type: acute cystitis Hematuria presence: without hematuria Qualified Code: N30.00 - Acute cystitis without hematuria Secondary Impressions: Anemia Qualifiers: Anemia type: unspecified type Qualified Code: D64.9 - Anemia, unspecified HCAP (healthcare-associated pneumonia) Prolonged pt (prothrombin time) Renal insufficiency Condition STABLE Referrals Manuel Valencia MD (Family) discussed with dr tanner ED Critical Care Critical Care Yes Time spent 75-104 min Vital system(s) involved: Renal Failure I was present at bedside for Coordinating pt's care, Interpreting EKGs/Strips , Reviewing lab results, Reviewing old records, Discussing pt condition, For re- examinations, Examining radiographs at 2258
[2017-02-12 20:33] LABS: BUN 78 mg/dL (7-18); GFR (ESTIMATED) 18 ML/MIN (59-)
[2017-02-12 20:43] LABS: URINE BILIRUBIN - DIPSTICK NEGATIVE (NEG); URINE BLOOD 1+ (NEG)
[2017-02-12 21:21] LABS: NEUTROPHILS 51 % (42-76)
--- NOTE | 2017-02-12 22:01 | RADIOLOGY REPORT PS360 ---
CT HEAD WITHOUT CONTRAST CT BONE WINDOWS included ORDERING PHYSICIAN : David Duncan MD PATIENT AGE: 81 years GENDER: Female PROCEDURE: Routine axial images headwithout contrast. Brain & bone windows HISTORY: R/O BLEEDING but noHeadache COMPARISON: FINDINGS: No acute intracranial findings. No hemorrhage. No mass effect. No subdural nor extra-axial collection. Ventricles & basal cisterns appear satisfactory. Scant physiologic calcification medial aspect of the basal ganglia bilaterally most notable on left.. Cerebellum and nicole appears satisfactory.. Region of CP angles clear. On close scrutiny I would only note that there is some variable density at the posterior aspect of superior sagittal sinus. But this can be seen with superior sagittal sinus thrombosis changes I would note the patient is well anticoagulated and this would seem unlikely. However if there should be any persistent headache or neurological findings on this may warrant follow-up and further investigation. I would typically suggest a CT head with contrast with helical CT venogram acquisition. However noted in the is allergic to contrast along with compromised renal function thus MR with MRV would be more appropriate for her. .. The visualized portions of the paranasal sinuses reveal no significant findings. Incidental note a left mastoid effusion with opacification the more majority of the more inferior left Mastoid air cells and mastoid tip, region. Mastoid unremarkable. Middle ear clear bilateral. IACs unremarkable. Base of skull intact. Middle ear & IACs are unremarkable. Generous thickness of skull throughout with additional benign hyperostosis frontalis interna IMPRESSION: No acute hemorrhage No discrete acute intracranial findings.. Additional subtle observation.: On final review note relatively lower density within superior sagittal sinus posteriorly at midline.-. Nonspecific appearance in this patient. I doubt this is of significance but noted. Do not see enlargement of sagittal sinus to further support the so-called 'delta sign' seen with superior sagittal sinus thrombosis & this entity would be particularly unlikely in this patient who over coagulated as well... Nonetheless if there is persistent headache , or neurological findings, or hypercoagulable state a follow-up MRI, with MRV of the brain should be considered.
--- NOTE | 2017-02-12 22:46 | RADIOLOGY REPORT PS360 ---
CT CHEST without CONTRAST CT ABD PELVIS W/O CONTRAST HISTORY: R/O [id number] short of breath chest pain cough congestion pneumonia on recent January chest film. Also note history COPD. Patient Age: 81 years: Female Ordering Physician: David Duncan MD TECHNIQUE: Helical CT scanning performed the chest, abdomen and pelvis. No oral or IV contrast utilized. No oral nor IV contrast utilized.. COMPARISON : Portable Chest film from today and 01/22/[address] CHEST WITHOUT CONTRAST . Limited resolution of images on this CT chest, mainly due to the patient's large size as well as technique. Bilateral pulmonary infiltrates.. . infiltrate & atelectasis are most pronounced at the lung bases. Likely bilateral pneumonic infiltrates at bases. Also bilateral infiltrates the perihilar region in central lung jc.. Mild Although the infiltrates mainly involving the lower lobes there is infiltrate seen at the suprahilar region at the upper lobes. There also appears to be vascular congestion and prominence of pulmonary venous structures as well. This likely contributes to the central, perihilar infiltrates also.. Cardiomegaly. . . Relatively low density of the aorta noted reflecting the patient's pronounced anemia. Minimal mucoid material along posterior aspect of trachea at the lower neck. Calcified tracheobronchial tree otherwise at chest. Mild.airway thickening suggested centrally I suspect a fullness in the subcarinal region is merely due to moderate confluent nodes. No significant appearing paratracheal adenopathy . Dilated azygos vein on axial image 37 likely reflecting elevated central venous pressure.. Cardiomegaly, with of calcification of coronary arteries- particular the right coronary artery.. No pericardial effusion. Anterior fusion lower C-spine noted involving 4 levels.. No obvious chest wall lesions. Degenerative changes most evident towards lower thoracic and lumbar spine. CT ABDOMEN/PELVIS without contrast Prominent hiatal hernia lower chest. Bibasal infiltrate. Cardiomegaly Abdomen/pelvis. The lack of oral and IV contrast decreases sensitivity. Also Due to this very large patient there her flanks etouching edge CT scanner and produce additional streak artifact which further reduces quality of images. . Liver unremarkable. Poor quality images. Spleen unremarkable. Small atrophic appearing pancreas.. Adrenals unremarkable. Kidneys. No urinary tract calculi nor obstruction. Right kidney. Likely 2 cm most likely cyst at lateral aspect right kidney. Cannot confirm benign cystic character due to its intermediate density.. Warrants follow-up CT in 6 if months if appropriate clinically. Ultrasound could also be attempted to confirm cystic nature. If . Left kidney. Round low-density likely cyst at the lateral aspect of LEFT kidney measuring nearly 2 cm diameter. Aorta normal caliber. After a calcification most pronounced at aortic bifurcation which narrows the caliber of aorta at this level. GI tract. And no bowel obstruction or dilatation. Generous stool seen throughout the right and transverse colon moderate stool descending colon. The region of appendix unremarkable no evidence of appendicitis. Images are limited but show no discrete acute findings abdomen. No focal abscess or inflammatory process.. Given history of possible bleed I see no focal hematoma. No retroperitoneal or pelvic fluid or mass to suggest such. A Salazar catheter is in place drains bladder. No pelvic mass. Diverticulosis sigmoid colon but no diverticulitis. Fat-containing small umbilical hernia. Prominent degenerative disc changes throughout the lumbar spine. Moderately pronounced pronounced scoliosis. Levoscoliosis focal lumbar region and dextroscoliosis lower lumbar. Leftward shift & degenerative offset of L2 on L3. Due to the degenerative disc changes and scoliosis --------IMPRESSION/SUMMARY Patient's large size degrades images & limits the study, more so than the lack oral & IV contrast contrast. ==CT CHEST impression:====== Diffuse Bilateral Infiltrates Most Evident Lower Lobes and Central ... Appearance suggests bilateral pneumonia (most evident lower lobes),, along with CHF. The latter likely contributes to the perihilar/central infiltrate and vascular congestion appearance.. No pleural effusions evident. Cardiomegaly Low-density of the blood within the aorta reflects the patient's pronounced anemia . Large hiatal hernia. Question wall thickening stomach of hiatal hernia. However this could merely reflect lack of distention. .== CT ABDOMEN impression-: 1 No acute findings abdomen or pelvis. 2 No mass. No adenopathy. No hematoma. No hemorrhage evident ... Various nonacute observations in text, & some noted below.: 3.. Large amount stool in the & transverse colon. Suggesting moderate constipation . Diverticulosis sigmoid colon no diverticulitis 4... Both kidneys with likely benign renal cyst measuring approximately 2 cm. but cannot confirm benign cystic nature. On this scan. Indeterminate density... Typically suggest ultrasound or 6 month follow-up but this requires correlation with patient's overall clinical picture
--- OUTSIDE RECORDS SUMMARY | 2017-02-12 22:56 | External Medical Summary Rpt | Continuity of Care Document ---
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 UPON ARRIVAL TO PT SHE WAS LAYING IN BED RESPONSIVE TO PAINFUL STIMULI. PT WAS ON OXYGEN AT 2 LPM VIA NC DUE TO COPD. AERODYNAMIC CONSULTANT ADVISED THAT SHE HAS NOT BEEN HER NORMAL SELF FOR A BOUT 2 WEEKS. AND HAS BEEN SEMI UNRESPONSIVE TODAY. LOADED PT ONTO COT AND CONTINUED OXYGEN. LOADED PT INTO THE AMBULANCE. OBTAINED V/S, HOLDER PILE DRIVING - NSR, BGS - 87, TEMP - 98.7, IV ATTEMPT WITH OUT SUCCESS, BLOOD DRAW AND MONITORED PT EN ROUTE TO [facility] ER. PT REQUIRED TRANSPORT DUE TO BEING UNRESPONSIVE. TRANSPORT WITH OUT INCIDENT. NO CHANGE IN STATUS. REPORT AND CARE GIVEN TO AERODYNAMIC CONSULTANT. Romi GAMINO CCP.
--- OUTSIDE RECORDS SUMMARY | 2017-02-12 22:56 | External Medical Summary Rpt | Continuity of Care Document ---
Author Author Organization Address Unknown Phone Unavailable Care Team Providers Care Activities Assistant Name Role Phone , Unavailable Unavailable EMS Current Medications Section EMS Allergies and Adverse Reactions EMS Past Medical History Medications Administered Section EMS Procedures Performed EMS Vital Signs EMS Patient Care Report Narrative H911 IMMEDIATE RESPONSE TO [facility] FOR A FEMALE THAT IS UNRESPONSIVE. UPON ARRIVAL TO PT SHE WAS LAYING IN BED RESPONSIVE TO PAINFUL STIMULI. PT WAS ON OXYGEN AT 2 LPM VIA NC DUE TO COPD. 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 AND HAS BEEN SEMI UNRESPONSIVE TODAY. LOADED PT ONTO COT AND CONTINUED OXYGEN. LOADED PT INTO THE AMBULANCE. OBTAINED V/S, SUPERIOR COURT JUSTICE - NSR, BGS - 87, TEMP - 98.7, IV ATTEMPT WITH OUT SUCCESS, BLOOD DRAW AND MONITORED PT EN ROUTE TO [facility] ER. PT REQUIRED TRANSPORT DUE TO BEING UNRESPONSIVE. TRANSPORT WITH OUT INCIDENT. NO CHANGE IN STATUS. REPORT AND CARE GIVEN TO AIRCRAFT STRUCTURAL REPAIRER. Romi GAMINO CCP.
--- OUTSIDE RECORDS SUMMARY | 2017-02-12 23:04 | External Medical Summary Rpt | CCD ---
Author Author , EMIL Organization EMIL Address Unknown Phone [email or web address] Purpose Continuity of Care Document - 10-27-2016 [...] Order Detail nces retati t Range on Blood lactic acid measurement (moles/vol (02-12-2017 20:45) Blood = 0.8 0.4-2.0 complet lactic 017 mmol/L ed acid 20:45 measure ment (moles/ vol Urinalysis with microscopy (02-12-2017 20:25) Urine NEGATIV NEG complet nitrite 017 E ed 20:25 NEGATIV detecti E L on by test strip Urine CLOUDY CLEAR complet appeara 017 CLOUDY ed nce 20:25 L determi nation Urine NEGATIV NEG complet total 017 E ed bilirub 20:25 NEGATIV in E L detecti on by test Urine 1+ 1+ L NEG complet blood 017 ed detecti 20:25 on Urine YELLOW YELLOW complet color 017 YELLOW ed 20:25 L Glucose = NEG complet ur 017 NEGATIV ed test 20:25 E strip Urine NEGATIV NEG complet ketones 017 E ed 20:25 NEGATIV detecti E L on by mg/dL automat ed yi Mucus 3+ 3+ L NEG complet detecti 017 ed on in 20:25 urine sedimen t by lig Urine = 6.0 5.0-8.5 complet pH 017 ed 20:25 Urine 2 = NEG complet protein 017 NEGATIV ed 20:25 E mg/dL measure ment by automat ed t Erythro --2 5-10 0 complet cytes 017 5-10 L ed detecti 20:25 rbc/hpf on in urine sedimen t Urine = 1.010 1.005-1 complet specifi 017 .030 ed c 20:25 gravity measure ment Urine 0.2 0.2 NEG complet urobili 017 L ed nogen 20:25 E.U./dL detecti on by test str Urine = TNTC O complet leukocy 017 wbc/hpf ed yi 20:25 count (number /volume ) Urinalysis dipstick W Reflex Microscopic panel in Urine (02-12-2017 20:25) Erythro -- 5-10 0 complet cytes 017 ed [Presen 20:25 ce] in Urine sedimen t by Light microsc opy Urinalysis dipstick W Reflex Microscopic panel in Urine (02-12-2017 20:25) Appeara CLOUDY CLEAR complet nce of 017 ed Urine 20:25 Bilirub NEGATIV NEG complet in 017 E ed [Presen 20:25 ce] in Urine by Test strip Erythro 1+ NEG Abnorma complet cytes 017 l ed [Presen 20:25 ce] in Urine Color YELLOW YELLOW complet of 017 ed Urine 20:25 Ketones NEGATIV NEG complet 017 E ed [Presen 20:25 ce] in Urine by Automat ed test strip Mucus 3+ NEG Abnorma complet [Presen 017 l ed ce] in 20:25 Urine sedimen t by Light microsc opy Nitrite NEGATIV NEG complet 017 E ed [Presen 20:25 ce] in Urine by Test strip Urobili 02-12- 0.2 NEG complet nogen 017 ed [Presen 20:25 ce] in Urine by Test strip Comprehensive metabolic panel (02-12-2017 19:40) Protein --2 = 6.8 6.4-8.2 complet total 017 gm/dL ed ser/jalen 19:40 s Serum = 1.8 3.4-5.0 complet or 017 gm/dL ed plasma 19:40 albumin measure ment (mas ALT = 21 12-78 complet (SGPT) 017 U/L ed ser/jalen 19:40 s Serum = 35 15-37 complet or 017 U/L ed plasma 19:40 asparta te aminotr ansfera Comment: SERUM SLIGHTLY HEMOLYZED Serum = 140 136-145 complet sodium 017 mmoL/L ed measure 19:40 ment Serum = 5.2 3.5-5.1 complet potassi 017 mmoL/L ed um 19:40 measure ment Comment: SERUM SLIGHTLY HEMOLYZED Serum = 96 74-106 complet or 017 mg/dL ed plasma 19:40 glucose measure ment (mas Serum = 5.0 1.3-3.2 complet globuli 017 gm/dL ed n 19:40 measure ment (mass/v olume) Estimat = 18 59- complet ed 017 ML/MIN ed glomeru 19:40 lar filtrat ion rate (GF Comment: REFERENCE RANGE: >60 ML/MIN/1.73 SQUARE METERS Comment: If this patient is -Bangladeshi, then multiply the Comment: result by 1.210. Estimat = 31 50-200 complet ion of 017 ML/MIN ed creatin 19:40 ine renal clearan ce Serum = 2.6 0.55-1. complet or 017 mg/dL 02 ed plasma 19:40 creatin ine measure ment ( Carbon = 36 21.0-32 complet dioxide 017 mmoL/L .0 ed 19:40 measure ment Serum = 100 98-107 complet or 017 mmoL/L ed plasma 19:40 chlorid e measure ment (mo Serum = 9.5 8.5-10. complet or 017 mg/dL 1 ed plasma 19:40 calcium measure ment (mas Serum = 78 7-18 complet or 017 mg/dL ed plasma 19:40 urea nitroge n measure men Comment: NOTIFICATION RESULT Serum = 0.2 0.2-1.0 complet or 017 mg/dL ed plasma 19:40 total bilirub in measure m Serum = 82 46-116 complet or 017 U/L ed plasma 19:40 alkalin e phospha tase venita Serum = 0.4 1.1-1.8 complet or 017 ed plasma 19:40 albumin /globul in mass ra Cardiac enzymes (02-12-2017 19:40) Serum < 0.02 0.00-0. complet or 017 ng/mL 06 ed plasma 19:40 troponi n i.cardi ac measu Serum = 49 26-192 complet or 017 U/L ed plasma 19:40 creatin e kinase measure m Serum = 0.8 0.0-3.6 complet or 017 ng/mL ed plasma 19:40 creatin e kinase MB measu Serum = 1.6 0-4.0 complet or 017 U/L ed plasma 19:40 creatin e kinase MB (CK-M Brain natriuretic peptide (02-12-2017 19:40) Brain = 143 0-100 complet natriur 017 pg/mL ed etic 19:40 peptide CBC w auto diff (02-12-2017 19:40) Automat = 0.6 0-0.2 complet ed 017 K/MM3 ed blood 19:40 basophi l count (count/ vo Baso % = 4.9 % 0.1-2.0 complet 017 ed 19:40 Automat = 0.0 0.0-0.4 complet ed 017 K/mm3 ed blood 19:40 eosinop hil count Automat = 0.3 % 0.1-12. complet ed 017 0 ed blood 19:40 eosinop hils/10 0 leukocy t Blood = 5.4 1.8-7.8 complet granulo 017 K/mm3 ed cytes 19:40 automat ed count (numb Granulo = 43.8 37.0-80 complet cyte 017 % .0 ed percent 19:40 age Blood = 24.0 37.0-47 complet hematoc 017 % .0 ed rit 19:40 (volume fractio n) Comment: CRITICAL RESULTS Comment: RESULTS CALLED TO: BONNIEJjSAMUEL 02/12/172017 Jose Ramon Trevino Blood = 7.4 12.2-16 complet hemoglo 017 g/dL .2 ed bin 19:40 measure ment (mass/v olum Comment: CRITICAL RESULTS Comment: RESULTS CALLED TO: MARILUZ 02/12/172017 Jose Ramon Trevino Absolut = 3.1 0.7-4.5 complet e 017 K/mm3 ed lymphoc 19:40 yte count Lymphoc = 25.4 10-50.0 complet yte 017 % ed count, 19:40 blood, automat ed Mean = 31.2 27-31.2 complet corpusc 017 pg ed ular 19:40 hemoglo bin (MCH) determ Automat = 31.0 31.8-35 complet ed 017 g/dl .4 ed erythro 19:40 cyte mean corpusc ular h Automat = 100.5 82.2-97 complet ed 017 fl .8 ed erythro 19:40 cyte mean corpusc ular v Absolut = 3.7 0.1-1.0 complet e 017 K/mm3 ed monocyt 19:40 e count Kemper % = 30.5 1.7-9.3 complet 017 % ed 19:40 Automat = 9.6 7.4-10. complet ed 017 fl 4 ed blood 19:40 platele t mean volume venita Blood = 229 142-424 complet platele 017 K/mm3 ed t count 19:40 Red = 2.39 4.2-5.4 complet blood 017 M/mm3 ed cell 19:40 count Automat = 15.7 11.5-17 complet ed 017 % .5 ed erythro 19:40 cyte distrib ution width Blood = 12.3 4.8-10. complet leukocy 017 K/MM3 8 ed yi 19:40 count (number /volume ) Whole blood INR measurement (02-12-2017 19:40) Comment: IS PATIENT ON ANTICOAGULANTS? Y Comment: LIST ANTICOAGULANTS: Comment: COUMADIN Comment: PTT RESULTS MUST BE CALLED IF PT ON HEPARIN!!! Y Whole = 13.53 0.9-1.1 complet blood 017 ed INR 19:40 measure ment Comment: NOTIFICATION RESULT Comment: RESULTS RECHECKED VERIFIED Comment: INDICATION INR RANGE Comment: Comment: THERAPY FOR DVT, PE, ATRIAL FIB; 2.0 - 3.0 Comment: PROPHYLAXIS FOR VTE Comment: Comment: THERAPY FOR MECHANICAL HEART 2.5 - 3.5 Comment: VALVE; PREVENTION OF SYSTEMIC Comment: EMBOLISM SECONDARY TO AMI Prothro = 150.0 9.4-11. complet mbin 017 8 ed time 19:40 SECONDS (PT) in platele t poor p Comment: NOTIFICATION RESULT Comment: RESULTS RECHECKED VERIFIED Differential panel, method unspecified - (02-12-2017 19:40) Automat = 3 % 0-8 complet ed 017 ed blood 19:40 band neutrop hil percent a Manual = 3 % 0-3 complet blood 017 ed eosinop 19:40 hils/10 0 leukocy yi Hypochr 1+ 1+ L complet omatic 017 ed red 19:40 blood cell detecti on LYMPH 33 % 10-50 complet 017 ed 19:40 Macrocy 1+ 1+ L complet yi 017 ed detecti 19:40 on Monocyt = 10 % 2-9 complet e % 017 ed 19:40 Platele NORMAL complet t 017 NORMAL ed estimat 19:40 L e Neutrop = 51 % 42-76 complet hil 017 ed count 19:40 Erythro 3+ 3+ L complet cyte 017 ed rouleau 19:40 x microsc opic examina Blood = 100 complet total 017 #CELLS ed cell 19:40 count Differential panel, method unspecified - (02-12-2017 19:40) Hypochr 1+ complet omia 017 ed [Presen 19:40 ce] in Blood LYMPH 33 % 10% - Normal complet 017 50% ed 19:40 Macrocy 1+ complet yi 017 ed [Presen 19:40 ce] in Blood Platele NORMAL complet ts 017 ed [Presen 19:40 ce] in Blood by Light microsc opy Rouleau 3+ complet x 017 ed [Presen 19:40 ce] in Blood by Light microsc opy CBC w auto diff (01-31-2017 15:43) Blood = 7.1 4.8-10. complet leukocy 017 K/MM3 [...] blood 15:43 platele t mean volume venita Kemper % = 32.1 1.7-9.3 complet 017 % [...] 15:43 eosinop hils/10 0 leukocy t Automat = 0.0 0.0-0.4 complet ed 017 K/mm3 ed blood 15:43 eosinop hil count Baso % = 2.3 % 0.1-2.0 complet 017 ed 15:43 Automat = 0.2 0-0.2 complet ed 017 K/MM3 ed blood 15:43 basophi l count (count/ vo Basic metabolic panel (01-31-2017 15:43) Serum = 140 136-145 complet sodium 017 mmoL/L ed measure 15:43 ment Serum = 4.4 3.5-5.1 complet potassi 017 mmoL/L ed um 15:43 measure ment Serum = 208 74-106 complet or 017 mg/dL ed plasma 15:43 glucose measure ment (mas Estimat = 16 59- complet ed 017 ML/MIN ed glomeru 15:43 lar filtrat ion rate (GF Comment: REFERENCE RANGE: >60 ML/MIN/1.73 SQUARE METERS Comment: If this patient is -Bangladeshi, then multiply the Comment: result by 1.210. Serum = 2.9 0.55-1. complet or 017 mg/dL 02 ed plasma 15:43 creatin ine measure ment ( Carbon = 41 21.0-32 complet dioxide 017 mmoL/L .0 ed 15:43 measure ment Comment: NOTIFICATION RESULT Serum = 95 98-107 complet or 017 mmoL/L ed plasma 15:43 chlorid e measure ment (mo Serum = 8.0 8.5-10. complet or 017 mg/dL 1 ed plasma 15:43 calcium measure ment (mas Serum = 47 7-18 complet or 017 mg/dL ed plasma 15:43 urea nitroge n measure men Whole blood INR measurement (01-31-2017 15:43) Whole = 2.29 0.9-1.1 complet blood 017 ed [...] % 10-50 complet 017 ed 15:43 Blood FEW complet manual 017 GIANT ed differe 15:43 PLTS ntial comment interp BLASTOC 1 % 0- complet YTES 017 ed 15:43 Differential panel, method unspecified - (01-31-2017 15:43) [...] Glucose capillary blood glucometer (01-27-2017 16:55) Glucose 01-27- = 172 70-110 complet 017 mg/dl ed capilla 16:[address] Glucose capillary blood glucometer (01-27-2017 11:18) Glucose 01-27- = 137 70-110 complet 017 mg/dl ed capilla 11:[address] Comprehensive metabolic panel (01-27-2017 08:40) Protein = [...] SQUARE METERS Comment: If this patient is -Bangladeshi, then multiply the Comment: result by 1.210. [...] plasma 08:40 albumin /globul in mass ra CBC w auto diff (01-27-2017 08:40) Blood 01-27- = 6.4 4.8-10. complet leukocy 017 K/MM3 [...] blood 08:40 platele t mean volume venita Kemper % = 11.1 1.7-9.3 complet 017 % [...] % 0.1-2.0 complet 017 ed 08:40 Automat 2 = 0.0 0-0.2 complet ed 017 K/MM3 ed blood 08:40 basophi l count (count/ vo Whole blood INR measurement (01-27-2017 08:40) Comment: [...] Glucose capillary blood glucometer (01-26-2017 23:21) Glucose 01-26-2 = 80 70-110 complet 017 mg/dl ed capilla 23:[address] Glucose capillary blood glucometer (01-26-2017 21:09) Glucose 01-26-2 = 88 70-110 complet 017 mg/dl ed capilla 21:[address] Glucose capillary blood glucometer (01-26-2017 17:11) Glucose 01-26- = 81 70-110 complet 017 mg/dl ed capilla 17:[address] Whole blood hemoglobin and hematocrit pa (01-26-2017 14:08) Comment: COMMENTS TO EDGE STAINER: 1 HOUR POST Blood = 9.5 12.2-16 [...] Comment: BLOOD UNIT # : [id number] RELEASED 01/26/17 Comment: Marek Ocampo Comment: Comment: [...] ABO 017 ed group 09:15 typing Rh 10-18-2 POSITIV complet blood 017 E ed group 09:15 POSITIV typing E L Materna 01-26-2 NEGATIV NEGATIV complet l 017 E E ed antibod 09:15 NEGATIV y E L screen Blood type & Crossmatch panel in Blood (01-26-2017 09:15) Blood --2 NEGATIV NEGATIV complet group 017 E E ed antibod 09:15 y screen [Presen ce] in Serum or Plasma Rh 10-18-2 POSITIV complet [Type] 017 E ed in 09:15 Blood ABO --2 O complet group 017 ed [Type] 09:15 in Blood Blood type & Crossmatch panel in Blood (01-26-2017 09:15) Major COMPAT complet crossma 017 ed tch 09:15 [interp retatio n] Major COMPAT complet crossma 017 ed tch 09:15 [interp retatio n] by [employer]media hcasidy spin Whole blood INR measurement (01-26-2017 06:18) Comment: IS PATIENT ON ANTICOAGULANTS? Y Comment: LIST ANTICOAGULANTS: Comment: COUMADIN Comment: PTT RESULTS MUST BE CALLED IF PT ON HEPARIN!!! Y Prothro = 63.2 9.4-11. complet mbin 017 SECONDS 8 ed time 06:18 (PT) in platele t poor p Comment: NOTIFICATION RESULT Comment: Ying Whole = 5.75 0.9-1.1 complet blood 017 ed [...] SQUARE METERS Comment: If this patient is -Bangladeshi, then multiply the Comment: result by 1.210. [...] blood 06:18 platele t mean volume venita Kemper % = 21.6 1.7-9.3 complet 017 % [...] Comment: CRITICAL RESULTS Comment: RESULTS CALLED TO: MILESBrian 01/26/17 0638 Marek Ocampo Comment: Ying Blood [...] Glucose capillary blood glucometer (01-25-2017 17:17) Glucose 2 = 124 70-110 complet 017 mg/dl ed [...] RESULTS Comment: RESULTS CALLED TO: SARITHA 01/25/17 07 Marek Ocampo Comment: Ying Serum = 3.8 3.5-5.1 complet potassi 017 mmoL/L ed um 06:33 measure ment Serum = 71 74-106 complet or 017 mg/dL ed plasma 06:33 glucose measure ment (mas Estimat = 43 59- complet ed 017 ML/MIN ed glomeru 06:33 lar filtrat ion rate (GF Comment: REFERENCE RANGE: >60 ML/MIN/1.73 SQUARE METERS Comment: If this patient is -Bangladeshi, then multiply the Comment: result by 1.210. [...] blood 06:33 platele t mean volume venita Kemper % = 34.1 1.7-9.3 complet 017 % [...] BERRY Jensen 01/25/17 0709 Comment: Marek Ocampo Prothro = 63.3 9.4-11. complet mbin 017 SECONDS 8 ed time 06:33 (PT) in platele t poor p Comment: NOTIFICATION RESULT Comment: BERRY Jensen 01/25/17 0708 Marek Ocampo Comment: Ying Covarrubias = 5.76 0.9-1.1 complet blood 017 ed INR 06:33 measure ment Comment: NOTIFICATION RESULT Comment: BERRY Cleaning 01/25/17 0708 Marek Ocampo Comment: Ying Comment: INDICATION INR [...] blood 06:27 platele t mean volume venita Kemper % = 32.9 1.7-9.3 complet 017 % [...] SQUARE METERS Comment: If this patient is -Bangladeshi, then multiply the Comment: result by 1.210. Estimat --2 = 50 50-200 complet ion of 017 [...] Normal complet 017 50% ed 06:27 Macrocy 2 1+ complet yi 017 ed [Presen 06:27 ce] in Blood Platele NORMAL complet ts 017 ed [Presen 06:27 ce] in Blood by Light microsc opy Glucose capillary blood glucometer (01-24-2017 06:13) Glucose 01-24-2 = 114 70-110 complet 017 mg/dl ed capilla 06:[address] Glucose capillary blood glucometer (01-23-2017 21:51) Glucose 01-23-2 = 309 70-110 complet 017 mg/dl ed capilla 21:[address] Glucose capillary blood glucometer (01-23-2017 17:19) Glucose 10-2 = 321 70-110 complet 017 mg/dl ed capilla 17:[address] Antibiotic sensitivity studies (01-23-2017 17:14) Piperac -2 = 8 complet illin/t 017 ug/ml ed [...] by minimum inhibit ory concent ration Ceftazi 10-15-2 <= 1 complet dime/po 017 ug/ml ed tassium 17:14 clavula bridgette suscept ibility test by minimum inhibit ory concent ration Amoxici 10-15-2 = 4 complet llin/cl 017 ug/ml ed avulana 17:14 te suscept ibility test by minimum inhibit ory concent ration Ampicil = 8 complet hamilton 017 ug/ml ed suscept 17:14 ibility test by minimum inhibit ory concent ration Serum or plasma gentamicin measurement ( (01-23-2017 15:24) Serum 2 = 9.6 4.0-10. complet or 017 ug/ml [...] Comment: RESULTS CALLED TO: DR SEPULVEDA 01/22/17 2245 Rubio Williamson Arteria = 2 complet l [...] artery --pre arteria l punctur e SOURCE R/R complet 017 ed 16:55 Blood lactic [...] SQUARE METERS Comment: If this patient is -Bangladeshi, then multiply the Comment: result by 1.210. [...] blood 14:00 platele t mean volume venita Kemper % = 18.7 1.7-9.3 complet 017 % [...] or past Comment: infection. Comment: Performed at: [facility] Comment: [id number], [place], [place] [id number] Comment: City Letter Carrier: Rubio Baptiste MD, Phone: [phone] Comment: Comment: CALLED TO GARDENIA GALDAMEZ RN, [...] CLOUDY nation L Urine culture (01-22-2017) Urine [id number] complet culture 017 07 ed Escheri grayson [...] blood 06:14 platele t mean volume venita Kemper % = 8.0 % 1.7-9.3 complet 017 [...] cytes 06:14 automat ed count (numb Automat = 0.0 % 0.1-12. complet ed 017 0 ed blood 06:14 eosinop hils/10 0 leukocy t Automat = 0.0 0.0-0.4 complet ed 017 K/mm3 ed blood 06:14 eosinop hil count Baso % 10-2 = 1.6 % 0.1-2.0 complet 017 ed 06:14 Automat 10-10-2 = 0.2 0-0.2 complet ed 017 K/MM3 ed blood 06:14 basophi l count (count/ vo Basic metabolic panel (01-18-2017 06:14) Serum 10-10-2 = 145 136-145 complet sodium 017 mmoL/L ed measure 06:14 ment Serum 10-10-2 = 3.7 3.5-5.1 complet potassi 017 mmoL/L ed um 06:14 measure ment Serum 01-18-2 = 115 74-106 complet or 017 mg/dL ed plasma 06:14 glucose measure ment (mas Estimat 01-18-2 = 39 59- complet ed 017 ML/MIN ed glomeru 06:14 lar filtrat ion rate (GF Comment: REFERENCE RANGE: >60 ML/MIN/1.73 SQUARE METERS Comment: If this patient is -Bangladeshi, then multiply the Comment: result by 1.210. Estimat 01-18-2 = 57 50-200 complet ion of 017 ML/MIN ed creatin 06:14 ine renal clearan ce Serum 01-18-2 = 1.3 0.55-1. complet or 017 mg/dL 02 ed plasma 06:14 creatin ine measure ment ( Carbon 01-18-2 = 36 21.0-32 complet dioxide 017 mmoL/L .0 ed 06:14 measure ment Serum 01-18-2 = 105 98-107 complet or 017 mmoL/L ed plasma 06:14 chlorid e measure ment (mo Serum 01-18-2 = 8.9 8.5-10. complet or 017 mg/dL 1 ed plasma 06:14 calcium measure ment (mas Serum 10-2 = 70 7-18 complet or 017 mg/dL ed plasma 06:14 urea nitroge n measure men Whole blood INR measurement (01-18-2017 06:14) Comment: IS PATIENT ON ANTICOAGULANTS? Y Comment: LIST ANTICOAGULANTS: Comment: WARFARIN Prothro 01-18-2 = 22.3 9.4-11. complet mbin 017 SECONDS 8 ed time 06:14 (PT) in platele t poor p Whole --2 = 2.05 0.9-1.1 complet blood 017 ed INR 06:14 measure ment Comment: INDICATION INR RANGE Comment: Comment: THERAPY FOR DVT, PE, ATRIAL FIB; 2.0 - 3.0 Comment: PROPHYLAXIS FOR VTE Comment: Comment: THERAPY FOR MECHANICAL HEART 2.5 - 3.5 Comment: VALVE; PREVENTION OF SYSTEMIC Comment: EMBOLISM SECONDARY TO AMI Glucose capillary blood glucometer (01-17-2017 20:55) Glucose 10-2 = 321 70-110 complet 017 mg/dl ed capilla 20:[address] Glucose capillary blood glucometer (01-17-2017 17:05) Glucose 10-2 = 326 70-110 complet 017 mg/dl ed capilla 17:[address] Glucose capillary blood glucometer (01-17-2017 12:03) Glucose 01-17-2 = 341 70-110 complet 017 mg/dl ed capilla 12:[address] Gram negative automated antibiotic susceptibility test (01-17-2017 06:19) Vancomy 10--2 = 1 complet isauro 017 ug/ml ed suscept 06:19 ibility test by minimum inhibit ory concent ration Tetracy 1009-2 <= 1 complet sykes 017 ug/ml ed suscept 06:19 ibility test by minimum inhibit ory concent ration Trimeth 09-2 <= 10 complet oprim/s 017 ug/ml ed ulfamet 06:19 hoxazol e suscept ibility test by minimum inhibit ory concent ration Rifampi 09-2 <= 0.5 complet n 017 ug/ml ed suscept 06:19 ibility test by minimum inhibit ory concent ration Penicil 10-09-2 >= 0.5 complet hamilton G 017 ug/ml ed suscept 06:19 ibility test by minimum inhibit ory concent ration Oxacill 10-09-2 <= 0.25 complet in 017 ug/ml ed suscept 06:19 ibility test by minimum inhibit ory concent ration Levoflo 10-09-2 = 0.25 complet xacin 017 ug/ml ed suscept 06:19 ibility test by minimum inhibit ory concent ration Gentami 10-09-2 <= 0.5 complet isauro 017 ug/ml ed suscept 06:19 ibility test by minimum inhibit ory concent ration Erythro 10-09-2 >= 8 complet mycin 017 ug/ml ed [...] 017 mmoL/L ed measure 05:00 ment Serum 2 = 4.0 3.5-5.1 complet potassi 017 mmoL/L ed um 05:00 measure ment Serum = 133 74-106 complet or 017 mg/dL ed plasma 05:00 glucose measure ment (mas Estimat = 36 59- complet ed 017 ML/MIN ed glomeru 05:00 lar filtrat ion rate (GF Comment: REFERENCE RANGE: >60 ML/MIN/1.73 SQUARE METERS Comment: If this patient is -Bangladeshi, then multiply the Comment: result by 1.210. [...] SQUARE METERS Comment: If this patient is -Banglades[place], then multiply the Comment: result by 1.210. Estimat 10-07-2 = 54 50-200 complet ion of 017 [...] blood 05:50 platele t mean volume venita Kemper % = 3.6 % 1.7-9.3 complet 017 [...] glucome ter Serum or plasma glucose measurement (mas (01-14-2017 11:45) Comment: HIGH FINGERSTICK GLUCOSE LEVEL. VEIN DRAW CONFIRMATION Serum = 533 74-106 complet or 017 mg/dL ed plasma 11:45 glucose measure ment ([facility] Comment: CRITICAL RESULTS Comment: RESULTS CALLED [...] Sputum culture (01-13-2017 09:29) Comment: COMMENTS TO EDGE STAINER: PER PNEUMONIA PROTOCOL Comment: Collected by nurse? Y Comment: Hold specimen in OE? N Sputum [id number] complet culture 017 5 Yeast ed 09:29 SCT Y YEAST L Sputum [id number] complet culture 017 ed 09:29 Staphyl ococcus [...]
--- OUTSIDE RECORDS SUMMARY | 2017-02-12 23:04 | External Medical Summary Rpt | CCD ---
Author Author , EMIL Organization EMIL Address Unknown Phone [email or web address] Purpose Continuity of Care Document - 10-27-2016 [...] SQUARE METERS Comment: If this patient is -[place]anaian, then multiply the Comment: result by 1.210. [...] 017 K/mm3 ed monocyt 19:40 e count [place] % = 30.5 1.7-9.3 complet 017 % [...] blood 15:43 platele t mean volume venita [place] % = 32.1 1.7-9.3 complet 017 % [...] SQUARE METERS Comment: If this patient is -Ghanaian, then multiply the Comment: result by 1.210. [...] SQUARE METERS Comment: If this patient is -Ghanaian, then multiply the Comment: result by 1.210. [...] blood 08:40 platele t mean volume venita [place] % = 11.1 1.7-9.3 complet 017 % [...] hematocrit pa (01-26-2017 14:08) Comment: COMMENTS TO [employer] MIN[employer]: 1 HOUR POST Blood = 9.5 12.2-16 [...] Comment: BLOOD UNIT # : [id number] RELEASED 01/26/17 Comment: Marek Ocampo Comment: Comment: [...] tch 09:15 [interp retatio n] by [employer]media chasidy spin Whole blood INR measurement (01-26-2017 06:18) [...] SQUARE METERS Comment: If this patient is -Ghanaian, then multiply the Comment: result by 1.210. [...] blood 06:18 platele t mean volume venita [place] % = 21.6 1.7-9.3 complet 017 % [...] SQUARE METERS Comment: If this patient is -Ghanaian, then multiply the Comment: result by 1.210. [...] blood 06:33 platele t mean volume venita [place] % = 34.1 1.7-9.3 complet 017 % [...] blood 06:27 platele t mean volume venita [place] % = 32.9 1.7-9.3 complet 017 % [...] SQUARE METERS Comment: If this patient is -Ghanaian, then multiply the Comment: result by 1.210. [...] Comment: RESULTS CALLED TO: DR SEPULVEDA 01/22/17 0632 Rubio Williamson Arteria = 2 complet l [...] SQUARE METERS Comment: If this patient is -Ghanaian, then multiply the Comment: result by 1.210. [...] blood 14:00 platele t mean volume venita [place] % = 18.7 1.7-9.3 complet 017 % [...] or past Comment: infection. Comment: Performed at: [facility] Comment: [id number], [place], [place] [id number] Comment: Marketing Agent: Rubio Baptiste MD, Phone: [phone] Comment: Comment: CALLED TO GARDENIA GALDAMEZ RN, [...] CLOUDY nation L Urine culture (01-22-2017) Urine [id number] complet culture 017 07 ed Escheri grayson [...] blood 06:14 platele t mean volume venita [place] % = 8.0 % 1.7-9.3 complet 017 [...] SQUARE METERS Comment: If this patient is -Ghanaian, then multiply the Comment: result by 1.210. [...] SQUARE METERS Comment: If this patient is -Ghanaian, then multiply the Comment: result by 1.210. [...] SQUARE METERS Comment: If this patient is -Ghanaian, then multiply the Comment: result by 1.210. [...] blood 05:50 platele t mean volume venita [place] % = 3.6 % 1.7-9.3 complet 017 [...] mg/dL ed plasma 11:45 glucose measure ment ([facility] Comment: CRITICAL RESULTS Comment: RESULTS [...] Sputum culture (01-13-2017 09:29) Comment: COMMENTS TO [employer] MIN[employer]: PER PNEUMONIA PROTOCOL Comment: Collected by nurse? Y Comment: Hold specimen in OE? N Sputum [id number] complet culture 017 5 Yeast ed 09:29 SCT Y YEAST L Sputum [id number] complet culture 017 ed 09:29 Staphyl ococcus [...]
--- OUTSIDE RECORDS SUMMARY | 2017-02-12 23:05 | External Medical Summary Rpt | CCD ---
Demographics Preferred Language Persian Marital Status Unknown Islam Affiliation Unknown Race Unknown Ethnic Group Unknown Author Author , EMIL STEIN Address Unknown Phone Immunization Unable to retrieve immunization data due to connection failure with Immunization Registry. Please try again later.
--- OUTSIDE RECORDS SUMMARY | 2017-02-12 23:05 | External Medical Summary Rpt | CCD ---
Demographics Preferred Language Portuguese Marital Status Unknown Temple Affiliation Unknown Race Unknown Ethnic Group Unknown Author Author , EMIL STEIN Address Unknown Phone Immunization Unable to retrieve immunization data due to connection failure with Immunization Registry. Please try again later.
--- OUTSIDE RECORDS SUMMARY | 2017-02-12 23:10 | External Medical Summary Rpt ---
Author Author [facility], [employer] Organization [employer] Address Unknown Phone Unavailable Results Lactate [Moles/volume] in Blood Observa Value Referen Units Interpr Notes Date tion ce etation Range Lactate 0.4 - 2.0 mmol/L Normal No Nov 4 [Moles/vo informati 2017 8:45 lume] in on in PM Blood source data Urinalysis dipstick W Reflex Microscopic panel in Urine Observa Value Referen Units Interpr Notes Date tion ce etation Range Appeara CLOUDY CLEAR No No No Nov 4 nce of informa informa informa 2017 Urine tion in tion in tion in 8:25 PM source source source data data data Bilirub NEGATIV NEG No No No Feb 4 in E informa informa informa 2016 [Presen tion in tion in tion in 8:25 PM ce] in source source source Urine data data data by Test strip Erythro 1+ NEG No Abnorma No Feb 4 cytes informa l informa 2016 [Presen tion in tion in 8:25 PM ce] in source source Urine data data Color YELLOW YELLOW No No No Feb 4 of informa informa informa 2017 Urine tion in tion in tion in 8:25 PM source source source data data data Glucose NEG No No No Nov 4 [Mass/vol informati informati informati 2017 8:25 ume] in on in on in on in PM Urine by source source source Test data data data strip Ketones NEGATIV NEG mg/dL No No Nov 4 E informa informa 2016 [Presen tion in tion in 8:25 PM ce] in source source Urine data data by Automat ed test strip Mucus 3+ NEG No Abnorma No Nov 4 [Presen informa l informa 2016 ce] in tion in tion in 8:25 PM Urine source source sedimen data data t by Light microsc opy Nitrite NEGATIV NEG No No No Nov 4 E informa informa informa 2016 [Presen tion in tion in tion in 8:25 PM ce] in source source source Urine data data data by Test strip pH of 5.0 - 8.5 No Normal No Nov 4 Urine informati informati 2017 8:25 on in on in PM source source data data Protein NEG mg/dL No No Nov 4 [Mass/vol informati informati 2017 8:25 ume] in on in on in PM Urine by source source Automated data data test strip Erythro 5-10 0 rbc/hpf No No Nov 4 cytes informa informa 2016 [Presen tion in tion in 8:25 PM ce] in source source Urine data data sedimen t by Light microsc opy Specific 1.005 - No Normal No Feb 4 gravity 1.030 informati informati 2016 8:25 of Urine on in on in PM source source data data Urobili 0.2 NEG E.U./dL No No Nov 4 nogen informa informa 2016 [Presen tion in tion in 8:25 PM ce] in source source Urine data data by Test strip Leukocyte O wbc/hpf No No Nov 4 s informati informati 2016 8:25 [#/volume on in on in PM ] in source source Urine data data Urinalysis dipstick W Reflex Microscopic panel in Urine Observa Value Referen Units Interpr Notes Date tion ce etation Range Appeara CLOUDY CLEAR No No No Nov 4 nce of informa informa informa 2016 Urine tion in tion in tion in 8:25 PM source source source data data data Bilirub NEGATIV NEG No No No Nov 4 in E informa informa informa 2016 [Presen tion in tion in tion in 8:25 PM ce] in source source source Urine data data data by Test strip Erythro 1+ NEG No Abnorma No Nov 4 cytes informa l informa 2016 [Presen tion in tion in 8:25 PM ce] in source source Urine data data Color YELLOW YELLOW No No No Nov 4 of informa informa informa 2017 Urine tion in tion in tion in 8:25 PM source source source data data data Glucose NEG No No No Nov 4 [Mass/vol informati informati informati 2016 8:25 ume] in on in on in on in PM Urine by source source source Test data data data strip Ketones NEGATIV NEG mg/dL No No Nov 4 E informa informa 2016 [Presen tion in tion in 8:25 PM ce] in source source Urine data data by Automat ed test strip Mucus 3+ NEG No Abnorma No Nov 4 [Presen informa l informa 2016 ce] in tion in tion in 8:25 PM Urine source source sedimen data data t by Light microsc opy Nitrite NEGATIV NEG No No No Nov 4 E informa informa informa 2016 [Presen tion in tion in tion in 8:25 PM ce] in source source source Urine data data data by Test strip pH of 5.0 - 8.5 No Normal No Nov 4 Urine informati informati 2017 8:25 on in on in PM source source data data Protein NEG mg/dL No No Nov 4 [Mass/vol informati informati 2016 8:25 ume] in on in on in PM Urine by source source Automated data data test strip Specific 1.005 - No Normal No Nov 4 gravity 1.030 informati informati 2017 8:25 of Urine on in on in PM source source data data Urobili 0.2 NEG E.U./dL No No Nov 4 nogen informa informa 2016 [Presen tion in tion in 8:25 PM ce] in source source Urine data data by Test strip CBC W Auto Differential panel in Blood Observa Value Referen Units Interpr Notes Date tion ce etation Range Basophils 0 - 0.2 K/MM3 High No Nov 4 ati 2016 7:40 [#/volume on in PM ] in source Blood by data Automated count Basophils 0.1 - 2.0 % High No Nov 4 /100 informati 2017 7:40 leukocyte on in PM s in source Blood by data Automated count Eosinophi 0.0 - 0.4 K/mm3 Normal No Nov 4 ls informati 2016 7:40 [#/volume on in PM ] in source Blood by data Automated count Eosinophi 0.1 - % Normal No Nov 4 ls/100 12.0 informati 2016 7:40 leukocyte on in PM s in source Blood by data Automated count Granulocy 1.8 - 7.8 K/mm3 Normal No Nov 4 yi informati 2016 7:40 [#/volume on in PM ] in source Blood by data Automated count Granulocy 37.0 - % Normal No Feb 12 yi/100 80.0 informati 2016 7:40 leukocyte on in PM s in source Blood by data Automated count Hematocri 37.0 - % Low Feb 12 t [Volume 47.0 2017 7:40 CRITICAL PM Fraction] RESULTS of Blood RESU LTS CALLED TO: MARILUZ 02/12/172017 Yandy Trevino hn Hemoglobi 12.2 - g/dL Low alert Feb 12 n 16.2 2016 7:40 [Mass/vol CRITICAL PM ume] in RESULTS Blood RESU LTS CALLED TO: MARILUZ 02/12/172017 Yandy Trevino hn Lymphocyt 0.7 - 4.5 K/mm3 Normal No Feb 12 es informati 2016 7:40 [#/volume on in PM ] in source Unspecifi data ed specimen by Automated count Lymphocyt 10 - 50.0 % Normal No Feb 12 informati 2016 7:40 [#/volume on in PM ] in source Unspecifi data ed specimen by Automated count Erythrocy 27 - 31.2 pg Normal No Feb 12 te mean informati 2016 7:40 corpuscul on in PM ar source hemoglobi data n [Entitic mass] Erythrocy 31.8 - g/dl Low No Feb 12 te mean 35.4 informati 2017 7:40 corpuscul on in PM ar source hemoglobi data n concentra tion [Mass/vol ume] by Automated count Erythrocy 82.2 - fl High No Feb 12 te mean 97.8 informati 2016 7:40 corpuscul on in PM ar volume source [Entitic data volume] by Automated count Monocytes 0.1 - 1.0 K/mm3 High No Feb 12 informati 2016 7:40 [#/volume on in PM ] in source Blood by data Automated count Monocytes 1.7 - 9.3 % High No Feb 4 /100 informati 2017 7:40 leukocyte on in PM s in source Blood by data Automated count Platelet 7.4 - fl Normal No Feb 12 mean 10.4 informati 2016 7:40 volume on in PM [Entitic source volume] data in Blood by Automated count Platelets 142 - 424 K/mm3 No No Feb 4 informati informati 2017 7:40 [#/volume on in on in PM ] in source source Blood data data Erythrocy 4.2 - 5.4 M/mm3 Low No Feb 4 yi informati 2016 7:40 [#/volume on in PM ] in source Amniotic data fluid Erythrocy 11.5 - % Normal No Feb 12 te 17.5 informati 2016 7:40 distribut on in PM ion width source [Entitic data volume] by Automated count Leukocyte 4.8 - K/MM3 High No Feb 4 s 10.8 informati 2016 7:40 [#/volume on in PM ] in source Blood data Differential panel, method unspecified - Observa Value Referen Units Interpr Notes Date tion ce etation Range Neutrophi 0 - 8 % Normal No Feb 12 ls.band informati 2016 7:40 form/100 on in PM leukocyte source s in data Blood by Automated count Eosinophi 0 - 3 % Normal No Feb 12 ls/100 informati 2016 7:40 leukocyte on in PM s in source Blood by data Manual count Hypochr 1+ No No No No Feb 12 omia informa informa informa informa 2016 [Presen tion in tion in tion in tion in 7:40 PM ce] in source source source source Blood data data data data LYMPH 33 10 - 50 % Normal No Feb 122016 tion in 7:40 PM source data Macrocy 1+ No No No No Feb 12 yi informa informa informa informa 2016 [Presen tion in tion in tion in tion in 7:40 PM ce] in source source source source Blood data data data data Monocytes 2 - 9 % High No Feb 4 /100 informati 2016 7:40 leukocyte on in PM s in source Blood by data Automated count Platele NORMAL No No No No Feb 4 ts informa informa informa informa 2016 [Presen tion in tion in tion in tion in 7:40 PM ce] in source source source source Blood data data data data by Light microsc opy Neutrophi 42 - 76 % Normal No Feb 12 ls informati 2016 7:40 [#/volume on in PM ] in source Blood by data Automated count Rouleau 3+ No No No No Feb 12 x informa informa informa informa 2016 [Presen tion in tion in tion in tion in 7:40 PM ce] in source source source source Blood data data data data by Light microsc opy Cells No #CELLS No No Feb 12 Counted informati informati informati 2016 7:40 Total [#] on in on in on in PM in Blood source source source data data data INR in Blood by Coagulation assay Observa Value Referen Units Interpr Notes Date tion ce etation Range IS PATIENT ON ANTICOAGULANTS? Y LIST ANTICOAGULANTS: COUMADIN PTT RESULTS MUST BE CALLED IF PT ON HEPARIN!!! Y INR in 0.9 - 1.1 No High Feb 12 Blood by informati NOTIFICAT 2017 7:40 Coagulati on in ION PM on assay source RESULT data RESUL TS RECHECKED VERIFIEDI NDICATION INR RANGETHER APY FOR DVT, PE, ATRIAL FIB; 2.0 - 3.0PROPHY LAXIS FOR VTETHERAP Y FOR MECHANICA L HEART 2.5 - 3.5VALVE; PREVENTIO N OF SYSTEMICE MBOLISM SECONDARY TO AMI Prothromb 9.4 - SECONDS High Feb 12 in time 11.8 NOTIFICAT 2017 7:40 (PT) in ION PM Platelet RESULT poor RESUL plasma by TS RECHECKED Coagulati on assay VERIFIED Natriutietic peptide B [Mass/volume] in Serum or Plasma Observa Value Referen Units Interpr Notes Date ti ce etation Range Natriutie 0 - 100 pg/mL High No Feb 12 tic informati 2016 7:40 peptide B on in PM source [Mass/vol data ume] in Serum or Plasma CBC W Auto Differential panel in Blood Observa Value Referen Units Interpr Notes Date tion ce etation Range Basophils 0 - 0.2 K/MM3 Normal No Jan 31 informati 2016 3:43 [#/volume on in PM ] in source Blood by data Automated count Basophils 0.1 - 2.0 % High No Jan 31 informati 2016 3:43 leukocyte on in PM [...] K/mm3 Normal No Jan 31 yi informati 2016 3:43 [#/volume on in PM [...] Low No Jan 31 n 16.2 informati 2016 3:43 [Mass/vol on in PM ume] in source Blood data Lymphocyt 0.7 - 4.5 K/mm3 Normal No Jan 31 es informati 2016 3:43 [#/volume on in PM ] in source Unspecifi data ed specimen by Automated count Lymphocyt 10 - 50.0 % Normal No Jan 31 es informati 2016 3:43 [#/volume on in PM ] in source Unspecifi data ed specimen by Automated count Erythrocy 27 - 31.2 pg High No Jan 31 te mean informati 2016 3:43 corpuscul on [...] 424 K/mm3 Low No Jan 31 informati 2017 3:43 [#/volume on in PM ] in source Blood data Erythrocy 4.2 - 5.4 M/mm3 Low No Jan 31 yi informati 2017 3:43 [#/volume on in PM ] in source Amniotic data fluid Erythrocy 11.5 - % Normal No Jan 31 te 17.5 informati 2017 3:43 distribut on in PM ion width [...] - 9 % High No Jan 31 / informati 2016 3:43 leukocyte on in PM [...] % Low No Jan 31 ls informati 2017 3:43 [#/volume on in PM ] in source Blood by data Automated count Cells No #CELLS No No Jan 31 Counted informati informati informati 2016 3:43 Total [#] on in on in on in PM in Blood source source source data data data Basic metabolic panel in Blood Observa Value Referen Units Interpr Notes Date tion ce etation Range Urea 7 - 18 mg/dL High No Jan 31 nitrogen informati 2016 3:43 [Mass/vol on in PM ume] in [...] High No Jan 31 e 1.02 informati 2016 3:43 [Mass/vol on in PM ume] in [...] mmoL/L Normal No Jan 31 [Moles/vo informati 2016 3:43 lume] in on in PM Serum [...] Prothromb 9.4 - SECONDS High No Jan 23 in time 11.8 informati 2017 3:43 (PT) in on in PM Platelet source poor data plasma by Coagulati on assay Glucose [Mass/volume] in Capillary blood by Glucometer Observa Value Referen Units Interpr Notes Date tion ce etation Range Glucose 70 - 110 mg/dl High No Jan 28 [Mass/vol informati 2017 ume] in on in 11:04 AM Capillary source blood by data Glucomete r Glucose [Mass/volume] in Capillary blood by Glucometer Observa Value Referen Units Interpr Notes Date tion ce etation Range Glucose 70 - 110 mg/dl No No Jan 28 [Mass/vol informati informati 2017 6:39 ume] in on in on in [...] mg/dl High No Jan 27 [Mass/vol informati 2017 4:55 ume] in on in PM Capillary [...] 1.1 - 1.8 No Low No Jan 19 lobulin informati informati 2017 8:40 [Mass on in on in AM [...] mg/dL Normal No Jan 27 .total informati 2017 8:40 [Mass/vol on in AM ume] in source Serum or data Plasma Urea 7 - 18 mg/dL High No Jan 27 nitrogen informati 2016 8:40 [Mass/vol on in AM ume] in source Serum or data Plasma Calcium 8.5 - mg/dL Normal No Jan 27 [Mass/vol 10.1 informati 2017 8:40 ume] in on in AM Serum or source Plasma data Chloride 98 - 107 mmoL/L Normal No Jan 27 [Moles/vo informati 2016 8:40 lume] in on in AM Serum or source Plasma data Carbon 21.0 - mmoL/L High Jan 27 dioxide, 32.0 alert NOTIFICAT 2017 8:40 total ION AM [Moles/vo RESULT lume] in Serum or Plasma Creatinin 0.55 - mg/dL High No Jan 27 e 1.02 informati 2016 8:40 [Mass/vol on in AM ume] in source Serum or data Plasma Creatinin 50 - 200 ML/MIN Normal No Jan 27 e renal informati 2016 8:40 clearance on in AM source predicted data by Cockcroft -Gault formula Estimated 59- ML/MIN Low REFERENCE Jan 27 RANGE: 2017 8:40 glomerula >60 AM r ML/MIN/1. filtratio 73 SQUARE n rate METERSIf (GF this patient is -A merican, then multiply theresult by 1.210. Globulin 1.3 - 3.2 gm/dL High No Jan 27 [Mass/vol informati 2017 8:40 ume] in on in AM Serum source data Glucose 74 - 106 mg/dL High No Jan 27 [Mass/vol informati 2016 8:40 ume] in on in AM Serum or source Plasma data Potassium 3.5 - 5.1 mmoL/L Normal No Jan 27 informati 2017 8:40 [Moles/vo on in AM lume] in source Serum or data Plasma Sodium 136 - 145 mmoL/L High No Jan 27 [Moles/vo informati 2017 8:40 [...] - 0.2 K/MM3 Normal No Jan 27 inform2016 8:40 [#/volume on in AM ] in source Blood by data Automated count Basophils 0.1 - 2.0 % Normal No Jan 27 informati 2016 8:40 leukocyte on in AM [...] Normal No Jan 27 yi/100 80.0 informati 2017 8:40 leukocyte on in AM s in [...] No Jan 27 te mean 97.8 informati 2017 8:40 corpuscul on in AM ar volume source [Entitic data volume] by Automated count Monocytes 0.1 - 1.0 K/mm3 Normal No Jan 27 informati 2016 8:40 [#/volume on in AM ] in source Blood by data Automated count Monocytes 1.7 - 9.3 % High No Jan 19 /100 informati 2017 8:40 leukocyte on in AM s in source Blood by data Automated count Platelet 7.4 - fl Normal No Jan 27 mean 10.4 informati 2017 8:40 volume on in AM [Entitic source volume] data in Blood by Automated count Platelets 142 - 424 K/mm3 Normal No Jan 27 informati 2016 8:40 [#/volume on in AM ] in source Blood data Erythrocy 4.2 - 5.4 M/mm3 Low No Jan 27 yi informati 2017 8:40 [#/volume on in AM ] in source Amniotic data fluid Erythrocy 11.5 - % Normal No Jan 27 te 17.5 informati 2016 8:40 distribut on in AM ion width source [Entitic data volume] by Automated count Leukocyte 4.8 - K/MM3 No No Jan 27 s 10.8 informati informati 2017 8:40 [#/volume on in on in AM ] in source source Blood data data Glucose [Mass/volume] in Capillary blood by Glucometer Observa Value Referen Units Interpr Notes Date tion ce etation Range Glucose 70 - 110 mg/dl High No Jan 19 [Mass/vol informati 2016 6:06 ume] in on in AM Capillary source blood by data Glucomete r Glucose [Mass/volume] in Capillary blood by Glucometer Observa Value Referen Units Interpr Notes Date tion ce etation Range Glucose 70 - 110 mg/dl Normal No Jan 18 [Mass/vol informati 2016 ume] in on in 11:21 PM Capillary source blood by data Glucomete r Glucose [Mass/volume] in Capillary blood by Glucometer Observa Value Referen Units Interpr Notes Date ti ce etation Range Glucose 70 - 110 mg/dl Normal No Jan 18 [Mass/vol informati 2016 9:09 ume] in on in PM Capillary source blood by data Glucomete r Glucose [Mass/volume] in Capillary blood by Glucometer Observa Value Referen Units Interpr Notes Date ti ce etation Range Glucose 70 - 110 mg/dl No No Jan 26 [Mass/vol informati informati 2016 5:11 ume] in on in on in PM Capillary source source blood by data data Glucomete r Hemoglobin & Hematocrit panel in Blood Observa Value Referen Units Interpr Notes Date ti etation Range 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: 1 HOUR POST Hematocri 37.0 - % Low No Jan 18 t [Volume 47.0 informati 2017 2:08 on in PM Fraction] source of Blood data Hemoglobi 12.2 - g/dL Low No Jan 18 n 16.2 informati 2017 2:08 [Mass/vol on in PM ume] in source Blood data Glucose [Mass/volume] in Capillary blood by Glucometer Observa Value Referen Units Interpr Notes Date ti ce etation Range Glucose 70 - 110 mg/dl High No Jan 18 [Mass/vol informati 2016 ume] in on in 11:35 AM Capillary source blood by data Glucomete r Blood product special preparation [Type] Observa Value Referen Units Interpr Notes Date ti ce etation Range Blood BLOOD No No No BLOOD Jan 26 product UNIT informa informa informa UNIT # 2017 RELEASE tion in in in : [id number] 11:00 special source source source 17 AM data data data [id number] prepara RELEASE tion D [Type] 7Gisabel zuletaMarek He O POSITIV E Blood type & Crossmatch panel in Blood Observa Value Referen Units Interpr Notes Date ti ce etation Range Hold? N Transfuse now? 1 UNIT NOW Blood NEGATIV NEGATIV No No No Jan 26 group E E informa informa informa 2017 antibod tion in ti in in 9:15 AM y source source source screen data data data [Presen ce] in Serum or Plasma Rh POSITIV No No No No Jan 26 [Type] E informa informa informa informa 2017 in tion in in in in 9:15 AM Blood source source source source data data data data ABO O No No No No Jan 26 group informa informa informa informa 2017 [Type] tion in tion in ti in in 9:15 AM in source source source source Blood data data data data Blood type & Crossmatch panel in Blood Observa Value Referen Units Interpr Notes ti ce etation Range Hold? N Transfuse now? 1 UNIT NOW Major COMPAT No No No No Jan 26 crossma informa informa informa informa 2017 tch tion in tion in ti in in 9:15 AM [interp source source source [...] AM on assay source RESULT data Dia neINDICAT ION INR RANGETHER APY FOR DVT, PE, ATRIAL FIB; 2.0 - 3.0PROPHY LAXIS FOR VTETHERAP Y FOR MECHANICA L HEART 2.5 - 3.5VALVE; PREVENTIO N OF SYSTEMICE MBOLISM SECONDARY TO AMI Prothromb 9.4 - SECONDS High Jan 26 in time 11.8 NOTIFICAT 2017 6:18 (PT) in ION AM Platelet RESULT poor Dia plasma by ne Coagulati on assay Basic metabolic panel in [...] mmoL/L Normal No Jan 26 [Moles/vo informati 2016 6:18 lume] in on in AM Serum or source Plasma data Carbon 21.0 - mmoL/L High Jan 26 dioxide, 32.0 alert NOTIFICAT 2017 6:18 total ION AM [Moles/vo RESULT lume] in Dia Serum or ne Plasma Creatinin 0.55 - mg/dL High No Jan 26 e 1.02 informati 2017 6:18 [Mass/vol on in AM ume] in source Serum or data Plasma Creatinin 50 - 200 ML/MIN Normal No Jan 26 e renal informati 2017 6:18 clearance on in AM source predicted [...] 5.1 mmoL/L Normal No Jan 26 informati 2017 6:18 [Moles/vo on in AM lume] in source Serum or data Plasma Sodium 136 - 145 mmoL/L High No Jan 26 [Moles/vo informati 2017 6:18 [...] 2.0 % Normal No Jan 26 informati 2017 6:18 leukocyte on in AM s in source Blood by data Automated count Eosinophi 0.0 - 0.4 K/mm3 Normal No Jan 26 ls informati 2017 6:18 [#/volume on in AM [...] Jan 26 t [Volume 47.0 informati 2016 6:18 on [...] Normal No Jan 26 te mean informati 2017 6:18 corpuscul on in AM ar source hemoglobi data n [Entitic mass] Erythrocy 31.8 - g/dl Low No Jan 18 te mean 35.4 informati 2017 6:18 corpuscul on in AM ar source hemoglobi data n concentra tion [Mass/vol ume] by Automated count Erythrocy 82.2 - fl High No Jan 18 te mean 97.8 informati 2017 6:18 corpuscul on in AM ar volume source [Entitic data volume] by Automated count Monocytes 0.1 - 1.0 K/mm3 High No Jan 18 informati 2017 6:18 [#/volume on in AM ] in source Blood by data Automated count Monocytes 1.7 - 9.3 % High No Oct 18 /100 informati 2017 6:18 leukocyte on in AM s in source Blood by data Automated count Platelet 7.4 - fl Normal No Jan 18 mean 10.4 informati 2017 6:18 volume on in AM [Entitic source [...] 70 - 110 mg/dl High No Jan 17 [Mass/vol informati 2016 9:02 ume] in on [...] Notes Date tion ce etation Range Gentamici 0 - 2.0 [...] - 2.0 % Normal No Jan 25 / informati 2016 6:33 leukocyte on in AM [...] 0.7 - 4.5 K/mm3 Normal No Jan 17 es informati 2016 6:33 [#/volume on in AM ] in source Unspecifi data ed specimen by Automated count Lymphocyt 10 - 50.0 % Normal No Jan 17 es informati 2016 6:33 [#/volume on in AM ] in source Unspecifi data ed specimen by Automated count Erythrocy 27 - 31.2 pg High No Jan 17 te mean informati 2016 6:33 corpuscul on in AM ar source hemoglobi data n [Entitic mass] Erythrocy 31.8 - g/dl Low No Jan 25 te mean 35.4 informati 2017 6:33 corpuscul on in AM ar source hemoglobi data n concentra tion [Mass/vol ume] by Automated count Erythrocy 82.2 - fl High No Jan 25 te mean 97.8 informati 2016 6:33 corpuscul on in AM ar volume source [Entitic data volume] by Automated count Monocytes 0.1 - 1.0 K/mm3 High No Jan 17 informati 2016 6:33 [#/volume on in AM ] in source Blood by data Automated count Monocytes 1.7 - 9.3 % High No Oct 17 /100 informati 2017 6:33 leukocyte on in AM s in source Blood by data Automated count Platelet 7.4 - fl Normal No Jan 25 mean 10.4 informati 2017 6:33 volume on in AM [Entitic source volume] data in Blood by Automated count Platelets 142 - 424 K/mm3 Normal No Jan 17 informati 2016 6:33 [#/volume on in AM ] in source Blood data Erythrocy 4.2 - 5.4 M/mm3 Low No Jan 17 yi informati 2017 6:33 [#/volume on in AM ] in source Amniotic data fluid Erythrocy 11.5 - % Normal No Jan 25 te 17.5 informati 2017 6:33 distribut on in AM ion width source [Entitic data volume] by Automated count Leukocyte 4.8 - K/MM3 No No Jan 17 s 10.8 informati informati 2017 6:33 [#/volume [...] 0- % No No Jan 25 YTES inform informa 2016 tion in tion in 6:33 AM source [...] % High No Jan 25 / informati 2016 6:33 leukocyte on in AM s in source Blood by data Automated count Myelocyte 0 - 1 % High No Jan 25 s/100 informati 2016 6:33 leukocyte on in AM [...] AM on assay source RESULT data BERRY Cleaning 01/25/17 0708 Veto Ocampo eINDVIDHYA ON INR RANGETHER APY FOR DVT, PE, [...] F. Platelet 01/25/17 poor [id number] plasma by ie,Marek He Coagulati on assay Basic metabolic panel in Blood Observa Value Referen Units Interpr Notes Date tion ce etation Range Urea 7 - 18 mg/dL High No Jan 25 nitrogen informati 2016 6:33 [Mass/vol on in AM [...] data Carbon 21.0 - mmoL/L High Jan 17 dioxide, 32.0 alert NOTIFICAT 2017 6:33 total ION AM [Moles/vo RESULT lume] in Dia Serum or ne Plasma Creatinin 0.55 - mg/dL High No Jan 17 e 1.02 informati 2017 6:33 [Mass/vol on in AM ume] in source Serum or data Plasma Creatinin 50 - 200 ML/MIN Normal No Jan 17 e renal informati 2017 6:33 clearance on in AM source predicted data by Cockcroft -Gault formula Estimated 59- ML/MIN Low REFERENCE Oct 17 RANGE: 2017 6:33 glomerula >60 AM r ML/MIN/1. filtratio 73 SQUARE n rate METERSIf (GF this patient is -A merican, then multiply theresult by 1.210. Glucose 74 - 106 mg/dL Low No Jan 17 [Mass/vol informati 2017 6:33 ume] in on in AM Serum or source Plasma data Potassium 3.5 - 5.1 mmoL/L Normal No Jan 25 informati 2016 6:33 [Moles/vo on in AM lume] in [...] Eosinophi 0.1 - % Normal No Jan 16 ls/100 12.0 informati 2017 6:27 leukocyte on in AM s in source Blood by data Automated count Granulocy 1.8 - 7.8 K/mm3 Normal No Jan 16 yi informati 2016 6:27 [#/volume on in AM ] in source Blood by data Automated count Granulocy 37.0 - % Low No Jan 16 yi/100 80.0 informati 2017 6:27 leukocyte on in AM s in source Blood by data Automated count Hematocri 37.0 - % Low No Jan 16 t [Volume 47.0 informati 2016 6:27 on in AM Fraction] source of Blood data Hemoglobi 12.2 - g/dL Low No Jan 16 n 16.2 informati 2017 6:27 [Mass/vol on in AM ume] in source Blood data Lymphocyt 0.7 - 4.5 K/mm3 Normal No Jan 16 es informati 2017 6:27 [#/volume on in AM ] in source Unspecifi data ed specimen by Automated count Lymphocyt 10 - 50.0 % Normal No Jan 16 es informati 2016 6:27 [#/volume on in AM ] in source Unspecifi data ed specimen by Automated count Erythrocy 27 - 31.2 pg Normal No Jan 16 te mean informati 2017 6:27 corpuscul on in AM ar source hemoglobi data n [Entitic mass] Erythrocy 31.8 - g/dl Low No Jan 16 te mean 35.4 informati 2016 6:27 corpuscul on in AM ar source hemoglobi data n concentra tion [Mass/vol ume] by Automated count Erythrocy 82.2 - fl High No Jan 16 te mean 97.8 informati 2016 6:27 corpuscul on in AM ar volume source [Entitic data volume] by Automated count Monocytes 0.1 - 1.0 K/mm3 High No Jan 16 informati 2017 6:27 [#/volume on in AM ] in source Blood by data Automated count Monocytes 1.7 - 9.3 % High No Oct 16 /100 informati 2017 6:27 leukocyte on in AM s in [...] Erythrocy 11.5 - % Normal No Jan 24 te 17.5 informati 2016 6:27 distribut on [...] Hypochr 1+ No No No No Jan 24 omia informa informa informa informa 2016 [Presen tion in tion in tion in tion in 6:27 AM ce] in source source source source Blood data data data data LYMPH 31 10 - 50 % Normal No Jan 24 inform2016 tion in 6:27 AM source data Macrocy 1+ No No No No Jan 24 yi informa informa informa informa 2016 [Presen tion in tion in tion in tion in 6:27 AM ce] in source source source source Blood data data data data Metamyelo 0 - 1 % High No Jan 24 cytes/100 informati 2016 6:27 on in AM leukocyte source s [...] 42 - 76 % Low No Jan 16 ls informati 2016 6:27 [#/volume on in [...] Natriutie 0 - 100 pg/mL Normal No Oct 16 tic informati 2017 6:27 peptide B on in AM source [Mass/vol data ume] in Serum or Plasma Basic metabolic panel in Blood Observa Value Referen Units Interpr Notes Date tion ce etation Range Urea 7 - 18 mg/dL High No Jan 16 nitrogen informati 2017 6:27 [Mass/vol on in AM ume] in source Serum or data Plasma Calcium 8.5 - mg/dL Normal No Oct 16 [Mass/vol 10.1 informati 2017 6:27 ume] in on in AM Serum or source Plasma data Chloride 98 - 107 mmoL/L Normal No Jan 16 [Moles/vo informati 2017 6:27 lume] in on in AM Serum or source Plasma data Carbon 21.0 - mmoL/L High Oct 16 dioxide, 32.0 alert NOTIFICAT 2017 6:27 total ION AM [Moles/vo RESULT lume] in Dia Serum or ne Plasma Creatinin 0.55 - mg/dL High No Oct 16 e 1.02 informati 2017 6:27 [Mass/vol on in AM ume] in source Serum or data Plasma Creatinin 50 - 200 ML/MIN No No Oct 16 e renal informati informati 2017 6:27 clearance on in on in AM source source predicted data data by Cockcroft -Gault formula Estimated 59- ML/MIN Low REFERENCE Oct 16 RANGE: 2017 6:27 glomerula >60 AM r ML/MIN/1. filtratio 73 SQUARE n rate METERSIf (GF this patient is -A merican, then multiply theresult by 1.210. Glucose 74 - 106 mg/dL High No Oct 16 [Mass/vol informati 2017 6:27 ume] in on in AM Serum or source Plasma data Potassium 3.5 - 5.1 mmoL/L Normal No Oct 16 informati 2017 6:27 [Moles/vo on in AM lume] in source Serum or data Plasma Sodium 136 - 145 mmoL/L Normal No Jan 16 [Moles/vo informati 2017 6:27 lume] in on in AM Serum or source Plasma data Gentamicin [Mass/volume] in Serum or Plasma Observa Value Referen Units Interpr Notes Date tion ce etation Range Gentamici 4.0 - ug/ml Normal No Jan 16 n 10.0 informati 2017 6:27 [Mass/vol on in AM ume] in [...] 110 mg/dl High No Jan 23 [Mass/vol alert informati 2016 9:51 ume] in on in PM Capillary source blood by data Glucomete r Glucose [Mass/volume] in Capillary blood by Glucometer Observa Value Referen Units Interpr Notes Date tion ce etation Range Glucose 70 - 110 mg/dl High No Jan 23 [Mass/vol alert informati 2016 5:19 ume] in [...] 70 - 110 mg/dl Normal No Jan 15 [Mass/vol informati 2017 6:51 ume] in on in AM Capillary source blood by data Glucomete r Glucose [Mass/volume] in Capillary blood by Glucometer Observa Value Referen Units Interpr Notes Date ti ce etation Range Glucose 70 - 110 mg/dl Normal No Jan 14 [Mass/vol informati 2017 ume] in on in 11:34 PM Capillary source blood by data Glucomete r Glucose [Mass/volume] in Capillary blood by Glucometer Observa Value Referen Units Interpr Notes Date ti ce etation Range Glucose 70 - 110 mg/dl No No Jan 14 [Mass/vol informati informati 2016 9:41 ume] in on in on in PM Capillary source source blood by data data Glucomete r Glucose [Mass/volume] in Capillary blood by Glucometer Observa Value Referen Units Interpr Notes Date ti ce etation Range Glucose 70 - 110 mg/dl Low No Jan 14 [Mass/vol informati 2016 9:20 ume] in on in PM Capillary source blood by data Glucomete r Gas panel in Arterial blood Observa Value Referen Units Interpr Notes Date ti ce etation Range Base -2.4-+2.3 MMOL/L High No Jan 14 excess in informati 2017 4:55 Arterial on in PM blood source data Arteria Y No No No No Jan 14 l informa informa informa informa 2017 patency tion in tion in tion in tion in 4:55 PM Wrist source source source source artery data data data data --pre arteria l punctur e Bicarbona 22.0 - MMOL/L High No Jan 14 te 26.0 informati 2017 4:55 [Moles/vo on in PM lume] in source Arterial data blood Oxygen No No No No Oct 14 content informati informati informati informati 2017 4:55 in on in on in on in on in PM Arterial source source source source blood data data data data Carbon 35.0 - MMHG High Oct 14 dioxide 45.0 2016 4:55 [Partial CRITICAL PM pressure] RESULTS in [...] 0.4 - 2.0 mmol/L Normal No Oct 14 [Moles/vo informati 2017 3:15 lume] in on in PM Blood source data Mycoplasma pneumoniae IgM Ab [Presence] in Serum by Immunoassay Observa Value Referen Units Interpr Notes Date tion ce etation Range Mycopla NON-SUSI NONREAC No No No Oct 14 sma CTIVE TIVE informa informa informa 2017 pneumon tion in tion in tion in 2:00 PM iae IgM source source source Ab data data data [Presen ce] in Serum by Immunoa ssay Comprehensive metabolic 2000 panel in Serum or Plasma Observa Value Referen Units Interpr Notes Date tion ce etation Range Albumin/G 1.1 - 1.8 No Low No Oct 14 lobulin informati informati 2017 2:00 [Mass on in on in PM ratio] in source source Serum or data data Plasma Albumin 3.4 - 5.0 gm/dL Low No Jan 14 [Mass/vol informati 2016 2:00 ume] in on in PM Serum or source Plasma data Alkaline 46 - 116 U/L Normal No Jan 14 phosphata informati 2017 2:00 se on in PM [Enzymati source c data activity/ volume] in Serum or Plasma Bilirubin 0.2 - 1.0 mg/dL Normal No Jan 14 .total informati 2017 2:00 [Mass/vol on in PM ume] in source Serum or data Plasma Urea 7 - 18 mg/dL High Jan 22 nitrogen NOTIFICAT 2017 2:00 [Mass/vol ION PM ume] in RESULT Serum or Plasma Calcium 8.5 - mg/dL Normal No Jan 22 [Mass/vol 10.1 informati 2016 2:00 ume] in on in PM Serum or source Plasma data Chloride 98 - 107 mmoL/L Normal No Jan 22 [Moles/vo informati 2016 2:00 lume] in on in PM [...] 50 - 200 ML/MIN Low No Jan 22 e renal informati 2016 2:00 clearance on in PM source predicted data by Cockcroft -Gault formula Estimated 59- ML/MIN Low REFERENCE Oct 14 RANGE: 2017 2:00 glomerula >60 PM r ML/MIN/1. filtratio [...] 145 mmoL/L High No Jan 14 [Moles/vo 2016 2:00 lume] in on in PM Serum or source Plasma data Aspartate 15 - 37 U/L High No Jan 14 2016 2:00 aminotran on in PM sferase source [Enzymati data c activity/ volume] in Serum or Plasma Alanine 12 - 78 U/L Normal No Jan 22 aminotran 2016 2:00 sferase on in PM [Enzymati source c data activity/ volume] in Serum or Plasma Protein 6.4 - 8.2 gm/dL Low No Jan 22 [Mass/vol 2016 2:00 ume] in on in PM Serum or source Plasma data CBC W Auto Differential panel in Blood Observa Value Referen Units Interpr Notes Date tion ce etation Range Basophils 0 - 0.2 K/MM3 High No Jan 222016 2:00 [#/volume on in PM ] in source Blood by data Automated count Basophils 0.1 - 2.0 % High No Jan 14 /100 2016 2:00 leukocyte on in PM s in source Blood by data Automated count Eosinophi 0.0 - 0.4 K/mm3 Normal No Jan 22 ls 2016 2:00 [#/volume on in PM ] in source Blood by data Automated count Eosinophi 0.1 - % Normal No Jan 22 ls/100 12.0 2016 2:00 leukocyte on in PM s in source Blood by data Automated count Granulocy 1.8 - 7.8 K/mm3 Normal No Jan 14 yi 2016 2:00 [#/volume on in PM ] in source Blood by data Automated count Granulocy 37.0 - % Normal No Jan 22 yi/100 80.0 2016 2:00 leukocyte on in PM s in source Blood by data Automated count Hematocri 37.0 - % Low No Jan 22 t [Volume 47.0 2016 2:00 on in PM Fraction] source of Blood data Hemoglobi 12.2 - g/dL Low No Jan 22 n 16.2 2016 2:00 [Mass/vol on in PM ume] in source Blood data Lymphocyt 0.7 - 4.5 K/mm3 Normal No Jan 22 es 2016 2:00 [#/volume on in PM ] in source Unspecifi data ed specimen by Automated count Lymphocyt 10 - 50.0 % Normal No Jan 14 es 2016 2:00 [#/volume on in PM ] in source Unspecifi data ed specimen by Automated count Erythrocy 27 - 31.2 pg Normal No Jan 14 te mean 2016 2:00 corpuscul on in PM ar source hemoglobi data n [Entitic mass] Erythrocy 31.8 - g/dl Low No Jan 22 te mean 35.4 2016 2:00 corpuscul on in PM ar source hemoglobi data n concentra tion [Mass/vol ume] by Automated count Erythrocy 82.2 - fl High No Jan 22 te mean 97.8 2016 2:00 corpuscul on in PM ar volume source [Entitic data volume] by Automated count Monocytes 0.1 - 1.0 K/mm3 High No Jan 222016 2:00 [#/volume on in PM ] in source Blood by data Automated count Monocytes 1.7 - 9.3 % High No Jan 14 /100 2016 2:00 leukocyte on in PM [...] current or pastinf ection. Perform ed at: [facility] - [facility] [id number], [address] [facility], [place] [id number] Directo r: Rubio Baptiste MD, Phone: [phone] ED TO GARDENIA GALDAMEZ RN, ALSO TO [facility] WILLIE SMILEY. Urinalysis dipstick W Reflex Microscopic [...] No No Jan 22 [Mass/vol informati informati 2017 ume] in on in on in Urine by source source Automated data data test strip Specific 1.005 - No Normal No Jan 22 gravity 1.030 informati informati 2017 of Urine on in on in source [...] [20 O wbc/hpf No No Jan 22 iy wbc/hpf informa informa 2016 [#/volu ; 50 tion in tion in me] in wbc/hpf source source Urine ] data data Urinalysis dipstick W Reflex Microscopic panel in Urine Observa Value Referen Units Interpr Notes Date tion ce etation Range Appeara SL CLEAR No No No Jan 22 nce of CLOUDY informa informa informa 2017 [...] No Jan 22 [Mass/vol informati informati informati 2017 ume] in on in on in on [...] Abnorma No Jan 22 E informa l inform2016 [Presen tion in tion in ce] in source source Urine data data by Test strip pH of 5.0 - 8.5 No Normal No Jan 22 Urine informati 2016 on in on in source source data data Protein NEG mg/dL No No Jan 22 [Mass/vol informati informati 2016 ume] in on in on in Urine by source source Automated data data test strip Specific 1.005 - No Normal No Jan 22 gravity 1.030 informati inform2016 of Urine on in on in source [...] 110 mg/dl High No Jan 18 [Mass/vol inform2016 6:29 ume] in on in AM Capillary source blood by data Glucomete r CBC W Auto Differential panel in Blood Observa Value Referen Units Interpr Notes Date tion ce etation Range Basophils 0 - 0.2 K/MM3 Normal No Jan 18 inform2016 6:14 [#/volume on in AM ] in source Blood by data Automated count Basophils 0.1 - 2.0 % Normal No Jan 18 informati 2016 6:14 leukocyte on in AM s in source Blood by data Automated count Eosinophi 0.0 - 0.4 K/mm3 Normal No Jan 18 ls informati 2016 6:14 [#/volume on in AM ] in source Blood by data Automated count Eosinophi 0.1 - % Low No Jan 18 ls/100 12.0 informati 2016 6:14 leukocyte on in AM s in source Blood by data Automated count Granulocy 1.8 - 7.8 K/mm3 High No Jan 18 yi informati 2016 6:14 [#/volume on in AM ] in source Blood by data Automated count Granulocy 37.0 - % Normal No Oct 10 yi/100 80.0 informati 2017 6:14 leukocyte on in AM s in source Blood by data Automated count Hematocri 37.0 - % Low No Jan 18 t [Volume 47.0 informati 2016 6:14 on in AM Fraction] source of Blood data Hemoglobi 12.2 - g/dL Low No Jan 18 n 16.2 informati 2017 6:14 [Mass/vol on in AM ume] in source Blood data Lymphocyt 0.7 - 4.5 K/mm3 Normal No Jan 18 es informati 2017 6:14 [#/volume on in AM ] in source Unspecifi data ed specimen by Automated count Lymphocyt 10 - 50.0 % Normal No Jan 18 es informati 2017 6:14 [#/volume on in AM ] in source Unspecifi data ed specimen by Automated count Erythrocy 27 - 31.2 pg Normal No Jan 18 te mean informati 2016 6:14 corpuscul on in AM ar source hemoglobi data n [Entitic mass] Erythrocy 31.8 - g/dl Normal No Jan 18 te mean 35.4 informati 2017 6:14 corpuscul on in AM ar source hemoglobi data n concentra tion [Mass/vol ume] by Automated count Erythrocy 82.2 - fl Normal No Jan 18 te mean 97.8 informati 2017 6:14 corpuscul on in AM ar volume source [Entitic data volume] by Automated count Monocytes 0.1 - 1.0 K/mm3 Normal No Jan 10 informati 2017 6:14 [#/volume on in AM ] in source Blood by data Automated count Monocytes 1.7 - 9.3 % Normal No Jan 10 / informati 2016 6:14 leukocyte on in AM s in source Blood by data Automated count Platelet 7.4 - fl Normal No Jan 18 mean 10.4 informati 2017 6:14 volume on in AM [Entitic source volume] data in Blood by Automated count Platelets 142 - 424 K/mm3 Normal No Jan 10 informati 2017 6:14 [#/volume on in AM ] in source Blood data Erythrocy 4.2 - 5.4 M/mm3 Low No Jan 10 yi informati 2017 6:14 [#/volume on in AM ] in source Amniotic data fluid Erythrocy 11.5 - % Normal No Jan 18 te 17.5 informati 2016 6:14 distribut on in AM ion width [...] 74 - 106 mg/dL High No Oct 10 [Mass/vol informati 2017 6:14 ume] in on in AM Serum or source Plasma data Potassium 3.5 - 5.1 mmoL/L Normal No Oct 10 informati 2017 6:14 [Moles/vo on in AM lume] in source Serum or data Plasma Sodium 136 - 145 mmoL/L Normal No Oct 10 [Moles/vo informati 2017 6:14 lume] in on in AM Serum or source Plasma data INR in Blood by Coagulation assay Observa Value Referen Units Interpr Notes Date tion ce etation Range IS PATIENT ON ANTICOAGULANTS? Y LIST ANTICOAGULANTS: WARFARIN INR in 0.9 - 1.1 No High INDICATIO Oct 10 Blood by informati N 2017 6:14 Coagulati [...] High No Jan 9 [Mass/vol alert informati 2016 5:05 ume] in on in PM Capillary source blood by data Glucomete r Glucose [Mass/volume] in Capillary blood by Glucometer Observa Value Referen Units Interpr Notes Date tion ce etation Range Glucose 70 - 110 mg/dl High No Jan 9 [Mass/vol alert informati 2016 ume] in on in 12:03 PM Capillary source blood by data Glucomete r Glucose [Mass/volume] in Capillary blood by Glucometer Observa Value Referen Units Interpr Notes Date tion ce etation Range Glucose 70 - 110 mg/dl High No Jan 9 [Mass/vol informati 2016 6:08 ume] in on in AM Capillary source blood by data Glucomete r INR in Blood by Coagulation assay Observa Value Referen Units Interpr Notes Date tion ce etation Range IS PATIENT ON ANTICOAGULANTS? Y LIST ANTICOAGULANTS: WARFARIN INR in 0.9 - 1.1 No High INDICATIO Jan 9 Blood by informati N 2016 4:50 Coagulati on in AM on assay [...] mg/dl High No Jan 8 [Mass/vol informati 2017 8:52 ume] in on [...] mg/dl High No Jan 8 [Mass/vol informati 2017 6:26 ume] in on in AM Capillary source blood by data Glucomete r INR in Blood by Coagulation assay Observa Value Referen Units Interpr Notes Date tion ce etation Range IS PATIENT ON ANTICOAGULANTS? Y LIST ANTICOAGULANTS: WARFARIN INR in 0.9 - 1.1 No High INDICATIO Jan 8 Blood by informati N 2017 5:50 Coagulati on in AM on assay source INR data RANGETHER APY FOR DVT, PE, ATRIAL FIB; 2.0 - 3.0PROPHY LAXIS FOR VTETHERAP Y FOR MECHANICA L HEART 2.5 - 3.5VALVE; PREVENTIO N OF SYSTEMICE MBOLISM SECONDARY TO AMI Prothromb 9.4 - SECONDS High No Jan 8 in time 11.8 informati 2017 5:50 (PT) in on in AM Platelet source poor data plasma by Coagulati on assay Basic metabolic panel in Blood Observa Value Referen Units Interpr Notes Date tion ce etation Range Urea 7 - 18 mg/dL High No Jan 8 nitrogen informati 2017 5:00 [Mass/vol on [...] High No Oct 8 dioxide, 32.0 informati 2016 5:00 total on in AM [Moles/vo source lume] in data Serum or Plasma Creatinin 0.55 - mg/dL High No Oct 8 e 1.02 informati 2017 5:00 [Mass/vol on in AM ume] in source Serum or data Plasma Creatinin 50 - 200 ML/MIN Normal No Oct 8 e renal informati 2016 5:00 clearance on in AM source predicted [...] 3.5 - 5.1 mmoL/L Normal No Oct 8 informati 2016 5:00 [Moles/vo on in AM lume] in source Serum or data Plasma Sodium 136 - 145 mmoL/L High No Oct 8 [Moles/vo informati 2016 5:00 lume] in on in AM Serum or source Plasma data Glucose [Mass/volume] in Capillary blood by Glucometer Observa Value Referen Units Interpr Notes Date tion ce etation Range Glucose 70 - 110 mg/dl High No Oct 7 [Mass/vol alert informati 2016 9:00 ume] in on in PM Capillary source blood by data Glucomete r Glucose [Mass/volume] in Capillary blood by Glucometer Observa Value Referen Units Interpr Notes Date tion ce etation Range Glucose 70 - 110 mg/dl High No Oct 7 [Mass/vol alert informati 2016 5:42 ume] in on in PM Capillary source blood by data Glucomete r Glucose [Mass/volume] in Capillary blood by Glucometer Observa Value Referen Units Interpr Notes Date tion ce etation Range Glucose 70 - 110 mg/dl High No Jan 7 [Mass/vol alert informati 2017 ume] in on in 11:38 AM Capillary [...] 7 - 18 mg/dL High No Jan 7 nitrogen informati 2017 5:50 [Mass/vol on in AM ume] in source Serum or data Plasma Calcium 8.5 - mg/dL Normal No Oct 7 [Mass/vol 10.1 informati 2017 5:50 ume] in on in AM Serum or source Plasma data Chloride 98 - 107 mmoL/L Normal No Jan 7 [Moles/vo informati 2017 5:50 lume] in on in AM Serum or source Plasma data Carbon 21.0 - mmoL/L High No Jan 7 dioxide, 32.0 informati 2017 5:50 total [...] 74 - 106 mg/dL High No Jan 7 [Mass/vol informati 2016 5:50 ume] in [...] % High No Oct 7 /100 informati 2016 5:50 [...] % Low No Jan 7 es informati 2017 5:50 [#/volume on in AM ] in source Unspecifi data ed specimen by Automated count Erythrocy 27 - 31.2 pg High No Jan 7 te mean informati 2017 5:50 corpuscul on in AM ar source hemoglobi data n [Entitic mass] Erythrocy 31.8 - g/dl Low No Jan 7 te mean 35.4 informati 2017 5:50 corpuscul on in AM ar source hemoglobi data n concentra tion [Mass/vol ume] by Automated count Erythrocy 82.2 - fl High No Jan 7 te mean 97.8 informati 2016 5:50 corpuscul on in AM ar volume source [Entitic data volume] by Automated count Monocytes 0.1 - 1.0 K/mm3 Normal No Jan 7 informati 2017 5:50 [#/volume on in AM ] in source Blood by data Automated count Monocytes 1.7 - 9.3 % Normal No Oct 7 /100 informati 2017 5:50 leukocyte on in AM s in source Blood by data Automated count Platelet 7.4 - fl Normal No Jan 7 mean 10.4 informati 2017 5:50 volume on in AM [Entitic source volume] data in Blood by Automated count Platelets 142 - 424 K/mm3 Normal No Jan 7 informati 2016 5:50 [#/volume on in AM ] in source Blood data Erythrocy 4.2 - 5.4 M/mm3 Low No Jan 7 yi informati 2017 5:50 [...] High No Oct 6 [Mass/vol informati 2017 4:27 ume] in on in PM Capillary source blood by data Glucomete r Glucose [Mass/volume] in Capillary blood by Glucometer Observa Value Referen Units Interpr Notes Date tion ce etation Range Glucose 70 - 110 mg/dl High No Oct 6 [Mass/vol alert informati 2017 2:14 ume] in on in PM Capillary source blood by data Glucomete r Glucose [Mass/volume] in Serum or Plasma Observa Value Referen Units Interpr Notes Date tion ce etation Range HIGH FINGERSTICK GLUCOSE LEVEL. VEIN DRAW CONFIRMATION Glucose 74 - 106 mg/dL High Oct 6 [Mass/vol alert 2017 ume] in CRITICAL 11:45 AM Serum or RESULTS Plasma RESU S CALLED TO: GAJ 01/14/17 1208 aTtiana Garrett Glucose [Mass/volume] in Capillary blood by Glucometer Observa Value Referen Units Interpr Notes Date tion ce etation Range Glucose 70 - 110 mg/dl High No Oct 6 [Mass/vol alert informati 2017 ume] in on in 11:36 AM Capillary source blood by data Glucomete r CBC W Auto Differential panel in Blood Observa Value Referen Units Interpr Notes Date tion ce etation Range Basophils 0 - 0.2 K/MM3 High No Oct 6 informati 2016 6:17 [#/volume on in AM ] in source Blood by data Automated count Basophils 0.1 - 2.0 % High No Oct 6 /100 informati 2017 6:17 leukocyte on in AM s in source Blood by data Automated count Eosinophi 0.0 - 0.4 K/mm3 Normal No Oct 6 ls informati 2017 6:17 [#/volume on in AM ] in source Blood by data Automated count Eosinophi 0.1 - % Normal No Oct 6 ls/100 12.0 informati 2016 6:17 leukocyte on in AM s in source Blood by data Automated count Granulocy 1.8 - 7.8 K/mm3 High No Oct 6 yi informati 2016 6:17 [#/volume on in AM ] in source Blood by data Automated count Granulocy 37.0 - % High No Oct 6 yi/100 80.0 informati 2017 6:17 leukocyte on in AM s in source Blood by data Automated count Hematocri 37.0 - % Low No Jan 6 t [Volume 47.0 informati 2016 6:17 on in AM Fraction] source of [...] No Oct 6 te mean 35.4 informati 2016 6:17 corpuscul on in AM ar source hemoglobi data n concentra tion [Mass/vol ume] by Automated count Erythrocy 82.2 - fl High No Jan 6 te mean 97.8 informati 2016 6:17 corpuscul on in AM ar volume source [Entitic data volume] by Automated count Monocytes 0.1 - 1.0 K/mm3 Normal No Oct 6 informati 2016 6:17 [#/volume on in AM ] in source Blood by data Automated count Monocytes 1.7 - 9.3 % Normal No Jan 14 informati 2016 6:17 leukocyte on in AM s in source Blood by data Automated count Platelet 7.4 - fl Normal No Jan 6 mean 10.4 informati 2017 6:17 volume on in AM [Entitic source volume] data in Blood by Automated count Platelets 142 - 424 K/mm3 Normal No Jan 6 informati 2016 6:17 [#/volume [...] % Normal No Jan 6 ls.band informati 2016 6:17 form/100 on in AM leukocyte source s in data Blood by Automated count Basophils 0 - 1 % High No Jan 14 informati 2016 6:17 leukocyte on in AM s in source Blood by data Automated count LYMPH 3 10 - 50 % Low No Jan 6 informa 2016 tion in 6:17 AM source data Macrocy 1+ No No No No Jan 6 yi informa informa informa informa 2016 [Presen tion in tion in tion in tion in 6:17 AM ce] in source source source source Blood data data data data Monocytes 2 - 9 % Normal No Jan 14 informati 2016 6:17 leukocyte on in AM s in source Blood by data Automated count Platele NORMAL No No No No Jan 6 ts informa informa informa informa 2017 [Presen tion in tion in tion in tion in 6:17 AM ce] in source source source source Blood data data data data by Light microsc opy Neutrophi 42 - 76 % High No Oct 6 ls informati 2016 6:17 [#/volume on in AM ] in source Blood by data Automated count Cells No #CELLS No No Oct 6 Counted informati informati informati 2017 6:17 Total [...] gm/dL High No Oct 6 [Mass/vol informati 2016 6:17 ume] in on in AM Serum source data Glucose 74 - 106 mg/dL High No Oct 6 [Mass/vol informati 2017 6:17 ume] in on in AM Serum or source Plasma data Potassium 3.5 - 5.1 mmoL/L Normal No Oct 6 informati 2016 6:17 [Moles/vo on in AM lume] in source Serum or data Plasma Sodium 136 - 145 mmoL/L Normal No Oct 6 [Moles/vo informati 2017 6:17 lume] in on in AM Serum or source Plasma data Aspartate 15 - 37 U/L No No Jan 6 informati informati 2016 6:17 aminotran on in on in AM sferase source source [Enzymati data data c activity/ volume] in Serum or Plasma Alanine 12 - 78 U/L No No Oct 6 aminotran informati informati 2016 6:17 sferase on in on in AM [Enzymati source source c data data activity/ volume] in Serum or Plasma Protein 6.4 - 8.2 gm/dL Normal No Oct 6 [Mass/vol informati 2017 6:17 ume] in on in AM Serum or source Plasma data INR in Blood by Coagulation assay Observa Value Referen Units Interpr Notes Date tion ce etation Range IS PATIENT ON ANTICOAGULANTS? Y LIST ANTICOAGULANTS: COUMADIN PTT RESULTS MUST BE CALLED IF PT ON HEPARIN!!! Y INR in 0.9 - 1.1 No High INDICATIO Oct 6 Blood by informati N 2016 6:17 Coagulati on in AM on assay source INR data RANGETHER APY FOR DVT, PE, ATRIAL FIB; 2.0 - 3.0PROPHY LAXIS FOR VTETHERAP Y FOR MECHANICA L HEART 2.5 - 3.5VALVE; PREVENTIO N OF SYSTEMICE MBOLISM SECONDARY TO AMI Prothromb 9.4 - SECONDS High No Oct 6 in time 11.8 informati 2016 6:17 (PT) in on in AM Platelet source poor data plasma by Coagulati on assay Glucose [Mass/volume] in Capillary blood by Glucometer Observa Value Referen Units Interpr Notes Date tion ce etation Range Glucose 70 - 110 mg/dl High No Oct 6 [Mass/vol alert informati 2017 6:09 ume] in on in AM Capillary source blood by data Glucomete r Glucose [Mass/volume] in Capillary blood by Glucometer Observa Value Referen Units Interpr Notes Date tion ce etation Range Glucose 70 - 110 mg/dl High No Oct 5 [Mass/vol alert informati 2016 9:36 ume] in on in PM Capillary source blood by data Glucomete r Glucose [Mass/volume] in Capillary blood by Glucometer Observa Value Referen Units Interpr Notes Date tion ce etation Range Glucose 70 - 110 mg/dl High No Oct 5 [Mass/vol alert informati 2016 4:38 ume] [...] - 0.2 K/MM3 High No Jan 13 inform2016 6:28 [#/volume on in AM ] in source Blood by data Automated count Basophils 0.1 - 2.0 % High No Jan 13 informati 2016 6:28 leukocyte on in AM s in source Blood by data Automated count Eosinophi 0.0 - 0.4 K/mm3 Normal No Jan 13 ls informati 2016 6:28 [#/volume on in AM ] in source Blood by data Automated count Eosinophi 0.1 - % Normal No Jan 13 ls/100 12.0 informati 2016 6:28 leukocyte on in AM s in source Blood by data Automated count Granulocy 1.8 - 7.8 K/mm3 High No Jan 13 yi informati 2016 6:28 [#/volume on in AM ] in source Blood by data Automated count Granulocy 37.0 - % High No Jan 13 yi/100 80.0 informati 2017 6:28 leukocyte on in AM s in source Blood by data Automated count Hematocri 37.0 - % Low No Jan 13 t [Volume 47.0 informati 2017 6:28 on in AM Fraction] source of Blood data Hemoglobi 12.2 - g/dL Low No Jan 5 n 16.2 informati 2017 6:28 [Mass/vol on in AM ume] in source Blood data Lymphocyt 0.7 - 4.5 K/mm3 Normal No Jan 13 es informati 2017 6:28 [#/volume on in AM ] in source Unspecifi data ed specimen by Automated count Lymphocyt 10 - 50.0 % Low No Jan 13 es informati 2017 6:28 [#/volume on in AM ] in source Unspecifi data ed specimen by Automated count Erythrocy 27 - 31.2 pg High No Jan 13 te mean informati 2017 6:28 corpuscul on in AM ar source hemoglobi data n [Entitic mass] Erythrocy 31.8 - g/dl Low No Jan 13 te mean 35.4 informati 2017 6:28 corpuscul on in AM ar source hemoglobi data n concentra tion [Mass/vol ume] by Automated count Erythrocy 82.2 - fl High No Jan 13 te mean 97.8 informati 2017 6:28 corpuscul on in AM ar volume source [Entitic data volume] by Automated count Monocytes 0.1 - 1.0 K/mm3 High No Jan 5 informati 2017 6:28 [#/volume on in AM ] in source Blood by data Automated count Monocytes 1.7 - 9.3 % Normal No Jan 5 /100 informati 2017 6:28 leukocyte on [...] mg/dL High No Oct 5 [Mass/vol informati 2017 6:28 ume] in on in [...] 110 mg/dl High No Jan 5 [Mass/vol informati 2016 1:51 ume] in on in AM Capillary source blood by data Glucomete r Glucose [Mass/volume] in Capillary blood by Glucometer Observa Value Referen Units Interpr Notes Date tion ce etation Range Glucose 70 - 110 mg/dl High No Oct 4 [Mass/vol informati 2016 9:14 ume] in on in PM Capillary source blood by data Glucomete r Urinalysis dipstick W Reflex Microscopic panel in Urine Observa Value Referen Units Interpr Notes Date ti ce etation Range Appeara SL CLEAR No [...] Mucus 1+ NEG No Abnorma No Jan 12 [Presen informa l informa 2016 ce] in [...] data Protein NEG mg/dL No No Jan 12 [Mass/vol informati informati 2017 9:00 ume] in [...] [20 O wbc/hpf No No Jan 4 iy wbc/hpf informa informa 2016 [#/volu ; 50 tion in tion in 9:00 PM me] in wbc/hpf source source Urine ] data data Urinalysis dipstick W Reflex Microscopic panel in Urine Observa Value Referen Units Interpr Notes Date tion ce etation Range Appeara SL CLEAR No No No Jan 12 nce of CLOUDY informa informa informa 2017 Urine tion in tion in tion in 9:00 PM source source source data data data Bilirub NEGATIV NEG No No No Jan 4 in E informa informa informa 2016 [Presen tion in tion in tion in 9:00 PM ce] in source source source Urine data data data by Test strip Erythro NEGATIV NEG No No No Oct 4 cytes E informa informa informa 2016 [Presen tion in tion in tion in 9:00 PM ce] in source source source Urine data data data Color YELLOW YELLOW No No No Jan 4 of informa informa informa 2017 Urine tion in tion in tion in 9:00 PM source source source data data data Glucose NEG No No No Jan 4 [Mass/vol informati informati informati 2016 9:00 ume] [...] K/mm3 Normal No Oct 4 es informati 2017 3:01 [#/volume on in PM [...] Platelets 142 - 424 K/mm3 No No Jan 4 informati informati 2016 3:01 [#/volume on in on in PM ] in source source Blood data data Erythrocy 4.2 - 5.4 M/mm3 Low No Jan 12 yi informati 2016 3:01 [#/volume on in PM ] in source Amniotic data fluid Erythrocy 11.5 - % Normal No Jan 12 te 17.5 informati 2016 3:01 distribut on [...] 0 - 5 % Normal No Jan 12 es informati 2016 3:01 Variant/1 on in PM 00 source leukocyte data s in Blood by Manual count Neutrophi 0 - 8 % Normal No Jan 12 ls.band informati 2016 3:01 form/100 on in PM leukocyte source s in data Blood by Automated count Basophils 0 - 1 % High No Jan 4 informati 2016 3:01 leukocyte on in PM [...] 2 - 9 % High No Oct 4 /100 informati [...] Referen Units Interpr Notes Date etation Range Lactate 0.4 - 2.0 mmol/L Normal No Jan 12 [Moles/vo informati 2016 3:01 lume] in on in PM Blood source data INR in Blood by Coagulation assay Observa Value Referen Units Interpr Notes ce etation Range IS PATIENT ON ANTICOAGULANTS? [...] assay Observa Value Referen Units Interpr Notes etation Range IS PATIENT ON ANTICOAGULANTS? Y [...] High No Nov 02 [Mass/vol alert informati 2017 ume] in on in 11:47 AM Capillary [...] % Low No Nov 02 es informati 2016 6:30 [#/volume on in AM ] in source Unspecifi data ed specimen by Automated count Erythrocy 27 - 31.2 pg High No Nov 02 te mean informati 2016 6:30 corpuscul on in AM ar source hemoglobi data n [Entitic mass] Erythrocy 31.8 - g/dl Normal No Nov 02 te mean 35.4 informati 2016 6:30 corpuscul on in AM ar source hemoglobi data n concentra tion [Mass/vol ume] by Automated count Erythrocy 82.2 - fl High No Nov 02 te mean 97.8 informati 2016 6:30 corpuscul on in AM ar volume source [Entitic data volume] by Automated count Monocytes 0.1 - 1.0 K/mm3 Normal No Nov 02 inform2016 6:30 [#/volume on in AM ] in source Blood by data Automated count Monocytes 1.7 - 9.3 % Normal No Nov 02 informati 2016 6:30 leukocyte on in AM s in source Blood by data Automated count Platelet 7.4 - fl Normal No Nov 02 mean 10.4 informati 2016 6:30 volume on in AM [Entitic source volume] data in Blood by Automated count Platelets 142 - 424 K/mm3 Normal No Nov 02 informati 2016 [...] K/MM3 Normal No Nov 02 s 10.8 ati 2016 6:30 [#/volume on in AM ] in source Blood data Differential panel, method unspecified - Observa Value Referen Units Interpr Notes Date tion ce etation Range LYMPH 14 10 - 50 % Normal No Nov 022016 tion in 6:30 AM source data Monocytes 2 - 9 % Normal No Nov 02 informati 2016 6:30 leukocyte on in AM [...] INDICATIO Nov 02 Blood by informati N 2016 6:30 Coagulati [...] Normal No Nov 02 dioxide, 32.0 informati 2017 6:30 total on [...] mmoL/L Normal No Nov 02 [Moles/vo informati 2017 6:30 lume] in on in AM Serum or source Plasma data Glucose [Mass/volume] in Capillary blood by Glucometer Observa Value Referen Units Interpr Notes Date tion ce etation Range Glucose 70 - 110 mg/dl High No Nov 02 [Mass/vol informati 2016 6:10 ume] in on in AM Capillary [...] High No Oct 31 [Mass/vol informati 2017 ume] in on in 10:24 PM Capillary source blood by data Glucomete r Glucose [Mass/volume] in Capillary blood by Glucometer Observa Value Referen Units Interpr Notes Date tion ce etation Range Glucose 70 - 110 mg/dl High No Oct 31 [Mass/vol informati 2017 ume] in on in 10:24 PM Capillary [...] High No Oct 31 [Mass/vol informati 2016 6:53 ume] in on in AM Capillary [...] % Normal No Oct 31 / informati 2016 6:30 leukocyte on in [...] K/mm3 Normal No Oct 30 es informati 2017 6:25 [#/volume on in AM ] in source Unspecifi data ed specimen by Automated count Lymphocyt 10 - 50.0 % Normal No Oct 30 es informati 2017 6:25 [#/volume on in AM ] in source Unspecifi data ed specimen by Automated count Erythrocy 27 - 31.2 pg Normal No Oct 30 te mean informati 2017 6:25 corpuscul on in AM ar source hemoglobi data n [Entitic mass] Erythrocy 31.8 - g/dl Normal No Oct 30 te mean 35.4 informati 2017 6:25 corpuscul on in AM ar source [...] - 9.3 % Normal No Oct 30 /100 informati 2017 6:25 [...] High No Oct 30 te 17.5 informati 2017 6:25 distribut on in AM ion width source [Entitic data volume] by Automated count Leukocyte 4.8 - K/mm3 Normal No Oct 30 s 10.8 informati 2017 6:25 [#/volume on in AM [...] 50 % Low No Oct 30 informa 2016 tion in 6:25 AM source data Monocytes 2 - 9 % Low No Oct 30 / informati 2016 6:25 leukocyte on in AM [...] No Oct 30 Counted informati informati informati 2016 6:25 Total [#] on in on in [...] mg/dl High No Oct 29 [Mass/vol informati 2017 7:38 ume] in on in PM Capillary [...] # 2017 RELEASE tion in tion in ti in : W0382 1:57 PM special source source source 17 data data data [id number] prepara RELEASE tion D [Type] 7BZena moss aO POSITIV E Blood product special preparation [Type] Observa Value Referen Units Interpr Notes Date tion ce etation Range Blood BLOOD No No No BLOOD Oct 29 product UNIT informa informa informa UNIT # 2017 RELEASE tion in tion in tion in : W0382 12:22 special source source source 17 PM data data data [id number] prepara RELEASE tion D [Type] 7Boyers ,Lucind [...] in tion in tion in tion in ti in 10:20 Blood source source source source AM data data data data ABO O No No No No Oct 29 group informa informa informa informa 2017 [Type] tion in tion in tion in ti in 10:20 in source source source source AM Blood data data data data Blood type & Crossmatch panel in Blood Observa Value Referen Units Interpr Notes Date ti ce etation Range Hold? N Transfuse now? 2 UNITS NOW Major COMPAT No No No No Oct 29 crossma informa informa informa informa 2017 tch tion in tion in tion in ti in 10:20 [interp source source [...] No Oct 29 [Mass/vol alert informati 2016 6:40 ume] in on in AM Capillary [...] Normal No Oct 29 dioxide, 32.0 informati 2017 6:30 total on in AM [Moles/vo source lume] in data Serum or Plasma Creatinin 0.55 - mg/dL High No Oct 29 e 1.02 informati 2017 6:30 [Mass/vol on in AM ume] in source Serum or data Plasma Creatinin 50 - 200 ML/MIN Low No Oct 29 e renal informati 2017 6:30 clearance on in AM source predicted data by Cockcroft -Gault formula Estimated 59- ML/MIN Low REFERENCE Oct 29 RANGE: 2017 6:30 glomerula >60 AM r ML/MIN/1. filtratio 73 SQUARE n rate METERSIf (GF this patient is -A merican, then multiply theresult by 1.210. Glucose 74 - 106 mg/dL High No Oct 29 [Mass/vol informati 2017 6:30 ume] in on in [...] - 2.0 % Normal No Oct 29 / informati 2017 6:30 leukocyte on in [...] No Oct 29 t [Volume 47.0 informati 2017 6:30 on in AM Fraction] source of Blood data Hemoglobi 12.2 - g/dL Low alert Oct 29 n 16.2 2016 6:30 [Mass/vol CRITICAL AM ume] in RESULTS Blood RESU LTS CALLED TO: ESTHER 10/29/16 0753 Veto Ocampo Lymphocyt 0.7 - 4.5 K/mm3 [...] 1.0 K/mm3 Normal No Oct 29 informati 2017 6:30 [#/volume on in AM ] in source Blood by data Automated count Monocytes 1.7 - 9.3 % Normal No Oct 29 / informati 2017 6:30 leukocyte on in AM s in source Blood by data Automated count Platelet 7.4 - fl Normal No Oct 29 mean 10.4 informati 2017 6:30 volume on in AM [Entitic source volume] data in Blood by Automated count Platelets 142 - 424 K/mm3 Normal No Oct 29 informati 2017 6:30 [#/volume on in AM ] in source Blood data Erythrocy 4.2 - 5.4 M/mm3 Low No Oct 29 yi informati 2017 6:30 [#/volume on in [...] High No Oct 28 [Mass/vol alert informati 2017 ume] in on in 11:14 PM Capillary source blood by data Glucomete r Glucose [Mass/volume] in Serum or Plasma Observa Value Referen Units Interpr Notes Date ti etation Range Glucose 74 - 106 mg/dL [...] Blood Observa Value Referen Units Interpr Notes ti etation Range Basophils 0 - 0.2 K/MM3 Normal No Oct 282016 [#/volume on in 12:06 PM ] in source Blood by data Automated count Basophils 0.1 - 2.0 % Normal No Oct 28 inform2016 leukocyte on in 12:06 PM s in source Blood by data Automated count Eosinophi 0.0 - 0.4 K/mm3 Normal No Oct 28 ls ati 2016 [#/volume on in 12:06 PM ] in source Blood by data Automated count Eosinophi 0.1 - % Normal No Oct 28 ls/100 12.0 informati 2016 leukocyte on in 12:06 PM s in source Blood by data Automated count Granulocy 1.8 - 7.8 K/mm3 Normal No Oct 28 yi informati 2016 [#/volume on in 12:06 PM ] in source Blood by data Automated count Granulocy 37.0 - % Normal No Oct 28 yi/100 80.0 informati 2016 leukocyte on in 12:06 PM s in source Blood by data Automated count Hematocri 37.0 - % Low No Oct 28 t [Volume 47.0 2016 on in 12:06 PM Fraction] source of Blood data Hemoglobi 12.2 - g/dL Low No Oct 28 n 16.2 inform2016 [Mass/vol on in 12:06 PM ume] in [...] alert informati 2016 ume] in on in 11:41 AM Capillary source blood by data Glucomete r Glucose [Mass/volume] in Capillary blood by Glucometer Observa Value Referen Units Interpr Notes Date ti ce etation Range Glucose 70 - 110 mg/dl High No Oct 28 [Mass/vol informati 2016 6:26 ume] in on in AM Capillary source blood by data Glucomete r Hemoglobin.gastrointestinal [Presence] in Stool Observa Value Referen Units Interpr Notes Date ti ce etation Range Hemoglo POSITIV NEG No No No Oct 28 bin.gas E informa informa informa 2017 trointe tion in tion in tion in 1:45 AM stinal source source source [Presen data data data ce] in Stool --1st specime n INR in Blood by Coagulation assay Observa Value Referen Units Interpr Notes Date ti etation Range IS PATIENT ON ANTICOAGULANTS? Y [...] Units Interpr Notes Date ti etation Range IS PATIENT ON ANTICOAGULANTS? Y [...] 4.0 U/L Normal No Oct 27 kinase.MB informati 2017 /Creatine on in 12:30 AM source kinase.to data carlos [Ratio] in Serum or Plasma Creatine 0.0 - 3.6 ng/mL Normal No Oct 27 kinase.MB informati 2016 on in 12:30 AM [Mass/vol source ume] in data Serum or Plasma Creatine 26 - 192 U/L Normal No Oct 27 kinase informati 2016 [Enzymati on in 12:30 AM c [...] Normal No Oct 27 [Mass/vol 10.1 informati 2017 ume] in on in 12:30 [...] mg/dL High No Oct 27 e 1.02 inform2016 [Mass/vol on in 12:30 AM ume] in source Serum or data Plasma Creatinin 50 - 200 ML/MIN Normal No Oct 27 e renal 2016 clearance on in 12:30 AM source predicted data by Cockcroft -Gault formula Estimated 59- ML/MIN Low REFERENCE Oct 27 RANGE: 2016 glomerula >60 12:30 AM r ML/MIN/1. filtratio [...] - 2.0 % Normal No Oct 27 /100 2016 leukocyte on in 12:30 AM s in source Blood by data Automated count Eosinophi 0.0 - 0.4 K/mm3 Normal No Oct 27 ls 2016 [#/volume on in 12:30 AM ] in source Blood by data Automated count Eosinophi 0.1 - % Low No Oct 27 ls/100 12.0 inform2016 leukocyte on in 12:30 AM s in source Blood by data Automated count Granulocy 1.8 - 7.8 K/mm3 Normal No Oct 27 yi inform2016 [#/volume on in 12:30 AM ] [...] 4.5 K/mm3 Normal No Oct 27 es inform2016 [#/volume on in 12:30 AM ] in source Unspecifi data ed specimen by Automated count Lymphocyt 10 - 50.0 % Normal No Oct 27 es 2016 [#/volume on in 12:30 AM ] in source Unspecifi data ed specimen by Automated count Erythrocy 27 - 31.2 pg High Oct 27 te mean 2016 corpuscul on in 12:30 AM ar source hemoglobi data n [Entitic mass] Erythrocy 31.8 - g/dl Low No Oct 27 te mean 35.4 2016 corpuscul on in 12:30 AM ar source hemoglobi data n concentra tion [Mass/vol ume] by Automated count Erythrocy 82.2 - fl High Oct 27 te mean 97.8 2016 corpuscul on in 12:30 AM ar volume source [Entitic data volume] by Automated count Monocytes 0.1 - 1.0 K/mm3 Normal No Oct 272016 [#/volume on in 12:30 AM ] in source Blood by data Automated count Monocytes 1.7 - 9.3 % High No Oct 27 / inform2016 leukocyte on in 12:30 AM s in source Blood by data Automated count Platelet 7.4 - fl Normal No Oct 27 mean 10.4 2016 volume on in 12:30 AM [Entitic source volume] data in Blood by Automated count Platelets 142 - 424 K/mm3 Normal No Oct 27 inform2016 [#/volume on in 12:30 AM ] in source Blood data Erythrocy 4.2 - 5.4 M/mm3 Low No Oct 27 yi inform2016 [#/volume on in 12:30 AM ] [...] mmol/L Normal No Oct 27 [Moles/vo informati 2016 lume] in on in 12:30 AM Blood source data
--- OUTSIDE RECORDS SUMMARY | 2017-02-12 23:10 | External Medical Summary Rpt ---
[...] Notes Date ti etation Range COMMENTS TO CLOTHES MODEL: 1 HOUR POST Hematocri 37.0 - % [...] source source 17 AM data data data [id number] prepara RELEASE tion D [Type] 7Gisabel zuletaMarek [...] - [facility] [id number], [address] [facility], [place] [id number] Directo r: Rubio Baptiste MD, Phone: [phone] ED TO GARDENIA GALDAMEZ RN, ALSO TO [facility] SMILEY. Urinalysis dipstick W Reflex Microscopic [...] RESU S CALLED TO: GAJ 01/14/17 1208 Tatiana Garrett Glucose [Mass/volume] in Capillary blood by [...] 37.0 - % High No Oct 31 iy/100 80.0 informati 2017 6:30 leukocyte on in [...] source source source 17 data data data [id number] prepara RELEASE tion D [Type] 7BZena moss aO POSITIV E Blood product special preparation [Type] Observa Value Referen Units Interpr Notes Date tion ce etation Range Blood BLOOD No No No BLOOD Oct 29 product UNIT informa informa informa UNIT # 2017 RELEASE tion in tion in tion in : W0382 12:22 special source source source 17 PM data data data [id number] prepara RELEASE tion D [Type] 7Boyers ,Lucind [...]
[2017-02-13] VITALS (32 sets, daily range): BP systolic 85–189; BP diastolic 37–88
[2017-02-13 06:08] LABS: LYMPH # 2.7 K/mm3 (0.7-4.5); LYMPH % 16.1 % (10-50.0)
[2017-02-13 06:10] LABS: HEMOGLOBIN 6.8 g/dL (12.2-16.2)
[2017-02-13 07:23] LABS: ABO BLOOD TYPE O; RH BLOOD TYPE POSITIVE
[2017-02-13 07:42] LABS: ANTIHUMAN GLOB CROSSMATCH COMPAT
--- NOTE | 2017-02-13 08:11 | PHARMACY CLINIC NOTE ---
Patient Demographics Patient Demographics Admission date: 02/12/17 Date: 02/13/17 Time: 0809 Allergies Coded Allergies: Iodinated Contrast- Oral and IV Dye (IODINATED CONTRAST MEDIA - ORAL AND) (10/27) Penicillins (10/27/16) Sulfa (Sulfonamide Antibiotics) (10/27/16) ciprofloxacin (From CIPRO) (10/27/16) codeine (10/27/16) daptomycin (10/27/16) lactose (10/27/16) propoxyphene (10/27/16) HEIGHT- FT: 5 IN: 5.00 K.005 VTE General Information Labs: Laboratory Tests 02/13 02/12 0550 1940 Coagulation PT (9.4 - 11.8 SECONDS) 150.0 H 150.0 H INR (0.9 - 1.1) 13.53 H 13.53 H Hematology Hgb (12.2 - 16.2 g/dL) 6.8 *L 7.4 *L Hct (37.0 - 47.0 %) 21.8 *L 24.0 L Plt Count (142 - 424 K/mm3) 218 229 Disclaimer The following section includes nursing documentation that has been pulled in for pharmacy review. Patient's VTE score: 5 Patient's VTE Risk: LOW RISK Clinical trial participant? No VTE prophylaxis NQF [id number] VTE prophylaxis ordered? Yes Type of prophylaxis/treatment: AKIN at 0810
[2017-02-13 08:59] LABS: ANTIHUMAN GLOB CROSSMATCH COMPAT
[2017-02-13] MEDS ORDERED: ANUSOL SUPP1 SUP PR (11:22)
--- NOTE | 2017-02-13 15:02 | HISTORY AND PHYSICAL REPORT ---
History and Physical (FCA) Date of admission: 02/12/17 Chief complaint: Change in mental status and anemia History: History of Present Illness: This 81-year-old halfway patient was admitted through the emergency room. The halfway was concerned about altered mental status. She has similar admission on January 22, 2017. She has chronic obstructive pulmonary disease congestive heart failure and renal insufficiency. Her hemoglobin was found to be 7.4 on admission. She is receiving blood transfusions. Unfortunately her hemoglobin on the morning of February 13 is 6.8. Her white blood cell count was elevated also at 12.3 on admission on the morning of 03 15 was 16.5 her creatinine on admission was 2.6 and now is 2.3 her BU in his gone from 78-79. Her potassium was initially elevated 5.2 but on the morning of February 13 it is 4.1. Her chest x-ray showed congestive heart failure and suggested bilateral pneumonia. Past Medical History: Medical History: CAD? No Angina: No [place]: No Hypertension? Yes Hyperlipidemia? Yes CHF? Yes DVT? No PE? Yes COPD? Yes Asthma? No Anemia? Yes GERD? Yes Gastric ulcers? No GI Bleed? No Hernia? No Thyroid Problems? Yes Hypothyroidism? Yes CVA? No Seizures? No Diabetes? Yes Insulin Dependent: Yes Insulin Pump: No Home FSBS? Yes Renal Insuffiency? Yes UTI? Yes Stones? No BPH? No GB Disease: Yes Nephritic Syndrome? No Asplenia? No Hepatitis? No Sickle Cell Disease? No Arthritis? Yes Migraines? No Cataracts? Yes Glaucoma? Yes MRSA? No HIV? No TB? No Anxiety? No Depression? No Cancer? No More? No Additional hx: 1. Polymyositis 2. Fibromyalgia 3. B12 Deficiency 4. Iron Deficiency Anemia 5. Stage III Kidney Disease Surgical history: Previous Surgery?Y 1. BACK SURGERY 2. NECK SURGERY 3. SHOULDERS BILATERALLY 4. Cholecystectomy 5. TUBAL LIGATION Medications: Active Scripts Oxycodone 5MG/[id number] (Oxycodone-Acetaminophen 5-325) 1 EACH PO Q6H 30 Days Prov: 11/02/16 Insulin Lispro, Recombinant (Humalog 100 UNITS/ML 10ML) 0 UNITS SC W/MEALS& HS 30 Days Ref 3 Prov: 11/02/16 Insulin Glargine, Recombinan (Lantus Solostar 3ML) 40 UNITS SC DAILY 30 Days Prov: 01/18/17 Insulin Lispro (Humalog Kwikpen) 6 UNIT SQ AC 30 Days Prov: 01/18/17 WARFARIN SOD (Warfarin 5MG) 5 MG PO DAILY #30 TAB Prov: 01/28/17 Reported Medications ATORVASTATIN CALCIUM (ATORVASTATIN 20MG) 20 MG PO QHS Brimonidine Tartrate (Alphagan P 10 Ml) 1 DROP OP BID Esomeprazole Magnesium (Nexium 40MG Cap) 40 MG PO DAILY Ferrous Gluconate 324 MG PO DAILY Fluticasone Propionate (Flonase 50 Mcg Nasal [place]) 2 SPRAY NA BID Metoprolol Tartrate (Metoprolol 100MG) 100 MG PO BID Hydralazine Hcl 100 MG PO BID Montelukast Sodium (Singulair 10MG) 10 MG PO DAILY Febuxostat (Uloric) 80 MG PO QAM Lidocaine 1 EACH TP DAILY #90 PATCH ALBUTEROL-IPRATROPIUM (Iprat-Albut 0.5-3(2.5) MG/3 Ml) 3 ML IH DAILY ALBUTEROL-IPRATROPIUM (Iprat-Albut 0.5-3(2.5) MG/3 Ml) 3 ML IH Q4HP PRN SOB NYSTATIN (Nystatin Susp 100,000 Units/Ml 60ML) 5 ML PO QIDP PRN ANTIFUNGAL Acetaminophen (Pain Relief) 650 MG PO Q6HP PRN MILD PAIN CHOLECALCIFEROL (VITAMIN D3) (Vitamin D) 1 TAB PO DAILY NYSTATIN (Nystatin Topical Powder 30GM) 1 DAMARIS TP BID Calcitriol 0.25 MCG PO MoWeFr Metolazone 5 MG PO DAILY #30 TAB Levothyroxine Sodium (Levothyroxine) 100 MCG PO DAILY Furosemide (Furosemide 40MG) 40 MG PO DAILY STARCH (Anusol Supp) 1 SUP [place] BID Budesonide (Pulmicort) 0.5 MG IN BID Cyclobenzaprine Hcl (Cyclobenzaprine 10MG) 10 MG PO QHS Formoterol Fumarate (Perforomist) 20 MCG IH BID Gabapentin (Gabapentin 100MG) 200 MG PO BID Fluorometholone (FML) 1 DROP OP DAILY Bisacodyl (Dulcolax) 10 MG RC DAILYP PRN CONSTIPATION FOLIC ACID (Folic Acid) 1 MG PO DAILY Magnesium Hydroxide (Milk Of Magnesia U/D 30ML) 30 ML PO DAILYP PRN BOWELS Allergies: Coded Allergies: Iodinated Contrast- Oral and IV Dye (IODINATED CONTRAST MEDIA - ORAL AND) (10/27) Penicillins (10/27/16) Sulfa (Sulfonamide Antibiotics) (10/27/16) ciprofloxacin (From CIPRO) (10/27/16) codeine (10/27/16) daptomycin (10/27/16) lactose (10/27/16) propoxyphene (10/27/16) Family History: Family history: Postive for: CAD, DM, HTN, cancer, stroke. Additional family history: Her in 2000 with Alzheimer's disease and coronary artery disease. She had a daughter that in 1999 for pancreatic cancer. A son has had cataracts. Social History: Smoking Hx Tobacco: No (some as teenager) Alcohol: Alcohol: No Hx of Drug Use: Drug Use? No Patien't marital status is: spouse Patient's support system is: good Recent travel: She actually lives in [place] but became ill while visiting here. She was hospitalized earlier in January as mentioned and then subsequently went to the halfway. Review of Systems: Patient unresponsive? No (but not oriented) Constitutional Positive for: lethargy, weak. ENT Positive for: tongue pain (blood noted). Cardiovascular Positive for: edema. No: chest pain, palpitations. Respiratory Positive for: dyspnea on exertion, shortness of air, pneumonia. No: productive cough (sputum), wheezing. GI Positive for: constipation. No: GERD, abdominal pain, hematemeis, hematochezia, melena, vomitting. (female) No: flank pain, frequency. Skin Positive for: laceration (tongue), swelling (chronic). No: abrasions, bruising. Neurological Positive for: change in LOC, confusion, seizure (possibly), weakness. No: unable to speak (not coherent). Eyes No: redness, swelling. Musculoskeletal Positive for: extremity swelling. Heme No: bleeding. Psychiatric Positive for: confused, change in mental status. No: agitation. Physical Exam: Vital signs: 1ST Vital Signs Result Date Time Pulse Ox 99 02/13 1932 B/P 98/73 02/13 1932 O2 Flow Rate 2 02/13 1932 Temp 98.7 02/13 1932 Pulse 76 02/13 1932 Resp 18 02/13 1932 O2 Delivery OXYGEN 02/13 0003 Exam: General appearance: she appears lethargic. She will respond to tactile stimuli and to verbal stimuli. She is not coherent in her responses. Eyes: anicteric, PERRLA ENT: mucous membranes moist, some bleeding in the mouth apparently from the tongue Neck: no JVD Cardiovascular: regular rate & rhythm (distant sounds) Respiratory: aerating well, no respiratory distress (99 percent saturation with stephanie) ABD: soft, no tenderness, no organomegaly, obese Genitourinary: catheter in place Extremities: edema Musculoskeletal: equal muscle strength (seemingly) Skin: dry, intact, normal color Neuro: lethargic and responds but not cogent. Lab data: Labs: Laboratory Tests 02/13/17 1256: Misc Test Units BLOOD UNIT RELEASE 02/13/17 1125: POC Glucose 180 H 02/13/17 1012: Misc Test Units BLOOD UNIT RELEASE 02/13/17 0850: Misc Test Units BLOOD UNIT RELEASE 02/13/17 0629: POC Glucose 141 H 02/13/17 0550: MCH 30.9 02/13/17 0550: Sodium 142, Potassium 4.1, Chloride 100, Carbon Dioxide 37 H, BUN 79 H, Creatinine 2.3 H, Estimated Creat Clear 32 L, Estimated GFR (MDRD) 20 L, Glucose 136 H, Calcium 9.6, PT 150.0 H, INR 13.53 H, WBC 16.5 H, RBC 2.18 L , Hgb 6.8 *L, Hct 21.8 *L, MCV 99.6 H, RDW 15.5, Plt Count 218, MPV 9.7, Gran % 59.6, Gran # 9.8 H, Lymphocytes % 16.1, Monocytes % 23.5 H, Eosinophils % 0.2, Basophils % 0.7, Lymphocytes # 2.7, Monocytes # 3.9 H, Eosinophils # 0.0, Basophils # 0.1, PUBS MCHC 31.0 L, Antibody Screen NEGATIVE, Miscellaneous Test POSITIVE 02/12/172044: Lactic Acid 0.8 02/12/172024: Urine Color YELLOW, Urine Appearance CLOUDY, Urine pH 6.0, Ur Specific [place] 1.010, Urine Protein NEGATIVE, Urine Ketones NEGATIVE, Urine Blood 1+ H, Urine Nitrate NEGATIVE, Urine Bilirubin NEGATIVE, Urine Urobilinogen 0.2, Ur Leukocyte Esterase 3+ H, Urine RBC 5-10, Urine WBC TNTC, Urine Glucose NEGATIVE 02/12/171939: B-Natriuretic Peptide 143 H 02/12/171939: Sodium 140, Potassium 5.2 H, Chloride 100, Carbon Dioxide 36 H, BUN 78 H, Creatinine 2.6 H, Estimated Creat Clear 31 L, Estimated GFR (MDRD) 18 *L, Glucose 96, Calcium 9.5, Total Bilirubin 0.2, AST 35, ALT 21, Alkaline Phosphatase 82, Creatine Kinase 49, CK-MB (CK-2) Rel Index 1.6, CK and CKMB Interp 0.8, Troponin I < 0.02, Total Protein 6.8, Albumin 1.8 L, Globulin 5.0 H, Albumin/Globulin Ratio 0.4 L, PT 150.0 H, INR 13.53 H, WBC 12.3 H, RBC 2.39 L, Hgb 7.4 *L, Hct 24.0 L, MCV 100.5 H, RDW 15.7, Plt Count 229, MPV 9.6 , Gran % 43.8, Gran # 5.4, Total Counted 100, Lymphocytes % 25.4, Monocytes % 30.5 H, Eosinophils % 0.3, Basophils % 4.9 H, Neutrophils 51, Band Neutrophils 3, Lymphocytes (Manual) 33, Lymphocytes # 3.1, Monocytes (Manual) 10 H, Monocytes # 3.7 H, Eosinophils # 0.0, Eosinophils # (Manual) 3, Basophils # 0.6 H, Platelet Estimate NORMAL, Hypochromasia 1+, Macrocytosis 1+, Rouleaux 3+, PUBS MCHC 31.0 L, MCH 31.2 Microbiology 02/12 2045 BLOOD: Anaerobic Blood Culture - RECD 02/12 2045 BLOOD: Aerobic Blood Culture - RECD 02/12 2045 BLOOD: Anaerobic Blood Culture - RECD 02/12 2045 BLOOD: Aerobic Blood Culture - RECD 02/12 2025 URINE CATH: Urine Culture - RES Diagnosis(es): 1. Chronic obstructive pulmonary disease with (acute) exacerbation Status: Acute 2. Hyperglycemia Status: Acute 3. Anemia Status: Chronic 4. Hypertension Status: Chronic 5. DM type 2 (diabetes mellitus, type 2) Status: Chronic 6. History of pulmonary embolism Status: Chronic 7. Stage 3 chronic kidney disease Status: Chronic 8. CHF (congestive heart failure) Status: Chronic 9. Physical debility Status: Chronic 10. Acute on chronic respiratory failure with hypoxia and hypercapnia Status: Acute 11. Mental status alteration Plan: See orders. Her son is concerned that she has not been receiving prednisone recently. Apparently she had been on prednisone even in [place] but has not been receiving it recently in the halfway. This certainly could be a factor in her mental status issues. She is receiving blood transfusion as mentioned. at 1508
--- NOTE | 2017-02-13 15:02 | HISTORY AND PHYSICAL REPORT ---
History and Physical (FCA) Date of admission: 02/12/17 Chief complaint: Change in mental status and anemia History: History of Present Illness: This 81-year-old alf patient was admitted through the emergency room. The alf was concerned about altered mental status. She has similar admission on January 22, 2017. She has chronic obstructive pulmonary disease congestive heart failure and renal insufficiency. Her hemoglobin was found to be 7.4 on admission. She is receiving blood transfusions. Unfortunately her hemoglobin on the morning of February 13 is 6.8. Her white blood cell count was elevated also at 12.3 on admission on the morning of 03 15 was 16.5 her creatinine on admission was 2.6 and now is 2.3 her BU in his gone from 78-79. Her potassium was initially elevated 5.2 but on the morning of February 13 it is 4.1. Her chest x-ray showed congestive heart failure and suggested bilateral pneumonia. Past Medical History: Medical History: CAD? No Angina: No [place]: No Hypertension? Yes Hyperlipidemia? Yes CHF? Yes DVT? No PE? Yes COPD? Yes Asthma? No Anemia? Yes GERD? Yes Gastric ulcers? No GI Bleed? No Hernia? No Thyroid Problems? Yes Hypothyroidism? Yes CVA? No Seizures? No Diabetes? Yes Insulin Dependent: Yes Insulin Pump: No Home FSBS? Yes Renal Insuffiency? Yes UTI? Yes Stones? No BPH? No GB Disease: Yes Nephritic Syndrome? No Asplenia? No Hepatitis? No Sickle Cell Disease? No Arthritis? Yes Migraines? No Cataracts? Yes Glaucoma? Yes MRSA? No HIV? No TB? No Anxiety? No Depression? No Cancer? No More? No Additional hx: 1. Polymyositis 2. Fibromyalgia 3. B12 Deficiency 4. Iron Deficiency Anemia 5. Stage III Kidney Disease Surgical history: Previous Surgery?Y 1. BACK SURGERY 2. NECK SURGERY 3. SHOULDERS BILATERALLY 4. Cholecystectomy 5. TUBAL LIGATION Medications: Active Scripts Oxycodone 5MG/[id number] (Oxycodone-Acetaminophen 5-325) 1 EACH PO Q6H 30 Days Prov: 11/02/16 Insulin Lispro, Recombinant (Humalog 100 UNITS/ML 10ML) 0 UNITS SC W/MEALS& HS 30 Days Ref 3 Prov: 11/02/16 Insulin Glargine, Recombinan (Lantus Solostar 3ML) 40 UNITS SC DAILY 30 Days Prov: 01/18/17 Insulin Lispro (Humalog Kwikpen) 6 UNIT SQ AC 30 Days Prov: 01/18/17 WARFARIN SOD (Warfarin 5MG) 5 MG PO DAILY #30 TAB Prov: 01/28/17 Reported Medications ATORVASTATIN CALCIUM (ATORVASTATIN 20MG) 20 MG PO QHS Brimonidine Tartrate (Alphagan P 10 Ml) 1 DROP OP BID Esomeprazole Magnesium (Nexium 40MG Cap) 40 MG PO DAILY Ferrous Gluconate 324 MG PO DAILY Fluticasone Propionate (Flonase 50 Mcg Nasal [place]) 2 SPRAY NA BID Metoprolol Tartrate (Metoprolol 100MG) 100 MG PO BID Hydralazine Hcl 100 MG PO BID Montelukast Sodium (Singulair 10MG) 10 MG PO DAILY Febuxostat (Uloric) 80 MG PO QAM Lidocaine 1 EACH TP DAILY #90 PATCH ALBUTEROL-IPRATROPIUM (Iprat-Albut 0.5-3(2.5) MG/3 Ml) 3 ML IH DAILY ALBUTEROL-IPRATROPIUM (Iprat-Albut 0.5-3(2.5) MG/3 Ml) 3 ML IH Q4HP PRN SOB NYSTATIN (Nystatin Susp 100,000 Units/Ml 60ML) 5 ML PO QIDP PRN ANTIFUNGAL Acetaminophen (Pain Relief) 650 MG PO Q6HP PRN MILD PAIN CHOLECALCIFEROL (VITAMIN D3) (Vitamin D) 1 TAB PO DAILY NYSTATIN (Nystatin Topical Powder 30GM) 1 DAMARIS TP BID Calcitriol 0.25 MCG PO MoWeFr Metolazone 5 MG PO DAILY #30 TAB Levothyroxine Sodium (Levothyroxine) 100 MCG PO DAILY Furosemide (Furosemide 40MG) 40 MG PO DAILY STARCH (Anusol Supp) 1 SUP [place] BID Budesonide (Pulmicort) 0.5 MG IN BID Cyclobenzaprine Hcl (Cyclobenzaprine 10MG) 10 MG PO QHS Formoterol Fumarate (Perforomist) 20 MCG IH BID Gabapentin (Gabapentin 100MG) 200 MG PO BID Fluorometholone (FML) 1 DROP OP DAILY Bisacodyl (Dulcolax) 10 MG RC DAILYP PRN CONSTIPATION FOLIC ACID (Folic Acid) 1 MG PO DAILY Magnesium Hydroxide (Milk Of Magnesia U/D 30ML) 30 ML PO DAILYP PRN BOWELS Allergies: Coded Allergies: Iodinated Contrast- Oral and IV Dye (IODINATED CONTRAST MEDIA - ORAL AND) (10/27) Penicillins (10/27/16) Sulfa (Sulfonamide Antibiotics) (10/27/16) ciprofloxacin (From CIPRO) (10/27/16) codeine (10/27/16) daptomycin (10/27/16) lactose (10/27/16) propoxyphene (10/27/16) Family History: Family history: Postive for: CAD, DM, HTN, cancer, stroke. Additional family history: Her in 2000 with Alzheimer's disease and coronary artery disease. She had a daughter that in 1999 for pancreatic cancer. A son has had cataracts. Social History: Smoking Hx Tobacco: No (some as teenager) Alcohol: Alcohol: No Hx of Drug Use: Drug Use? No Patien't marital status is: spouse Patient's support system is: good Recent travel: She actually lives in [place] but became ill while visiting here. She was hospitalized earlier in January as mentioned and then subsequently went to the alf. Review of Systems: Patient unresponsive? No (but not oriented) Constitutional Positive for: lethargy, weak. ENT Positive for: tongue pain (blood noted). Cardiovascular Positive for: edema. No: chest pain, palpitations. Respiratory Positive for: dyspnea on exertion, shortness of air, pneumonia. No: productive cough (sputum), wheezing. GI Positive for: constipation. No: GERD, abdominal pain, hematemeis, hematochezia, melena, vomitting. (female) No: flank pain, frequency. Skin Positive for: laceration (tongue), swelling (chronic). No: abrasions, bruising. Neurological Positive for: change in LOC, confusion, seizure (possibly), weakness. No: unable to speak (not coherent). Eyes No: redness, swelling. Musculoskeletal Positive for: extremity swelling. Heme No: bleeding. Psychiatric Positive for: confused, change in mental status. No: agitation. Physical Exam: Vital signs: 1ST Vital Signs Result Date Time Pulse Ox 99 02/13 1932 B/P 98/73 02/13 1932 O2 Flow Rate 2 02/13 1932 Temp 98.7 02/13 1932 Pulse 76 02/13 1932 Resp 18 02/13 1932 O2 Delivery OXYGEN 02/13 0003 Exam: General appearance: she appears lethargic. She will respond to tactile stimuli and to verbal stimuli. She is not coherent in her responses. Eyes: anicteric, PERRLA ENT: mucous membranes moist, some bleeding in the mouth apparently from the tongue Neck: no JVD Cardiovascular: regular rate & rhythm (distant sounds) Respiratory: aerating well, no respiratory distress (99 percent saturation with stephanie) ABD: soft, no tenderness, no organomegaly, obese Genitourinary: catheter in place Extremities: edema Musculoskeletal: equal muscle strength (seemingly) Skin: dry, intact, normal color Neuro: lethargic and responds but not cogent. Lab data: Labs: Laboratory Tests 02/13/17 1256: Misc Test Units BLOOD UNIT RELEASE 02/13/17 1125: POC Glucose 180 H 02/13/17 1012: Misc Test Units BLOOD UNIT RELEASE 02/13/17 0850: Misc Test Units BLOOD UNIT RELEASE 02/13/17 0629: POC Glucose 141 H 02/13/17 0550: MCH 30.9 02/13/17 0550: Sodium 142, Potassium 4.1, Chloride 100, Carbon Dioxide 37 H, BUN 79 H, Creatinine 2.3 H, Estimated Creat Clear 32 L, Estimated GFR (MDRD) 20 L, Glucose 136 H, Calcium 9.6, PT 150.0 H, INR 13.53 H, WBC 16.5 H, RBC 2.18 L , Hgb 6.8 *L, Hct 21.8 *L, MCV 99.6 H, RDW 15.5, Plt Count 218, MPV 9.7, Gran % 59.6, Gran # 9.8 H, Lymphocytes % 16.1, Monocytes % 23.5 H, Eosinophils % 0.2, Basophils % 0.7, Lymphocytes # 2.7, Monocytes # 3.9 H, Eosinophils # 0.0, Basophils # 0.1, PUBS MCHC 31.0 L, Antibody Screen NEGATIVE, Miscellaneous Test POSITIVE 02/12/172044: Lactic Acid 0.8 02/12/172024: Urine Color YELLOW, Urine Appearance CLOUDY, Urine pH 6.0, Ur Specific [place] 1.010, Urine Protein NEGATIVE, Urine Ketones NEGATIVE, Urine Blood 1+ H, Urine Nitrate NEGATIVE, Urine Bilirubin NEGATIVE, Urine Urobilinogen 0.2, Ur Leukocyte Esterase 3+ H, Urine RBC 5-10, Urine WBC TNTC, Urine Glucose NEGATIVE 02/12/171939: B-Natriuretic Peptide 143 H 02/12/171939: Sodium 140, Potassium 5.2 H, Chloride 100, Carbon Dioxide 36 H, BUN 78 H, Creatinine 2.6 H, Estimated Creat Clear 31 L, Estimated GFR (MDRD) 18 *L, Glucose 96, Calcium 9.5, Total Bilirubin 0.2, AST 35, ALT 21, Alkaline Phosphatase 82, Creatine Kinase 49, CK-MB (CK-2) Rel Index 1.6, CK and CKMB Interp 0.8, Troponin I < 0.02, Total Protein 6.8, Albumin 1.8 L, Globulin 5.0 H, Albumin/Globulin Ratio 0.4 L, PT 150.0 H, INR 13.53 H, WBC 12.3 H, RBC 2.39 L, Hgb 7.4 *L, Hct 24.0 L, MCV 100.5 H, RDW 15.7, Plt Count 229, MPV 9.6 , Gran % 43.8, Gran # 5.4, Total Counted 100, Lymphocytes % 25.4, Monocytes % 30.5 H, Eosinophils % 0.3, Basophils % 4.9 H, Neutrophils 51, Band Neutrophils 3, Lymphocytes (Manual) 33, Lymphocytes # 3.1, Monocytes (Manual) 10 H, Monocytes # 3.7 H, Eosinophils # 0.0, Eosinophils # (Manual) 3, Basophils # 0.6 H, Platelet Estimate NORMAL, Hypochromasia 1+, Macrocytosis 1+, Rouleaux 3+, PUBS MCHC 31.0 L, MCH 31.2 Microbiology 02/12 2045 BLOOD: Anaerobic Blood Culture - RECD 02/12 2045 BLOOD: Aerobic Blood Culture - RECD 02/12 2045 BLOOD: Anaerobic Blood Culture - RECD 02/12 2045 BLOOD: Aerobic Blood Culture - RECD 02/12 2025 URINE CATH: Urine Culture - RES Diagnosis(es): 1. Chronic obstructive pulmonary disease with (acute) exacerbation Status: Acute 2. Hyperglycemia Status: Acute 3. Anemia Status: Chronic 4. Hypertension Status: Chronic 5. DM type 2 (diabetes mellitus, type 2) Status: Chronic 6. History of pulmonary embolism Status: Chronic 7. Stage 3 chronic kidney disease Status: Chronic 8. CHF (congestive heart failure) Status: Chronic 9. Physical debility Status: Chronic 10. Acute on chronic respiratory failure with hypoxia and hypercapnia Status: Acute 11. Mental status alteration Plan: See orders. Her son is concerned that she has not been receiving prednisone recently. Apparently she had been on prednisone even in [place] but has not been receiving it recently in the alf. This certainly could be a factor in her mental status issues. She is receiving blood transfusion as mentioned. at 1504
[2017-02-13 15:08] LABS: LYMPH # 2.2 K/mm3 (0.7-4.5); LYMPH % 14.5 % (10-50.0)
[2017-02-13 15:10] LABS: HEMOGLOBIN 9.6 g/dL (12.2-16.2)
--- NOTE | 2017-02-13 21:10 | RADIOLOGY REPORT PS360 ---
CHEST-PORTABLE HISTORY: COPD Patient Age: 81 years: Female Ordering Physician: David Duncan MD TECHNIQUE: AP portable upright chest COMPARISON :Portable chest 01/22/2017 FINDINGS Similar appearance with subtle improvement and slight improved aeration bilaterally since previous CXR 01/22/2017. We again see Bilateral airspace disease most evident towards the lung bases and perihilar regions. Improved aeration at the upper lobes bilaterally.. Slightly less dense infiltrate towards lung bases. Right diaphragm better delineated. However the left diaphragm and left heart border continue to be obscured by airspace disease and density. . Air bronchograms I believe most evident left lower lobe reflect cardiac region. Previous anterior fusion at lower C-spine. Incremental improvement since prior study with slightly better aeration at the left upper lobe and right upper lobe. Cardiomegaly again noted. Mild vascular engorgement less pronounced today Mediastinum unchanged. IMPRESSION: Bilateral infiltrates and airspace disease have shown slight improvement since 01/22/2017. Cardiomegaly.
[2017-02-14] VITALS (8 sets, daily range): BP systolic 120–175; BP diastolic 44–77
[2017-02-14 07:08] LABS: HEMOGLOBIN 9.4 g/dL (12.2-16.2); LYMPH # 1.5 K/mm3 (0.7-4.5); LYMPH % 10.3 % (10-50.0)
--- NOTE | 2017-02-14 08:36 | CONSULT NOTE ---
Standard Demographics Patient Demo Date of Consultation: 02/13/17 Referring Provider: Varinder Sandoval MD Reason for Consultation: anemia PRIMARY DIAGNOSIS: UTI Allergies: Coded Allergies: Iodinated Contrast- Oral and IV Dye (IODINATED CONTRAST MEDIA - ORAL AND) (10/27) Penicillins (10/27/16) Sulfa (Sulfonamide Antibiotics) (10/27/16) ciprofloxacin (From CIPRO) (10/27/16) codeine (10/27/16) daptomycin (10/27/16) lactose (10/27/16) propoxyphene (10/27/16) History of Present Illness Chief Complaint: Mental status changes History of Present Illness: Patient is an 81-year-old black female who is from [place] has had several hospitalizations recently and has been a resident at [facility]. She has multiple medical issues chronically. She is on chronic warfarin anticoagulation therapy and chronic steroids. She was brought to the emergency department over the weekend due to mental status changes. She's on chronic warfarin anticoagulation therapy for history of pulmonary embolism in the past. She was found to be anemic and had an INR of 13.5. Surgical consultation was obtained for anemia. Past Medical History Reports: congestive heart failure, COPD, hypertension, diabetes mellitus, GERD, renal insufficiency, obesity. Surgical History Previous Surgery?Y BACK SURGERY NECK SURGERY SHOULDERS BILATERALLY Cholecystectomy TUBAL LIGATION Allergies Coded Allergies: Iodinated Contrast- Oral and IV Dye (IODINATED CONTRAST MEDIA - ORAL AND) (10/27) Penicillins (10/27/16) Sulfa (Sulfonamide Antibiotics) (10/27/16) ciprofloxacin (From CIPRO) (10/27/16) codeine (10/27/16) daptomycin (10/27/16) lactose (10/27/16) propoxyphene (10/27/16) Medications: Active Scripts Oxycodone 5MG/[id number] (Oxycodone-Acetaminophen 5-325) 1 EACH PO Q6H 30 Days Prov: 11/02/16 Insulin Lispro, Recombinant (Humalog 100 UNITS/ML 10ML) 0 UNITS SC W/MEALS& HS 30 Days Ref 3 Prov: 11/02/16 Insulin Glargine, Recombinan (Lantus Solostar 3ML) 40 UNITS SC DAILY 30 Days Prov: 01/18/17 Insulin Lispro (Humalog Kwikpen) 6 UNIT SQ AC 30 Days Prov: 01/18/17 WARFARIN SOD (Warfarin 5MG) 5 MG PO DAILY #30 TAB Prov: 01/28/17 Reported Medications ATORVASTATIN CALCIUM (ATORVASTATIN 20MG) 20 MG PO QHS Brimonidine Tartrate (Alphagan P 10 Ml) 1 DROP OP BID Esomeprazole Magnesium (Nexium 40MG Cap) 40 MG PO DAILY Ferrous Gluconate 324 MG PO DAILY Fluticasone Propionate (Flonase 50 Mcg Nasal Medon) 2 SPRAY NA BID Metoprolol Tartrate (Metoprolol 100MG) 100 MG PO BID Hydralazine Hcl 100 MG PO BID Montelukast Sodium (Singulair 10MG) 10 MG PO DAILY Febuxostat (Uloric) 80 MG PO QAM Lidocaine 1 EACH TP DAILY #90 PATCH ALBUTEROL-IPRATROPIUM (Iprat-Albut 0.5-3(2.5) MG/3 Ml) 3 ML IH DAILY ALBUTEROL-IPRATROPIUM (Iprat-Albut 0.5-3(2.5) MG/3 Ml) 3 ML IH Q4HP PRN SOB NYSTATIN (Nystatin Susp 100,000 Units/Ml 60ML) 5 ML PO QIDP PRN ANTIFUNGAL Acetaminophen (Pain Relief) 650 MG PO Q6HP PRN MILD PAIN CHOLECALCIFEROL (VITAMIN D3) (Vitamin D) 1 TAB PO DAILY NYSTATIN (Nystatin Topical Powder 30GM) 1 DAMARIS TP BID Calcitriol 0.25 MCG PO MoWeFr Metolazone 5 MG PO DAILY #30 TAB Levothyroxine Sodium (Levothyroxine) 100 MCG PO DAILY Furosemide (Furosemide 40MG) 40 MG PO DAILY STARCH (Anusol Supp) 1 SUP IN BID Budesonide (Pulmicort) 0.5 MG IN BID Cyclobenzaprine Hcl (Cyclobenzaprine 10MG) 10 MG PO QHS Formoterol Fumarate (Perforomist) 20 MCG IH BID Gabapentin (Gabapentin 100MG) 200 MG PO BID Fluorometholone (FML) 1 DROP OP DAILY Bisacodyl (Dulcolax) 10 MG RC DAILYP PRN CONSTIPATION FOLIC ACID (Folic Acid) 1 MG PO DAILY Magnesium Hydroxide (Milk Of Magnesia U/D 30ML) 30 ML PO DAILYP PRN BOWELS Additional medical history: Polymyositis B-12 deficiency Iron deficiency Hypothyroidism Smoking Hx Tobacco: No (some as teenager) Smoker: Former Smoker Type: Cigarettes Packs/day: < 1 Pack Are you/the child exposed to second-hand smoke: No Alcohol Alcohol: No Hx of Drug Use Drug Use? No Review of Systems Additional information: Unable to obtain review of systems from the patient Physical Exam VS/I&O Vital Signs Date Time Temp Pulse Resp B/P Pulse O2 O2 Flow FiO2 Ox Delivery Rate 02/14 0704 2 02/14 0636 2 02/14 0510 2 02/14 0510 98.5 100 20 155/53 100 OXYGEN 2 02/14 0500 2 02/14 0324 2 02/14 0302 89 ROOM AIR 02/14 0200 2 02/14 0154 2 02/14 0058 2 02/13 2300 2 02/13 2200 2 02/13 2100 99.5 02/13 2100 2 02/13 2030 100.2 105 22 137/48 100 2 02/13 2007 2 02/13 2007 100.2 105 22 137/48 100 OXYGEN 2 02/13 1920 2 02/13 1750 2 02/13 1615 98.8 106 20 183/84 02/13 1529 2 02/13 1515 98.3 104 20 189/68 02/13 1415 98.5 104 20 165/54 02/13 1400 98.5 105 20 156/54 02/13 1345 98.5 104 16 166/88 02/13 1330 98.2 103 16 160/53 02/13 1325 98.2 103 16 154/54 02/13 1320 2 02/13 1320 98.0 103 16 170/49 02/13 1315 97.3 100 20 89/70 02/13 1235 98.2 99 20 159/55 02/13 1215 97.4 99 20 149/61 02/13 1115 98.2 96 20 132/86 02/13 1102 2 02/13 1100 98.2 95 20 146/47 02/13 1045 98.4 94 20 159/47 02/13 1030 98.4 93 20 154/53 02/13 1025 98.4 94 20 149/52 02/13 1020 98.6 94 20 155/59 02/13 1015 98.3 75 20 121/51 02/13 1000 98.6 92 20 101/43 02/13 0942 98.2 89 22 106/37 100 2 02/13 0909 2 02/13 0900 98.6 90 20 90/53 02/13 0845 98.6 91 20 85/65 I&O 02/14 0700 Intake Total 1529 Output Total 2500 Balance -971 Intake, IV 1529 Output, Urine 2500 Exam General appearance lethargic Respiratory decreased breath sounds Cardiovascular normal heart sounds Plan Plan: No surgical intervention at this time recommended. at 0836
--- NOTE | 2017-02-14 09:21 | ACUTE CARE PROGRESS NOTE (QUA) ---
Progress Notes Subjective Date 02/14/17 Time 0915 Note Spoke with patient and her son today. Patient still somewhat confused, son says she seems much better today. Objective Findings Laboratory Tests 02/14/17 0638: Sodium 143, Potassium 3.6, Chloride 102, Carbon Dioxide 33 H, BUN 66 H, Creatinine 2.1 H, Estimated Creat Clear 36 L, Estimated GFR (MDRD) 23 L, Glucose 268 H, Calcium 9.3, PT 46.2 H, INR 4.22 H, WBC 15.0 H, RBC 3.17 L, Hgb 9.4 L, Hct 29.9 L, MCV 94.5, RDW 15.9, Plt Count 206, MPV 9.7, Gran % 73.3 , Gran # 11.0 H, Lymphocytes % 10.3, Monocytes % 15.1 H, Eosinophils % 0.0 L, Basophils % 1.3, Lymphocytes # 1.5, Monocytes # 2.3 H, Eosinophils # 0.0, Basophils # 0.2, PUBS MCHC 31.4 L, MCH 29.6 02/13/17 2031: POC Glucose 229 H 02/13/17 1720: Hgb 10.0 L, Hct 30.0 L 02/13/17 1624: POC Glucose 173 H 02/13/17 1452: WBC 15.2 H, RBC 3.13 L, Hgb 9.6 L, Hct 29.0 L, MCV 92.8, RDW 16.2, Plt Count 198, MPV 9.4, Gran % 60.4, Gran # 9.2 H, Lymphocytes % 14.5, Monocytes % 23.7 H, Eosinophils % 0.1, Basophils % 1.2, Lymphocytes # 2.2, Monocytes # 3.6 H, Eosinophils # 0.0, Basophils # 0.2, PUBS MCHC 33.0, MCH 30.6 02/13/17 1256: Misc Test Units BLOOD UNIT RELEASE 02/13/17 1125: POC Glucose 180 H 02/13/17 1012: Misc Test Units BLOOD UNIT RELEASE Vital Signs Date Time Temp Pulse Resp B/P Pulse O2 O2 Flow FiO2 Ox Delivery Rate 02/14 830 99.9 101 24 161/51 95 OXYGEN 02/14 0704 2 02/15 636 2 02/14 510 2 11/06 0510 98.5 100 20 155/53 100 OXYGEN 2 02/14 0500 2 02/14 0324 2 02/14 0302 89 ROOM AIR 02/14 0200 2 02/14 0154 2 02/14 0058 2 02/13 2300 2 02/13 2200 2 02/13 2100 99.5 02/13 2100 2 02/13 2030 100.2 105 22 137/48 100 2 02/13 2007 2 02/13 2007 100.2 105 22 137/48 100 OXYGEN 2 02/13 1920 2 02/13 1750 2 02/13 1615 98.8 106 20 183/84 02/13 1529 2 02/13 1515 98.3 104 20 189/68 02/13 1415 98.5 104 20 165/54 02/13 1400 98.5 105 20 156/54 02/13 1345 98.5 104 16 166/88 02/13 1330 98.2 103 16 160/53 02/13 1325 98.2 103 16 154/54 02/13 1320 2 02/13 1320 98.0 103 16 170/49 02/13 1315 97.3 100 20 89/70 02/13 1235 98.2 99 20 159/55 02/13 1215 97.4 99 20 149/61 02/13 1115 98.2 96 20 132/86 02/13 1102 2 02/13 1100 98.2 95 20 146/47 02/13 1045 98.4 94 20 159/47 02/13 1030 98.4 93 20 154/53 02/13 1025 98.4 94 20 149/52 02/13 1020 98.6 94 20 155/59 02/13 1015 98.3 75 20 121/51 02/13 1000 98.6 92 20 101/43 02/13 0942 98.2 89 22 106/37 100 2 I&O Past 24 Hrs-ending at 0700 02/14 0700 Intake Total 1529 Output Total 2500 Balance -971 Last VS-Temp:99.9 B/P:161/51 Pulse:101 Resp:24 SaO2:95 OXYGEN Last weight lbs:240 oz:5 K.005 Method:Bed Scales Exam General appearance: responsive Cardiovascular: regular rate & rhythm Respiratory: good air movement Assessment/Plan Problem List 1. Mental status alteration 2. Chronic obstructive pulmonary disease with (acute) exacerbation Status: Acute 3. Urinary tract infection Status: Acute 4. Supratherapeutic INR Status: Acute 5. Pseudomonas (aeruginosa) (mallei) (pseudomallei) as the cause of diseases classified elsewhere 6. Hyperglycemia Status: Acute 7. Anemia Status: Chronic 8. Hypertension Status: Chronic 9. DM type 2 (diabetes mellitus, type 2) Status: Chronic 10. History of pulmonary embolism Status: Chronic 11. Stage 3 chronic kidney disease Status: Chronic 12. CHF (congestive heart failure) Status: Chronic 13. Physical debility Status: Chronic This inpt stay is expected to cross 2 MNs from start of care Yes Comments: Patient is improving, she needs to resume CPAP use. Treatment plan discussed with patient's son and primary RN. at 0920
[2017-02-14 12:26] LABS: CORRECTED WBC 14.9 K/mm3; NEUTROPHILS 73 % (42-76)
[2017-02-15 04:20] VITALS: BP 169/52
[2017-02-15 08:30] VITALS: BP 183/73
[2017-02-15 08:32] LABS: HEMOGLOBIN 8.7 g/dL (12.2-16.2); LYMPH # 1.5 K/mm3 (0.7-4.5); LYMPH % 12.4 % (10-50.0)
--- NOTE | 2017-02-15 08:42 | ACUTE CARE PROGRESS NOTE (QUA) ---
Progress Notes Subjective Date 02/15/17 Time 0839 Note Patient's son states she had a better night last night, was more alert and conversant. Objective Findings Laboratory Tests 02/15/17 0719: PT 26.0 H, INR 2.39 H 02/15/17 0700: POC Glucose 317 *H 02/14/17 2058: POC Glucose 273 H 02/14/17 1653: POC Glucose 280 H 02/14/17 1150: POC Glucose 267 H Vital Signs Date Time Temp Pulse Resp B/P Pulse O2 O2 Flow FiO2 Ox Delivery Rate 02/15 0703 2 02/15 0552 2 02/15 0500 2 02/15 0420 2 02/15 0420 98.3 91 23 169/52 92 OXYGEN 2 02/15 0250 2 02/15 0220 2 02/15 0030 2 02/14 2344 2 02/14 2344 100.0 110 23 120/52 94 OXYGEN 2 02/14 2300 2 02/14 2221 2 02/14 2149 2 02/14 214 95 OXYGEN 2 02/14 2110 2 02/14 2110 98.5 101 22 175/77 95 2 02/14 2023 2 02/14 2023 98.5 101 22 175/77 95 OXYGEN 2 02/14 1904 2 02/14 1720 2 02/14 1558 99.7 93 24 143/66 96 OXYGEN 02/14 1530 2 02/14 1320 2 02/14 1230 100.1 93 22 161/44 90 OXYGEN 02/14 1106 2 02/14 1000 99.9 101 24 161/51 95 2 02/14 0910 2 I&O Past 24 Hrs-ending at 0700 02/15 700 Intake Total 120 Output Total 2400 Balance -2280 Last VS-Temp:98.3 B/P:169/52 Pulse:91 Resp:23 SaO2:92 OXYGEN Last weight lbs:239 oz:3 K.494 Method:Bed Scales Exam General appearance: sleeping, CPAP in use Cardiovascular: regular rate & rhythm Respiratory: good air movement, diminished breath sounds (in the bases) Assessment/Plan Problem List 1. Mental status alteration 2. Chronic obstructive pulmonary disease with (acute) exacerbation Status: Acute 3. Urinary tract infection Status: Acute 4. Supratherapeutic INR Status: Acute 5. Pseudomonas (aeruginosa) (mallei) (pseudomallei) as the cause of diseases classified elsewhere 6. Hyperglycemia Status: Acute 7. Anemia Status: Chronic 8. Hypertension Status: Chronic 9. DM type 2 (diabetes mellitus, type 2) Status: Chronic 10. History of pulmonary embolism Status: Chronic 11. Stage 3 chronic kidney disease Status: Chronic 12. CHF (congestive heart failure) Status: Chronic 13. Physical debility Status: Chronic This inpt stay is expected to cross 2 MNs from start of care Yes Comments: Patient slowly improving, awaiting AM labs. at 0842
[2017-02-15 10:41] VITALS: BP 183/73
[2017-02-15 12:30] VITALS: BP 192/86
[2017-02-15 16:01] VITALS: BP 148/89
[2017-02-15 20:03] VITALS: BP 125/84
[2017-02-16] VITALS (7 sets, daily range): BP systolic 151–175; BP diastolic 46–78
--- NOTE | 2017-02-16 08:16 | ACUTE CARE PROGRESS NOTE (QUA) ---
Progress Notes Subjective Date 02/16/17 Time 0811 Note Patient states she feels some better this morning. She denies any shortness of air. She still has a cough. According to her son she did not sleep with her BIPAP last night even though it was in the room. He states no one put it on the patient. She denies any pain. She is having lab work this a.m. before her procedure. Objective Findings Last VS-Temp:97.8 B/P:158/47 Pulse:77 Resp:22 SaO2:97 OXYGEN Last weight lbs:236 oz:9 K.303 Method:Bed Scales Laboratory Tests 02/16/17 0554: POC Glucose 308 *H 02/15/17 2102: POC Glucose 307 *H 02/15/17 1652: POC Glucose 262 H 02/15/17 1156: POC Glucose 355 *H Exam General appearance: alert, awake, no acute distress Cardiovascular: regular rate & rhythm Respiratory: good air movement Extremities: 2+ pretibial edema bilaterally Assessment/Plan Problem List 1. Mental status alteration 2. Chronic obstructive pulmonary disease with (acute) exacerbation Status: Acute 3. Urinary tract infection Status: Acute 4. Supratherapeutic INR Status: Acute 5. Pseudomonas (aeruginosa) (mallei) (pseudomallei) as the cause of diseases classified elsewhere 6. Hyperglycemia Status: Acute 7. Anemia Status: Chronic 8. Hypertension Status: Chronic 9. DM type 2 (diabetes mellitus, type 2) Status: Chronic 10. History of pulmonary embolism Status: Chronic 11. Stage 3 chronic kidney disease Status: Chronic 12. CHF (congestive heart failure) Status: Chronic 13. Physical debility Status: Chronic Plan: Will get labs this am and discuss with the patient's nurse the need for her to wear her BIPAP at night. This inpt stay is expected to cross 2 MNs from start of care Yes (Alba Shahid) Assessment/Plan Problem List 1. Mental status alteration 2. Chronic obstructive pulmonary disease with (acute) exacerbation Status: Acute 3. Urinary tract infection Status: Acute 4. Supratherapeutic INR Status: Acute 5. Pseudomonas (aeruginosa) (mallei) (pseudomallei) as the cause of diseases classified elsewhere 6. Hyperglycemia Status: Acute 7. Anemia Status: Chronic 8. Hypertension Status: Chronic 9. DM type 2 (diabetes mellitus, type 2) Status: Chronic 10. History of pulmonary embolism Status: Chronic 11. Stage 3 chronic kidney disease Status: Chronic 12. CHF (congestive heart failure) Status: Chronic 13. Physical debility Status: Chronic Comments: Patient seen and agree with above note, planning for Groshong catheter placement today. Spoke to nursing staff about PAP use when sleeping. (Manuel Valencia MD) at 0815 at 0806
--- NOTE | 2017-02-16 08:30 | ACUTE CARE PROGRESS NOTE (QUA) ---
Progress Notes Subjective Date 02/16/17 Time 0829 Assessment/Plan Problem List 1. Mental status alteration 2. Chronic obstructive pulmonary disease with (acute) exacerbation Status: Acute 3. Urinary tract infection Status: Acute 4. Supratherapeutic INR Status: Acute 5. Pseudomonas (aeruginosa) (mallei) (pseudomallei) as the cause of diseases classified elsewhere 6. Hyperglycemia Status: Acute 7. Anemia Status: Chronic 8. Hypertension Status: Chronic 9. DM type 2 (diabetes mellitus, type 2) Status: Chronic 10. History of pulmonary embolism Status: Chronic 11. Stage 3 chronic kidney disease Status: Chronic 12. CHF (congestive heart failure) Status: Chronic 13. Physical debility Status: Chronic This inpt stay is expected to cross 2 MNs from start of care Yes Antibiotic Stewardship (2) Current Culture Results Microbiology 02/12 2045 BLOOD: Anaerobic Blood Culture - RES 02/12 2045 BLOOD: Aerobic Blood Culture - RES 02/12 2025 URINE CATH: Urine Culture - COMP PSEUDOMONAS AERUGINOSA Infxn that will respond? Yes Right drug,dose,and route? Yes More targeted antbx? No at 0829
[2017-02-16 08:32] LABS: HEMOGLOBIN 9.1 g/dL (12.2-16.2)
[2017-02-17] VITALS (8 sets, daily range): BP systolic 147–188; BP diastolic 52–82
--- NOTE | 2017-02-17 08:30 | ACUTE CARE PROGRESS NOTE (QUA) ---
Progress Notes Subjective Date 02/17/17 Time 0824 Note Pt states she slept well last night with her BiPAP. She denies any pain today. She thinks she needs to have a bowel movement and would like bedpan. Objective Findings Last VS-Temp:98.3 B/P:188/77 Pulse:50 Resp:20 SaO2:100 OXYGEN Last weight lbs:236 oz:9 K.303 Method:Bed Scales Laboratory Tests 02/17/17 0615: POC Glucose 229 H 02/16/17 2002: POC Glucose 316 *H 02/16/17 1652: POC Glucose 261 H 02/16/17 1139: POC Glucose 256 H Exam General appearance: alert, awake, no acute distress Cardiovascular: regular rate & rhythm Respiratory: expiratory wheezes, no rales ABD: non-distended, normal bowel sounds, no rebound, soft, no tenderness, no guarding Extremities: 2+ pretibial edema bilaterally Assessment/Plan Problem List 1. Mental status alteration 2. Chronic obstructive pulmonary disease with (acute) exacerbation Status: Acute 3. Urinary tract infection Status: Acute 4. Supratherapeutic INR Status: Acute 5. Pseudomonas (aeruginosa) (mallei) (pseudomallei) as the cause of diseases classified elsewhere 6. Hyperglycemia Status: Acute 7. Anemia Status: Chronic 8. Hypertension Status: Chronic 9. DM type 2 (diabetes mellitus, type 2) Status: Chronic 10. History of pulmonary embolism Status: Chronic 11. Stage 3 chronic kidney disease Status: Chronic 12. CHF (congestive heart failure) Status: Chronic 13. Physical debility Status: Chronic Plan: Will discuss further care with Dr. Valencia. Dr. Cannon to place Groshong catheter tomorrow. Patient can eat today. This inpt stay is expected to cross 2 MNs from start of care Yes (Alba Shahid) Assessment/Plan Problem List 1. Mental status alteration 2. Chronic obstructive pulmonary disease with (acute) exacerbation Status: Acute 3. Urinary tract infection Status: Acute 4. Supratherapeutic INR Status: Acute 5. Pseudomonas (aeruginosa) (mallei) (pseudomallei) as the cause of diseases classified elsewhere 6. Hyperglycemia Status: Acute 7. Anemia Status: Chronic 8. Hypertension Status: Chronic 9. DM type 2 (diabetes mellitus, type 2) Status: Chronic 10. History of pulmonary embolism Status: Chronic 11. Stage 3 chronic kidney disease Status: Chronic 12. CHF (congestive heart failure) Status: Chronic 13. Physical debility Status: Chronic Comments: Patient seen and agree with above note, she seems to feel better today, will resume full liquid diet. (Manuel Valencia MD) at 0867 at 0841
[2017-02-18] VITALS (8 sets, daily range): BP systolic 114–191; BP diastolic 52–82
[2017-02-18 07:39] LABS: HEMOGLOBIN 9.1 g/dL (12.2-16.2); LYMPH # 0.9 K/mm3 (0.7-4.5); LYMPH % 8.2 % (10-50.0)
--- NOTE | 2017-02-18 07:55 | ACUTE CARE PROGRESS NOTE (QUA) ---
Progress note: - Had tentatively planned tunneled venous catheter placement today. INR remains persistently elevated at 2.3. Will cancel case. May try to schedule for Tuesday. at 0754
--- NOTE | 2017-02-18 08:24 | ACUTE CARE PROGRESS NOTE (QUA) ---
See Addendum Progress Notes Subjective Date 02/18/17 Time 0822 Note Pt's son states she has been getting more SOA over night. He states her BIPAP machine kept filling with condensation overnight. She is now coughing and wheezing. She had a neb this am early but feels like she needs another one. She was supposed to have a surgical procedure today but her INR is still too high. Objective Findings Last VS-Temp:97.5 B/P:163/70 Pulse:60 Resp:22 SaO2:100 OXYGEN Last weight lbs:236 oz:9 K.303 Method:Bed Scales Laboratory Tests 02/18/17 0656: Sodium 144, Potassium 3.9, Chloride 107, Carbon Dioxide 33 H, BUN 62 H, Creatinine 1.5 H, Estimated Creat Clear 49 L, Estimated GFR (MDRD) 33 L, Glucose 177 H, Calcium 8.9, PT 24.8 H, INR 2.28 H, WBC 10.8, RBC 3.02 L, Hgb 9.1 L, Hct 29.2 L, MCV 96.5, RDW 15.3, Plt Count 189, MPV 9.7, Gran % 83.6 H, Gran # 9.0 H, Lymphocytes % 8.2 L, Monocytes % 4.5, Eosinophils % 0.1, Basophils % 3.6 H, Lymphocytes # 0.9, Monocytes # 0.5, Eosinophils # 0.0, Basophils # 0.4 H, PUBS MCHC 31.3 L, MCH 30.2 02/18/17 0602: POC Glucose 163 H 02/17/17 2037: PT 25.7 H, INR 2.36 H 02/17/17 1148: POC Glucose 490 *H Exam General appearance: alert, dyspneic Cardiovascular: regular rate & rhythm Respiratory: wheezing, rhonchi, and basilar rales ABD: non-distended, normal bowel sounds, no rebound, soft, no tenderness, no guarding Extremities: 2+ pretibial edema bilaterally Assessment/Plan Problem List 1. Mental status alteration 2. Chronic obstructive pulmonary disease with (acute) exacerbation Status: Acute 3. Urinary tract infection Status: Acute 4. Supratherapeutic INR Status: Acute 5. Pseudomonas (aeruginosa) (mallei) (pseudomallei) as the cause of diseases classified elsewhere 6. Hyperglycemia Status: Acute 7. Anemia Status: Chronic 8. Hypertension Status: Chronic 9. DM type 2 (diabetes mellitus, type 2) Status: Chronic 10. History of pulmonary embolism Status: Chronic 11. Stage 3 chronic kidney disease Status: Chronic 12. CHF (congestive heart failure) Status: Chronic 13. Physical debility Status: Chronic Plan: Will get a stat CXR this am and another neb treatment. Her son is going to go to the skilled nursing and get her perforomist so she can begin taking that as well. This inpt stay is expected to cross 2 MNs from start of care Yes (Alba Shahid) Subjective Date 02/18/17 Assessment/Plan Problem List 1. Mental status alteration 2. Chronic obstructive pulmonary disease with (acute) exacerbation Status: Acute 3. Urinary tract infection Status: Acute 4. Supratherapeutic INR Status: Acute 5. Pseudomonas (aeruginosa) (mallei) (pseudomallei) as the cause of diseases classified elsewhere 6. Hyperglycemia Status: Acute 7. Anemia Status: Chronic 8. Hypertension Status: Chronic 9. DM type 2 (diabetes mellitus, type 2) Status: Chronic 10. History of pulmonary embolism Status: Chronic 11. Stage 3 chronic kidney disease Status: Chronic 12. CHF (congestive heart failure) Status: Chronic 13. Physical debility Status: Chronic Plan: Pt seen and examined. Concur with above assessment and plan. Will give dose of Lasix as well. (Azeb Barreto MD) at 0855 at [phone]
--- NOTE | 2017-02-18 08:33 | RADIOLOGY REPORT PS360 ---
CHEST-PORTABLE HISTORY: Pneumonia follow-up PNEUMONIA ORDERING PHYSICIAN: Manuel Valencia MD PATIENT AGE: 81 years COMPARISON: 02/12/2017 FINDINGS: There is mild cardiomegaly without failure.. Bilateral pneumonia is present with consolidation in the left lower lobe appears somewhat improved. Right-sided pneumonia in both upper and lower lobe is somewhat improved in the lower lobe worse in the upper lobe. Bone plate over the lower cervical spine. IMPRESSION: Bilateral pneumonia with mixed response slightly improved in the lung bases but worse in the right upper lobe
--- NOTE | 2017-02-18 09:38 | CONSULT NOTE ---
Pharmacokinetic Consult Date of consult: 02/18/17 Time of consult: 934 Referring provider: DR. MARTINEZ Reason for consult: TOBRAMYCIN DOSING Allergies: Coded Allergies: Iodinated Contrast- Oral and IV Dye (IODINATED CONTRAST MEDIA - ORAL AND) (10/27) Penicillins (10/27/16) Sulfa (Sulfonamide Antibiotics) (10/27/16) ciprofloxacin (From CIPRO) (10/27/16) codeine (10/27/16) daptomycin (10/27/16) lactose (10/27/16) propoxyphene (10/27/16) Home Medications: Active Scripts Oxycodone 5MG/[id number] (Oxycodone-Acetaminophen 5-325) 1 EACH PO Q6H 30 Days Prov: 11/02/16 Insulin Lispro, Recombinant (Humalog 100 UNITS/ML 10ML) 0 UNITS SC W/MEALS& HS 30 Days Ref 3 Prov: 11/02/16 Insulin Glargine, Recombinan (Lantus Solostar 3ML) 40 UNITS SC DAILY 30 Days Prov: 01/18/17 Insulin Lispro (Humalog Kwikpen) 6 UNIT SQ AC 30 Days Prov: 01/18/17 WARFARIN SOD (Warfarin 5MG) 5 MG PO DAILY #30 TAB Prov: 01/28/17 Reported Medications ATORVASTATIN CALCIUM (ATORVASTATIN 20MG) 20 MG PO QHS Brimonidine Tartrate (Alphagan P 10 Ml) 1 DROP OP BID Esomeprazole Magnesium (Nexium 40MG Cap) 40 MG PO DAILY Ferrous Gluconate 324 MG PO DAILY Fluticasone Propionate (Flonase 50 Mcg Nasal [place]) 2 SPRAY NA BID Metoprolol Tartrate (Metoprolol 100MG) 100 MG PO BID Hydralazine Hcl 100 MG PO BID Montelukast Sodium (Singulair 10MG) 10 MG PO DAILY Febuxostat (Uloric) 80 MG PO QAM Lidocaine 1 EACH TP DAILY #90 PATCH ALBUTEROL-IPRATROPIUM (Iprat-Albut 0.5-3(2.5) MG/3 Ml) 3 ML IH DAILY ALBUTEROL-IPRATROPIUM (Iprat-Albut 0.5-3(2.5) MG/3 Ml) 3 ML IH Q4HP PRN SOB NYSTATIN (Nystatin Susp 100,000 Units/Ml 60ML) 5 ML PO QIDP PRN ANTIFUNGAL Acetaminophen (Pain Relief) 650 MG PO Q6HP PRN MILD PAIN CHOLECALCIFEROL (VITAMIN D3) (Vitamin D) 1 TAB PO DAILY NYSTATIN (Nystatin Topical Powder 30GM) 1 DAMARIS TP BID Calcitriol 0.25 MCG PO MoWeFr Metolazone 5 MG PO DAILY #30 TAB Levothyroxine Sodium (Levothyroxine) 100 MCG PO DAILY Furosemide (Furosemide 40MG) 40 MG PO DAILY STARCH (Anusol Supp) 1 SUP [place] BID Budesonide (Pulmicort) 0.5 MG IN BID Cyclobenzaprine Hcl (Cyclobenzaprine 10MG) 10 MG PO QHS Formoterol Fumarate (Perforomist) 20 MCG IH BID Gabapentin (Gabapentin 100MG) 200 MG PO BID Fluorometholone (FML) 1 DROP OP DAILY Bisacodyl (Dulcolax) 10 MG RC DAILYP PRN CONSTIPATION FOLIC ACID (Folic Acid) 1 MG PO DAILY Magnesium Hydroxide (Milk Of Magnesia U/D 30ML) 30 ML PO DAILYP PRN BOWELS Height (feet): 5 Height (inches): 5.00 Medical History: CAD? No Angina: No OR: No Hypertension? Yes Hyperlipidemia? Yes CHF? Yes DVT? No PE? Yes COPD? Yes Asthma? No Anemia? Yes GERD? Yes Gastric ulcers? No GI Bleed? No Hernia? No Thyroid Problems? Yes Hypothyroidism? Yes CVA? No Seizures? No Diabetes? Yes Insulin Dependent: Yes Insulin Pump: No Home FSBS? Yes Renal Insuffiency? Yes UTI? Yes Stones? No BPH? No GB Disease: Yes Nephritic Syndrome? No Asplenia? No Hepatitis? No Sickle Cell Disease? No Arthritis? Yes Migraines? No Cataracts? Yes Glaucoma? Yes MRSA? No HIV? No TB? No Anxiety? No Depression? No Cancer? No More? No Additional hx: 1. Polymyositis 2. Fibromyalgia 3. B12 Deficiency 4. Iron Deficiency Anemia 5. Stage III Kidney Disease Labs: Laboratory Tests 02/18/17 0656: Sodium 144, Potassium 3.9, Chloride 107, Carbon Dioxide 33 H, BUN 62 H, Creatinine 1.5 H, Estimated Creat Clear 49 L, Estimated GFR (MDRD) 33 L, Glucose 177 H, Calcium 8.9, PT 24.8 H, INR 2.28 H, WBC 10.8, RBC 3.02 L, Hgb 9.1 L, Hct 29.2 L, MCV 96.5, RDW 15.3, Plt Count 189, MPV 9.7, Gran % 83.6 H, Gran # 9.0 H, Lymphocytes % 8.2 L, Monocytes % 4.5, Eosinophils % 0.1, Basophils % 3.6 H, Lymphocytes # 0.9, Monocytes # 0.5, Eosinophils # 0.0, Basophils # 0.4 H, PUBS MCHC 31.3 L, MCH 30.2 02/18/17 0602: POC Glucose 163 H 02/17/17 2037: PT 25.7 H, INR 2.36 H 02/17/17 1148: POC Glucose 490 *H Problem List: 1. Pseudomonas (aeruginosa) (mallei) (pseudomallei) as the cause of diseases classified elsewhere Plan: BASED ON PATIENT FACTORS, RECOMMEND TOBRAMYCIN 380 MG (5 MG/KG/DBW) IV Q48H. WILL OBTAIN 4 AND 12-HOUR POST INFUSION LEVELS. PHARMACY WILL FOLLOW DAILY AND ADJUST APPROPRIATE. at 0937
[2017-02-19] VITALS (8 sets, daily range): BP systolic 113–185; BP diastolic 63–97
--- NOTE | 2017-02-19 08:43 | ACUTE CARE PROGRESS NOTE (QUA) ---
Progress Notes Subjective Date 02/19/17 Time 0843 Note She feels she rested better last night and is breathing better this morning. Her son notes that she seemed restless during the night and kept switching back and forth between her BiPAP and nasal cannula. He notes she seems "foggy" mentally at times. SHe has some cough that is productive at times. Denies pain Objective Findings Laboratory Tests 02/19/17 1127: POC Glucose 307 *H 02/19/17 0619: POC Glucose 264 H 02/19/17 0125: Sodium 143, Potassium 3.5, Chloride 106, Carbon Dioxide 30, BUN 65 H, Creatinine 1.6 H, Estimated Creat Clear 46 L, Estimated GFR (MDRD) 31 L, Glucose 153 H, Calcium 8.7, PT 20.9 H, INR 1.92 H, Random Tobramycin 5.3 02/18/17 2029: POC Glucose 259 H 02/18/17 1710: Random Tobramycin 8.7 02/18/17 1525: POC Glucose 304 *H Last VS-Temp:98.0 B/P:153/88 Pulse:69 Resp:18 SaO2:96 OXYGEN Last weight lbs:238 oz:8 K.182 Method:Bed Scales Exam General appearance: alert, no acute distress Cardiovascular: regular rate & rhythm Respiratory: clear anteriorly ABD: soft, no tenderness, obese Extremities: trace PTE Assessment/Plan Problem List 1. Mental status alteration 2. Chronic obstructive pulmonary disease with (acute) exacerbation Status: Acute 3. Urinary tract infection Status: Acute 4. Supratherapeutic INR Status: Acute 5. Pseudomonas (aeruginosa) (mallei) (pseudomallei) as the cause of diseases classified elsewhere 6. Hyperglycemia Status: Acute 7. Anemia Status: Chronic 8. Hypertension Status: Chronic 9. DM type 2 (diabetes mellitus, type 2) Status: Chronic 10. History of pulmonary embolism Status: Chronic 11. Stage 3 chronic kidney disease Status: Chronic 12. CHF (congestive heart failure) Status: Chronic 13. Physical debility Status: Chronic 14. HCAP (healthcare-associated pneumonia) Plan: Continue current antibiotic regimen pending sputum cultures. Begin weaning steroids. This inpt stay is expected to cross 2 MNs from start of care Yes at 1251
--- NOTE | 2017-02-19 08:51 | CONSULT NOTE ---
Pharmacokinetic Consult Date of consult: 02/19/17 Time of consult: 848 Referring provider: DR. MARTINEZ Reason for consult: TOBRAMYCIN LEVELS Allergies: Coded Allergies: Iodinated Contrast- Oral and IV Dye (IODINATED CONTRAST MEDIA - ORAL AND) (10/27) Penicillins (10/27/16) Sulfa (Sulfonamide Antibiotics) (10/27/16) ciprofloxacin (From CIPRO) (10/27/16) codeine (10/27/16) daptomycin (10/27/16) lactose (10/27/16) propoxyphene (10/27/16) Home Medications: Active Scripts Oxycodone 5MG/[id number] (Oxycodone-Acetaminophen 5-325) 1 EACH PO Q6H 30 Days Prov: 11/02/16 Insulin Lispro, Recombinant (Humalog 100 UNITS/ML 10ML) 0 UNITS SC W/MEALS& HS 30 Days Ref 3 Prov: 11/02/16 Insulin Glargine, Recombinan (Lantus Solostar 3ML) 40 UNITS SC DAILY 30 Days Prov: 01/18/17 Insulin Lispro (Humalog Kwikpen) 6 UNIT SQ AC 30 Days Prov: 01/18/17 WARFARIN SOD (Warfarin 5MG) 5 MG PO DAILY #30 TAB Prov: 01/28/17 Reported Medications ATORVASTATIN CALCIUM (ATORVASTATIN 20MG) 20 MG PO QHS Brimonidine Tartrate (Alphagan P 10 Ml) 1 DROP OP BID Esomeprazole Magnesium (Nexium 40MG Cap) 40 MG PO DAILY Ferrous Gluconate 324 MG PO DAILY Fluticasone Propionate (Flonase 50 Mcg Nasal [place]) 2 SPRAY NA BID Metoprolol Tartrate (Metoprolol 100MG) 100 MG PO BID Hydralazine Hcl 100 MG PO BID Montelukast Sodium (Singulair 10MG) 10 MG PO DAILY Febuxostat (Uloric) 80 MG PO QAM Lidocaine 1 EACH TP DAILY #90 PATCH ALBUTEROL-IPRATROPIUM (Iprat-Albut 0.5-3(2.5) MG/3 Ml) 3 ML IH DAILY ALBUTEROL-IPRATROPIUM (Iprat-Albut 0.5-3(2.5) MG/3 Ml) 3 ML IH Q4HP PRN SOB NYSTATIN (Nystatin Susp 100,000 Units/Ml 60ML) 5 ML PO QIDP PRN ANTIFUNGAL Acetaminophen (Pain Relief) 650 MG PO Q6HP PRN MILD PAIN CHOLECALCIFEROL (VITAMIN D3) (Vitamin D) 1 TAB PO DAILY NYSTATIN (Nystatin Topical Powder 30GM) 1 DAMARIS TP BID Calcitriol 0.25 MCG PO MoWeFr Metolazone 5 MG PO DAILY #30 TAB Levothyroxine Sodium (Levothyroxine) 100 MCG PO DAILY Furosemide (Furosemide 40MG) 40 MG PO DAILY STARCH (Anusol Supp) 1 SUP [place] BID Budesonide (Pulmicort) 0.5 MG IN BID Cyclobenzaprine Hcl (Cyclobenzaprine 10MG) 10 MG PO QHS Formoterol Fumarate (Perforomist) 20 MCG IH BID Gabapentin (Gabapentin 100MG) 200 MG PO BID Fluorometholone (FML) 1 DROP OP DAILY Bisacodyl (Dulcolax) 10 MG RC DAILYP PRN CONSTIPATION FOLIC ACID (Folic Acid) 1 MG PO DAILY Magnesium Hydroxide (Milk Of Magnesia U/D 30ML) 30 ML PO DAILYP PRN BOWELS Height (feet): 5 Height (inches): 5.00 Medical History: CAD? No Angina: No NC: No Hypertension? Yes Hyperlipidemia? Yes CHF? Yes DVT? No PE? Yes COPD? Yes Asthma? No Anemia? Yes GERD? Yes Gastric ulcers? No GI Bleed? No Hernia? No Thyroid Problems? Yes Hypothyroidism? Yes CVA? No Seizures? No Diabetes? Yes Insulin Dependent: Yes Insulin Pump: No Home FSBS? Yes Renal Insuffiency? Yes UTI? Yes Stones? No BPH? No GB Disease: Yes Nephritic Syndrome? No Asplenia? No Hepatitis? No Sickle Cell Disease? No Arthritis? Yes Migraines? No Cataracts? Yes Glaucoma? Yes MRSA? No HIV? No TB? No Anxiety? No Depression? No Cancer? No More? No Additional hx: 1. Polymyositis 2. Fibromyalgia 3. B12 Deficiency 4. Iron Deficiency Anemia 5. Stage III Kidney Disease Labs: Laboratory Tests 02/19/17 0619: POC Glucose 264 H 02/19/17 0125: Sodium 143, Potassium 3.5, Chloride 106, Carbon Dioxide 30, BUN 65 H, Creatinine 1.6 H, Estimated Creat Clear 46 L, Estimated GFR (MDRD) 31 L, Glucose 153 H, Calcium 8.7, PT 20.9 H, INR 1.92 H, Random Tobramycin 5.3 02/18/17 1710: Random Tobramycin 8.7 02/18/17 1525: POC Glucose 304 *H 02/18/17 1144: POC Glucose 288 H Problem List: 1. Pseudomonas (aeruginosa) (mallei) (pseudomallei) as the cause of diseases classified elsewhere 2. Urinary tract infection Acute Plan: 4 HOUR POST-INFUSION: 8.7 MCG/ML CALCULATED PEAK: 10.48 MCG/ML 12 HOUR POST-INFUSION: 5.3 MCG/ML CALCULATED TROUGH: 0.57 MCG/ML BASED ON TOBRAMYCIN LEVELS AND PATIENT FACTORS, RECOMMEND CONTINUING TOBRAMYCIN 380 MG IV Q48H. PHARMACY WILL CONTINUE TO MONITOR DAILY AND ADJUST APPROPRIATE. at 0851
--- NOTE | 2017-02-19 16:07 | SURGEON PROGRESS NOTE ---
See Addendum Subjective data Subjective data: ELMAX is a 81 F with multiple chronic medical problems, on IV antibiotics for pneumonia. Earlier today her IV came out and nursing has been unable to successfully place another. I was called to place a central line. My site of preference in this patient would be femoral to leave pristine subclavian/IJs for the groshong catheter tentatively scheduled for Tuesday. Also , bedside ultrasound is not available for an IJ line, and the subclavian is not a compressible vessel and would not be ideal in a coagulopathic patient. After discussion with nursing staff, femoral lines cannot stay in longer than 24 hours. The patient is taking PO. After discussion with her primary physician technology sales consultant, her IV antibiotics will be converted to PO/IM as neccessary until her INR is appropriate for groshong placement. This would be the better option for this patient. Please call if I can be of any further assistance.
--- NOTE | 2017-02-19 16:07 | SURGEON PROGRESS NOTE ---
See Addendum Subjective data Subjective data: ELMAX is a 81 F with multiple chronic medical problems, on IV antibiotics for pneumonia. Earlier today her IV came out and nursing has been unable to successfully place another. I was called to place a central line. My site of preference in this patient would be femoral to leave pristine subclavian/IJs for the groshong catheter tentatively scheduled for Tuesday. Also , bedside ultrasound is not available for an IJ line, and the subclavian is not a compressible vessel and would not be ideal in a coagulopathic patient. After discussion with nursing staff, femoral lines cannot stay in longer than 24 hours. The patient is taking PO. After discussion with her primary physician senior construction manager, her IV antibiotics will be converted to PO/IM as neccessary until her INR is appropriate for groshong placement. This would be the better option for this patient. Please call if I can be of any further assistance.
--- NOTE | 2017-02-19 16:24 | ACUTE CARE PROGRESS NOTE (QUA) ---
Progress note: - MAX GALLEGOS is a 81 F with multiple chronic medical problems, on IV antibiotics for pneumonia. Earlier today her IV came out and nursing has been unable to successfully place another. I was called to place a central line. My site of preference in this patient would be femoral to leave pristine subclavian/IJs for the groshong catheter tentatively scheduled for Tuesday. Also , bedside ultrasound is not available for an IJ line, and the subclavian is not a compressible vessel and would not be ideal in a coagulopathic patient. After discussion with nursing staff, femoral lines cannot stay in longer than 24 hours. The patient is taking PO. After discussion with her primary physician special education teachers, her IV antibiotics will be converted to PO/IM as neccessary until her INR is appropriate for groshong placement. This would be the better option for this patient. Please call if I can be of any further assistance. at [phone]
--- NOTE | 2017-02-19 16:24 | ACUTE CARE PROGRESS NOTE (QUA) ---
Progress note: - MAX GALLEGOS is a 81 F with multiple chronic medical problems, on IV antibiotics for pneumonia. Earlier today her IV came out and nursing has been unable to successfully place another. I was called to place a central line. My site of preference in this patient would be femoral to leave pristine subclavian/IJs for the groshong catheter tentatively scheduled for Tuesday. Also , bedside ultrasound is not available for an IJ line, and the subclavian is not a compressible vessel and would not be ideal in a coagulopathic patient. After discussion with nursing staff, femoral lines cannot stay in longer than 24 hours. The patient is taking PO. After discussion with her primary physician longwall headgate operator, her IV antibiotics will be converted to PO/IM as neccessary until her INR is appropriate for groshong placement. This would be the better option for this patient. Please call if I can be of any further assistance. at [phone]
[2017-02-20] VITALS (7 sets, daily range): BP systolic 158–188; BP diastolic 46–99
--- NOTE | 2017-02-20 08:19 | ACUTE CARE PROGRESS NOTE (QUA) ---
Progress Notes Subjective Date 02/20/17 Time 0818 Note She has been a bit more restless with some episodes of confusion. She has been wanting to get out of bed. She complains of low back pain. She denies shortness of breath. Cough seems to be less. She pulled out her IV yesterday and occupational health physiotherapist surgical coverage was unwilling to put in a central line because of her elevated INR therefore she has no IV access. Objective Findings Last VS-Temp:98.3 B/P:158/46 Pulse:64 Resp:24 SaO2:95 OXYGEN Last weight lbs:239 oz:2 K.465 Method:Bed Scales Exam General appearance: alert and oriented this AM. ENT: mucous membranes moist Cardiovascular: heart tone distant, regular Respiratory: clear anteriorly, diminished in bases ABD: non-distended, soft, no tenderness Extremities: trace PTE Assessment/Plan Problem List 1. Mental status alteration 2. Chronic obstructive pulmonary disease with (acute) exacerbation Status: Acute 3. Urinary tract infection Status: Acute 4. Supratherapeutic INR Status: Acute 5. Pseudomonas (aeruginosa) (mallei) (pseudomallei) as the cause of diseases classified elsewhere 6. Hyperglycemia Status: Acute 7. Anemia Status: Chronic 8. Hypertension Status: Chronic 9. DM type 2 (diabetes mellitus, type 2) Status: Chronic 10. History of pulmonary embolism Status: Chronic 11. Stage 3 chronic kidney disease Status: Chronic 12. CHF (congestive heart failure) Status: Chronic 13. Physical debility Status: Chronic 14. HCAP (healthcare-associated pneumonia) Plan: Will continue with IM and oral antibiotic coverage until Groshong can be placed tomorrow. Up in chair today as tolerated. This inpt stay is expected to cross 2 MNs from start of care Yes at 0875
[2017-02-21] VITALS (13 sets, daily range): BP systolic 119–196; BP diastolic 42–93
[2017-02-21 06:00] LABS: URINE BILIRUBIN - DIPSTICK NEGATIVE (NEG); URINE BLOOD 2+ (NEG)
[2017-02-21 06:32] LABS: HEMOGLOBIN 9.3 g/dL (12.2-16.2); LYMPH # 1.2 K/mm3 (0.7-4.5); LYMPH % 6.5 % (10-50.0)
--- NOTE | 2017-02-21 08:05 | SURGEON PROGRESS NOTE ---
Subjective data Subjective data: MAX GALLEGOS is a 81 F .Patient denies complaint of nausea and vomitting.She reports her last pain level as 0 on a 0-10 pain scale. Patient lost IV access over the weekend. Assessment findings Assessment Exam General appearance: normal appearance, alert Patient plan Plan: GROSHONG Additional data: Coagulation profile essentially normalized. Tentatively plan for Groshong today. at 0805
[2017-02-21 08:12] LABS: NEUTROPHILS 92 % (42-76)
--- NOTE | 2017-02-21 08:23 | ACUTE CARE PROGRESS NOTE (QUA) ---
Progress Notes Subjective Date 02/21/17 Time 0819 Note Patient states she is thirsty and hungry and tired of being sick. Currently NPO for IV catheter placement later this morning. Objective Findings Laboratory Tests 02/21/17 0613: Sodium 147 H, Potassium 4.1, Chloride 110 H, Carbon Dioxide 32, BUN 56 H, Creatinine 1.3 H, Estimated Creat Clear 57, Estimated GFR (MDRD) 39 L, Glucose 157 H, Calcium 8.8, Total Bilirubin 0.7, AST 28, ALT 27, Alkaline Phosphatase 71, Total Protein 6.2 L, Albumin 1.8 L, Globulin 4.4 H, Albumin/Globulin Ratio 0.4 L, PT 14.6 H, INR 1.35 H, WBC 18.5 H, RBC 3.13 L, Hgb 9.3 L, Hct 29.9 L, MCV 95.5, RDW 15.4, Plt Count 211, MPV 10.2, Gran % 85.4 H, Gran # 15.8 H, Total Counted 100, Lymphocytes % 6.5 L, Monocytes % 7.0, Eosinophils % 0.0 L, Basophils % 1.2, Neutrophils 92 H, Lymphocytes (Manual) 4 L, Lymphocytes # 1.2, Monocytes (Manual) 4, Monocytes # 1.3 H, Eosinophils # 0.0, Basophils # 0.2, Platelet Estimate NORMAL, PUBS MCHC 31.0 L, MCH 29.6 02/21/17 0612: POC Glucose 147 H 02/21/17 0500: Urine Color YELLOW, Urine Appearance CLEAR, Urine pH 6.0, Ur Specific [place] 1.020, Urine Protein 2+ H, Urine Ketones NEGATIVE, Urine Blood 2+ H, Urine Nitrate NEGATIVE, Urine Bilirubin NEGATIVE, Urine Urobilinogen 0.2, Ur Leukocyte Esterase 1+ H, Urine RBC 10-20, Urine WBC 20-50, Urine Renal Cells 5-10, Amorphous Sediment 2+, Urine Glucose NEGATIVE 02/20/17 2045: POC Glucose 168 H 02/20/17 1636: POC Glucose 287 H 02/20/17 1136: POC Glucose 313 *H Microbiology 02/21 0611 SPUTUM: Sputum Culture - ORD 02/21 611 SPUTUM: Gram Stain - ORD 02/21 0500 URINE CATH: Urine Culture - RECD Vital Signs Date Time Temp Pulse Resp B/P Pulse O2 O2 Flow FiO2 Ox Delivery Rate 02/21 0738 98.4 68 20 170/58 94 OXYGEN 02/21 0645 2 02/21 0600 2 02/21 0600 93 ROOM AIR 2 02/21 0548 2 02/21 0506 2 02/21 0418 2 02/21 0418 98.1 59 20 180/56 97 OXYGEN 2 02/21 0309 2 02/21 0300 91 ROOM AIR 02/21 0152 2 02/21 0125 2 02/20 2356 2 02/20 2356 98.0 67 24 176/78 99 OXYGEN 2 02/20 2325 2 02/20 2149 2 02/20 2134 22 02/20 2050 98.0 63 22 188/70 100 2 02/20 2046 2 02/20 1948 2 02/20 194 98.0 63 22 188/70 100 OXYGEN 2 02/20 1850 2 02/20 1642 2 02/20 1615 97.8 62 24 169/99 100 OXYGEN 02/20 1500 2 02/20 1400 98 OXYGEN 2 02/20 1300 2 02/20 1153 97.9 57 22 163/59 100 OXYGEN 02/20 1115 2 02/20 1029 96 OXYGEN 2 02/20 0900 2.5 I&O Past 24 Hrs-ending at 0700 02/21 0700 Intake Total Output Total 975 Balance -975 Last VS-Temp:98.4 B/P:170/58 Pulse:68 Resp:20 SaO2:94 OXYGEN Last weight lbs:237 oz:4 K.615 Method:Bed Scales Exam General appearance: alert, no acute distress Cardiovascular: regular rate & rhythm Respiratory: clear to auscultation (anteriorly), diminished breath sounds ( bases) Extremities: edema (bilateral lower) Assessment/Plan Problem List 1. Mental status alteration 2. Chronic obstructive pulmonary disease with (acute) exacerbation Status: Acute 3. Urinary tract infection Status: Acute 4. Supratherapeutic INR Status: Acute 5. Pseudomonas (aeruginosa) (mallei) (pseudomallei) as the cause of diseases classified elsewhere 6. Hyperglycemia Status: Acute 7. Anemia Status: Chronic 8. Hypertension Status: Chronic 9. DM type 2 (diabetes mellitus, type 2) Status: Chronic 10. History of pulmonary embolism Status: Chronic 11. Stage 3 chronic kidney disease Status: Chronic 12. CHF (congestive heart failure) Status: Chronic 13. Physical debility Status: Chronic 14. HCAP (healthcare-associated pneumonia) This inpt stay is expected to cross 2 MNs from start of care Yes Comments: For IV catheter placement today, WBC count is higher, plan to recheck tomorrow. at 0822
--- NOTE | 2017-02-21 12:39 | Operative Note ---
Surgeon/Diagnoses Surgeon/Chief Creative Officer(s) Date of procedure: 02/21/17 Surgeon: Dennys Cannon Diagnoses Pre-op diagnosis: Need for some permanent intravenous access Post-op diagnosis Same Procedure Procedure Procedure: Placement of tunneled LEFT subclavian central venous catheter (8 Welsh closed- end Groshong) with fluoroscopic guidance Indications: MAX GALLEGOS is a 81 year-old Female with a history of numerous medical comorbidities. She has required relatively long-standing intravenous antibiotics and she's had poor venous access. Surgical consultation was placed for tunneled venous catheter. Of note, PICC line placement was unsuccessful. Findings: Generous soft tissue Procedure Description: Consent was obtained and patient taken the operating room. She was placed in supine position. Gen. anesthesia was induced via LMA. LEFT upper chest was prepped and draped in standard surgical fashion. She was positioned in Trendelenburg position. Local anesthetic was infiltrated inferior to the LEFT clavicle. Needle was inserted manipulating the catheter below the clavicle. There was good return of venous flow. Needle placement was somewhat tenuous and threading of the wire was unsuccessful initially. With some repeated manipulation of the needle there was good return of venous blood and ultimately guidewire was able to be advanced. It was observed to be in an appropriate position under fluoroscopy. Small incision was made the insertion site and subcutaneous tissues were dilated with the dilator and breakaway sheath. Guidewire and dilator were removed. 8 Welsh closed-end Groshong catheter was inserted through the breakaway sheath which was then removed. Under fluoroscopy it was positioned so that the tip was near the atrial caval junction. Local anesthetic was infiltrated. Catheter was tunneled subcutaneously for several centimeters. Once again fluoroscopy was used to confirm good positioning. Catheter was secured to the skin at its exit site with the butterfly device using 3-0 nylon sutures. Catheter was cut to the appropriate length and infusion apparatus was attached. The catheter flushed and aspirated without difficulty with saline. It was then flushed with heparinized saline. LEFT subclavian incision was closed with a single 4-0 Monocryl suture. Clean dry sterile dressings were applied. EBL (ml): 20 Anesthesia: Gen. via LMA Implants: 8 Welsh closed-end Groshong catheter Disposition Disposition: To PACU at 1239
--- NOTE | 2017-02-21 12:43 | Anesthesia Record ---
Anesthesia Record Part I Total IV fluids: 200 EBL (ml): 10 Urine Output: 20 B/P: 167/90 % SaO2: 99 Pulse: 68 Resps: 16 Temp: 98.0 Patient is: Nasal O2, Stable Stable to PACU at: 1240 at 1243
--- NOTE | 2017-02-21 12:44 | Anesthesia Record ---
Anesthesia Record Part II Discharge time: 1310 Destination: Second Floor PACU nurse assessment review? Yes Patient is: Stable Anesthesia complications? No at 1245
--- NOTE | 2017-02-21 15:36 | RADIOLOGY REPORT PS360 ---
CHEST-PORTABLE HISTORY: GROSHONG PLACEMENT ORDERING PHYSICIAN: Manuel Valencia MD PATIENT AGE: 81 years COMPARISON: 02/18/2017 FINDINGS: Left-sided Groshong catheter has been placed a left subclavian approach with the tip in good position in the region of the superior vena cava. There is cardiomegaly without failure. Left lower lobe consolidation and right mid and lower lung consolidation once again noted slightly improved. No evidence of pneumothorax. IMPRESSION: 1. Groshong tip in good position. 2. Bilateral pneumonia slightly improved
--- NOTE | 2017-02-21 15:36 | RADIOLOGY REPORT PS360 ---
FLUORO GUIDE FOR CV ACCESS HISTORY: GROSHONG - LEFT SIDE ORDERING PHYSICIAN: Manuel Valencia MD PATIENT AGE: 81 years COMPARISON: None FINDINGS: 4 images submitted the C-arm during Groshong placement available for position review. Fluoroscopy time 28 seconds IMPRESSION: Status post Groshong placement
[2017-02-22] VITALS (8 sets, daily range): BP systolic 103–182; BP diastolic 55–93
[2017-02-22 06:55] LABS: HEMOGLOBIN 8.9 g/dL (12.2-16.2); LYMPH # 1.5 K/mm3 (0.7-4.5); LYMPH % 8.2 % (10-50.0)
--- NOTE | 2017-02-22 08:42 | ACUTE CARE PROGRESS NOTE (QUA) ---
Progress Notes Subjective Date 02/22/17 Time 0839 Note Patient feels better today, she had IV catheter placed in left upper chest yesterday. Objective Findings Laboratory Tests 02/22/17 0632: Sodium 144, Potassium 4.0, Chloride 109 H, Carbon Dioxide 30, BUN 47 H, Creatinine 1.2 H, Estimated Creat Clear 61, Estimated GFR (MDRD) 43 L, Glucose 243 H, Calcium 8.8, WBC 17.7 H, RBC 2.90 L, Hgb 8.9 L, Hct 27.8 L, MCV 95.7 , RDW 15.4, Plt Count 206, MPV 10.9 H, Gran % 80.1 H, Gran # 14.2 H, Lymphocytes % 8.2 L, Monocytes % 10.2 H, Eosinophils % 0.1, Basophils % 1.3, Lymphocytes # 1.5, Monocytes # 1.8 H, Eosinophils # 0.0, Basophils # 0.2, PUBS MCHC 31.9, MCH 30.5 02/21/17 2100: POC Glucose 291 H 02/21/17 1715: POC Glucose 296 H 02/21/17 1349: POC Glucose 238 H 02/21/17 1252: POC Glucose 201 H Vital Signs Date Time Temp Pulse Resp B/P Pulse O2 O2 Flow FiO2 Ox Delivery Rate 02/22 0639 2 02/22 0630 2 02/22 0603 2 02/22 0603 96 OXYGEN 2 02/22 0520 2 02/22 0430 2 02/22 0430 98.3 62 22 103/59 99 OXYGEN 2 02/22 0311 2 02/22 0203 2 02/22 0126 2 02/22 0111 2 02/22 0011 2 02/22 0011 97.9 68 20 147/93 94 OXYGEN 2 02/21 2222 2 02/21 2123 20 02/21 2100 2 02/21 2014 2 02/21 2014 97.7 73 20 119/83 97 OXYGEN 2 02/21 2010 97.9 68 20 147/93 94 2 02/21 1900 2 02/21 1700 2 02/21 1553 98.0 02/21 1512 2 02/21 1455 68 20 170/58 94 02/21 1310 98.2 64 18 177/76 99 OXYGEN 02/21 1300 69 18 176/75 98 OXYGEN 02/21 1250 71 18 121/76 99 OXYGEN 02/21 1243 98.0 16 167/90 99 02/21 1240 98.0 68 16 167/90 99 OXYGEN 02/21 1100 2 02/21 1055 94 OXYGEN 2 02/21 0900 2 I&O Past 24 Hrs-ending at 0700 02/22 0700 Intake Total 385 Output Total 2200 Balance -1815 Last VS-Temp:98.3 B/P:103/59 Pulse:62 Resp:22 SaO2:96 OXYGEN Last weight lbs:238 oz:0 K.955 Method:Bed Scales Exam General appearance: alert, awake, no acute distress Cardiovascular: regular rate & rhythm Respiratory: clear to auscultation (anteriorly) Extremities: edema (bilateral lower) Assessment/Plan Problem List 1. Mental status alteration 2. Chronic obstructive pulmonary disease with (acute) exacerbation Status: Acute 3. Urinary tract infection Status: Acute 4. Supratherapeutic INR Status: Acute 5. Pseudomonas (aeruginosa) (mallei) (pseudomallei) as the cause of diseases classified elsewhere 6. Hyperglycemia Status: Acute 7. Anemia Status: Chronic 8. Hypertension Status: Chronic 9. DM type 2 (diabetes mellitus, type 2) Status: Chronic 10. History of pulmonary embolism Status: Chronic 11. Stage 3 chronic kidney disease Status: Chronic 12. CHF (congestive heart failure) Status: Chronic 13. Physical debility Status: Chronic 14. HCAP (healthcare-associated pneumonia) This inpt stay is expected to cross 2 MNs from start of care Yes Comments: Improving, WBC count lower today, remove benavides today, OOB to chair. at 0841
[2017-02-22 13:23] LABS: NEUTROPHILS 86 % (42-76)
[2017-02-23] VITALS (8 sets, daily range): BP systolic 130–181; BP diastolic 70–107
--- NOTE | 2017-02-23 08:14 | ACUTE CARE PROGRESS NOTE (QUA) ---
Progress Notes Subjective Date 02/23/17 Time 0807 Note Thinks she is doing well; did not have a very good day yesterday; did not eat well and is snxious to eat today; breathing is better; she denies CP; bowels are moving and she is voiding without problems since benavides removed Objective Findings Laboratory Tests 02/22/172021: POC Glucose 151 H 02/22/17 1929: POC Glucose 171 H 02/22/17 1630: POC Glucose 194 H 02/22/17 1115: POC Glucose 294 H Vital Signs Date Time Temp Pulse Resp B/P Pulse O2 O2 Flow FiO2 Ox Delivery Rate 02/23 0640 2 02/23 0559 2 02/23 0550 2 02/23 0550 91 OXYGEN 2 02/23 0500 2 02/23 0416 2 02/23 0416 98.3 66 22 152/98 91 OXYGEN 2 02/23 0315 2 02/23 0313 91 ROOM AIR 02/23 0157 2 02/23 0100 2 02/22 2354 2 02/22 2354 98.3 67 20 139/80 100 OXYGEN 2 02/22 2300 2 02/22 2230 2 02/22 2146 2 02/22 2100 2 02/22 2014 98.3 69 20 182/87 99 2 02/22 1937 2 02/22 193 98.3 69 20 182/87 99 OXYGEN 2 02/22 1857 2 02/22 1700 2 02/22 1550 98.5 74 22 172/81 95 OXYGEN 02/22 1524 2 02/22 1500 2 02/22 1325 2 02/22 1324 98 OXYGEN 2 02/22 1230 97.6 71 24 149/71 99 OXYGEN 02/22 1100 2 02/22 0900 2 02/22 0844 98.4 65 22 169/55 98 2 02/22 0830 98.4 65 22 169/55 98 OXYGEN Current Medications Insulin Human [rDNA origin] 0 .STK-MED ONE SC (DC) Cefepime HCl 1 GM Q12 IV Sodium Chloride 50 ML Insulin Human [rDNA origin] 0 .STK-MED ONE SC (DC) Azithromycin 500 MG DAILY PO Prednisone 40 MG BID PO Hydralazine HCl 50 MG BID PO Albuterol 2.5 MG QIDRT INH Tramadol HCl 50 MG Q6HP PRN PO Patient Own Medication 1 UNIT BID IH Albuterol 2.5 MG Q4HP PRN INH Metoprolol Tartrate 100 MG BID PO Potassium Chloride/Sodium Chloride 1,000 ML .Q25H IV Insulin Glargine 30 UNITS DAILY SC Potassium Chloride 20 MEQ DAILY PO Fluorometholone 1 DROP DAILY OP Folic Acid 1 MG DAILY PO Levothyroxine Sodium 0.1 MG DAILY PO Atorvastatin Calcium 20 MG QHS PO Brimonidine Tartrate 1 DROP BID OP Pantoprazole Sodium 40 MG QHS PO Sodium Chloride 10 ML PRN PRN IV Acetaminophen 650 MG Q4HP PRN HI Diagnostic Test (Pha) 1 EACH W/MEALS&HS FS Insulin Human [rDNA origin] SEE ADMIN CRITERIA FOR LOW INTENSITY SS W/MEALS&HS SC Acetaminophen 650 MG Q4HP PRN PO Ondansetron HCl 4 MG Q6HP PRN IV 02/22 1500 02/22 2300 02/23 0700 Intake Total 240 120 694 Output Total 100 Balance 140 120 694 Intake, IV 694 Intake, Oral 240 120 Output, Stool Output, Urine 100 Patient 238 lb 236 lb Weight Last VS-Temp:98.3 B/P:152/98 Pulse:66 Resp:22 SaO2:91 OXYGEN Last weight lbs:236 oz:4 K.161 Method:Bed Scales Exam General appearance: alert, no acute distress, conversant Cardiovascular: regular rate & rhythm, Goshong cath in place Respiratory: clear to auscultation (bilaterally; anteriorly) ABD: soft, no tenderness, no guarding, bowel sounds present Extremities: left leg with trace of edema; dressings on leg C/D Neuro: alert, oriented Assessment/Plan Problem List 1. Mental status alteration 2. Chronic obstructive pulmonary disease with (acute) exacerbation Status: Acute 3. Urinary tract infection Status: Acute 4. Supratherapeutic INR Status: Acute 5. Pseudomonas (aeruginosa) (mallei) (pseudomallei) as the cause of diseases classified elsewhere 6. Hyperglycemia Status: Acute 7. Anemia Status: Chronic 8. Hypertension Status: Chronic 9. DM type 2 (diabetes mellitus, type 2) Status: Chronic 10. History of pulmonary embolism Status: Chronic 11. Stage 3 chronic kidney disease Status: Chronic 12. CHF (congestive heart failure) Status: Chronic 13. Physical debility Status: Chronic 14. HCAP (healthcare-associated pneumonia) Patient condition Improving Plan: continue current care, needs to be OOB This inpt stay is expected to cross 2 MNs from start of care Yes (Lidia Enriquez APRN) Assessment/Plan Problem List 1. Mental status alteration 2. Chronic obstructive pulmonary disease with (acute) exacerbation Status: Acute 3. Urinary tract infection Status: Acute 4. Supratherapeutic INR Status: Acute 5. Pseudomonas (aeruginosa) (mallei) (pseudomallei) as the cause of diseases classified elsewhere 6. Hyperglycemia Status: Acute 7. Anemia Status: Chronic 8. Hypertension Status: Chronic 9. DM type 2 (diabetes mellitus, type 2) Status: Chronic 10. History of pulmonary embolism Status: Chronic 11. Stage 3 chronic kidney disease Status: Chronic 12. CHF (congestive heart failure) Status: Chronic 13. Physical debility Status: Chronic 14. HCAP (healthcare-associated pneumonia) Comments: Patient seen and agree with above note. (Manuel Valencia MD) at 0814 at [phone]
[2017-02-24 00:01] VITALS: BP 134/68
[2017-02-24 04:19] VITALS: BP 130/56
[2017-02-24 07:26] LABS: HEMOGLOBIN 9.2 g/dL (12.2-16.2); LYMPH # 1.3 K/mm3 (0.7-4.5); LYMPH % 8.1 % (10-50.0)
[2017-02-24 08:00] VITALS: BP 168/73
--- NOTE | 2017-02-24 08:05 | ACUTE CARE PROGRESS NOTE (QUA) ---
Progress Notes Subjective Date 02/24/17 Time 0803 Note Pt states she slept off and on. She is hungry this am. She says her back hurts. According to her nurse, she did not get up with PT but she did do exercises in the bed. Objective Findings Last VS-Temp:98.4 B/P:130/56 Pulse:70 Resp:20 SaO2:98 OXYGEN Last weight lbs:238 oz:8 K.182 Method:Bed Scales Laboratory Tests 02/24/17 0652: Sodium 143, Potassium 4.5, Chloride 109 H, Carbon Dioxide 28, BUN 45 H, Creatinine 1.3 H, Estimated Creat Clear 57, Estimated GFR (MDRD) 39 L, Glucose 273 H, Calcium 8.8, Total Bilirubin 0.7, AST 30, ALT 23, Alkaline Phosphatase 78, Total Protein 6.2 L, Albumin 2.0 L, Globulin 4.2 H, Albumin/Globulin Ratio 0.5 L, WBC 16.1 H, RBC 2.98 L, Hgb 9.2 L, Hct 28.7 L, MCV 96.2, RDW 15.5, Plt Count 195, MPV 10.0, Gran % 85.6 H, Gran # 13.8 H, Lymphocytes % 8.1 L, Monocytes % 5.8, Eosinophils % 0.2, Basophils % 0.3, Lymphocytes # 1.3, Monocytes # 0.9, Eosinophils # 0.0, Basophils # 0.0, PUBS MCHC 32.2, MCH 30.9 02/24/17 0630: POC Glucose 269 H 02/23/17 2132: POC Glucose 175 H 02/23/17 1153: POC Glucose 301 *H Exam General appearance: alert, awake, no acute distress Cardiovascular: regular rate & rhythm Respiratory: clear to auscultation ABD: non-distended, normal bowel sounds, no rebound, soft, no tenderness, no guarding Extremities: 1+ pretibial edema bilaterally Assessment/Plan Problem List 1. Mental status alteration 2. Chronic obstructive pulmonary disease with (acute) exacerbation Status: Acute 3. Urinary tract infection Status: Acute 4. Supratherapeutic INR Status: Acute 5. Pseudomonas (aeruginosa) (mallei) (pseudomallei) as the cause of diseases classified elsewhere 6. Hyperglycemia Status: Acute 7. Anemia Status: Chronic 8. Hypertension Status: Chronic 9. DM type 2 (diabetes mellitus, type 2) Status: Chronic 10. History of pulmonary embolism Status: Chronic 11. Stage 3 chronic kidney disease Status: Chronic 12. CHF (congestive heart failure) Status: Chronic 13. Physical debility Status: Chronic 14. HCAP (healthcare-associated pneumonia) Plan: Will discuss disposition with Dr. Valencia. Possible discharge back to [place] today. This inpt stay is expected to cross 2 MNs from start of care Yes (Alba Shahid) Assessment/Plan Problem List 1. Mental status alteration 2. Chronic obstructive pulmonary disease with (acute) exacerbation Status: Acute 3. Urinary tract infection Status: Acute 4. Supratherapeutic INR Status: Acute 5. Pseudomonas (aeruginosa) (mallei) (pseudomallei) as the cause of diseases classified elsewhere 6. Hyperglycemia Status: Acute 7. Anemia Status: Chronic 8. Hypertension Status: Chronic 9. DM type 2 (diabetes mellitus, type 2) Status: Chronic 10. History of pulmonary embolism Status: Chronic 11. Stage 3 chronic kidney disease Status: Chronic 12. CHF (congestive heart failure) Status: Chronic 13. Physical debility Status: Chronic 14. HCAP (healthcare-associated pneumonia) This inpt stay is expected to cross 2 MNs from start of care Yes Comments: Patient seen and agree with above note, plan discharge to [place] today, will not resume Coumadin at this time will treat patient with Aspirin due to her risk of bleeding and drug interaction. (Manuel Valencia MD) at 0805 at 0854
--- NOTE | 2017-02-24 08:45 | DISCHARGE SUMMARY STANDARD ---
Discharge Summary ([facility]2) Date of admission: 02/12/17 Date of discharge: 02/24/17 Problem List: 1. Mental status alteration 2. Chronic obstructive pulmonary disease with (acute) exacerbation 3. Urinary tract infection 4. Supratherapeutic INR 5. Pseudomonas (aeruginosa) (mallei) (pseudomallei) as the cause of diseases classified elsewhere 6. Hyperglycemia 7. Anemia 8. Hypertension 9. DM type 2 (diabetes mellitus, type 2) 10. History of pulmonary embolism 11. Stage 3 chronic kidney disease 12. CHF (congestive heart failure) 13. Physical debility 14. HCAP (healthcare-associated pneumonia) History of present illness: Ms. Savage is an 81-year-old shelter patient who was admitted through the emergency room. The shelter was concerned about altered mental status. She had a similar admission on January 22, 2017. She has chronic obstructive pulmonary disease, congestive heart failure, and renal insufficiency. Her hemoglobin was found to be 7.4 on admission. She was receiving blood transfusions. Unfortunately her hemoglobin on the morning of February 13 was 6.8. Her white blood cell count was elevated also at 12.3 on admission. On the morning of 03/15 it was 16.5. Her creatinine on admission was 2.6 and her BUN was 79. Her potassium was initially elevated at 5.2, but on the morning of February 13 it was 4.1. Her chest x-ray showed congestive heart failure and suggested bilateral pneumonia. She was admitted for further evaluation and treatment. Exam on admission: General appearance: she appears lethargic. She will respond to tactile stimuli and to verbal stimuli. She is not coherent in her responses. Eyes: anicteric, PERRLA ENT: mucous membranes moist, some bleeding in the mouth apparently from the tongue Neck: no JVD Cardiovascular: regular rate & rhythm (distant sounds) Respiratory: aerating well, no respiratory distress (99 percent saturation with stephanie) ABD: soft, no tenderness, no organomegaly, obese Genitourinary: catheter in place Extremities: edema Musculoskeletal: equal muscle strength (seemingly) Skin: dry, intact, normal color Neuro: lethargic and responds but not cogent. Hospital Course: Dr. Cannon was consulted d/t her anemia. He did not feel any surgical intervention was warrented. The patient's mental status did improve. There was a night during admission when she did not wear CPap and her children were concerned. This was discussed with the nurses and she wore the CPAP the rest of her stay. She was found to have a UTI. There was planning for a Groshong catheter to be placed, however the patient's INR was elevated. Dr. Cannon wanted her INR to be 1.8 for catheter placement. She was given some vitamin K to lower her INR. On 02/18/17, the patient began getting more short of air. She was coughing and wheezing. Neb treatments were scheduled and she was started back on her Perforomist from home. A stat chest x-ray was ordered and she was given a dose of Lasix. Chest x-ray showed bilateral pneumonia. It had improved in the lung bases but was worse in the RIGHT upper lobe. She was continued on abx. By 02/19/17, the patient was breathing much better. She was restless all night. Her steroids were weaned. On 02/20/17 she had some episodes of confusion. She complained of low back pain. She had pulled out her IV the previous day and the on-call surgeon was unwilling to put in a central line due to her elevated INR. She was started on IM and oral antibiotics until Groshong catheter could be placed. Her INR was satisfactory to place the Groshong catheter on 02/21/17. Patient began improving and her white blood cell count decreased. Her Salazar was removed. Therapy came to see the patient and she did not want to get out of the bed. Exercises were done in the bed. The patient was never able to provide a sputum for culture. Her urine culture did grow pseudomonas aeruginosa which was sensitive to cefepime. Blood cultures were negative. The patient was stable to be discharged back to [facility] on 02/24/17. She will need physical therapy and continued IV antibiotics. She is going to be discharged on aspirin rather than coumadin d/t her hx of bleeding and anemia. Discharge medications: Stop taking the following medications: Hydralazine Hcl (Hydralazine Hcl) 100 MG TABLET ORAL TWICE A DAY WARFARIN SOD (Warfarin 5MG) 5 MG TABLET ORAL DAILY Qty = 30 Continue taking these medications: ATORVASTATIN CALCIUM (ATORVASTATIN 20MG) 20 MG TABLET 20 MILLIGRAM ORAL AT BEDTIME NIGHTLY Brimonidine Tartrate (Alphagan P 10 Ml) 5 ML DROPS 1 DROP OPHTHALMIC TWICE A DAY Instructions: LEFT EYE Budesonide (Pulmicort) 0.5 MG/2 ML AMPUL.NEB 0.5 MILLIGRAM IN VITRO TWICE A DAY Calcitriol (Calcitriol) 0.25 MCG CAPSULE 0.25 MICROGRAM ORAL MoWeFr Cyclobenzaprine Hcl (Cyclobenzaprine 10MG) 10 MG TABLET 10 MILLIGRAM ORAL AT BEDTIME NIGHTLY Esomeprazole Magnesium (Nexium 40MG Cap) 40 MG CAP 40 MILLIGRAM ORAL DAILY Ferrous Gluconate (Ferrous Gluconate) 324 MG TABLET 324 MILLIGRAM ORAL DAILY Fluticasone Propionate (Flonase 50 Mcg Nasal Harrison) 16 GM SPRAY.SUSP 2 SPRAY Nasal TWICE A DAY Formoterol Fumarate (Perforomist) 20 MCG/2 ML VIAL.NEB 20 MICROGRAM INHALATION TWICE A DAY Gabapentin (Gabapentin 100MG) 100 MG CAPSULE 200 MILLIGRAM ORAL TWICE A DAY Fluorometholone (FML) 5 ML DROPS.SUSP 1 DROP OPHTHALMIC DAILY Levothyroxine Sodium (Levothyroxine) 50 MCG TABLET 100 MICROGRAM ORAL DAILY Metoprolol Tartrate (Metoprolol 100MG) 100 MG TABLET 100 MILLIGRAM ORAL TWICE A DAY Montelukast Sodium (Singulair 10MG) 10 MG TABLET 10 MILLIGRAM ORAL DAILY Febuxostat (Uloric) 80 MG TABLET 80 MILLIGRAM ORAL EVERY MORNING Metolazone (Metolazone) 2.5 MG TABLET 5 MILLIGRAM ORAL DAILY Qty = 30 Comments: TAKE 30 TO 40 MINUTES BEFORE THE AM FUROSEMIDE - Lidocaine (Lidocaine) 1 EACH ADH..PATCH 1 EACH TOPICAL DAILY Qty = 90 Instructions: ON 12 HOURS, OFF 12 HOURS ALBUTEROL-IPRATROPIUM (Iprat-Albut 0.5-3(2.5) MG/3 Ml) 3 ML AMPUL.NEB 3 MILLILITER INHALATION DAILY ALBUTEROL-IPRATROPIUM (Iprat-Albut 0.5-3(2.5) MG/3 Ml) 3 ML AMPUL.NEB 3 MILLILITER INHALATION EVERY 4 HOURS NEEDED as needed for SOB NYSTATIN (Nystatin Susp 100,000 Units/Ml 60ML) 100,000 UNIT/1 ML ORAL.SUSP 5 MILLILITER ORAL FOUR TIMES A DAY NEEDED as needed for ANTIFUNGAL Acetaminophen (Pain Relief) 325 MG TABLET 650 MILLIGRAM ORAL EVERY 6 HOURS NEEDED as needed for MILD PAIN CHOLECALCIFEROL (VITAMIN D3) (Vitamin D) 1,000 UNIT TABLET 1 TABLET ORAL DAILY Insulin Lispro, Recombinant (Humalog 100 UNITS/ML 10ML) 100 UNIT/ML VIAL 0 UNITS Subcutaneous Injection WITH MEALS & AT BEDTIME Days = 30 Instructions: SEE ADMIN CRITERIA FOR HI INTENSITY SS Bisacodyl (Dulcolax) 10 MG SUPP.RECT 10 MILLIGRAM RECTAL DAILY NEEDED as needed for CONSTIPATION FOLIC ACID (Folic Acid) 1 MG TABLET 1 MILLIGRAM ORAL DAILY Magnesium Hydroxide (Milk Of Magnesia U/D 30ML) 400 MG/5 ML ORAL.SUSP 30 MILLILITER ORAL DAILY NEEDED as needed for BOWELS NYSTATIN (Nystatin Topical Powder 30GM) 30 GM POWDER 1 APPLICATION TOPICAL TWICE A DAY Furosemide (Furosemide 40MG) 40 MG TABLET 40 MILLIGRAM ORAL DAILY Insulin Glargine, Recombinan (Lantus Solostar 3ML) 100 UNIT/1 ML INSULN.PEN 40 UNITS Subcutaneous Injection DAILY Days = 30 Insulin Lispro (Humalog Kwikpen) 100 UNIT/1 ML INSULN.PEN 6 UNIT SUB-Q BEFORE MEALS Days = 30 Instructions: Please use this in combination with the sliding scale STARCH (Anusol Supp) 1 SUP SUP 1 SUPPOSITORIES PER RECTUM TWICE A DAY Oxycodone 5MG/[id number] (Oxycodone-Acetaminophen 5-325) 5 MG/325 MG TAB 1 EACH ORAL EVERY 6 HOURS Days = 30 This prescription has been renewed Start taking the following new medications: Hydralazine Hcl (Hydralazine 25MG Tab) 25 MG TABLET 50 MILLIGRAM ORAL TWICE A DAY Qty = 60 Refills = 5 TRAMADOL HCL (Tramadol) 50 MG TABLET 50 MILLIGRAM ORAL EVERY 6 HOURS NEEDED as needed for MODERATE PAIN Qty = 60 Refills = 1 CEFEPIME HCL/D5W (Cefepime-Dextrose 1 Gm/50 Ml) 1 GM/50 ML PIGGYBACK 1 GRAM INTRAVEN TWICE A DAY Days = 7 No Refills Azithromycin (Zithromax) 500 MG TABLET 500 MILLIGRAM ORAL DAILY Qty = 7 No Refills Aspirin (Aspirin EC) 81 MG TABLET.DR 81 MILLIGRAM ORAL DAILY Qty = 30 Refills = 5 Disposition: F/U with: Lidia Enriquez APRN Follow up: 7 DAYS Activity: Cont Current activity Diet: Continue same diet Discharge to: SKILLED NURSING Specify Nsg Home: [facility] at [address]
[2017-02-24] MEDS ORDERED: PERCOCET 5/3251 EACH PO (09:04)
[2017-02-24] MEDS ORDERED: TRAMADOL 50MG T50 M1 PO (09:06)
[2017-02-24] MEDS ORDERED: HYDRALAZINE HCL25 M1 PO (09:06)
[2017-02-24] MEDS ORDERED: CEFEPIME1 G1 IV (09:08)
[2017-02-24] MEDS ORDERED: Zithromax500 MG PO (09:09)
[2017-02-24] MEDS ORDERED: ASPIRIN LOW STR81 MG PO (09:11)
[2017-02-24 09:19] VITALS: BP 168/73
[2017-02-24 09:36] LABS: NEUTROPHILS 82 % (42-76)
[2017-02-24 11:41] VITALS: BP 168/73
== END 2017-02-24 11:30 | DRG 190 ==
LOC: ER 19:27 → 2ND 22:54
PROVIDERS: Emergency Medicine; Family Medicine; Surgery
PROC: 0JH63XZ Insertion of Tunneled Vascular Access Device into Chest Subcutaneous Tissue and Fascia, Percutaneous Approach (ICD-10-PCS; principal; 2017-02-21 11:30)
DX: J44.0 Chronic obstructive pulmonary disease with (acute) lower respiratory infection (principal); J18.9 Pneumonia, unspecified organism; I50.9 Heart failure, unspecified; E11.22 Type 2 diabetes mellitus with diabetic chronic kidney disease; J44.9 Chronic obstructive pulmonary disease, unspecified; N18.3 Chronic kidney disease, stage 3 (moderate); N39.0 Urinary tract infection, site not specified; J44.1 Chronic obstructive pulmonary disease with (acute) exacerbation; Y95 Nosocomial condition; Z86.711 Personal history of pulmonary embolism; Z79.01 Long term (current) use of anticoagulants; I12.9 Hypertensive chronic kidney disease with stage 1 through stage 4 chronic kidney disease, or unspecified chronic kidney disease; Z79.4 Long term (current) use of insulin
CPT/HCPCS: C1751; J0456; J0692; J1642; J2405; P9016